=== PATIENT | female | born 1960 | race Caucasian/White ===

== ENCOUNTER 2016-11-06 14:57 | Observation (INO) | payer SELFPAY ==
[~2016-11-06] VITALS: Ht 175.3 cm; Wt 102.1 kg
[~2016-11-06 14:57] MED LIST: ACHD5005 PO; AMOX500C2 PO; ASP325T PO; ATEN25TA PO; BENZ-13 PO; CITA20TA12 PO; CLOP75TA PO; CTLP20T PO; HCTZ12.5T PO; HYDR-757 PO; LISI-596 PO; LISI20TA PO; LORA0.5T PO; NITR-65 PO; PHEN200T27 PO; [UNRECOGNIZED DRUG - REMARK]; blood pressure
[2016-11-06 15:21] VITALS: BP 163/102
--- NOTE | 2016-11-06 15:33 | Diagnostic Imaging Report ---
EXAM: CT HEAD WO-R/O STROKE INDICATION: Right-sided numbness. COMPARISON: CT head without contrast 09/20/2011. FINDINGS: Moderate generalized cerebral and cerebellar parenchymal volume loss. Advanced low attenuation changes in the deep white matter, including probable chronic infarcts, similar to the prior exam. No CT evidence of a large territorial infarct. No intracranial hemorrhage, mass effect, hydrocephalus or extra-axial fluid collections. Intracranial vascular calcifications. No acute osseous findings. The visualized paranasal sinuses and mastoids are clear. Osseous structures are intact. IMPRESSION: 1. No acute intracranial CT findings. 2. Low-attenuation changes in the deep white matter of both cerebral hemispheres, including several chronic-appearing infarcts, are greater than expected for age. Findings discussed with Dr. Pratik Montalvo at 3:30 PM on 11/06/[address] Ace. Dictated by: Dictated on workstation # [id number]
[2016-11-06 15:58] LABS: BASOPHILS # (AUTO) 0.1 10^3/uL (0.0-0.1); BASOPHILS % (AUTO) 1 % (0-10); EOSINOPHILS # (AUTO) 0.1 10^3/uL (0.0-0.3); EOSINOPHILS % (AUTO) 1 % (0-10); LYMPHOCYTES # (AUTO) 2.2 X 10^3 (1.0-4.0); LYMPHOCYTES % (AUTO) 25 % (12-44); MEAN CORPUSCULAR HEMOGLOBIN 29 PG (25-34); MEAN CORPUSCULAR HGB CONC 33 G/DL (32-36); MEAN CORPUSCULAR VOLUME 88 FL (80-99); MEAN PLATELET VOLUME 10.8 FL (7.4-10.4); MONOCYTES # (AUTO) 0.5 X 10^3 (0.0-1.0); MONOCYTES % (AUTO) 6 % (0-12); NEUTROPHILS % (AUTO) 67 % (42-75); PLATELET COUNT 299 10^3/uL (130-400); RED BLOOD COUNT 5.34 10^6/uL (4.35-5.85); RED CELL DISTRIBUTION WIDTH 13.9 % (10.0-14.5); WHITE BLOOD COUNT 8.9 10^3/uL (4.3-11.0)
[2016-11-06 16:05] LABS: PROTHROMBIN TIME PATIENT 13.1 SEC (12.2-14.7)
--- NOTE | 2016-11-06 16:06 | Diagnostic Imaging Report ---
INDICATION: Stroke protocol. EXAMINATION: Portable erect AP chest at 3:21 p.m. FINDINGS: The heart size is within normal limits and stable when compared to 11/07/15. The chronic pulmonary changes seen on the prior study are again visualized and no different. There is no sign of failure, pneumonia or a pleural effusion to suggest an acute abnormality. The mediastinum is not widened. The osseous structures are intact. IMPRESSION: There is no evidence for an acute cardiopulmonary abnormality. Dictated by: Dictated on workstation # [id number]
[2016-11-06 16:12] LABS: ALANINE AMINOTRANSFERASE 11 U/L (0-55); ALBUMIN 4.2 G/DL (3.2-4.5); ANION GAP 10 MMOL/L (5-14); ASPARTATE AMINO TRANSFERASE 14 U/L (5-34); BILIRUBIN,TOTAL 0.5 MG/DL (0.1-1.0); BLOOD UREA NITROGEN 6 MG/DL (7-18); BUN/CREATININE RATIO 7; CALCIUM 9.9 MG/DL (8.5-10.1); CARBON DIOXIDE 25 MMOL/L (21-32); CHLORIDE 108 MMOL/L (98-107); CREATININE SERUM 0.92 MG/DL (0.60-1.30); GFR ESTIMATED > 60; GLUCOSE 102 MG/DL (70-105); POTASSIUM 3.9 MMOL/L (3.6-5.0); SODIUM 143 MMOL/L (135-145); TOTAL PROTEIN 7.8 G/DL (6.4-8.2)
--- NOTE | 2016-11-06 16:15 | ED Neurological Problem ---
General Chief Complaint: Neuro-Stroke Like Symptoms Stated Complaint: R SIDE NUMBNESS Nursing Triage Note: Pt. advises she began experiencing right sided upper and lower extremity weakness at approximately 1000 this morning. Pt. states symptoms have not improved since. Nursing Sepsis Screen: No Definite Risk Source: patient, family Exam Limitations: no limitations History of Present Illness Time seen by provider: 15:42 Initial Comments The patient is a 56-year-old white female who was brought to the emergency room with complaints of weakness on her right side. She suffered a stroke in 2011 and did a fair period of time on the rehabilitation unit. She has been living with her sister since that time. She reports that beginning at about 10 o' clock this morning she felt weak in both legs and was unable to stand. Apparently this is now more focused on the right side. With her previous stroke and again today there has been no apparent inability to speak. She has been hypertensive for years and today as before she states she has not been taking her antihypertensives. Timing/Duration: 4-6 hours Associated Symptoms: trouble walking Allergies and Home Medications Allergies Coded Allergies: No Known Drug Allergies (Unverified , 06/21/14) Home Medications Benzonatate 100 Mg Capsule, 100 MG PO BID, #20 Prescribed by: LY DUBOIS on 11/07/15 1542 Citalopram Hydrobromide 20 Mg Tablet, 20 MG PO DAILY, (Reported) [blood pressure] , (Reported) [insomnia] , (Reported) Constitutional: see HPI, weakness Eyes: No Symptoms Reported Ears, Nose, Mouth, Throat: no symptoms reported Respiratory: no symptoms reported Cardiovascular: no symptoms reported Gastrointestinal: no symptoms reported Genitourinary: no symptoms reported Musculoskeletal: muscle weakness Skin: no symptoms reported Psychiatric/Neurological: Depressed Endocrine: No Symptoms Reported Hematologic/Lymphatic: No Symptoms Reported Past Ouarvdh-Pemrke-Lceuwh Hx Patient Social History Alcohol Use: Denies Use Recreational Drug Use: No Smoking Status: Former Smoker Type Used: Cigarettes 2nd Hand Smoke Exposure: No Recent Foreign Travel: No Contact w/Someone Who Travel: No Recent Infectious Disease Expo: No Recent Hopitalizations: No Immunizations Up To Date Tetanus Booster (TDap): Less than 5yrs Date of Influenza Vaccine: Mar 11, 2014 Seasonal Allergies Seasonal Allergies: Yes Surgeries HX Surgeries: Yes Surgeries: Orthopedic Respiratory Hx Respiratory Disorders: No Cardiovascular Hx Cardiac Disorders: No Cardiac Disorders: Hypertension Neurological Hx Neurological Disorders: Yes Neurological Disorders: Stroke Reproductive System : No Hx Reproductive Disorders: No NOTE SPECIALIST History: Hysterectomy Genitourinary Hx Genitourinary Disorders: No (occasional incontinence) Gastrointestinal Hx Gastrointestinal Disorders: No (occasional incontinence) Musculoskeletal Hx Musculoskeletal Disorders: Yes (CVA, occasional leg cramps) Endocrine Hx Endocrine Disorders: No HEENT HX ENT Disorders: No Cancer Hx Cancer: No Psychosocial Hx Psychiatric Problems: Yes Behavioral Health Disorders: Depression Integumentary HX Skin/Integumentary Disorder: No Blood Transfusions Hx Blood Disorders: No Physical Exam Vital Signs Vital Sign - Last 12Hours 11/06/16 15:21 Temp 98.4 Pulse 85 Resp 14 B/P (MAP) 163/102 Pulse Ox 98 O2 Delivery Room Air Capillary Refill : Less Than 3 Seconds General Appearance: mild distress HEENT: PERRL/EOMI, normal ENT inspection Neck: full range of motion Respiratory: chest non-tender, lungs clear, normal breath sounds, no respiratory distress, no accessory muscle use, respiratory distress Cardiovascular: normal peripheral pulses, regular rate, rhythm, no edema, no gallop, no JVD, no murmur Gastrointestinal: normal bowel sounds, non tender, soft, no organomegaly, no pulsatile mass Back: normal inspection, no CVA tenderness, no vertebral tenderness Extremities: normal range of motion, non-tender, normal inspection, no pedal edema, no calf tenderness, normal capillary refill, pelvis stable Neurologic/Psychiatric: 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 Alternating finger to thumb movements are minimally exhibited on the right. Straight leg lift appears equal bilaterally Stroke NIH Stroke Scale Assessment Level of Consciousness: 0=Alert Level of Consciousness-Questio: 0=Answers both month/age LOC Commands: 1=Performs one task Gaze: 0=Normal Visual Sampson: 0=No visual loss Facial Movement (Facial Paresi: 0=Normal symmetrical mnt Motor Function-Arms Right: 0=No drift Motor Function-Arms Left: 0=No drift Motor Function-Legs Right: 1=Drift Motor Function-Legs Left: 0=No drift Limb Ataxia: 1=Present in one limb Sensory: 0=Normal:no loss Best Language: 0=No aphasia Dysarthria: 1=Mild to moderate loss Extinction & Inattention: 0=No abnormality Progress/Results/Core Measures Results/Orders Lab Results Laboratory Tests Test 11/06/16 15:05 Range/Units White Blood Count 8.9 4.3-11.0 10^3/uL Red Blood Count 5.34 4.35-5.85 10^6/uL Hemoglobin 15.4 11.5-16.0 G/DL Hematocrit 47 35-52 % Mean Corpuscular Volume 88 80-99 FL Mean Corpuscular Hemoglobin 29 25-34 PG Mean Corpuscular Hemoglobin Concent 33 32-36 G/DL Red Cell Distribution Width 13.9 10.0-14.5 % Platelet Count 299 130-400 10^3/uL Mean Platelet Volume 10.8 H 7.4-10.4 FL Neutrophils (%) (Auto) 67 42-75 % Lymphocytes (%) (Auto) 25 12-44 % Monocytes (%) (Auto) 6 0-12 % Eosinophils (%) (Auto) 1 0-10 % Basophils (%) (Auto) 1 0-10 % Neutrophils # (Auto) 6.0 1.8-7.8 X 10^3 Lymphocytes # (Auto) 2.2 1.0-4.0 X 10^3 Monocytes # (Auto) 0.5 0.0-1.0 X 10^3 Eosinophils # (Auto) 0.1 0.0-0.3 10^3/uL Basophils # (Auto) 0.1 0.0-0.1 10^3/uL My Orders Orders - LY DUBOIS MD Ct Head Wo-R/O Stroke (11/06/16 15:07) Chest 1 View, Ap/Pa Only (11/06/16 15:48) Cbc With Automated Diff (11/06/16 15:50) Comprehensive Metabolic Panel (11/06/16 15:50) Protime With Inr (11/06/16 15:50) Partial Thromboplastin Time (11/06/16 15:50) Ua Culture If Indicated (11/06/16 15:50) Vital Signs/I&O Vital Sign - Last 12Hours 11/06/16 11/06/16 15:21 15:21 Temp 98.4 Pulse 85 86 Resp 14 14 B/P (MAP) 163/102 163/102 Pulse Ox 98 98 O2 Delivery Room Air Blood Pressure Mean: 122 Departure Communication Progress Notes Phoned report on CT scan shows rather remarkable old abnormalities in the nonmotor areas. No acute changes were noted. [address] Claros who is on-call for Dr. Krishnamurthy the patient will be admitted for observation. Impression Impression: Primary Impression: CVA Additional Impression: hypertension Disposition: ADMITTED INPATIENT Condition: Stable/Unchanged Decision to Admit Reason: Admit from ER (General) Decision to Admit/Date: Nov 06, 2016 Time/Decision to Admit Time: 16:18 Departure-Patient Inst. Referrals: MOSHE KRISHNAMURTHY DO (PCP) Primary Care Physician [facility] (Family) Primary Care Physician LY DUBOIS MD Nov 06, 2016 16:15
[2016-11-06 16:17] LABS: BILIRUBIN,URINE NEGATIVE (NEGATIVE); KETONES,URINE NEGATIVE (NEGATIVE); LEUKOCYTE ESTERASE ,URINE 3+ (NEGATIVE); NITRITE,URINE NEGATIVE (NEGATIVE); PH,URINE 5 (5-9); PROTEIN,URINE 1+ (NEGATIVE); UROBILINOGEN,URINE NORMAL (NORMAL)
[2016-11-06 20:00] VITALS: BP 138/82
[2016-11-06] MEDS: CLOPIDOGREL 75 MG (PLAVIX) TABLET PO SCH (21:40)
[2016-11-06] MEDS: ASPIRIN 81 MG CHEW (CHILDREN'S ASA) PO SCH (21:40)
[2016-11-06] MEDS: NS IV 1000 ML 1,000 ML IV SCH (21:40)
[2016-11-07] VITALS: BP 148/82
[2016-11-07 04:00] VITALS: BP 146/85
[2016-11-07 05:14] LABS: ALANINE AMINOTRANSFERASE 9 U/L (0-55); ALBUMIN 3.5 G/DL (3.2-4.5); ANION GAP 8 MMOL/L (5-14); ASPARTATE AMINO TRANSFERASE 14 U/L (5-34); BILIRUBIN,TOTAL 0.6 MG/DL (0.1-1.0); BLOOD UREA NITROGEN 11 MG/DL (7-18); BUN/CREATININE RATIO 13; CALCIUM 9.4 MG/DL (8.5-10.1); CARBON DIOXIDE 27 MMOL/L (21-32); CHLORIDE 107 MMOL/L (98-107); CHOLESTEROL 161 MG/DL (< 200); CREATININE SERUM 0.84 MG/DL (0.60-1.30); DIRECT LDL 92 MG/DL (1-129); GFR ESTIMATED > 60; GLUCOSE 98 MG/DL (70-105); POTASSIUM 3.9 MMOL/L (3.6-5.0); SODIUM 142 MMOL/L (135-145); TOTAL PROTEIN 6.6 G/DL (6.4-8.2); TRIGLYCERIDES 130 MG/DL (<150); VLDL CHOLESTEROL 26 MG/DL (5-40)
[2016-11-07 08:00] VITALS: BP 124/79
[2016-11-07] MEDS: CLOPIDOGREL 75 MG (PLAVIX) TABLET PO SCH (08:10)
[2016-11-07] MEDS: ASPIRIN 81 MG CHEW (CHILDREN'S ASA) PO SCH (08:10)
--- NOTE | 2016-11-07 10:40 | History & Physicial ---
History of Present Illness History of Present Illness Reason for visit/HPI PT IS A 56 Y/O FEMALE WHO IS A CLINIC PATIENT OF DR. KRISHNAMURTHY FOR WHOM I AM [employer]LLY P[employer]ER. SHE REPORTEDLY HAS NOT BEEN TAKING HER ANTIHYPERTENSIVES FOR A FEW MONTHS. SHE STATES THAT SHE WAS UNABLE TO AFFORD THE MEDICATION AND JUST STOPPED TAKING THE MEDICATION. SHE STATES THAT SHE STARTED TO HAVE WORSENING WEAKNESS IN HER UPPER ARMS BILATERALLY. SHE PRESENTED TO THE EMERGENCY DEPARTMENT WITH THE WORSENING WEAKNESS A FEW DAYS AFTER THE WEAKNESS BEGAN. BY THE TIME SHE WAS IN THE EMERGENCY DEPARTMENT AND AFTER IV ANTIHYPERTENSIVE TREATMENT HER UPPER EXTREMITY WEAKNESS RESOLVED ON THE LEFT AND IMPROVED ON THE RIGHT. THIS MORNING, THE PATIENT COMPLAINS OF WEAKNESS OF THE RIGHT UPPER EXTREMITY. NURSING STAFF REPORTS THAT THE PATIENT WAS QUITE GROSSLY UNKEMPT, BUGS IN HER CLOTHES. Date of Admission Nov 06, 2016 at 16:26 I consulted on this patient on 11/07/16 08:30 Attending Physician Ismael Krishnamurthy DO Admitting Physician Ismael Krishnamurthy DO Consult Allergies and Home Medications Allergies Coded Allergies: No Known Drug Allergies (Unverified , 06/21/14) Home Medications Benzonatate 100 Mg Capsule, 100 MG PO BID, #20 Prescribed by: LY DUBOIS on 11/07/15 1542 Citalopram Hydrobromide 20 Mg Tablet, 20 MG PO DAILY, (Reported) [blood pressure] , (Reported) [insomnia] , (Reported) Past Sxcsbwx-Mfpzur-Owxdbr Hx Patient Social History Living Status: LIVES IN HER OWN HOME Alcohol Use: Denies Use Recreational Drug Use: No Smoking Status: Former Smoker Type Used: Cigarettes 2nd Hand Smoke Exposure: No Physical Abuse Screen: No Sexual Abuse: No Recent Foreign Travel: No Contact w/other who traveled: No Recent Hopitalizations: No Recent Infectious Disease Expo: No Immunizations Up To Date Tetanus Booster (TDap): Less than 5yrs Date of Pneumonia Vaccine: Nov 18, 2015 Date of Influenza Vaccine: Mar 11, 2014 Seasonal Allergies Seasonal Allergies: Yes Surgeries HX Surgeries: Yes Surgeries: Orthopedic Respiratory Hx Respiratory Disorders: No Cardiovascular Hx Cardiovascular Disorders: Yes Cardiac Disorders: Hypertension Neurological Hx Neurological Disorders: Yes Neurological Disorders: Stroke Reproductive System : No Hx Reproductive Disorders: No Sexually Transmitted Disease: No HIV/AIDS: No Female Reproductive Disorders: Denies Genitourinary Hx Genitourinary Disorders: No (occasional incontinence) Gastrointestinal Hx Gastrointestinal Disorders: No (occasional incontinence) Musculoskeletal Hx Musculoskeletal Disorders: Yes (CVA, occasional leg cramps) Endocrine Hx Endocrine Disorders: No HEENT HX ENT Disorders: No Cancer Hx Cancer: No Psychosocial Hx Psychiatric Problems: Yes Behavioral Health Disorders: Depression Integumentary HX Skin/Integumentary Disorder: No Blood Transfusions Hx Blood Disorders: No Adverse Reaction to a Blood Tr: No Reviewed Nursing Assessment Reviewed/Agree w Nursing PMH: Yes Family Medical History Significant Family History: Heart Disease, Hypertension Constitutional: No chills, No dizziness, No fever, No malaise EENTM: No hearing loss, No vision loss Respiratory: No cough, No dyspnea on exertion, No short of breath Cardiovascular: No chest pain, No palpitations Gastrointestinal: No abdominal pain, No constipation Genitourinary: no symptoms reported Musculoskeletal: muscle weakness (RIGHT UPPER EXTREMITY) Skin: no symptoms reported Psychiatric/Neurological: Anxiety, Depressed All Other Systems Reviewed Negative Unless Noted: Yes Physical Exam Vital Signs Vital Sign - Last 12Hours 11/06/16 15:21 Temp 98.4 Pulse 85 Resp 14 B/P (MAP) 163/102 Pulse Ox 98 O2 Delivery Room Air Capillary Refill : Less Than 3 Seconds General Appearance: No Apparent Distress, WD/WN Eyes: Bilateral Eye EOMI, Bilateral Eye Normal Inspection, Bilateral Eye PERRL HEENT: PERRL/EOMI, Pharynx Normal Neck: Full Range of Motion, Supple Respiratory: Chest Non Tender, Lungs Clear Cardiovascular: Regular Rate, Rhythm Gastrointestinal: Normal Bowel Sounds, No Organomegaly, Soft Rectal: Deferred Extremity: No Pedal Edema Neurologic/Psychiatric: Alert, Oriented x3, Normal Mood/Affect, Motor Weakness (RIGHT UPPER EXTREMITY FLACID) Reflexes: 1+ Bicep (R), 3+ Bicep (L) Skin: Warm/Dry Lymphatic: No Adenopathy Assessment/Plan Assessment and Plan HYPERTENSIVE ENCEPHALOPATHY HX OF CVA WITH RIGHT UPPER EXTREMITY PARALYSIS DEPRESSION MEDICATION NONCOMPLIANCE URINARY TRACT INFECTION HYPERTENSIVE ENCEPHALOPATHY - PT HAS BEEN NONCOMPLIANT WITH HER MEDICATION - I RESTARTED THE MEDICATION - I STARTED HER ON METOPROLOL, LIPITOR, CAROTID ULTRASOUND WAS ORDERED, MRI WAS ORDERED, MONITOR BLOOD PRESSURE CLOSELY. I HAVE RECOMMENDED PATIENT TO HAVE A PHYSICAL THERAPY EVALUATION AND TREATMENT AND WILL ALSO PLACE AN IRF EVAL. HX OF CVA WITH RIGHT UPPER EXTREMITY PARALYSIS - - START ON PLAVIX, ASPIRIN, LIPITOR. DEPRESSION - START ON CELEXA. URINARY TRACT INFECTION - STARTED ON ROCEPHIN. Problems: Admission Diagnosis HYPERTENSIVE ENCEPHALOPATHY HX OF CVA WITH RIGHT UPPER EXTREMITY PARALYSIS DEPRESSION MEDICATION NONCOMPLIANCE URINARY TRACT INFECTION Clinical Quality Measures DVT/VTE Risk/Contraindication: Risk Factor Score Per Nursin RFS Level Per Nursing on Admit: 4+=Very High Stroke: Date of last known well: Nov 06, 2016 PHILIP SALINAS MD Nov 07, 2016 10:40
[2016-11-07] MEDS: ENOXAPARIN 40 MG/0.4 ML (LOVENOX) SYR SC SCH (11:09)
[2016-11-07] MEDS: cefTRIAXone INJECTION 1,000 MG in NS (IVPB) 50 ML IV SCH (11:09)
[2016-11-07 12:00] VITALS: BP 149/96
[2016-11-07 15:57] VITALS: BP 136/86
[2016-11-07] MEDS: NS IV 1000 ML 1,000 ML IV SCH ×2 (17:38→18:04)
[2016-11-07 19:52] VITALS: BP 166/80
[2016-11-07] MEDS: ATORVASTATIN 20 MG (LIPITOR) TABLET PO SCH (21:29)
[2016-11-08] VITALS: BP_SYST 122; BP_SYST 146; BP_DIAS 85
--- NOTE | 2016-11-08 07:42 | Progress Note (SOAP) ---
Subjective Date Seen by Provider: Nov 08, 2016 Time Seen by Provider: 07:30 Subjective/Events-last exam CVA on right. Expressive aphasia. Hypertension. noncompliance with medication. Patient speaking better according . Patient unable to move the right arm. Patient unable to stand and right leg. To get social service agency director involved. To get rehabilitation involved. Have an MRI and carotid duplex scan today Objective Exam Vital Signs Date Time Temp Pulse Resp B/P (MAP) Pulse Ox O2 Delivery O2 Flow Rate FiO2 11/08/16 00:00 97.5 76 20 146/85 96 11/08/16 00:00 97.5 112 18 122/85 94 11/07/16 19:52 97.8 70 18 166/80 95 11/07/16 15:57 98.6 77 18 136/86 94 11/07/16 12:00 98.7 68 20 149/96 96 11/07/16 08:00 94 11/07/16 08:00 98.9 75 16 124/79 94 I & O 11/08/16 07:00 Intake Total 2770 ml Output Total 3800 ml Balance -1030 ml Capillary Refill : Less Than 3 Seconds General Appearance: No Apparent Distress HEENT: Normal ENT Inspection Neck: Full Range of Motion, Normal Inspection Respiratory: Chest Non Tender, Lungs Clear, Normal Breath Sounds, No Accessory Muscle Use, No Respiratory Distress Cardiovascular: Regular Rate, Rhythm, No Murmur Gastrointestinal: non tender, soft Results Lab Microbiology 11/06/16 Urine Culture - Preliminary, Resulted Assessment/Plan Assessment/Plan Assess & Plan/Chief Complaint CVA in right. Expressive aphasia. Hypertension. Noncompliance with medication Clinical Quality Measures DVT/VTE Risk/Contraindication: Risk Factor Score Per Nursin RFS Level Per Nursing on Admit: 4+=Very High Stroke: Date of last known well: Nov 06, 2016 MOSHE KRISHNAMURTHY DO Nov 08, 2016 07:42
[2016-11-08 08:00] VITALS: BP 154/89
[2016-11-08] MEDS ORDERED: GADOBUTROL 10 MMOL/10 ML (GADAVIST) VIAL IV ONE (08:15)
--- NOTE | 2016-11-08 09:47 | Physical Therapy Evaluation ---
PT Evaluation-General Medical Diagnosis Admission Date Nov 06, 2016 at 16:26 Medical Diagnosis: UTI/CVA/hypertensive encephalopathy Onset Date: Nov 06, 2016 Therapy Diagnosis Therapy Diagnosis: generalized weakness/debility Height/Weight Height (Feet): 5 Height (Inches): 9.00 Weight (Pounds): 225 Weight (Ounces): 0.0 Precautions Precautions/Isolations: Fall Prevention, Standard Precautions Referral Physician: Hyacinth Reason for Referral: Evaluation/Treatment Medical History Pertinent Medical History: CVA (2011), HTN Additional Medical History stopped taking antihypertensive drugs for several months Current History ED with right sided weakness/numbness Reviewed History: Yes Social History Home: Single Level Current Living Status: Alone Prior/Core FIM Prior Level of Function Functional [place] Measure 0=Not Assessed/NA 4=Minimal Assistance 1=Total Assistance 5=Supervision or Setup 2=Maximal Assistance 6=Modified [place] 3=Moderate Assistance 7=Complete [place] Bed Mobility: 7 Transfers (B,C,W/C) (FIM): 7 Gait: 7 PT Evaluation-Current Subjective Patient is very agreeable to participate with PT. Pain Numeric Pain Scale: 0-No Pain Location: No Pain Reported Pt/Family Goals improve current LOF Objective Patient Orientation: Normal For Age Problem Solving: Fair ROM/Strength ROM Lower Extremities bilateral LE WFL Strenght Lower Extremities right knee flexion 2-/5/extension 3-/5; hip flexion 2-/5; ankle dorsi/ plantarflexion 3-/5 left knee flexion/extension 4/5; hip flexion 4/5; ankle dorsi/plantarflexion 4/5 Integumentary/Posture Integumentary refer to nursing notes Bowel Incontinence: No Bladder Incontinence: No Posture WNL Neuromuscular (Tone, Coordination, Reflexes) flaccid right UE; decreased coordination right LE Sensory Vision: Wears Glasses Hearing: Functional Sensation Right Lower Extremit: Impaired Sensation Left Lower Extremity: Intact Transfers Functional [place] Measure 0=Not Assessed/NA 4=Minimal Assistance 1=Total Assistance 5=Supervision or Setup 2=Maximal Assistance 6=Modified [place] 3=Moderate Assistance 7=Complete [place] Transfers (B, C, W/C) (FIM): 4 Scootin Rollin Supine to/from Sit: 4 Sit to/from Stand: 4 bed t/f WC(FIM only if WC use): 4 noted right LE lag with mobility due to weakness Gait Mode of Locomotion: Walk Anticipated Mode of Locomotion: Walk Gait (FIM): 1 Distance (FIM): 1=up to 49 ft Distance: 45' x 2 Gait Level of Assist: 3 Gait Persons Needed: 1 Gait Assistive Device: Walker Je Comments/Gait Description step to gait sequence with right LE lag; skilled verbal instruction to advance right LE safely Balance Sitting Static: Normal Sitting Dynamic: Fair Standing Static: Fair Standing Dynamic: Poor Assessment/Needs 56 y.o. female, will benefit from skilled PT to address functional strength and mobility to improve current LOF and to safely return to maximum LOF. Patient is limited with right sided weakness and is unsafe to return to home at this time. From a PT standpoint, patient would benefit from ARU to ensure safe return to maximum LOF and to home. Rehab Potential: Fair Post Rehab Potential-Barriers: medication compliance PT Mcfp Goals Pmo Analyst Goals PT Mcfp Goals Time Frame: Nov 22, 2016 Transfers (B,C,W/C) (FIM): 6 Gait (FIM): 6 Gait distance (FIM): 3=150 ft Gait Level of Assist: 6 Gait Assistive Device: Walker Je Stairs (FIM): 5 # of Steps: 12 Stairs Level Of Assist: 5 PT Plan Problem List Problem List: Activity Tolerance, Functional Strength, Safety, Transfer Treatment/Plan Treatment Plan: Continue Plan of Care Treatment Plan: Bed Mobility, Education, Functional Activity Nash, Functional Strength, Gait, Safety, Therapeutic Exercise, Transfers Treatment Duration: Nov 22, 2016 # of days/week 6 Visits Per Week: 11 Pt/Family Agrees w/Plan: Yes Safety Risks/Education Patient Education: Gait Training, Transfer Techniques Teaching Recipient: Patient Teaching Methods: Demonstration, Discussion Response to Teaching: Verbalize Understanding, Return Demonstration Discharge Recommendations Therapy D/C Recommendations: Acute Rehab Time/GCodes Time In: 900 Time Out: 922 Total Billed Treatment Time: 22 [facility] Nov 08, 2016 09:47
--- NOTE | 2016-11-08 10:15 | Diagnostic Imaging Report ---
EXAMINATION: Multiplanar and multisequence MRI of the brain and IAC performed with and without intravenous contrast. INDICATION: Right-sided numbness 10 mL of Gadavist was administered intravenously. FINDINGS: There is diffusion restriction suggestive of an acute infarct in the left periventricular white matter in the left parietal region. The area involved is about 1.6 x 1.2 cm in size. This is superimposed on extensive background chronic microvascular ischemic changes with background extensive T2 signal abnormality. The chronic versus acute components are inseparable on the T2-weighted images and on FLAIR. The diffusion signal however confirms that this is an acute infarct. There is no abnormal enhancement to suggest a mass. No enhancing lesion in the brain is seen. There is no hydrocephalus. No extra-axial fluid collections seen. Thin sections through the internal auditory canal is performed. This however suffers from significant motion artifact. There is symmetric appearance of the internal auditory canals and inner ear structures and cerebellopontine angle region with no definite abnormality. The central vascular flow-voids appear symmetric. There are multiple skin and subcutaneous based lesions with no postcontrast enhancement seen and circumscribed margins noted in the scalp more prominent posteriorly. The lesions measure up to 1.6 CM. They are confined to the subcutaneous tissues with no aggressive appearance of invasion into the skull. These are present on the skin-based abnormalities such as sebaceous cysts. The paranasal sinuses demonstrate mild thickening in the maxillary sinuses and ethmoidal air cells. There is also prominent thickening of the mucosa along the inferior turbinates on the left side. Impression: 1. Focal acute infarct in the left the periventricular white matter in the left parietal region involving an area measuring 1.6 cm. 2. Background extensive chronic microvascular ischemic changes. Dr. Iraheta was called to discuss findings at time of dictation. Dictated by: Dictated on workstation # [id number]
[2016-11-08] MEDS: ENOXAPARIN 40 MG/0.4 ML (LOVENOX) SYR SC SCH (10:19)
[2016-11-08] MEDS: CLOPIDOGREL 75 MG (PLAVIX) TABLET PO SCH (10:20)
[2016-11-08] MEDS: ASPIRIN 81 MG CHEW (CHILDREN'S ASA) PO SCH (10:20)
[2016-11-08] MEDS: cefTRIAXone INJECTION 1,000 MG in NS (IVPB) 50 ML IV SCH (10:20)
[2016-11-08] MEDS ORDERED: AMLO5TAB2 PO (12:30)
[2016-11-08] MEDS ORDERED: CITA40TA11 PO (12:30)
[2016-11-08] MEDS ORDERED: LISI10TA2 PO (12:30)
[2016-11-08] MEDS ORDERED: METO-272 PO (12:30)
--- NOTE | 2016-11-08 13:34 | Diagnostic Imaging Report ---
INDICATION: Stroke with right upper extremity weakness. TECHNIQUE: The carotid Doppler study was performed in the routine fashion with color flow Doppler and waveform analysis. FINDINGS: There is no significant stenosis visualized on either side. There is minor plaquing in the carotid bifurcation on both sides. The ICA/CCA systolic velocity ratio is 0.94 on the right side and 0.86 on the left side. Both vertebrals show antegrade flow. IMPRESSION: Minimal plaquing in the carotid bifurcations with no significant stenosis hemodynamically. Dictated by: Dictated on workstation # [id number]
--- NOTE | 2016-11-08 13:36 | Physical Therapy Daily Note ---
PT Daily Note-Current Subjective Patient is supine in bed eating breadsticks. Pain Numeric Pain Scale: 0-No Pain Location: No Pain Reported Mental Status Patient Orientation: Normal For Age Attachments: IV Transfers Functional [place] Measure 0=Not Assessed/NA 4=Minimal Assistance 1=Total Assistance 5=Supervision or Setup 2=Maximal Assistance 6=Modified [place] 3=Moderate Assistance 7=Complete IndependenceIRFPAI Quality Coding Scale 6 Independent with activity with or without an assistive device 5 Patient requires set up or clean up by helper. Patient completes activity by themselves 4 Supervision or touching assist (CGA). [place] provide cues , steadying assist 3 The helper provides less than half the effort to complete the activity 2 The helper provides more than half the effort to complete the activity 1 Dependent. The helper does all the effort to complete an activity 7 Patient refused to complete or attempt activity 9 The patient did not perform the activity before the current illness or injury 88 Not attempted due to Medical conditions or safety concerns Transfers (B, C, W/C) (FIM): 4 Scootin Rollin Supine to/from Sit: 5 Sit to/from Stand: 4 Bed to/from Chair: 4 Exercises Supine Ex: Ankle pumps, Quad Set, Heel Slides Supine Reps: 10 Seated Therapy Exercises: Ankle pumps, Long arc quads Seated Reps: 10 Assessment Patient is up in recliner with needs met. Patient is impulsive and requires redirection to remain on task and for safety awareness. PT Products Mechanical Design Engineer Goals Products Mechanical Design Engineer Goals PT Half-Way Goals Time Frame: Nov 22, 2016 Transfers (B,C,W/C) (FIM): 6 Gait (FIM): 6 Gait distance (FIM): 3=150 ft Gait Level of Assist: 6 Gait Assistive Device: Walker Je Stairs (FIM): 5 # of Steps: 12 Stairs Level Of Assist: 5 PT Plan Treatment/Plan Treatment Plan: Continue Plan of Care Treatment Plan: Bed Mobility, Education, Functional Activity Nash, Functional Strength, Gait, Safety, Therapeutic Exercise, Transfers Treatment Duration: Nov 22, 2016 Visits Per Week: 11 Time/GCodes Time In: 1316 Time Out: 1331 Total Billed Treatment Time: 15 Total Billed Treatment 1 visit FA 15 min CL CANALES PT Nov 08, 2016 13:36
--- NOTE | 2016-11-08 14:25 | Occupational Therapy Eval ---
OT Evaluation-General/PLF Medical Diagnosis Admission Date Nov 06, 2016 at 16:26 Medical Diagnosis: UTI/CVA/hypertensive encephalopathy Onset Date: Nov 06, 2016 Therapy Diagnosis Therapy Diagnosis: Decreased ADL skills Height/Weight Height (Feet): 5 Height (Inches): 9.00 Weight (Pounds): 225 Weight (Ounces): 0.0 Precautions Precautions/Isolations: Fall Prevention, Standard Precautions Safety Interventions: None Referral Physician: Hyacinth Referral Reason: Activity Tolerance, Self Care, Evaluation/Treatment, Strengthening/ROM Medical History Pertinent Medical History: CVA, HTN Additional Medical History medication- noncompliance, depression Current History Pt. is living with her sister in [place]. Sister helps her with cooking, cleaning , and bathing and dressing when she needs it. Pt. is unable to elaborate on this, and is somewhat of a poor historian. Reviewed History: Yes Social History Home: Single Level Current Living Status: Other Family ADL-Prior Level of Function ADL PLOF Comments Please see above DME/Equipment: Tub/Shower DME/Equipment Comments Pt. states that she does not use or have any equipment at home. Drive Self: No OT Current Status Subjective Pt. does not report pain, but does report depression. Does cry throughout session at times. Appearance Pt. is up in chair. Agrees to work with OT. Mental Status/Objective Patient Orientation: Person, Place Current Glasses/Contacts: Yes Hand Dominance: Right Upper Extremity ROM Right UE- flaccid Left UE- WFL Upper Extremity Coordination Right- impaired Upper Extremity Strength Right- 0/5 Left- 3/5 throughout ADL-Treatment Functional [place] Measure 0=Not Assessed/NA 4=Minimal Assistance 1=Total Assistance 5=Supervision or Setup 2=Maximal Assistance 6=Modified [place] 3=Moderate Assistance 7=Complete IndependenceIRFPAI Quality Coding Scale 6 Independent with activity with or without an assistive device 5 Patient requires set up or clean up by helper. Patient completes activity by themselves 4 Supervision or touching assist (CGA). [place] provide cues , steadying assist 3 The helper provides less than half the effort to complete the activity 2 The helper provides more than half the effort to complete the activity 1 Dependent. The helper does all the effort to complete an activity 7 Patient refused to complete or attempt activity 9 The patient did not perform the activity before the current illness or injury 88 Not attempted due to Medical conditions or safety concerns Eating (FIM): 4 (Pt. has difficulty keeping items on fork and scooping food. Is upset about this.) Grooming (FIM): 3 (Pt. is able to brush left side of head, but is unaware of right side of head. OT finishes brushing hair for her.) Bathing (FIM): 4 (CGA in stance to wash all areas.) Lower Body Dressing (FIM): 3 (Pt. is able to doff socks, but is unable to put them on. No street clothing available.) Transfers (B, C, W/C) (FIM): 4 (Min assist with gurvinder cane.) Shower Transfer (FIM): 4 Other Treatments Note that pt. is somewhat unkempt in appearance. Will need toenails and fingernails trimmed at later date. Pt. declines oral care. Education OT Patient Education: Correct positioning, Modified ADL techniques, Progress toward Goal/Update tx plan, Purpose of tx/functional activities, Reviewed precautions, Rehab process, Transfer techniques Teaching Recipient: Patient Teaching Methods: Demonstration, Discussion Response to Teaching: Verbalize Understanding, Return Demonstration OT Short Term Goals Short Term Goals Time Frame: Nov 15, 2016 Eating(FIM): 5 Grooming(FIM): 5 Bathing(FIM): 5 Upper Body Dressing(FIM): 5 Lower Body Dressing(FIM): 4 Toileting(FIM): 4 Transfers (B,C,W/C) (FIM): 5 Toilet/Commode Transfer(FIM): 5 Shower Transfer(FIM): 5 Additional Short Term Goals: 1-Demonstrate ADL Tasks, 2-Verbalize Understanding , 3-ImproveStrength/Nash 1=Demonstrate adherence to instructed precautions during ADL tasks. 2=Patient will verbalize/demonstrate understanding of assistive devices/ modifications for ADL. 3=Patient will improve strength/tolerance for activity to enable patient to perform ADL's. OT Bronze Chaser Goals [facility] Goals Time Frame: Nov 29, 2016 Eating (FIM): 6 Grooming(FIM): 6 Bathing(FIM): 5 Upper Body Dressing(FIM): 6 Lower Body Dressing(FIM): 6 Toileting(FIM): 6 Transfers (B,C,W/C) (FIM): 6 Toilet/Commode Transfer(FIM): 6 Shower Transfer(FIM): 5 Additional Goals: 1-Demonstrate ADL Tasks, 2-Verbalize Understanding, 3- ImproveStrength/Nash 1=Demonstrate adherence to instructed precautions during ADL tasks. 2=Patient will verbalize/demonstrate understanding of assistive devices/ modifications for ADL. 3=Patient will improve strength/tolerance for activity to enable patient to perform ADL's. OT Education/Plan Problem List/Assessment Assessment: Decreased Activ Tolerance, Decreased Safety Aware, Decreased UE Strength, Dependent Transfers, Impaired Bed Mobility, Impaired Cognition, Impaired Coordination, Impaired Funct Balance, Impaired I ADL's, Impaired Self- Care Skills, Restricted Funct UE ROM, Visual-Perceptual Deficit Pt. seems to demonstrate right sided neglect. Discharge Recommendations Plan/Recommendations: Continue POC Therapy D/C Recommendations: Acute Rehab Equpiment Recommendations-D/C: Extended Bath Bench, Hip Kit Comment Pt. will need gurvinder cane and maybe a wheelchair. Target Placement Pt. would benefit from acute rehab setting. Treatment Plan/Plan of Care Treatment,Training & Education: Yes Patient would benefit from OT for education, treatment and training to promote independence in ADL's, mobility, safety and/or upper extremity function for ADL' s. Plan of Care: ADL Retraining, Cognitive Retraining, Functional Mobility, UE Funct Exercise/Act Treatment Duration: Nov 29, 2016 Visits Per Week: 5-6 Agreement: Yes Rehab Potential: Fair Time/GCodes Start Time: 09:20 Stop Time: 09:50 Total Time Billed (hr/min): 30 Billed Treatment Time 1, EVM x 15minutes, ADL x 15minutes selfcur-CL selfgoal-CI JOEL MCDOWELL OT Nov 08, 2016 14:25
--- NOTE | 2016-11-08 14:38 | Occupational Ther Daily Note ---
OT Current Status-Daily Note Subjective Nursing calls to rehab and states that pt. has been crying because of difficulty feeding self. Appearance Pt. up in chair. Eating her meal on her tray with little difficulty. Nursing states that pt. had increased difficulty earlier with her ice cream. Mental Status/Objective Functional [place] Measure 0=Not Assessed/NA 4=Minimal Assistance 1=Total Assistance 5=Supervision or Setup 2=Maximal Assistance 6=Modified [place] 3=Moderate Assistance 7=Complete [place] Other Treatment Pt. is issued dycem mat and plate guard to assist with feeding, and increase overall independence. OT places guard on plate to assist with scooping, and dycem under plate to keep plate in place. Pt. is educated on this, as well as nurse and nurse tech. All verbalize understanding. Pt. demonstrates ability to feed self with plate guard, using only left hand. Education Teaching Recipient: Patient Teaching Methods: Demonstration, Discussion Response to Teaching: Verbalize Understanding, Return Demonstration OT Short Term Goals Short Term Goals Time Frame: Nov 15, 2016 Eating(FIM): 5 Grooming(FIM): 5 Bathing(FIM): 5 Upper Body Dressing(FIM): 5 Lower Body Dressing(FIM): 4 Toileting(FIM): 4 Transfers (B,C,W/C) (FIM): 5 Toilet/Commode Transfer(FIM): 5 Shower Transfer(FIM): 5 Additional Short Term Goals: 1-Demonstrate ADL Tasks, 2-Verbalize Understanding , 3-ImproveStrength/Nash 1=Demonstrate adherence to instructed precautions during ADL tasks. 2=Patient will verbalize/demonstrate understanding of assistive devices/ modifications for ADL. 3=Patient will improve strength/tolerance for activity to enable patient to perform ADL's. OT Dielectric Tester Goals [facility] Goals Time Frame: Nov 29, 2016 Eating (FIM): 6 Grooming(FIM): 6 Bathing(FIM): 5 Upper Body Dressing(FIM): 6 Lower Body Dressing(FIM): 6 Toileting(FIM): 6 Transfers (B,C,W/C) (FIM): 6 Toilet/Commode Transfer(FIM): 6 Shower Transfer(FIM): 5 Additional Goals: 1-Demonstrate ADL Tasks, 2-Verbalize Understanding, 3- ImproveStrength/Nash 1=Demonstrate adherence to instructed precautions during ADL tasks. 2=Patient will verbalize/demonstrate understanding of assistive devices/ modifications for ADL. 3=Patient will improve strength/tolerance for activity to enable patient to perform ADL's. OT Education/Plan Problem List/Assessment Assessment: Decreased Activ Tolerance, Decreased UE Strength, Impaired Cognition, Restricted Funct UE ROM, Visual-Perceptual Deficit Pt. seems to demonstrate right sided neglect. Discharge Recommendations Plan/Recommendations: Continue POC Therapy D/C Recommendations: Acute Rehab Treatment Plan/Plan of Care Treatment,Training & Education: Yes Patient would benefit from OT for education, treatment and training to promote independence in ADL's, mobility, safety and/or upper extremity function for ADL' s. Plan of Care: ADL Retraining, Cognitive Retraining, Functional Mobility, UE Funct Exercise/Act Treatment Duration: Nov 29, 2016 Visits Per Week: 5-6 Agreement: Yes Rehab Potential: Fair Time/GCodes Start Time: 13:25 Stop Time: 13:35 Total Time Billed (hr/min): 10 Billed Treatment Time 1, ADL x 1 JOEL MCDOWELL OT Nov 08, 2016 14:38
[2016-11-08 15:25] VITALS: BP 153/89
[2016-11-08] MEDS ORDERED: morphine INJ 4 MG/ML 1 ML (VIAL/SYRINGE) IVP ONE (19:30)
[2016-11-08] MEDS: ATORVASTATIN 20 MG (LIPITOR) TABLET PO SCH (21:05)
[2016-11-09 00:15] VITALS: BP 138/84
[2016-11-09 05:12] LABS: MEAN PLATELET VOLUME 10.9 FL (7.4-10.4); RED BLOOD COUNT 5.19 10^6/uL (4.35-5.85)
[2016-11-09 05:40] LABS: ANION GAP 9 MMOL/L (5-14); BLOOD UREA NITROGEN 17 MG/DL (7-18); BUN/CREATININE RATIO 20; CALCIUM 9.5 MG/DL (8.5-10.1); CARBON DIOXIDE 28 MMOL/L (21-32); CHLORIDE 105 MMOL/L (98-107); CREATININE SERUM 0.87 MG/DL (0.60-1.30); GFR ESTIMATED > 60; GLUCOSE 102 MG/DL (70-105); POTASSIUM 3.9 MMOL/L (3.6-5.0); SODIUM 142 MMOL/L (135-145)
[2016-11-09] MEDS: ASPIRIN 81 MG CHEW (CHILDREN'S ASA) PO SCH (07:32)
[2016-11-09] MEDS: CLOPIDOGREL 75 MG (PLAVIX) TABLET PO SCH (07:32)
[2016-11-09] MEDS: cefTRIAXone INJECTION 1,000 MG in NS (IVPB) 50 ML IV SCH (07:33)
[2016-11-09 08:00] VITALS: BP 136/85
--- NOTE | 2016-11-09 08:07 | Progress Note (SOAP) ---
Subjective Date Seen by Provider: Nov 09, 2016 Time Seen by Provider: 08:00 Subjective/Events-last exam CVA on right. Hypertension. Noncompliance with medication. Patient be transferred to go acute rehabilitation today. Patient unable to move her right arm. Patient has weakness of right leg. Patient talking better Objective Exam Vital Signs Date Time Temp Pulse Resp B/P (MAP) Pulse Ox O2 Delivery O2 Flow Rate FiO2 11/09/16 00:15 98.3 60 16 138/84 95 11/08/16 15:25 99.2 67 18 153/89 94 I & O 11/09/16 07:00 Intake Total 2540 ml Output Total 1800 ml Balance 740 ml Capillary Refill : Less Than 3 Seconds General Appearance: No Apparent Distress, WD/WN HEENT: Normal ENT Inspection Neck: Full Range of Motion Respiratory: Chest Non Tender, Lungs Clear, Normal Breath Sounds, No Accessory Muscle Use, No Respiratory Distress Cardiovascular: Regular Rate, Rhythm, No Murmur Gastrointestinal: non tender, soft Results Lab Laboratory Tests 11/09/16 04:45: White Blood Count 7.0, Red Blood Count 5.19, Hemoglobin 15.1, Hematocrit 46, Mean Corpuscular Volume 89, Mean Corpuscular Hemoglobin 29, Mean Corpuscular Hemoglobin Concent 33, Red Cell Distribution Width 14.0, Platelet Count 261, Mean Platelet Volume 10.9H, Sodium Level 142, Potassium Level 3.9, Chloride Level 105, Carbon Dioxide Level 28, Anion Gap 9, Blood Urea Nitrogen 17, Creatinine 0.87, Estimat Glomerular Filtration Rate > 60, BUN/Creatinine Ratio 20, Glucose Level 102, Calcium Level 9.5 Microbiology 11/06/16 Urine Culture - Preliminary, Resulted Assessment/Plan Assessment/Plan Assess & Plan/Chief Complaint CVA in right. Expressive aphasia. Hypertension. Noncompliance with medication Clinical Quality Measures DVT/VTE Risk/Contraindication: Risk Factor Score Per Nursin RFS Level Per Nursing on Admit: 4+=Very High Stroke: Date of last known well: Nov 06, 2016 MOSHE KRISHNAMURTHY DO Nov 09, 2016 08:07
[2016-11-09] MEDS ORDERED: CLOP75TA28 PO (08:29)
[2016-11-09] MEDS ORDERED: ATOR20TA66 PO (08:29)
[2016-11-09] MEDS: ENOXAPARIN 40 MG/0.4 ML (LOVENOX) SYR SC SCH (09:13)
[2016-11-09] MEDS ORDERED: CATHETER FLUSH 10 ML SYR IV SCH (14:00)
[2016-11-09] MEDS ORDERED: CEFDINIR 300 MG (OMNICEF) CAP PO SCH (21:00)
--- NOTE | 2016-11-10 07:12 | Discharge Summary ---
Diagnosis/Chief Complaint Date of Admission Nov 06, 2016 at 17:00 Date of Discharge Nov 09, 2016 at 08:39 Discharge Date: Nov 09, 2016 Admission Diagnosis Admission Diagnosis HYPERTENSIVE ENCEPHALOPATHY HX OF CVA WITH RIGHT UPPER EXTREMITY PARALYSIS DEPRESSION MEDICATION NONCOMPLIANCE URINARY TRACT INFECTION Discharge Diagnosis cerebrovascular accident. Hypertension. Noncompliance. Depression. UTI Discharge Summary Consultations rehabilitation Discharge Physical Examination Allergies: Coded Allergies: No Known Drug Allergies (Unverified , 11/09/16) Vitals & I&Os Vital Signs Date Time Temp Pulse Resp B/P (MAP) Pulse Ox O2 Delivery O2 Flow Rate FiO2 11/09/16 08:00 98.3 66 20 136/85 96 11/06/16 15:21 Room Air Hospital Course Labs (last 24 hrs) Laboratory Tests 11/06/16 15:05: White Blood Count 8.9, Red Blood Count 5.34, Hemoglobin 15.4, Hematocrit 47, Mean Corpuscular Volume 88, Mean Corpuscular Hemoglobin 29, Mean Corpuscular Hemoglobin Concent 33, Red Cell Distribution Width 13.9, Platelet Count 299, Mean Platelet Volume 10.8H, Neutrophils (%) (Auto) 67, Lymphocytes (%) (Auto) 25 , Monocytes (%) (Auto) 6, Eosinophils (%) (Auto) 1, Basophils (%) (Auto) 1, Neutrophils # (Auto) 6.0, Lymphocytes # (Auto) 2.2, Monocytes # (Auto) 0.5, Eosinophils # (Auto) 0.1, Basophils # (Auto) 0.1, Prothrombin Time 13.1, INR Comment 1.0, Activated Partial Thromboplast Time 26, Sodium Level 143, Potassium Level 3.9, Chloride Level 108H, Carbon Dioxide Level 25, Anion Gap 10 , Blood Urea Nitrogen 6L, Creatinine 0.92, Estimat Glomerular Filtration Rate > 60, BUN/Creatinine Ratio 7, Glucose Level 102, Calcium Level 9.9, Total Bilirubin 0.5, Aspartate Amino Transf (AST/SGOT) 14, Alanine Aminotransferase ( ALT/SGPT) 11, Alkaline Phosphatase 100, Total Protein 7.8, Albumin 4.2 11/06/16 16:08: Urine Color YELLOW, Urine Clarity SLIGHTLY CLOUDY, Urine pH 5, Urine Specific [place] 1.025H, Urine Protein 1+H, Urine Glucose (UA) NEGATIVE, Urine Ketones NEGATIVE, Urine Nitrite NEGATIVE, Urine Bilirubin NEGATIVE, Urine Urobilinogen NORMAL, Urine Leukocyte Esterase 3+H, Urine RBC (Auto) NEGATIVE, Urine RBC NONE , Urine WBC 2-5, Urine Squamous Epithelial Cells 2-5, Urine Crystals NONE, Urine Bacteria FEWH, Urine Casts NONE, Urine Mucus SMALLH, Urine Culture Indicated YES 11/07/16 04:08: Sodium Level 142, Potassium Level 3.9, Chloride Level 107, Carbon Dioxide Level 27, Anion Gap 8, Blood Urea Nitrogen 11, Creatinine 0.84, Estimat Glomerular Filtration Rate > 60, BUN/Creatinine Ratio 13, Glucose Level 98, Calcium Level 9.4, Total Bilirubin 0.6, Aspartate Amino Transf (AST/SGOT) 14, Alanine Aminotransferase (ALT/SGPT) 9, Alkaline Phosphatase 86, Total Protein 6.6, Albumin 3.5, Triglycerides Level 130, Cholesterol Level 161, LDL Cholesterol Direct 92, VLDL Cholesterol 26, HDL Cholesterol 43 11/09/16 04:45: White Blood Count 7.0, Red Blood Count 5.19, Hemoglobin 15.1, Hematocrit 46, Mean Corpuscular Volume 89, Mean Corpuscular Hemoglobin 29, Mean Corpuscular Hemoglobin Concent 33, Red Cell Distribution Width 14.0, Platelet Count 261, Mean Platelet Volume 10.9H, Sodium Level 142, Potassium Level 3.9, Chloride Level 105, Carbon Dioxide Level 28, Anion Gap 9, Blood Urea Nitrogen 17, Creatinine 0.87, Estimat Glomerular Filtration Rate > 60, BUN/Creatinine Ratio 20, Glucose Level 102, Calcium Level 9.5 Microbiology 11/06/16 Urine Culture - Preliminary, Resulted Gram Negative Luis See Comments Corynebacterium Species Laboratory Tests 11/06/16 15:05 11/07/16 04:08 11/09/16 04:45 Pending Labs Microbiology Date/Time Source Procedure Growth Status 11/06/16 16:08 Urine Clean Catch Urine Culture - Preliminary Gram Negative Luis See Comments Corynebacterium Species Resulted Laboratory Tests 11/06/16 15:05: White Blood Count 8.9, Red Blood Count 5.34, Hemoglobin 15.4, Hematocrit 47, Mean Corpuscular Volume 88, Mean Corpuscular Hemoglobin 29, Mean Corpuscular Hemoglobin Concent 33, Red Cell Distribution Width 13.9, Platelet Count 299, Mean Platelet Volume 10.8, Neutrophils (%) (Auto) 67, Lymphocytes (%) (Auto) 25 , Monocytes (%) (Auto) 6, Eosinophils (%) (Auto) 1, Basophils (%) (Auto) 1, Neutrophils # (Auto) 6.0, Lymphocytes # (Auto) 2.2, Monocytes # (Auto) 0.5, Eosinophils # (Auto) 0.1, Basophils # (Auto) 0.1, Prothrombin Time 13.1, INR Comment 1.0, Activated Partial Thromboplast Time 26, Sodium Level 143, Potassium Level 3.9, Chloride Level 108, Carbon Dioxide Level 25, Anion Gap 10, Blood Urea Nitrogen 6, Creatinine 0.92, Estimat Glomerular Filtration Rate > 60 , BUN/Creatinine Ratio 7, Glucose Level 102, Calcium Level 9.9, Total Bilirubin 0.5, Aspartate Amino Transf (AST/SGOT) 14, Alanine Aminotransferase (ALT/SGPT) 11, Alkaline Phosphatase 100, Total Protein 7.8, Albumin 4.2 11/06/16 16:08: Urine Color YELLOW, Urine Clarity SLIGHTLY CLOUDY, Urine pH 5, Urine Specific [place] 1.025, Urine Protein 1+, Urine Glucose (UA) NEGATIVE, Urine Ketones NEGATIVE, Urine Nitrite NEGATIVE, Urine Bilirubin NEGATIVE, Urine Urobilinogen NORMAL, Urine Leukocyte Esterase 3+, Urine RBC (Auto) NEGATIVE, Urine RBC NONE, Urine WBC 2-5, Urine Squamous Epithelial Cells 2-5, Urine Crystals NONE, Urine Bacteria FEW, Urine Casts NONE, Urine Mucus SMALL, Urine Culture Indicated YES 11/07/16 04:08: Sodium Level 142, Potassium Level 3.9, Chloride Level 107, Carbon Dioxide Level 27, Anion Gap 8, Blood Urea Nitrogen 11, Creatinine 0.84, Estimat Glomerular Filtration Rate > 60, BUN/Creatinine Ratio 13, Glucose Level 98, Calcium Level 9.4, Total Bilirubin 0.6, Aspartate Amino Transf (AST/SGOT) 14, Alanine Aminotransferase (ALT/SGPT) 9, Alkaline Phosphatase 86, Total Protein 6.6, Albumin 3.5, Triglycerides Level 130, Cholesterol Level 161, LDL Cholesterol Direct 92, VLDL Cholesterol 26, HDL Cholesterol 43 11/09/16 04:45: White Blood Count 7.0, Red Blood Count 5.19, Hemoglobin 15.1, Hematocrit 46, Mean Corpuscular Volume 89, Mean Corpuscular Hemoglobin 29, Mean Corpuscular Hemoglobin Concent 33, Red Cell Distribution Width 14.0, Platelet Count 261, Mean Platelet Volume 10.9, Sodium Level 142, Potassium Level 3.9, Chloride Level 105, Carbon Dioxide Level 28, Anion Gap 9, Blood Urea Nitrogen 17, Creatinine 0.87, Estimat Glomerular Filtration Rate > 60, BUN/Creatinine Ratio 20, Glucose Level 102, Calcium Level 9.[address] no acute process. Chest x-ray negative. Carotid minimal plaque. Brain MRI acute infarct left periventricular white matter Discussion & Recommendations patient transferred to rehabilitation due to stroke and inability to right arm and difficulty with right leg Discharge Home Medications: Active Scripts Active Atorvastatin Calcium 20 Mg Tablet 20 Mg PO HS 30 Days Clopidogrel (Clopidogrel Bisulfate) 75 Mg Tablet 75 Mg PO DAILY 30 Days Reported Citalopram HBr (Citalopram Hydrobromide) 40 Mg Tablet 40 Mg PO DAILY LAST FILLED #30 09-21-16 Amlodipine Besylate 5 Mg Tablet 5 Mg PO DAILY LAST FILLED #30 09-21-16 Metoprolol Succinate 50 Mg Tab.er.24h 50 Mg PO HS LAST FILLED #30 09-21-16 Lisinopril 10 Mg Tablet 10 Mg PO DAILY LAST FILLED #30 09-21-16 Instructions to patient/family Please see electonic discharge instructions given to patient. Clinical Quality Measures DVT/VTE Risk/Contraindication: Risk Factor Score Per Nursin RFS Level Per Nursing on Admit: 4+=Very High Stroke: Date of last known well: Nov 06, 2016 MOSHE KRISHNAMURTHY DO Nov 10, 2016 07:12
--- NOTE | 2016-11-10 22:17 | ECHOCARDIOGRAPHY REPORT ---
DATE OF SERVICE: 11/08/2016 TWO-DIMENSIONAL ECHOCARDIOGRAPHY ORDERING PHYSICIAN: Dr. Claros PRIMARY CARE PHYSICIAN: Dr. Iraheta CLINICAL DIAGNOSIS: Cerebrovascular accident. MEASUREMENTS: Aortic root 2.9. LV diameter diastolic 4.7. IVS thickness diastolic 1.3. LVPW thickness diastolic 1.3. Left atrium 3.5. DESCRIPTION OF PROCEDURE: Two dimensional echocardiography shows well-preserved global left ventricular systolic function with ejection fraction approximately 50%. Aortic, mitral, and tricuspid valve leaflets show good leaflet excursion. There appears to mild aortic valve sclerosis. Aortic valve leaflet structure is not very well visualized. Doppler imaging did not indicate any significant valvular stenosis. There appears to be mild tricuspid regurgitation. Mitral inflow is consistent with grade I diastolic dysfunction of the left ventricle. There is no evidence of significant intracardiac shunt on this transthoracic echocardiographic study, although the subcostal views are quite limited. Inferior vena cava does not appear to be dilated. CONCLUSIONS: 1. Mild concentric left ventricular hypertrophy. 2. Well-preserved global left ventricular systolic function with ejection fraction approximately 50%. 3. Mild diastolic dysfunction of left ventricle. 4. Mild aortic valve sclerosis without significant valvular stenosis. 5. Mild tricuspid regurgitation. 6. No evidence of significant valvular stenosis. 7. Pulmonary artery systolic pressure could not be reliably estimated on this study. Job ID: [id number] DocumentID: [id number] Dictated Date: 11/10/2016 13:58:46 Jazz Musician Date: 11/10/2016 16:49:24 Dictated By: JUHI GAMEZ MD, MA, FACP, FACC,
== END 2016-11-09 08:39 ==
LOC: EDUNIT# 14:57 → ER 15:00 → 4TH 16:26 → UNDOADMOB 16:26 → 4TH 17:00 → UNDODISOB 11-09 09:00
PROVIDERS: ADMIT Family Medicine; ATTEND Family Medicine
DX: I63.9 Cerebral infarction, unspecified (principal); G81.91 Hemiplegia, unspecified affecting right dominant side; R47.01 Aphasia; I67.4 Hypertensive encephalopathy; I69.331 Monoplegia of upper limb following cerebral infarction affecting right dominant side; F32.9 Major depressive disorder, single episode, unspecified; N39.0 Urinary tract infection, site not specified; Z91.14 Patient's other noncompliance with medication regimen
CPT/HCPCS: 36415; 70450; 70553; 71010; 80048; 80053; 80061; 81000; 85025; 85027; 85610; 85730; 87088; 93306; 93880; 99285; G0378

== ENCOUNTER 2016-11-09 08:35 | Inpatient (IN) | payer SELFPAY ==
[~2016-11-09] VITALS: Ht 175.3 cm; Wt 90.9 kg
[~2016-11-09 08:35] MED LIST changes: +AMLO5TAB2 PO; +ATOR20TA66 PO; +CITA40TA11 PO; +CLOP75TA28 PO; +LISI10TA2 PO; +METO-272 PO
--- NOTE | 2016-11-09 09:40 | Physical Therapy Evaluation ---
PT Evaluation-General Medical Diagnosis Admission Date Nov 09, 2016 at 09:27 Medical Diagnosis: CVA Onset Date: Nov 06, 2016 Therapy Diagnosis Therapy Diagnosis: impaired mobility, endurance, right hemiparesis Height/Weight Height (Feet): 5 Height (Inches): 9.00 Weight (Pounds): 225 Weight (Ounces): 0.0 Referral Physician: Cas Reason for Referral: Evaluation/Treatment Medical History Pertinent Medical History: CVA, HTN Additional Medical History stopped taking antihypertensive drugs for several months Current History ED with right sided weakness/numbness Reviewed History: Yes Social History Home: Single Level Entry Into Home: Stairs Without Railing PT Steps Into Home: 1 Patient states she lives with a couple of other family members but they will either be asleep or gone to work during the day. Prior/Core FIM Prior Level of Function Functional [place] Measure 0=Not Assessed/NA 4=Minimal Assistance 1=Total Assistance 5=Supervision or Setup 2=Maximal Assistance 6=Modified [place] 3=Moderate Assistance 7=Complete [place] Bed Mobility: 6 Transfers (B,C,W/C) (FIM): 6 Gait: 6 Patient states she used a rolling walker before the stroke. PT Evaluation-Current Subjective Patient in recliner pre tx, agrees to PT, no complaints of pain. Pt/Family Goals to get better and walk again Objective Patient Orientation: Person, Place, Situation ROM/Strength ROM Lower Extremities WNL Strenght Lower Extremities right lower extremity hip flexion 0/5, knee flexion 0/5, knee extension 1/5, dorsiflexion 0/5, plantarflexion 0/5 Neuromuscular (Tone, Coordination, Reflexes) decreased tone and coordination on right side, patient appears to have intact peripheral vision bilaterally but has difficulty with tracking to either side Sensory Vision: Wears Glasses Hearing: Functional Sensation Right Lower Extremit: Impaired Sensation Left Lower Extremity: Intact Sensation Lower Extremities Patient has decreased light touch sensation in right leg, worse in foot Transfers Functional [place] Measure 0=Not Assessed/NA 4=Minimal Assistance 1=Total Assistance 5=Supervision or Setup 2=Maximal Assistance 6=Modified [place] 3=Moderate Assistance 7=Complete IndependenceIRFPAI Quality Coding Scale 6 Independent with activity with or without an assistive device 5 Patient requires set up or clean up by helper. Patient completes activity by themselves 4 Supervision or touching assist (CGA). [place] provide cues , steadying assist 3 The helper provides less than half the effort to complete the activity 2 The helper provides more than half the effort to complete the activity 1 Dependent. The helper does all the effort to complete an activity 7 Patient refused to complete or attempt activity 9 The patient did not perform the activity before the current illness or injury 88 Not attempted due to Medical conditions or safety concerns Transfers (B, C, W/C) (FIM): 4 Scootin Rollin Roll Left to Right (QC): 3 Supine to/from Sit: 4 Sit to/from Stand: 4 bed t/f WC(FIM only if WC use): 3 Sit to Lying (QC): 3 Lying to Sitting/Side of Bed(Q: 3 Sit to Stand (QC): 3 Chair/Spy-oc-Vndzh Xfer(QC): 3 Car Transfer (QC): 88 Patient performs bed mobility with min assist, sit to stand with min assist and stand pivot transfer with min assist, cues for safety and hand placement, will often pull up from therapist to stand Gait Does the Patient Walk?: Yes Mode of Locomotion: Walk Anticipated Mode of Locomotion: Walk Gait (FIM): 1 Walk 10 feet (QC): 3 Walk 50 ft with 2 Turns(QC): 88 Walk 150 ft (QC): 88 Walking 10ft/uneven surface-QC: 88 Distance: 40' Gait Level of Assist: 4 Gait Persons Needed: 1 Gait Assistive Device: Walker Je Comments/Gait Description Patient can ambulate 40' with a je walker with min assist for balance, she has foot drop on the right and no heel strike, her right foot never clears the floor, right knee hyperextension Wheelchair Training Does the Pt Use a Wheelchair?: Yes Wheelchair (FIM): 2 Distance: 50' Wheelchair Level of Assist: 5 Wheel 50 ft with 2 turns (QC): 4 Wheel 150 ft (QC): 88 Type of Wheelchair: Manual Patient can propel a manual wheelchair 50' with SBA, cues for obstacles and turning Stairs Stairs (FIM): 1 #of Steps: 1 Level of Assist: 4 1 Step (curb) (QC): 3 4 Steps (QC): 88 12 Steps (QC): 88 Patient can go up and down 1 step using a je walker with min assist, cues for safety and foot placement. Balance Sitting Static: Fair Sitting Dynamic: Fair Standing Static: Poor Standing Dynamic: Poor Picking up an Object (QC): 88 Treatment Nustep level 3 for 15 min Assessment/Needs Patient has right hemiparesis, weakness, impaired mobility and balance post CVA. She is a little impulsive. Rehab Potential: Fair PT Short Term Goals Short Term Goals Time Frame: Nov 16, 2016 Transfers (B,C,W/C) (FIM): 4 Gait (FIM): 4 Gait Distance Comment: 150' Gait Level of Assist: 4 Gait Assistive Device: Cane Large Base Quad PT Activities Therapist Goals Activities Therapist Goals PT Detention Goals Time Frame: Nov 30, 2016 Transfers (B,C,W/C) (FIM): 5 Sit to Lying (QC): 4 Lying-Sitting on Side/Bed(QC): 4 Sit to Stand (QC): 4 Rollin Roll Left to Right (QC): 4 Chair/Upg-nx-Yrnwm Xfer(QC): 4 Car Transfer (QC): 4 Gait (FIM): 5 Distance: 200' Walk 10 feet (QC): 4 Walk 10ft-Uneven Surface(QC): 4 Walk 50ft with 2 Turns (QC): 4 Walk 150 ft (QC): 4 Gait Level of Assist: 5 Gait Assistive Device: Cane Large Base Quad Stairs (FIM): 4 # of Steps: 12 1 Step (curb) (QC): 4 4 Steps (QC): 4 12 Steps (QC): 4 Stairs Level Of Assist: 4 Picking up an Object (QC): 88 PT Plan Problem List Problem List: Activity Tolerance, Functional Strength, Safety, Balance, Gait, Transfer, Bed Mobility Treatment/Plan Treatment Plan: Continue Plan of Care Treatment Plan: Bed Mobility, Education, Functional Activity Nash, Functional Strength, Group Therapy, Gait, Safety, Therapeutic Exercise, Transfers Treatment Duration: Nov 30, 2016 # of days/week 5-6 Visits Per Week: 10-11 Minutes/Day (M-F): 60-90 Minutes/Day (Sat/[place]ake): 15-30 Pt/Family Agrees w/Plan: Yes Safety Risks/Education Patient Education: Gait Training, Transfer Techniques, Steps, Correct Positioning, W/C Management, Safety Issues Teaching Recipient: Patient Teaching Methods: Demonstration, Discussion Response to Teaching: Reinforcement Needed Discharge Recommendations Plan Patient will perform bed mobility and transfer training, balance and endurance training, functional strengthening, stair training, gait training, and education to improve functional mobility and independence at home. Therapy D/C Recommendations: Home w/ Family Support, Mcfp (TCU/NH) Time/GCodes Time In: 900 Time Out: 1000 Total Billed Treatment Time: 60 Total Billed Treatment 1 visit EVL 15' FA 15' GT 15' EX 15' ELLEN GARZA PT Nov 09, 2016 09:40
[2016-11-09 10:24] VITALS: BP 132/85
--- NOTE | 2016-11-09 10:28 | ST Cognitive Linguistic Eval ---
Speech Evaluation-General Medical Diagnosis CVA Onset Date: Nov 06, 2016 Therapy Diagnosis Therapy Diagnosis: Mild Cognitive Impairment Referral Referring Physician: Dr. Timi Cardozo Reason for Referral: Evaluation/Treatment Cognitive Evaluation Medical History Pertinent Medical History: CVA, HTN Reviewed History: Yes Social History Home: Single Level Current Living Status: Other Family (Sister, Carolynn.) Speech PLF-Current Status Prior Level of Function Per patient, she currently receives disability from a prior stroke ("several years ago"). The patient stated she does not cook or prepare her own meals, pay her own bills (write checks), or keeps track of her own appointments. The patient stated she is able to communicate her wants and needs fluently with family and friends. Subjective The patient was recently admitted to [facility] following a CVA. The patient greeted the clinician appropriately and was agreeable to participation in the cognitive assessment. Per patient, following her stroke she has, "been forgetting some stuff." The patient denied additional changes with speech, language, or cognition. Language Eval: Auditory Comprehends Simple Yes/No Ques: Mild Indent/Objects Multiple Sampson: Functional Ident/Pics in Multiple Sampson: Functional Follows 1-Step Commands: Functional Follows Complex Directions: Mild Follows General Conversations: Mild Language Eval: Verbal Language Completes Spontaneous Greeting: Functional Produces Auto, Serial Info: Functional Imitates Simple Words/Phrases: Functional Word Finding: Moderate Requests Basic Needs: Functional States Basic Personal Info: Functional Expresses Complex Ideas: Mild Language Evaluation: Reading Comprehends Single Nouns: Functional Follows Simple Written Direct: Functional Comprehends Multiple Sentences: Functional Language Evaluation: Writing Copies/Traces: Severe (The patient is right handed and the right hand was negatively impacted by the recent CVA. Per patient, she is able to minimally grasp a pencil at this time, however, unable to write.) Cognitive Patient Orientation The patient was oriented to month, year, day of week, and location. Objective Cognitive Domain Attention: WNL Memory: Mild Problem Solving: Mild Executive Functions: Mild Objective Oral Motor/Speech Production Overt left sided weakness was not noted at rest, however, imprecise articulation was observed. The patient denied the new onset of "slurred" speech , stating her speech was at baseline. Impression The patient demonstrated mild cognitive and language deficits in the areas of functional problem solving, memory, word-finding, and following directions. Communication/Social Cognition Comprehension: 3 Expression: 4 Social Interaction: 4 Problem Solvin Memory: 3 Speech Patient Assess Expression of Ideas/Wants: Exhibits (3) Understanding Vebal Content: Usually Understands (3) Brief Interview-Mental Status: Yes Repetition of Three Words: Three (3) Temporal Orientation: Year: Correct (3) Temporal Orientation: Month: Accurate within 5 days(2) Recall : Wear to say "Sock": Yes,after cueing (1) Recall : Color: Yes, no cue required (2) Recall : Bed: Yes, no cue required (2) Speech Short Term Goals Short Term Goals Short Term Goals 1. The patient will recall and demonstrate two functional memory strategies for use at home. 2. The patient will demonstrated 80% accuracy with structured word-finding task to improve expressive communication. 3. The patient will follow multi-step instructions with 80% accuracy and mild clinician verbal prompting. 4. The patient will display 90% accuracy with functional safety problem solving , independently. Time Frame-STG: Two Weeks Speech Halfway Goals Process Coach Goals 1. The patient will demonstrate improved cognitive linguistic skills for increased function and safety with ADL's in the least restrictive setting. Time Frame: Three Weeks Comprehension: 4 Expression: 4 Social Interaction: 5 Problem Solvin Memory: 4 Speech-Plan Treatment Plan Speech Therapy Treatment Plan: Continue Plan of Care Continue skilled speech pathology to target functional memory and problem solving skills. Treatment Duration: Nov 30, 2016 # of days/week Four to five. Visits Per Week: Four to five. Minutes/Day (M-F): 30 Rehab Potential: Guarded Safety Risks/Education Teaching Recipient: Patient Teaching Methods: Discussion Response to Teaching: Verbalize Understanding Education Topics Provided: Results, Recommendations, Plan of Care Time Speech Therapy Time In: 10:00 Speech Therapy Time Out: 10:20 Total Billed Time: 20 Billed Treatment Time Osei ANSLEY MAYISAAC ST Nov 09, 2016 10:28
--- NOTE | 2016-11-09 12:44 | Occupational Therapy Eval ---
OT Evaluation-General/PLF Medical Diagnosis Admission Date Nov 09, 2016 at 09:27 Medical Diagnosis: CVA Onset Date: Nov 06, 2016 Therapy Diagnosis Therapy Diagnosis: Decreased ADL skills Height/Weight Height (Feet): 5 Height (Inches): 9.00 Weight (Pounds): 225 Weight (Ounces): 0.0 Precautions Precautions/Isolations: Fall Prevention, Standard Precautions Weight Bear Status Weight Bearing Restriction: Weight Bearing/Tolerated Referral Physician: Cas Referral Reason: Activity Tolerance, Self Care, Evaluation/Treatment, Strengthening/ROM Medical History Pertinent Medical History: CVA, HTN Additional Medical History Encephalopathy, depression, non compliance with medication. Current History Pt. lives with sister. Pt. is vague with answers in regards to what her sister helps her with. Reviewed History: Yes Social History Home: Single Level Current Living Status: Other Family (Sister, Carolynn.) Entry Into Home: Stairs Without Railing Steps Into Home: 1 ADL-Prior Level of Function ADL PLOF Comments Pt. states that her sister helped her at home with cooking and bathing/ dressing. Pt. states that she, "helps me with my socks." Pt. does not state how much she needs assist with. DME/Equipment: Tub/Shower DME/Equipment Comments Pt. has a walker that she uses at home, but states, "it doesn't work." Drive Self: No OT Current Status Subjective No pain reported. Pt. just states, "this is frustrating." Appearance Pt. is up in chair. Agrees to work with OT. Note that pt. is somewhat unkempt in appearance. Mental Status/Objective Patient Orientation: Person Pt. demonstrates flat affect. Current Glasses/Contacts: Yes Hand Dominance: Right Upper Extremity ROM Right- flaccid left- WFL Upper Extremity Coordination right-impaired. Upper Extremity Strength Right- flaccid left- 3/5 ADL-Treatment Functional [place] Measure 0=Not Assessed/NA 4=Minimal Assistance 1=Total Assistance 5=Supervision or Setup 2=Maximal Assistance 6=Modified [place] 3=Moderate Assistance 7=Complete IndependenceIRFPAI Quality Coding Scale 6 Independent with activity with or without an assistive device 5 Patient requires set up or clean up by helper. Patient completes activity by themselves 4 Supervision or touching assist (CGA). [place] provide cues , steadying assist 3 The helper provides less than half the effort to complete the activity 2 The helper provides more than half the effort to complete the activity 1 Dependent. The helper does all the effort to complete an activity 7 Patient refused to complete or attempt activity 9 The patient did not perform the activity before the current illness or injury 88 Not attempted due to Medical conditions or safety concerns Eating (FIM): 5 (Pt. was feeding self today after set up with no difficulty. Was not using the adaptive equipment that was given to her yesterday.) Eating (QC): 5 Grooming (FIM): 4 (Pt. required min assist to brush hair. Required cues to reach to right side, as pt. continually would only brush left side of head. Brushed teeth with SBA in shower.) Oral Hygiene (QC): 4 Bathing (FIM): 4 (CGA in shower to wash during standing. Able to reach all parts with cues to attend to right side.) Shower/Bathe Self (QC): 4 Upper Body Dressing (FIM): 2 (Max assist to don shirt and thread right UE.) Upper Body Dressing (QC): 2 Lower Body Dressing (FIM): 2 (Max assist for socks, and max assist to don pants over feet. Mod assist needed to rod puller hips in standing.) Lower Body Dressing (QC): 2 On/Off Footwear (QC): 2 Transfers (B, C, W/C) (FIM): 4 (Pt. requires min assist with gurvinder cane. However, note impulsive behavior at times with sitting in which pt. begins to sit before chair is under her.) Shower Transfer (FIM): 4 Other Treatments Pt. practiced self propelling wheelchair using left arm and leg. Required cues to attend to right side and be aware of right side. Upon testing, pt. seems to not have visual field loss on right side, just right sided neglect. Completed gentle PROM to right UE in all planes. No tone noted. No subluxation in gleno- humeral space, and no pain with movement noted. Pt. educated and encouraged to be fully aware of right side at all times. Education OT Patient Education: Correct positioning, Exercise program, Modified ADL techniques, Progress toward Goal/Update tx plan, Purpose of tx/functional activities, Reviewed precautions, Rehab process, Safety issues, Transfer techniques Teaching Recipient: Patient Teaching Methods: Demonstration, Discussion Response to Teaching: Verbalize Understanding, Return Demonstration OT Short Term Goals Short Term Goals Time Frame: Nov 16, 2016 Eating(FIM): 6 Grooming(FIM): 5 Bathing(FIM): 5 Upper Body Dressing(FIM): 4 Lower Body Dressing(FIM): 4 Toileting(FIM): 4 Transfers (B,C,W/C) (FIM): 45 Toilet/Commode Transfer(FIM): 5 Shower Transfer(FIM): 5 Additional Short Term Goals: 1-Demonstrate ADL Tasks, 2-Verbalize Understanding , 3-ImproveStrength/Nash 1=Demonstrate adherence to instructed precautions during ADL tasks. 2=Patient will verbalize/demonstrate understanding of assistive devices/ modifications for ADL. 3=Patient will improve strength/tolerance for activity to enable patient to perform ADL's. OT Lamp Developer Goals Lamp Developer Goals Time Frame: Nov 30, 2016 Eating (FIM): 6 Eating (QC): 6 Groomin Oral Hygiene (QC): 6 Bathing(FIM): 5 Shower/Bathe Self (QC): 5 Upper Body Dressing(FIM): 6 Upper Body Dressing (QC): 6 Lower Body Dressing(FIM): 6 Lower Body Dressing (QC): 6 On/Off Footwear (QC): 6 Toileting(FIM): 6 Toileting Hygiene (QC): 6 Transfers (B,C,W/C) (FIM): 6 Toilet/Commode Transfer(FIM): 6 Toilet/Commode Transfer (QC): 6 Shower Transfer(FIM): 5 Comprehension(FIM): 4 Expression (FIM): 4 Social Interaction(FIM): 5 Problem Solving(FIM): 4 Memory(FIM): 4 Additional Goals: 1-Demonstrate ADL Tasks, 2-Verbalize Understanding, 3- ImproveStrength/Nash 1=Demonstrate adherence to instructed precautions during ADL tasks. 2=Patient will verbalize/demonstrate understanding of assistive devices/ modifications for ADL. 3=Patient will improve strength/tolerance for activity to enable patient to perform ADL's. OT Education/Plan Problem List/Assessment Assessment: Decreased Activ Tolerance, Decreased UE Strength, Dependent Transfers, Impaired Bed Mobility, Impaired Cognition, Impaired Coordination, Impaired Funct Balance, Impaired I ADL's, Impaired Self-Care Skills, Restricted Funct UE ROM Discharge Recommendations Plan/Recommendations: Continue POC Therapy D/C Recommendations: Home w/ Family Support, Occupational Therapy Home Care Equpiment Recommendations-D/C: Extended Bath Bench, Hip Kit Comment Pt. will need a walker. Target Placement Home with sister or assisted living. Treatment Plan/Plan of Care Treatment,Training & Education: Yes Patient would benefit from OT for education, treatment and training to promote independence in ADL's, mobility, safety and/or upper extremity function for ADL' s. Plan of Care: ADL Retraining, Caregiver Training, Cognitive Retraining, Functional Mobility, Group Exercise/Act as Ind, UE Funct Exercise/Act, UE Neuromus Re-Ed/Coord Treatment Duration: Nov 30, 2016 Visits Per Week: 5-6 Rehab Potential: Fair Time/GCodes Start Time: 11:30 Stop Time: 12:50 Total Time Billed (hr/min): 80 Billed Treatment Time 1, EVM x 20minutes, ADL x 60minutes JOEL MCDOWELL OT Nov 09, 2016 12:44
--- NOTE | 2016-11-09 14:12 | Physical Therapy Daily Note ---
PT Daily Note-Current Subjective Pt getting off toilet with Aide's assistance upon arrival. Pt agrees to Seated Ex in [facility] for PT. Mental Status Patient Orientation: Person, Place, Situation Transfers Functional [place] Measure 0=Not Assessed/NA 4=Minimal Assistance 1=Total Assistance 5=Supervision or Setup 2=Maximal Assistance 6=Modified [place] 3=Moderate Assistance 7=Complete IndependenceIRFPAI Quality Coding Scale 6 Independent with activity with or without an assistive device 5 Patient requires set up or clean up by helper. Patient completes activity by themselves 4 Supervision or touching assist (CGA). [place] provide cues , steadying assist 3 The helper provides less than half the effort to complete the activity 2 The helper provides more than half the effort to complete the activity 1 Dependent. The helper does all the effort to complete an activity 7 Patient refused to complete or attempt activity 9 The patient did not perform the activity before the current illness or injury 88 Not attempted due to Medical conditions or safety concerns Scootin Sit to/from Stand: 4 Sit to Stand (QC): 4 Weight Bearing Weight Bearing Restriction: Full Weight Bearing Location Restriction: LE Bilateral Gait Training Does the Patient Walk?: Yes Distance (FIM): 1=up to 49 ft Distance: 5' Gait Level of Assist: 4 Gait Persons Needed: 1 Gait Assistive Device: Walker Je Pt walks with slow danny/step sequence. Pt is weak on R side due to CVA. Exercises Seated Therapy Exercises: Ankle pumps, Long arc quads, Hip flexion, Kicking activity, Hip abd/add Seated Reps: 15 Treatments Pt is transferring back to [facility] from toilet with Aide's assistance. Pt completes Seated Ex in [facility]. Pt transfers from [facility] to recliner at Min A-CGA. Pt rests in recliner with all needs met at end of tx. Assessment Current Status: Fair Progress Pt gets teary about having CVA and condition she is in, PT gives reassurance. Pt has UE & LE weakness on R side and needs rest breaks. PT Short Term Goals Short Term Goals Time Frame: Nov 16, 2016 Transfers (B,C,W/C) (FIM): 45 Gait (FIM): 4 Gait Distance Comment: 150' Gait Level of Assist: 4 Gait Assistive Device: Cane Large Base Quad Wheelchair Distance: 50' PT Customer Contact Representative Goals Customer Contact Representative Goals PT Customer Contact Representative Goals Time Frame: Nov 30, 2016 Transfers (B,C,W/C) (FIM): 5 Sit to Lying (QC): 4 Lying-Sitting on Side/Bed(QC): 4 Sit to Stand (QC): 4 Rollin Roll Left to Right (QC): 4 Chair/[id number]-Czxok Xfer(QC): 4 Car Transfer (QC): 4 Gait (FIM): 5 Distance: 200' Walk 10 feet (QC): 4 Walk 10ft-Uneven Surface(QC): 4 Walk 50ft with 2 Turns (QC): 4 Walk 150 ft (QC): 4 Gait Level of Assist: 5 Gait Assistive Device: Cane Large Base Quad Stairs (FIM): 4 # of Steps: 12 1 Step (curb) (QC): 4 4 Steps (QC): 4 12 Steps (QC): 4 Stairs Level Of Assist: 4 Picking up an Object (QC): 88 PT Plan Problem List Problem List: Activity Tolerance, Functional Strength, Safety, Balance, Gait, Transfer, Bed Mobility Treatment/Plan Treatment Plan: Continue Plan of Care Treatment Plan: Bed Mobility, Education, Functional Activity Nash, Functional Strength, Group Therapy, Gait, Safety, Therapeutic Exercise, Transfers Treatment Duration: Nov 30, 2016 Visits Per Week: 10-11 Minutes/Day (M-F): 60-90 Minutes/Day (Sat/Lake): 15-30 Safety Risks/Education Patient Education: Transfer Techniques, Correct Positioning, Safety Issues Teaching Recipient: Patient Teaching Methods: Discussion Response to Teaching: Verbalize Understanding Time/GCodes Time In: 1300 Time Out: 1320 Total Billed Treatment Time: 20 Total Billed Treatment visit, FA (20m) RUDI TILLMAN PTA Nov 09, 2016 14:12
--- NOTE | 2016-11-09 17:01 | HISTORY AND PHYSICAL ---
DATE OF SERVICE: 11/09/2016 CHIEF COMPLAINT: Difficulty with walking. HISTORY OF PRESENT ILLNESS: The patient is a 56-year-old female who presented to ED at [facility] on 11/06 with reports of right sided weakness and numbness. The patient had a history of hypertension and prior stroke in 2011. The patient was admitted to the service of Dr. Iraheta, her PCP, and MRI of the brain on 11/08 showed focal acute infarct in the left periventricular white matter in the left parietal region involving an area measuring 1.6 cm as well as background extensive chronic microvascular ischemic changes. Therapies were begun. The patient was found to be appropriate for inpatient rehabilitation unit. The patient had been independent prior to this, although disabled. Currently without medical insurance but apparently she states that [place] Medicaid will begin in 12/2016. PAST MEDICAL HISTORY: Stroke in 2011, nonhemorrhagic infarct in the right parietal lobe just superior to the level of the lateral ventricles, intermittent leg cramps, depression, hypertension, tobaccoism. PAST SURGICAL HISTORY: Abdominal hysterectomy, right ankle surgery. ALLERGIES: No known medication allergies. FAMILY HISTORY: Noncontributory. SOCIAL HISTORY: She is , lives alone in her own house in [place], [place]. She has supportive family nearby. PCP: Dr. Iraheta. REVIEW OF SYSTEMS: A 10-point review of systems consistent for right sided weakness, occasional leg cramps, depression. MEDICATIONS: Plavix 75 mg p.o. daily, amlodipine 5 mg p.o. daily, Celexa 40 mg p.o. daily, Lisinopril 10 mg p.o. daily, Toprol 50 mg p.o. daily, aspirin 81 mg p.o. daily, Lovenox 40 mg subcutaneous daily, Lipitor 20 mg p.o. each day at bedtime, Omnicef 300 mg p.o. b.i.d. The patient was started on IV antibiotics for UTI and now switched to p.o. Omnicef. Urine culture showed greater than 100,000 Corynebacterium species. PRIOR LEVEL OF FUNCTION: She does report that she used a rolling walker before this most recent stroke. Had been modified independent. Apparently she is mod assist for transfers and mod assist for ambulation with a hemiwalker short distances, mod assist for bed mobility. She is reported to be continent of bowel and bladder. Speech therapy notes she demonstrates mild cognitive and language deficits in areas of functional problem solving, memory, word finding and following directions. She is right hand dominant. She is set up for eating, min assist for grooming, max assist for dressing, min assist for shower transfers. PHYSICAL EXAMINATION: GENERAL: A pleasant female appearing her stated age, alert and oriented, lying in bed, in no acute distress. VITAL SIGNS: Temperature is 99.5, pulse is 66, respirations 18, blood pressure 132/85, O2 sat 95% on room air. HEENT: She has a mild dysarthria; speech otherwise intact. Hearing, vision grossly intact. No oral lesion is noted. NECK: Supple without mass. HEART: Regular rhythm. LUNGS: Clear. ABDOMEN: Soft, nontender, bowel sounds present. EXTREMITIES: No lower leg edema, no calf tenderness. MUSCULOSKELETAL: The patient has functional passive range of motion of all 4 extremities. NEUROLOGIC: Some mild cognitive deficits, as mentioned above. Her right upper limb is flaccid. Left sided strength: 3+ to 4-/5. Strength lower extremities: Right lower extremity hip flexion is 0/5, knee flexion 0/5, knee extension 1/5, dorsiflexion 0/5, plantar flexion 0/5. The patient has decreased tone and coordination on the right side. The patient has decreased light touch sensation in the right leg worse than foot. She wears glasses. IMPRESSION: 1. Ambulatory dysfunction secondary to left parietal middle cerebral artery distribution stroke, acute, with resulting right hemiplegia and a decline in functional independence. 2. Prior history of right sided stroke with good recovery. 3. Depression, on medication. 4. Tobaccoism, currently abstaining. 5. Hypertension, controlled with medication. PLAN: The patient will have a comprehensive program of inpatient rehabilitation with goal of maximizing level of functional independence prior to discharge home with family and home health care. The patient indicates that she will be obtaining [place] Medicaid in December. Will follow up with the social media analyst regarding this and discharge plan and community reentry. The patient will have PT and OT 90 minutes a day each discipline 5 days a week for gait, strengthening and conditioning, balance, neuromuscular reeducation. The patient will have family caregiver training as necessary, adaptive equipment training as necessary. Speech therapy to do ongoing cognitive and language therapy treated 5 times a week 30 to 45 minutes per day 5 days a week for 2 to 3 weeks along with PT and OT with a goal of maximizing level of functional independence prior to discharge home. Rehabilitation nursing to assist with bowel, bladder, skin care, medication administration, pain management. She will follow with Dr. Iraheta, her PCP, as per his schedule. Therapy with cardiac and fall precautions. ESTIMATED LENGTH OF STAY: Three weeks. PROGNOSIS: Rehab prognosis appears fair for goal of enhancing level of functional independence with hopefully good neurologic return prior to discharge home with home health care and family. DIET: Heart healthy. CODE STATUS: Full code. STDs for DVT prophylaxis. Job ID: [id number] DocumentID: [id number] Dictated Date: 11/09/2016 15:39:16 Post Tensioning Ironworker Helper Date: 11/09/2016 17:01:33 Dictated By: TEJAS SHAW MD MTDD
[2016-11-09 17:59] VITALS: BP 137/86
--- NOTE | 2016-11-09 20:09 | PM&R Post Admission Assessment ---
Post Admission Physician Asses The preadmission screen agrees with the post admission assessment that the patient is a good candidate for inpatient rehabilitation. The patient will have a comprehensive program of inpatient rehabilitation with a goal of maximizing level of functional independence prior to discharge home with family and HHC. The patient will have PT/OT ninety minutes per day, each discipline, five days a week for gait,strengthening, conditioning, balance, ADLs , any patient/family/caregiver training necessary. Speech therapy to do cognitive assessment and treat as indicated. Rehabilitation nursing to assist with bowel, bladder, skin, medication administration, pain management. Pearl Restorer to assist with discharge planning, community reentry. SCD's for DVT prophylaxis. She appears to be well motivated to participate in three hours of therapy a day. She should be able to tolerate three hours of therapy a day from a medical standpoint. She should benefit from the three hours of therapy a day. She has a reasonable discharge plan, reasonable discharge rehabilitation goals and a supportive family. She has various comorbidities that need to be closely monitored with medications and treatments adjusted on a daily basis as needed. These include: HTN depression tobaccoism/smoking cessation Barriers to discharge for this patient who had been independent prior to this are for her to be modified independent to supervision for ADLs and mobility skills prior to discharge home with [family], so as to lessen the burden of the caregivers. Risks for this patient include: 1. Fall 2. Fracture 3. DVT 4. Pulmonary embolism 5. Poorly controlled HTN 6. Skin breakdown 7. Contractures 8. Poorly controlled pain 9. Urinary retention 10. UTI 11. Respiratory infection 12. Aspiration 13. Recurrent stroke Estimated Length of Stay: 21 days Prognosis: Rehab prognosis appears good for goal of discharge home with Family and HHC modified independent to supervision for ADLs and mobility skills. TEJAS SHAW MD Nov 09, 2016 20:09
[2016-11-09] MEDS: ATORVASTATIN 20 MG (LIPITOR) TABLET PO SCH (20:36)
[2016-11-09] MEDS: CEFDINIR 300 MG (OMNICEF) CAP PO SCH (20:36)
[2016-11-10 05:05] VITALS: BP 158/84
[2016-11-10 06:57] LABS: MEAN PLATELET VOLUME 10.7 FL (7.4-10.4); RED BLOOD COUNT 5.22 10^6/uL (4.35-5.85); RED CELL DISTRIBUTION WIDTH 13.9 % (10.0-14.5); WHITE BLOOD COUNT 6.4 10^3/uL (4.3-11.0)
[2016-11-10 07:19] LABS: ANION GAP 10 MMOL/L (5-14); BLOOD UREA NITROGEN 18 MG/DL (7-18); BUN/CREATININE RATIO 23; CARBON DIOXIDE 25 MMOL/L (21-32); CHLORIDE 107 MMOL/L (98-107); CREATININE SERUM 0.77 MG/DL (0.60-1.30); POTASSIUM 3.9 MMOL/L (3.6-5.0); SODIUM 142 MMOL/L (135-145)
[2016-11-10 07:20] LABS: CALCIUM 9.7 MG/DL (8.5-10.1); GFR ESTIMATED > 60; GLUCOSE 103 MG/DL (70-105)
[2016-11-10] MEDS: CEFDINIR 300 MG (OMNICEF) CAP PO SCH ×2 (08:19→20:22)
[2016-11-10] MEDS: meTOproloL SUCCINATE 50 MG (TOPROL XL) TAB PO SCH (08:19)
[2016-11-10] MEDS: amLODIPine 5 MG (NORVASC) TAB PO SCH (08:19)
[2016-11-10] MEDS: lisINopril 10 MG (PRINIVIL) TAB PO SCH (08:19)
[2016-11-10] MEDS: CLOPIDOGREL 75 MG (PLAVIX) TABLET PO SCH (08:19)
[2016-11-10] MEDS: ASPIRIN 81 MG CHEW (CHILDREN'S ASA) PO SCH (08:19)
[2016-11-10] MEDS: ENOXAPARIN 40 MG/0.4 ML (LOVENOX) SYR SC SCH (08:20)
--- NOTE | 2016-11-10 08:23 | Consultation ---
History of Present Illness History of Present Illness Patient Consulted On(riki/time) 11/10/16 08:19 Date of Admission History of Present Illness patient had a CVA on the right side. Patient unable to move her right upper extremity. Patient having trouble moving the right leg. Patient noncompliant with medicine. Patient stopped taking hypertensive medicine Allergies and Home Medications Allergies Coded Allergies: No Known Drug Allergies (Unverified , 11/09/16) Home Medications Amlodipine Besylate 5 Mg Tablet, 5 MG PO DAILY, (Reported) LAST FILLED #30 09-21-16 Atorvastatin Calcium 20 Mg Tablet, 20 MG PO HS for 30 Days Prescribed by: MOSHE KRISHNAMURTHY on 11/09/16 0829 Citalopram Hydrobromide 40 Mg Tablet, 40 MG PO DAILY, (Reported) LAST FILLED #30 09-21-16 Clopidogrel Bisulfate 75 Mg Tablet, 75 MG PO DAILY for 30 Days Prescribed by: MOSHE KRISHNAMURTHY on 11/09/16 0829 Lisinopril 10 Mg Tablet, 10 MG PO DAILY, (Reported) LAST FILLED #30 09-21-16 Metoprolol Succinate 50 Mg Tab.er.24h, 50 MG PO HS, (Reported) LAST FILLED #30 09-21-16 Past [id number]-[id number]-Wqceww Hx Patient Social History Alcohol Use: Denies Use Recreational Drug Use: No Smoking Status: Former Smoker Type Used: Cigarettes 2nd Hand Smoke Exposure: No Recent Foreign Travel: No Contact w/Someone Who Travel: No Recent Infectious Disease Expo: No Recent Hopitalizations: No Physical Abuse Screen: No Sexual Abuse: No Immunizations Up To Date Tetanus Booster (TDap): Less than 5yrs Date of Pneumonia Vaccine: Nov 18, 2015 Date of Influenza Vaccine: Mar 11, 2014 Seasonal Allergies Seasonal Allergies: Yes Surgeries HX Surgeries: Yes Surgeries: Orthopedic Respiratory Hx Respiratory Disorders: No Cardiovascular Hx Cardiac Disorders: Yes Cardiac Disorders: Hypertension Neurological Hx Neurological Disorders: Yes Neurological Disorders: Stroke Reproductive System Hx Reproductive Disorders: No Sexually Transmitted Disease: No HIV/AIDS: No Female Reproductive Disorders: Denies 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 Genitourinary Hx Genitourinary Disorders: No (occasional incontinence) Gastrointestinal Hx Gastrointestinal Disorders: No (occasional incontinence) Musculoskeletal Hx Musculoskeletal Disorders: Yes (CVA, occasional leg cramps) Endocrine Hx Endocrine Disorders: No HEENT HX ENT Disorders: No Cancer Hx Cancer: No Psychosocial Hx Psychiatric Problems: Yes Behavioral Health Disorders: Depression Integumentary HX Skin/Integumentary Disorder: No Blood Transfusions Hx Blood Disorders: No Adverse Reaction to a Blood Tr: No Family Medical History Significant Family History: Heart Disease, Hypertension Review of Systems-General Time Seen by Provider: 08:18 Constitutional: weakness EENTM: no symptoms reported Respiratory: no symptoms reported Cardiovascular: no symptoms reported Gastrointestinal: no symptoms reported Genitourinary: no symptoms reported Physical Exam-General Problems Physical Exam Vital Signs Vital Sign - Last 12Hours 11/09/16 10:24 Temp 99.5 Pulse 66 Resp 18 B/P (MAP) 132/85 Pulse Ox 95 Capillary Refill : General Appearance: WD/WN, no apparent distress Eyes: Bilateral Eye Normal Inspection HEENT: normal ENT inspection Neck: non-tender, full range of motion Respiratory: chest non-tender, lungs clear, normal breath sounds, no respiratory distress Cardiovascular: regular rate, rhythm, no murmur Gastrointestinal: non tender, soft Assessment/Plan Assessment/Plan Admission Diagnosis/Plan cerebrovascular accident. Noncompliance with medicine. Hypertension Clinical Quality Measures DVT/VTE Risk/Contraindication: Risk Factor Score Per Nursin RFS Level Per Nursing on Admit: 4+=Very High MOSHE KRISHNAMURTHY DO Nov 10, 2016 08:22
--- NOTE | 2016-11-10 10:16 | Physical Therapy Daily Note ---
PT Daily Note-Current Subjective Pt. agrees to Rx. States she has stroked previously and is discouraged. Initially states many times that she "cant" but after encouragement and explanation pt. was more open to trying harder Pain Numeric Pain Scale: 0-No Pain Mental Status Patient Orientation: Normal For Age Transfers Functional [place] Measure 0=Not Assessed/NA 4=Minimal Assistance 1=Total Assistance 5=Supervision or Setup 2=Maximal Assistance 6=Modified [place] 3=Moderate Assistance 7=Complete IndependenceIRFPAI Quality Coding Scale 6 Independent with activity with or without an assistive device 5 Patient requires set up or clean up by helper. Patient completes activity by themselves 4 Supervision or touching assist (CGA). [place] provide cues , steadying assist 3 The helper provides less than half the effort to complete the activity 2 The helper provides more than half the effort to complete the activity 1 Dependent. The helper does all the effort to complete an activity 7 Patient refused to complete or attempt activity 9 The patient did not perform the activity before the current illness or injury 88 Not attempted due to Medical conditions or safety concerns Transfers (B, C, W/C) (FIM): 4 Scootin Rollin Supine to/from Sit: 5 (from firm surface on Rx table) Sit to/from Stand: 5 Bed to/from Chair: 4 Gait Training Does the Patient Walk?: Yes Gait (FIM): 2 Distance (FIM): 4=421-47 ft (75x4) Gait Level of Assist: 4 Gait Persons Needed: 1 Gait Assistive Device: Walker Je Pt. needs cues for DF many times and clearing foot out for walking Exercises Supine Ex: Bridging, Ankle pumps, Quad Set, Rolling, Glut sets, Heel Slides, Short Arc Quads, Scooting, Straight leg raise, Hip abd/add Supine Reps: 15 NuStep Minutes: 10 NuStep Workload: 2 (did not use RUE on nustep) Treatments toileted with min assist for sit to sand, cleaned self SBA after standing. BSC was put over toilet for height to make sit to stand easier Assessment Current Status: Good Progress gives full effort PT Short Term Goals Short Term Goals Time Frame: Nov 16, 2016 Transfers (B,C,W/C) (FIM): 45 Gait (FIM): 4 Gait Distance Comment: 150' Gait Level of Assist: 4 Gait Assistive Device: Cane Large Base Quad Wheelchair Distance: 50' PT Lawn Care Worker Goals [facility] Goals PT Lawn Care Worker Goals Time Frame: Nov 30, 2016 Transfers (B,C,W/C) (FIM): 5 Sit to Lying (QC): 4 Lying-Sitting on Side/Bed(QC): 4 Sit to Stand (QC): 4 Rollin Roll Left to Right (QC): 4 Chair/Swf-nc-Truiz Xfer(QC): 4 Car Transfer (QC): 4 Gait (FIM): 5 Distance: 200' Walk 10 feet (QC): 4 Walk 10ft-Uneven Surface(QC): 4 Walk 50ft with 2 Turns (QC): 4 Walk 150 ft (QC): 4 Gait Level of Assist: 5 Gait Assistive Device: Cane Large Base Quad Stairs (FIM): 4 # of Steps: 12 1 Step (curb) (QC): 4 4 Steps (QC): 4 12 Steps (QC): 4 Stairs Level Of Assist: 4 Picking up an Object (QC): 88 PT Plan Treatment/Plan Treatment Plan: Continue Plan of Care Treatment Plan: Bed Mobility, Education, Functional Activity Nash, Functional Strength, Group Therapy, Gait, Safety, Therapeutic Exercise, Transfers Treatment Duration: Nov 30, 2016 Visits Per Week: 10-11 Minutes/Day (M-F): 60-90 Minutes/Day (Sat/[place]ake): 15-30 Safety Risks/Education Patient Education: Gait Training, Transfer Techniques, Correct Positioning, Safety Issues Teaching Recipient: Patient Teaching Methods: Demonstration, Discussion Response to Teaching: Verbalize Understanding, Return Demonstration, Reinforcement Needed Time/GCodes Time In: 900 Time Out: 1005 Total Billed Treatment Time: 65 Total Billed Treatment 1,GT35m,EX30m G Codes Necessary: MELLY Lee AIR ANALYST Nov 10, 2016 10:16
--- NOTE | 2016-11-10 11:15 | Occupational Ther Daily Note ---
OT Current Status-Daily Note Subjective Pt. does not report pain but does report that she is "too hot" in shower. Dry heaves during task. States that she feels better after this. Appearance Pt. is coming out of bathroom with aide when OT comes in room. Pt. states that she would like to shower. Mental Status/Objective Patient Orientation: Person Functional [place] Measure 0=Not Assessed/NA 4=Minimal Assistance 1=Total Assistance 5=Supervision or Setup 2=Maximal Assistance 6=Modified [place] 3=Moderate Assistance 7=Complete [place] ADL-Treatment Functional [place] Measure 0=Not Assessed/NA 4=Minimal Assistance 1=Total Assistance 5=Supervision or Setup 2=Maximal Assistance 6=Modified [place] 3=Moderate Assistance 7=Complete IndependenceIRFPAI Quality Coding Scale 6 Independent with activity with or without an assistive device 5 Patient requires set up or clean up by helper. Patient completes activity by themselves 4 Supervision or touching assist (CGA). [place] provide cues , steadying assist 3 The helper provides less than half the effort to complete the activity 2 The helper provides more than half the effort to complete the activity 1 Dependent. The helper does all the effort to complete an activity 7 Patient refused to complete or attempt activity 9 The patient did not perform the activity before the current illness or injury 88 Not attempted due to Medical conditions or safety concerns Grooming (FIM): 4 (CGA in stance at sink to brush teeth. Pt. shown one handed technique to put toothpaste into mouth.) Oral Hygiene (QC): 4 Bathing (FIM): 4 (CGA in stance to bathe all parts.) Shower/Bathe Self (QC): 4 Upper Body (FIM): 3 (Pt. demonstrates difficulty threading right UE with left UE. Required mod assist for this.) Upper Body Dressing (QC): 3 Lower Body Dressing (FIM): 3 (Mod assist to thread feet into pants, and then min assist to don over hips. Able to doff/don socks with one handed technique with increased time in chair with rails.) Lower Body Dressing (QC): 3 On/Off Footwear (QC): 5 Transfers (B, C, W/C) (FIM): 4 (Min assist to ambulate using gurvinder cane.) Shower Transfer(FIM): 4 Other Treatment Pt. issued arm sling to position right UE when ambulating. Pt. and family educated to only wear sling when ambulating or transferring, and not when resting in bed or chair. OT put sign in room as well. Pt. verbalizes understanding. Education OT Patient Education: Correct positioning, Modified ADL techniques, Progress toward Goal/Update tx plan, Purpose of tx/functional activities, Reviewed precautions, Rehab process, Transfer techniques Teaching Recipient: Patient, Family Teaching Methods: Demonstration, Discussion Response to Teaching: Verbalize Understanding, Return Demonstration OT Short Term Goals Short Term Goals Time Frame: Nov 16, 2016 Eating(FIM): 6 Grooming(FIM): 5 Bathing(FIM): 5 Upper Body Dressing(FIM): 4 Lower Body Dressing(FIM): 4 Toileting(FIM): 4 Transfers (B,C,W/C) (FIM): 45 Toilet/Commode Transfer(FIM): 5 Shower Transfer(FIM): 5 Additional Short Term Goals: 1-Demonstrate ADL Tasks, 2-Verbalize Understanding , 3-ImproveStrength/Nash 1=Demonstrate adherence to instructed precautions during ADL tasks. 2=Patient will verbalize/demonstrate understanding of assistive devices/ modifications for ADL. 3=Patient will improve strength/tolerance for activity to enable patient to perform ADL's. OT Snf Goals Snf Goals Time Frame: Nov 30, 2016 Eating (FIM): 6 Eating (QC): 6 Groomin Oral Hygiene (QC): 6 Bathing(FIM): 5 Shower/Bathe Self (QC): 5 Upper Body Dressing(FIM): 6 Upper Body Dressing (QC): 6 Lower Body Dressing(FIM): 6 Lower Body Dressing (QC): 6 On/Off Footwear (QC): 6 Toileting(FIM): 6 Toileting Hygiene (QC): 6 Transfers (B,C,W/C) (FIM): 6 Toilet/Commode Transfer(FIM): 6 Toilet/Commode Transfer (QC): 6 Shower Transfer(FIM): 5 Comprehension(FIM): 4 Expression (FIM): 4 Social Interaction(FIM): 5 Problem Solving(FIM): 4 Memory(FIM): 4 Additional Goals: 1-Demonstrate ADL Tasks, 2-Verbalize Understanding, 3- ImproveStrength/[place] 1=Demonstrate adherence to instructed precautions during ADL tasks. 2=Patient will verbalize/demonstrate understanding of assistive devices/ modifications for ADL. 3=Patient will improve strength/tolerance for activity to enable patient to perform ADL's. OT Education/Plan Problem List/Assessment Assessment: Decreased Activ Tolerance, Decreased UE Strength, Dependent Transfers, Impaired Cognition, Impaired Coordination, Impaired Funct Balance, Impaired I ADL's, Impaired Self-Care Skills, Restricted Funct UE ROM Discharge Recommendations Plan/Recommendations: Continue POC Therapy D/C Recommendations: Assisted Living, Occupational Therapy Home Care Treatment Plan/Plan of Care Treatment,Training & Education: Yes Patient would benefit from OT for education, treatment and training to promote independence in ADL's, mobility, safety and/or upper extremity function for ADL' s. Plan of Care: ADL Retraining, Caregiver Training, Cognitive Retraining, Functional Mobility, Group Exercise/Act as Ind, UE Funct Exercise/Act, UE Neuromus Re-Ed/Coord Treatment Duration: Nov 30, 2016 Visits Per Week: 5-6 Rehab Potential: Fair Time/GCodes Start Time: 10:15 Stop Time: 11:15 Total Time Billed (hr/min): 60 Billed Treatment Time 1, ADL x 45minutes, FA x 15minutes JOEL MCDOWELL OT Nov 10, 2016 11:15
--- NOTE | 2016-11-10 11:41 | Speech Therapy Daily Note ---
Speech Daily Progress Note Subjective Date Seen by Provider: Nov 10, 2016 Time Seen by Provider: 08:15 The patient was seated upright in recliner upon entrance. The patient greeted the clinician appropriately and was agreeable to participation in the cognitive treatment session. Objective Continued assessment occurred of the patient's cognitive ability on this date. The patient was provided the [place] Cognitive Assessment with the following results: - Orientation: The patient was oriented to date, month, year, day, place, and city (independently). - Memory: The patient was able to recall five of five single words immediately and four of five single words following a five minute delay. - Reasoning: The patient was unable to state a similarity between two single words. - Language: The patient demonstrated moderately reduced word-finding skills, however, was able to repeat short phrases appropriately. - Attention: The patient was unable to recall three digits in reverse order or complete serial seven subtraction ("I can't"). - Naming: The patient was able to name three of three black and white photographs accurately. The patient demonstrated a result of +18/25 demonstrating a mild to moderate cognitive impairment. Assessment Assessment Current Status: Fair Progress Treatment Plan Continue Plan of Care Communication Comprehension: 3 Expression: 4 Social Cognition Social Interaction: 4 Problem Solvin Memory: 3 Speech Short Term Goals Short Term Goals Short Term Goals 1. The patient will recall and demonstrate two functional memory strategies for use at home. 2. The patient will demonstrated 80% accuracy with structured word-finding task to improve expressive communication. 3. The patient will follow multi-step instructions with 80% accuracy and mild clinician verbal prompting. 4. The patient will display 90% accuracy with functional safety problem solving , independently. Time Frame-STG: Two Weeks Speech Prison Goals Research Coordinator Goals 1. The patient will demonstrate improved cognitive linguistic skills for increased function and safety with ADL's in the least restrictive setting. Time Frame: Three Weeks Comprehension: 4 Expression: 4 Social Interaction: 5 Problem Solvin Memory: 4 Speech-Plan Treatment Plan Speech Therapy Treatment Plan: Continue Plan of Care Continue skilled speech pathology to target functional problem solving and memory. Treatment Duration: Nov 30, 2016 # of days/week Four to five. Visits Per Week: Four to five. Minutes/Day (M-F): 30 Rehab Potential: Fair Safety Risks/Education Teaching Recipient: Patient Teaching Methods: Discussion Response to Teaching: Verbalize Understanding Education Topics Provided: Results, Recommendations Time Speech Therapy Time In: 08:15 Speech Therapy Time Out: 08:45 Total Billed Time: 30 Billed Treatment Time 1, ISAAC MOURA Nov 10, 2016 11:41
--- NOTE | 2016-11-10 15:07 | Therapy Group Daily Note ---
Therapy Daily Group Note Patient Education Topic Other List Below (Education on exercises to complete in room.) Exercises LE Seated Exercise, UE Exercise Other/Notes Pt transported to OT/PT group via w/c. Group consisted of introductions (name, place living, favorite summer activity), ARU description/expectations, UE/LE seat exercises, inspirational words/word of encouragement and education on bed exercises to complete between therapy sessions. Pt contributed to group discussions appropriately. Verbalized understanding of ARU. Completed UE/LE seated exercises without difficulty. Pt ambulated with FWW back to room. After therapy, pt lying in bed with call light/phone in reach. All needs met in room. Start Time: 13:00 Stop Time: 14:10 Total Billed Treatment Time: 70 Total Billed Treatment 1-GRP RITIKA RENDON Nov 10, 2016 15:06
[2016-11-10 18:01] VITALS: BP 135/80
[2016-11-10] MEDS: ATORVASTATIN 20 MG (LIPITOR) TABLET PO SCH (20:22)
--- NOTE | 2016-11-10 20:35 | PM & R (SOAP) Progress Note ---
Subjective Time Seen by Provider: 08:10 Subjective/Events-last exam Patient was seen in her room this AM Patient min assist for transfers Objective Exam Last Set of Vital Signs Vital Signs Date Time Temp Pulse Resp B/P (MAP) Pulse Ox O2 Delivery O2 Flow Rate FiO2 11/10/16 18:01 98.7 67 18 135/80 94 Capillary Refill : I&O Bad tableGeneral: Alert, Oriented X3, Cooperative, No Acute Distress HEENT: Atraumatic, PERRLA, EOMI, Mucous Memb Moist/[place] Neck: Supple, No JVD Lungs: Clear to Auscultation Heart: Regular Rate Abdomen: Normal Bowel Sounds, Soft, No Tenderness Extremities: No Edema Neuro: Other (rt HP) Results Lab Laboratory Tests 11/10/16 06:19: White Blood Count 6.4, Red Blood Count 5.22, Hemoglobin 15.0, Hematocrit 46, Mean Corpuscular Volume 88, Mean Corpuscular Hemoglobin 29, Mean Corpuscular Hemoglobin Concent 33, Red Cell Distribution Width 13.9, Platelet Count 262, Mean Platelet Volume 10.7H, Sodium Level 142, Potassium Level 3.9, Chloride Level 107, Carbon Dioxide Level 25, Anion Gap 10, Blood Urea Nitrogen 18, Creatinine 0.77, Estimat Glomerular Filtration Rate > 60, BUN/Creatinine Ratio 23, Glucose Level 103, Calcium Level 9.7 Assessment/Plan Assessment 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
[2016-11-11 05:15] VITALS: BP 127/83
--- NOTE | 2016-11-11 08:07 | Progress Note (SOAP) ---
Subjective Time Seen by Provider: 08:05 Subjective/Events-last exam CVA on right. Hypertension. Noncompliance of medicine. Patient feeling better. Patient states she's working hard Objective Exam Vital Signs Date Time Temp Pulse Resp B/P (MAP) Pulse Ox O2 Delivery O2 Flow Rate FiO2 11/11/16 05:15 98.3 64 20 127/83 95 11/10/16 18:01 98.7 67 18 135/80 94 I & O 11/11/16 07:00 Intake Total 950 ml Balance 950 ml Capillary Refill : General Appearance: No Apparent Distress, WD/WN HEENT: Normal ENT Inspection Neck: Normal Inspection Respiratory: No Accessory Muscle Use, No Respiratory Distress Assessment/Plan Assessment/Plan Assess & Plan/Chief Complaint cerebrovascular accident. Noncompliance with medicine. Hypertension. . 11/11/16. CVA. Noncompliance with medicine.. Hypertension. Patient able to move the right foot Patient unable to move the right Hand Clinical Quality Measures DVT/VTE Risk/Contraindication: Risk Factor Score Per Nursin RFS Level Per Nursing on Admit: 4+=Very High MOSHE KRISHNAMURTHY DO Nov 11, 2016 08:07
[2016-11-11] MEDS: CLOPIDOGREL 75 MG (PLAVIX) TABLET PO SCH (08:22)
[2016-11-11] MEDS: ASPIRIN 81 MG CHEW (CHILDREN'S ASA) PO SCH (08:22)
[2016-11-11] MEDS: meTOproloL SUCCINATE 50 MG (TOPROL XL) TAB PO SCH (08:22)
[2016-11-11] MEDS: lisINopril 10 MG (PRINIVIL) TAB PO SCH (08:22)
[2016-11-11] MEDS: ENOXAPARIN 40 MG/0.4 ML (LOVENOX) SYR SC SCH (08:22)
[2016-11-11] MEDS: CEFDINIR 300 MG (OMNICEF) CAP PO SCH ×2 (08:22→20:23)
[2016-11-11] MEDS: amLODIPine 5 MG (NORVASC) TAB PO SCH (08:22)
--- NOTE | 2016-11-11 09:46 | Physical Therapy Daily Note ---
PT Daily Note-Current Subjective Patient in recliner pre tx, agrees to PT, no complaints of pain. Patient needs dressed upper and lower body, min-mod assist. Appearance Patient in recliner post tx with nurse call, phone, tray, all needs met. OT has patient right after PT. Mental Status Patient Orientation: Person, Place, Situation Transfers Functional Daniels Measure 0=Not Assessed/NA 4=Minimal Assistance 1=Total Assistance 5=Supervision or Setup 2=Maximal Assistance 6=Modified Daniels 3=Moderate Assistance 7=Complete IndependenceIRFPAI Quality Coding Scale 6 Independent with activity with or without an assistive device 5 Patient requires set up or clean up by helper. Patient completes activity by themselves 4 Supervision or touching assist (CGA). [place] provide cues , steadying assist 3 The helper provides less than half the effort to complete the activity 2 The helper provides more than half the effort to complete the activity 1 Dependent. The helper does all the effort to complete an activity 7 Patient refused to complete or attempt activity 9 The patient did not perform the activity before the current illness or injury 88 Not attempted due to Medical conditions or safety concerns Transfers (B, C, W/C) (FIM): 4 Sit to/from Stand: 4 Bed to/from Chair: 4 Patient is CGA for transfers unless she is turning to the right and then she is min assist. Cues for hand placement and safety, will sit down forcefully often. Gait Training Gait (FIM): 2 Distance: 75'x4 Gait Level of Assist: 4 Gait Persons Needed: 1 Gait Assistive Device: Cane Large Base Quad Min assist for balance, cues for advancement of right leg and positioning. Right knee hyperextension. Exercises NuStep Minutes: 15 NuStep Workload: 5 Treatments dressing, ambulation, functional strengthening Assessment Current Status: Fair Progress improving endurance PT Short Term Goals Short Term Goals Time Frame: Nov 16, 2016 Transfers (B,C,W/C) (FIM): 45 Gait (FIM): 4 Gait Distance Comment: 150' Gait Level of Assist: 4 Gait Assistive Device: Cane Large Base Quad Wheelchair Distance: 50' PT Rn Pediatric Goals Rn Pediatric Goals PT Nursing Home Goals Time Frame: Nov 30, 2016 Transfers (B,C,W/C) (FIM): 5 Sit to Lying (QC): 4 Lying-Sitting on Side/Bed(QC): 4 Sit to Stand (QC): 4 Rollin Roll Left to Right (QC): 4 Chair/[id number] Xfer(QC): 4 Car Transfer (QC): 4 Gait (FIM): 5 Distance: 200' Walk 10 feet (QC): 4 Walk 10ft-Uneven Surface(QC): 4 Walk 50ft with 2 Turns (QC): 4 Walk 150 ft (QC): 4 Gait Level of Assist: 5 Gait Assistive Device: Cane Large Base Quad Stairs (FIM): 4 # of Steps: 12 1 Step (curb) (QC): 4 4 Steps (QC): 4 12 Steps (QC): 4 Stairs Level Of Assist: 4 Picking up an Object (QC): 88 PT Plan Problem List Problem List: Activity Tolerance, Functional Strength, Safety, Balance, Gait, Transfer, Bed Mobility, ROM Treatment/Plan Treatment Plan: Continue Plan of Care Treatment Plan: Bed Mobility, Education, Functional Activity Nash, Functional Strength, Group Therapy, Gait, Safety, Therapeutic Exercise, Transfers Treatment Duration: Nov 30, 2016 Visits Per Week: 10-11 Minutes/Day (M-F): 60-90 Minutes/Day (Sat/Lake): 15-30 Safety Risks/Education Patient Education: Gait Training, Transfer Techniques, Correct Positioning, Safety Issues Teaching Recipient: Patient Teaching Methods: Demonstration, Discussion Response to Teaching: Reinforcement Needed Time/GCodes Time In: 900 Time Out: 945 Total Billed Treatment Time: 45 Total Billed Treatment 1 visit GT 30' EX 15' ELLEN GARZA PT Nov 11, 2016 09:46
--- NOTE | 2016-11-11 10:24 | Speech Therapy Daily Note ---
Speech Daily Progress Note Subjective Date Seen by Provider: Nov 11, 2016 Time Seen by Provider: 08:30 The patient was seated upright in recliner upon entrance. The patient greeted the clinician appropriately and was agreeable to cognitive therapy on this date. Objective Assessment of Language Related Functional Activities (JULISSA) was initiated on this date with the following results: - Telling Time: The patient demonstrated 70% accuracy with reporting the time on an analog clock. Minimal to mild clinician verbal prompting was provided. - Counting Money: The patient demonstrated great difficult with counting coins and bills. The patient displayed 10% accuracy with moderate clinician verbal prompting and direct modeling. Orientation: The patient was oriented to month, day of week, date, and year ( independently). Assessment Assessment Current Status: Fair Progress Treatment Plan Continue Plan of Care Communication Comprehension: 3 Expression: 4 Social Cognition Social Interaction: 4 Problem Solvin Memory: 3 Speech Short Term Goals Short Term Goals Short Term Goals 1. The patient will recall and demonstrate two functional memory strategies for use at home. 2. The patient will demonstrated 80% accuracy with structured word-finding task to improve expressive communication. 3. The patient will follow multi-step instructions with 80% accuracy and mild clinician verbal prompting. 4. The patient will display 90% accuracy with functional safety problem solving , independently. Time Frame-STG: Two Weeks Speech Machine Set Up Technician Goals Machine Set Up Technician Goals 1. The patient will demonstrate improved cognitive linguistic skills for increased function and safety with ADL's in the least restrictive setting. Time Frame: Three Weeks Comprehension: 4 Expression: 4 Social Interaction: 5 Problem Solvin Memory: 4 Speech-Plan Treatment Plan Speech Therapy Treatment Plan: Continue Plan of Care Continue skilled speech pathology to target functional problem solving and memory strategies. Treatment Duration: Nov 30, 2016 # of days/week Four to five. Visits Per Week: Four to five. Minutes/Day (M-F): 30 Rehab Potential: Fair Safety Risks/Education Teaching Recipient: Patient Teaching Methods: Discussion Response to Teaching: Verbalize Understanding Education Topics Provided: Telling Time Time Speech Therapy Time In: 08:30 Speech Therapy Time Out: 09:00 Total Billed Time: 30 Billed Treatment Time ASHLEY Franz ELIZABEJOSSELINE LOCKE Nov 11, 2016 10:24
--- NOTE | 2016-11-11 14:18 | Occupational Ther Daily Note ---
OT Current Status-Daily Note Subjective No pain reported. Appearance Pt. is up in chair. Agrees to shower. Mental Status/Objective Patient Orientation: Person Functional [place] Measure 0=Not Assessed/NA 4=Minimal Assistance 1=Total Assistance 5=Supervision or Setup 2=Maximal Assistance 6=Modified [place] 3=Moderate Assistance 7=Complete [place] ADL-Treatment Functional [place] Measure 0=Not Assessed/NA 4=Minimal Assistance 1=Total Assistance 5=Supervision or Setup 2=Maximal Assistance 6=Modified [place] 3=Moderate Assistance 7=Complete IndependenceIRFPAI Quality Coding Scale 6 Independent with activity with or without an assistive device 5 Patient requires set up or clean up by helper. Patient completes activity by themselves 4 Supervision or touching assist (CGA). [place] provide cues , steadying assist 3 The helper provides less than half the effort to complete the activity 2 The helper provides more than half the effort to complete the activity 1 Dependent. The helper does all the effort to complete an activity 7 Patient refused to complete or attempt activity 9 The patient did not perform the activity before the current illness or injury 88 Not attempted due to Medical conditions or safety concerns Grooming (FIM): 5 (Pt. is able to brush teeth and hair at sink with SBA. This is from wheelchair level.) Oral Hygiene (QC): 5 Bathing (FIM): 5 (Pt. does require supervision as she is somewhat impulsive, and requires cues to go back and thoroughly was body.) Shower/Bathe Self (QC): 5 Upper Body (FIM): 3 (Pt. is shown one handed technique to don shirt. Becomes frustrated and upset.) Upper Body Dressing (QC): 3 Lower Body Dressing (FIM): 4 (Pt. requires assistance to thread right foot into pants. Pt. is able to stock puller hips though today.) Lower Body Dressing (QC): 4 On/Off Footwear (QC): 5 Toileting (FIM): 5 (SBA to urinate on toilet.) Toileting Hygiene (QC): 5 Transfers (B, C, W/C) (FIM): 4 (Pt. is fatigued after PT treatment and requires increased assistance this date. Requires cues to clear right foot during ambulation.) Toilet/Commode Transfer (FIM): 4 Toilet Transfer (QC): 5 Shower Transfer(FIM): 4 Other Treatment Pt. is able to self propel wheelchair to therapy gym after ADL treatment. OT facilitates pt. using left UE to hold right UE, and move back and forth. Pt. has no active movement noted, even at shoulder level. No subluxation noted and no pain in shoulder region. Completed gentle PROM to right UE in all planes. Pt. tolerated treatment well. Went back to room. All needs met. Education OT Patient Education: Correct positioning, Exercise program, Modified ADL techniques, Progress toward Goal/Update tx plan, Purpose of tx/functional activities, Reviewed precautions, Rehab process, Transfer techniques Teaching Recipient: Patient Teaching Methods: Demonstration, Discussion Response to Teaching: Verbalize Understanding, Return Demonstration OT Short Term Goals Short Term Goals Time Frame: Nov 16, 2016 Eating(FIM): 6 Grooming(FIM): 5 Bathing(FIM): 5 Upper Body Dressing(FIM): 4 Lower Body Dressing(FIM): 4 Toileting(FIM): 4 Transfers (B,C,W/C) (FIM): 45 Toilet/Commode Transfer(FIM): 5 Shower Transfer(FIM): 5 Additional Short Term Goals: 1-Demonstrate ADL Tasks, 2-Verbalize Understanding , 3-ImproveStrength/Nash 1=Demonstrate adherence to instructed precautions during ADL tasks. 2=Patient will verbalize/demonstrate understanding of assistive devices/ modifications for ADL. 3=Patient will improve strength/tolerance for activity to enable patient to perform ADL's. OT Care Home Goals Care Home Goals Time Frame: Nov 30, 2016 Eating (FIM): 6 Eating (QC): 6 Groomin Oral Hygiene (QC): 6 Bathing(FIM): 5 Shower/Bathe Self (QC): 5 Upper Body Dressing(FIM): 6 Upper Body Dressing (QC): 6 Lower Body Dressing(FIM): 6 Lower Body Dressing (QC): 6 On/Off Footwear (QC): 6 Toileting(FIM): 6 Toileting Hygiene (QC): 6 Transfers (B,C,W/C) (FIM): 6 Toilet/Commode Transfer(FIM): 6 Toilet/Commode Transfer (QC): 6 Shower Transfer(FIM): 5 Comprehension(FIM): 4 Expression (FIM): 4 Social Interaction(FIM): 5 Problem Solving(FIM): 4 Memory(FIM): 4 Additional Goals: 1-Demonstrate ADL Tasks, 2-Verbalize Understanding, 3- ImproveStrength/Nash 1=Demonstrate adherence to instructed precautions during ADL tasks. 2=Patient will verbalize/demonstrate understanding of assistive devices/ modifications for ADL. 3=Patient will improve strength/tolerance for activity to enable patient to perform ADL's. OT Education/Plan Problem List/Assessment Assessment: Decreased Activ Tolerance, Decreased UE Strength, Dependent Transfers, Impaired Bed Mobility, Impaired Funct Balance, Impaired I ADL's, Impaired Self-Care Skills, Restricted Funct UE ROM, Visual-Perceptual Deficit Discharge Recommendations Plan/Recommendations: Continue POC Therapy D/C Recommendations: Assisted Living Treatment Plan/Plan of Care Treatment,Training & Education: Yes Patient would benefit from OT for education, treatment and training to promote independence in ADL's, mobility, safety and/or upper extremity function for ADL' s. Plan of Care: ADL Retraining, Caregiver Training, Cognitive Retraining, Functional Mobility, Group Exercise/Act as Ind, UE Funct Exercise/Act, UE Neuromus Re-Ed/Coord Treatment Duration: Nov 30, 2016 Visits Per Week: 5-6 Rehab Potential: Fair Time/GCodes Start Time: 09:45 Stop Time: 10:30 Total Time Billed (hr/min): 45 Billed Treatment Time 1, ADL x 30minutes, Ex x 15minutes JOEL MCDOWELL OT Nov 11, 2016 14:18
--- NOTE | 2016-11-11 16:12 | Therapy Group Daily Note ---
Therapy Daily Group Note Exercises UE Exercise Other/Notes Pt ambulated to PT/OT Group in Therapy Commons using [facility] at [facility]. Group consisted of Introductions (Name, Where you are from and Childhood Memory), Socialization, Activities focused on Problem Solving, Memory, Sequencing, UE reaching and grasping, Core Strengthening while sitting and Fine Motor. Pt actively participated in Group by participating in activity by Exercising as needed for task and Socializing with other patients during task. Pt needed occasional redirection for sequencing during activity. Pt returned to room to rest in bed with all needs met at end of tx. Start Time: 13:00 Stop Time: 14:10 Total Billed Treatment Time: 70 Total Billed Treatment 1,GRP RUDI TILLMAN LOOM MECHANIC Nov 11, 2016 16:12
[2016-11-11 18:56] VITALS: BP 123/81
[2016-11-11] MEDS: ATORVASTATIN 20 MG (LIPITOR) TABLET PO SCH (20:23)
[2016-11-12 05:05] VITALS: BP 125/73
[2016-11-12] MEDS: ENOXAPARIN 40 MG/0.4 ML (LOVENOX) SYR SC SCH (07:55)
[2016-11-12] MEDS: CLOPIDOGREL 75 MG (PLAVIX) TABLET PO SCH (07:56)
[2016-11-12] MEDS: ASPIRIN 81 MG CHEW (CHILDREN'S ASA) PO SCH (07:58)
[2016-11-12] MEDS: lisINopril 10 MG (PRINIVIL) TAB PO SCH (07:59)
[2016-11-12] MEDS: meTOproloL SUCCINATE 50 MG (TOPROL XL) TAB PO SCH (07:59)
[2016-11-12] MEDS: CEFDINIR 300 MG (OMNICEF) CAP PO SCH (07:59)
[2016-11-12] MEDS: amLODIPine 5 MG (NORVASC) TAB PO SCH (08:00)
--- NOTE | 2016-11-12 08:33 | Progress Note (SOAP) ---
Subjective Time Seen by Provider: 08:15 Subjective/Events-last exam CVA. Hypertension. Patient feeling better.. Patient moving right leg better. Patient using a quad cane.. Patient states right hand bed Objective Exam Vital Signs Date Time Temp Pulse Resp B/P (MAP) Pulse Ox O2 Delivery O2 Flow Rate FiO2 11/12/16 05:05 98.9 63 18 125/73 97 11/11/16 18:56 98.0 63 14 123/81 96 I & O 11/12/16 07:00 Intake Total 1150 ml Balance 1150 ml Capillary Refill : General Appearance: No Apparent Distress, WD/WN HEENT: Normal ENT Inspection Neck: Full Range of Motion, Normal Inspection Respiratory: Chest Non Tender, Lungs Clear, Normal Breath Sounds, No Accessory Muscle Use, No Respiratory Distress Cardiovascular: Regular Rate, Rhythm, No Murmur Assessment/Plan Assessment/Plan Assess & Plan/Chief Complaint cerebrovascular accident. Noncompliance with medicine. Hypertension. . 11/11/16. CVA. Noncompliance with medicine.. Hypertension. Patient able to move the right foot Patient unable to move the right Hand. . 11/12/16. CVA. Noncompliance with medicine. Hypertension. Patient moving right leg better. Patient states right arm is Clinical Quality Measures DVT/VTE Risk/Contraindication: Risk Factor Score Per Nursin RFS Level Per Nursing on Admit: 4+=Very High MOSHE KRISHNAMURTHY DO Nov 12, 2016 08:32
--- NOTE | 2016-11-12 10:00 | Individualized Plan of Care ---
Individualized Plan of Care Rehab Nursing IPOC Order Admission Date Nov 09, 2016 at 09:27 Current Orders Orders Patient Visit (11/11/16 ) Treat. Speech/Lang/Voice (11/11/16 ) Patient Visit (11/11/16 ) Gait Training, Ea 15 Min (11/11/16 ) Exercise Therap, Ea 15 Min (11/11/16 ) Patient Visit (11/11/16 ) Therapeutic, Group (11/11/16 ) Rehab Nursing Orders: Diseage Management, Edu in Press Rel Techn, Hydration Management, Nutrition Management Toilet every (bladder): (hrs): 2 hours while awake prn PT IPOC Problem List: Activity Tolerance, Functional Strength, Safety, Balance, Gait, Transfer, Bed Mobility, ROM Treatment Plan: Continue Plan of Care Bed Mobility, Education, Functional Activity Nash, Functional Strength, Group Therapy, Gait, Safety, Therapeutic Exercise, Transfers Treatment Duration: Nov 30, 2016 Visits Per Week: 10-11 Minutes/Day (M-F): 60-90 Minutes/Day (Sat/Lake): 15-30 OT IPOC Problems: Decreased Activ Tolerance, Decreased UE Strength, Dependent Transfers , Impaired Bed Mobility, Impaired Funct Balance, Impaired I ADL's, Impaired Self -Care Skills, Restricted Funct UE ROM, Visual-Perceptual Deficit Plan of Care: ADL Retraining, Caregiver Training, Cognitive Retraining, Functional Mobility, Group Exercise/Act as Ind, UE Funct Exercise/Act, UE Neuromus Re-Ed/Coord Treatment Duration: Nov 30, 2016 Visits Per Week: 5-6 Minutes/Day (M-F): 60-90 Minutes/Day (Sat/Lake): 15-30 ST IPOC Speech Therapy Treatment Plan: Continue Plan of Care Treatment Duration: Nov 30, 2016 Visits Per Week: Four to five. Minutes/Day (M-F): 30 Physician IPOC Medical Issues being managed closely and that require the 24 hour availability of a physician:UTI HTN Medical Issues: Bowel/Bladder Function, DVT Prophylaxis, Falls Precautions, Fluid/Electrolyte/Nutrition Balance, Infection Protection, Pain Management, Other (List) (as per above) Brief Synthesis of Preadmission Screen, Post-Admission Evaluation, and Therapy Evaluations: 56 yo female who had been Independent who sustained a left MCA distribution cva with rt HP with resulting decline in functional [place] Was also found to have a UTI and is completing a course of antibiotic for that today Dr Iraheta PCP referred patient to IRU for satroke rehab Medical Prognosis: good Anticipated Length of Stay: 11-30-16 Rehab Goals Modified Independent to supervision for adl and mobilty skills Anticipated discharge destinat: Home with TEJAS ELLIOTT MD Nov 12, 2016 10:00
--- NOTE | 2016-11-12 10:47 | Occupational Ther Daily Note ---
OT Current Status-Daily Note Subjective No pain reported. Appearance Pt. up in chair. Declines showering, but agrees to get dressed. Mental Status/Objective Patient Orientation: Person Functional [place] Measure 0=Not Assessed/NA 4=Minimal Assistance 1=Total Assistance 5=Supervision or Setup 2=Maximal Assistance 6=Modified [place] 3=Moderate Assistance 7=Complete [place] ADL-Treatment Functional [place] Measure 0=Not Assessed/NA 4=Minimal Assistance 1=Total Assistance 5=Supervision or Setup 2=Maximal Assistance 6=Modified [place] 3=Moderate Assistance 7=Complete IndependenceIRFPAI Quality Coding Scale 6 Independent with activity with or without an assistive device 5 Patient requires set up or clean up by helper. Patient completes activity by themselves 4 Supervision or touching assist (CGA). [place] provide cues , steadying assist 3 The helper provides less than half the effort to complete the activity 2 The helper provides more than half the effort to complete the activity 1 Dependent. The helper does all the effort to complete an activity 7 Patient refused to complete or attempt activity 9 The patient did not perform the activity before the current illness or injury 88 Not attempted due to Medical conditions or safety concerns Grooming (FIM): 5 (set up to brush hair.) Upper Body (FIM): 5 (Pt. demonstrated ability to don shirt, and to don right UE sling. Pt. donned/doffed sling several times, and practiced donning with strap already fastened, and without it fastened. Tolerated well and able to do this for increased independence at home.) Upper Body Dressing (QC): 5 Lower Body Dressing (FIM): 3 (Pt. able to don socks, and able to don pants over feet. Able to pull up to thighs, but unable to pull up over hips.) Lower Body Dressing (QC): 3 On/Off Footwear (QC): 5 Transfers (B, C, W/C) (FIM): 4 (Pt. requires CGA to ambulate to therapy gym. Pt. fatigues easily, and requires several rest breaks.) Other Treatment Pt. donned 1 lb. wrist weight on left UE. Able to complete arm arc multiple times, back and forth. However, fatigues easily. Education OT Patient Education: Correct positioning, Exercise program, Modified ADL techniques, Progress toward Goal/Update tx plan, Purpose of tx/functional activities, Reviewed precautions, Rehab process, Transfer techniques Teaching Recipient: Patient Teaching Methods: Demonstration, Discussion Response to Teaching: Verbalize Understanding, Return Demonstration OT Short Term Goals Short Term Goals Time Frame: Nov 16, 2016 Eating(FIM): 6 Grooming(FIM): 5 Bathing(FIM): 5 Upper Body Dressing(FIM): 4 Lower Body Dressing(FIM): 4 Toileting(FIM): 4 Transfers (B,C,W/C) (FIM): 45 Toilet/Commode Transfer(FIM): 5 Shower Transfer(FIM): 5 Additional Short Term Goals: 1-Demonstrate ADL Tasks, 2-Verbalize Understanding , 3-ImproveStrength/Nash 1=Demonstrate adherence to instructed precautions during ADL tasks. 2=Patient will verbalize/demonstrate understanding of assistive devices/ modifications for ADL. 3=Patient will improve strength/tolerance for activity to enable patient to perform ADL's. OT Senior Living Goals Senior Living Goals Time Frame: Nov 30, 2016 Eating (FIM): 6 Eating (QC): 6 Groomin Oral Hygiene (QC): 6 Bathing(FIM): 5 Shower/Bathe Self (QC): 5 Upper Body Dressing(FIM): 6 Upper Body Dressing (QC): 6 Lower Body Dressing(FIM): 6 Lower Body Dressing (QC): 6 On/Off Footwear (QC): 6 Toileting(FIM): 6 Toileting Hygiene (QC): 6 Transfers (B,C,W/C) (FIM): 6 Toilet/Commode Transfer(FIM): 6 Toilet/Commode Transfer (QC): 6 Shower Transfer(FIM): 5 Comprehension(FIM): 4 Expression (FIM): 4 Social Interaction(FIM): 5 Problem Solving(FIM): 4 Memory(FIM): 4 Additional Goals: 1-Demonstrate ADL Tasks, 2-Verbalize Understanding, 3- ImproveStrength/Nash 1=Demonstrate adherence to instructed precautions during ADL tasks. 2=Patient will verbalize/demonstrate understanding of assistive devices/ modifications for ADL. 3=Patient will improve strength/tolerance for activity to enable patient to perform ADL's. OT Education/Plan Problem List/Assessment Assessment: Decreased Activ Tolerance, Decreased UE Strength, Dependent Transfers, Impaired Cognition, Impaired Coordination, Impaired Funct Balance, Impaired I ADL's, Impaired Self-Care Skills, Restricted Funct UE ROM, Visual- Perceptual Deficit Discharge Recommendations Plan/Recommendations: Continue POC Therapy D/C Recommendations: Home w/ Family Support Treatment Plan/Plan of Care Treatment,Training & Education: Yes Patient would benefit from OT for education, treatment and training to promote independence in ADL's, mobility, safety and/or upper extremity function for ADL' s. Plan of Care: ADL Retraining, Caregiver Training, Cognitive Retraining, Functional Mobility, Group Exercise/Act as Ind, UE Funct Exercise/Act, UE Neuromus Re-Ed/Coord Treatment Duration: Nov 30, 2016 Visits Per Week: 5-6 Minutes/Day (M-F): 60-90 Minutes/Day (Sat/Lake): 15-30 Rehab Potential: Fair Time/GCodes Start Time: 09:50 Stop Time: 10:35 Total Time Billed (hr/min): 45 Billed Treatment Time 1, ADL x 30minutes, EX x 15minutes JOEL MCDOWELL OT Nov 12, 2016 10:47
--- NOTE | 2016-11-12 11:08 | Speech Therapy Daily Note ---
Speech Daily Progress Note Subjective Date Seen by Provider: Nov 12, 2016 Time Seen by Provider: 08:30 The patient was seated upright in recliner upon entrance. The patient greeted the clinician appropriately and was agreeable to participation in the cognitive treatment session. Objective Functional tasks were continued through the JULISSA: - Solving Daily Math Problems: The patient demonstrated 20% accuracy with simple math problems (recipe calculations, coin additions, bill payments). - Understanding Medicine Labels: The patient demonstrated 60% accuracy with understanding, reading, and following medication labels and instructions. - Using a Calendar: The patient demonstrated 70% accuracy with simple calendar tasks. - Reading Instructions: The patient demonstrated 60% accuracy with reading simple instructions (recipes, safety instructions). Orientation: The patient remains oriented to month, day of week, date, and year (independently). Assessment Assessment Current Status: Fair Progress Treatment Plan Continue Plan of Care Communication Comprehension: 3 Expression: 4 Social Cognition Social Interaction: 4 Problem Solvin Memory: 3 Speech Short Term Goals Short Term Goals Short Term Goals 1. The patient will recall and demonstrate two functional memory strategies for use at home. 2. The patient will demonstrated 80% accuracy with structured word-finding task to improve expressive communication. 3. The patient will follow multi-step instructions with 80% accuracy and mild clinician verbal prompting. 4. The patient will display 90% accuracy with functional safety problem solving , independently. Time Frame-STG: Two Weeks Speech Custodial Goals Asbestos Shingle Inspector Goals 1. The patient will demonstrate improved cognitive linguistic skills for increased function and safety with ADL's in the least restrictive setting. Time Frame: Three Weeks Comprehension: 4 Expression: 4 Social Interaction: 5 Problem Solvin Memory: 4 Speech-Plan Treatment Plan Speech Therapy Treatment Plan: Continue Plan of Care Continue skilled speech pathology to target functional problem solving and memory. Treatment Duration: Nov 30, 2016 # of days/week Four to five. Visits Per Week: Four to five. Minutes/Day (M-F): 30 Rehab Potential: Fair Safety Risks/Education Teaching Recipient: Patient Teaching Methods: Discussion Response to Teaching: Verbalize Understanding Education Topics Provided: Progress, Results Time Speech Therapy Time In: 08:30 Speech Therapy Time Out: 09:00 Total Billed Time: 30 Billed Treatment Time ASHLEY Franz ELIZABEJOSSELINE LOCKE Nov 12, 2016 11:08
--- NOTE | 2016-11-12 11:33 | Physical Therapy Daily Note ---
PT Daily Note-Current Subjective Patient in recliner pre tx, agrees to PT, no complaints of pain. Patient will be trying a [place] knee cage on her right knee for hyperextension and an AFO for ambulation today. Appearance Patient in recliner post tx with nurse call, phone, tray, all needs met. Mental Status Patient Orientation: Person, Place, Situation Transfers Functional [place] Measure 0=Not Assessed/NA 4=Minimal Assistance 1=Total Assistance 5=Supervision or Setup 2=Maximal Assistance 6=Modified [place] 3=Moderate Assistance 7=Complete IndependenceIRFPAI Quality Coding Scale 6 Independent with activity with or without an assistive device 5 Patient requires set up or clean up by helper. Patient completes activity by themselves 4 Supervision or touching assist (CGA). [place] provide cues , steadying assist 3 The helper provides less than half the effort to complete the activity 2 The helper provides more than half the effort to complete the activity 1 Dependent. The helper does all the effort to complete an activity 7 Patient refused to complete or attempt activity 9 The patient did not perform the activity before the current illness or injury 88 Not attempted due to Medical conditions or safety concerns Transfers (B, C, W/C) (FIM): 4 Sit to/from Stand: 4 CGA, cues for safety and hand placement Gait Training Gait (FIM): 2 Distance: 75'x4 Gait Level of Assist: 4 Gait Persons Needed: 1 Gait Assistive Device: Cane Large Base Quad Right side [place] knee cage and AFO. Min assist for balance, cues for safety and to take bigger steps with her right leg. Very slow ambulation, fatigues quickly. Exercises Standing: Hip Abduction, Mini squats Standing Reps: 15 toe touches on step x 15 each side, LAQ each side for 2 min Treatments transfers, ambulation, functional strengthening Assessment Current Status: Fair Progress Patient fatigues quickly and needs frequent rest breaks. [place] knee cage was effective at limiting her right knee hyperextension. PT Short Term Goals Short Term Goals Time Frame: Nov 16, 2016 Transfers (B,C,W/C) (FIM): 45 Gait (FIM): 4 Gait Distance Comment: 150' Gait Level of Assist: 4 Gait Assistive Device: Cane Large Base Quad Wheelchair Distance: 50' PT Scoop Operator Goals Nursing Home Goals PT Scoop Operator Goals Time Frame: Nov 30, 2016 Transfers (B,C,W/C) (FIM): 5 Sit to Lying (QC): 4 Lying-Sitting on Side/Bed(QC): 4 Sit to Stand (QC): 4 Rollin Roll Left to Right (QC): 4 Chair/Iyp-lt-Kgewc Xfer(QC): 4 Car Transfer (QC): 4 Gait (FIM): 5 Distance: 200' Walk 10 feet (QC): 4 Walk 10ft-Uneven Surface(QC): 4 Walk 50ft with 2 Turns (QC): 4 Walk 150 ft (QC): 4 Gait Level of Assist: 5 Gait Assistive Device: Cane Large Base Quad Stairs (FIM): 4 # of Steps: 12 1 Step (curb) (QC): 4 4 Steps (QC): 4 12 Steps (QC): 4 Stairs Level Of Assist: 4 Picking up an Object (QC): 88 PT Plan Problem List Problem List: Activity Tolerance, Functional Strength, Safety, Balance, Gait, Transfer, Bed Mobility, ROM Treatment/Plan Treatment Plan: Continue Plan of Care Treatment Plan: Bed Mobility, Education, Functional Activity Nash, Functional Strength, Group Therapy, Gait, Safety, Therapeutic Exercise, Transfers Treatment Duration: Nov 30, 2016 Visits Per Week: 10-11 Minutes/Day (M-F): 60-90 Minutes/Day (Sat/Lake): 15-30 Safety Risks/Education Patient Education: Gait Training, Transfer Techniques, Correct Positioning, Safety Issues Teaching Recipient: Patient Teaching Methods: Demonstration, Discussion Response to Teaching: Reinforcement Needed Time/GCodes Time In: 1045 Time Out: 1130 Total Billed Treatment Time: 45 Total Billed Treatment 1 visit GT 30' EX 15' ELLEN GARZA PT Nov 12, 2016 11:33
--- NOTE | 2016-11-12 13:36 | Therapy Group Daily Note ---
Therapy Daily Group Note Patient Education Topic Home Safety, Energy Cons, ADL Other/Notes The patient ambulated to ST/OT Group in Therapy Commons Area with clinician. The group consisted of repeat introductions (as all members were present at previous group), socialization, and home safety problem solving and energy conversation methods while in the kitchen/cooking (stove safety, expiration date safety). The patient provided verbal input during group, sharing stove safety precautions, as well as, appropriate temperature of cooked chicken. At the close of group, she is accompanied back to room by staff. Start Time: 11:50 Stop Time: 13:00 Total Billed Treatment Time: 70 Total Billed Treatment 1, GRP ISAAC MAY Nov 12, 2016 13:36
[2016-11-12 17:16] VITALS: BP 124/72
[2016-11-12] MEDS: ATORVASTATIN 20 MG (LIPITOR) TABLET PO SCH (20:11)
[2016-11-13 05:13] VITALS: BP 129/63
[2016-11-13] MEDS: ENOXAPARIN 40 MG/0.4 ML (LOVENOX) SYR SC SCH (09:00)
[2016-11-13] MEDS: CLOPIDOGREL 75 MG (PLAVIX) TABLET PO SCH (09:00)
[2016-11-13] MEDS: meTOproloL SUCCINATE 50 MG (TOPROL XL) TAB PO SCH (09:01)
[2016-11-13] MEDS: amLODIPine 5 MG (NORVASC) TAB PO SCH (09:01)
[2016-11-13] MEDS: lisINopril 10 MG (PRINIVIL) TAB PO SCH (09:01)
[2016-11-13] MEDS: ASPIRIN 81 MG CHEW (CHILDREN'S ASA) PO SCH (09:01)
--- NOTE | 2016-11-13 12:30 | Physical Therapy Daily Note ---
PT Daily Note-Current Subjective No issues voiced before or during therapy. Mental Status Patient Orientation: Person Transfers Functional [place] Measure 0=Not Assessed/NA 4=Minimal Assistance 1=Total Assistance 5=Supervision or Setup 2=Maximal Assistance 6=Modified [place] 3=Moderate Assistance 7=Complete IndependenceIRFPAI Quality Coding Scale 6 Independent with activity with or without an assistive device 5 Patient requires set up or clean up by helper. Patient completes activity by themselves 4 Supervision or touching assist (CGA). [place] provide cues , steadying assist 3 The helper provides less than half the effort to complete the activity 2 The helper provides more than half the effort to complete the activity 1 Dependent. The helper does all the effort to complete an activity 7 Patient refused to complete or attempt activity 9 The patient did not perform the activity before the current illness or injury 88 Not attempted due to Medical conditions or safety concerns Sit to/from Stand: 6 Sit to Lying (QC): 4 Sit to Stand (QC): 6 Bed to/from Chair: 4 Gait Training Does the Patient Walk?: Yes Distance (FIM): 3=150 ft Distance: 100ft x2 Gait Level of Assist: 4 Gait Persons Needed: 1 Gait Assistive Device: FWW Pt requires constant contact due to lack of sensation in (R) LE. Exercises Supine Ex: LE Protocol Supine Reps: 15 NuStep Minutes: 10 NuStep Workload: 5 Assessment Pt wearing the (R) knee brace, but (R) knee buckled in flexion 2x during ambulation. Pt able to self correct with support on cane. PT Short Term Goals Short Term Goals Time Frame: Nov 16, 2016 Transfers (B,C,W/C) (FIM): 45 Gait (FIM): 4 Gait Distance Comment: 150' Gait Level of Assist: 4 Gait Assistive Device: Cane Large Base Quad Wheelchair Distance: 50' PT [facility] [employer] Goals Residential Goals PT [facility] [employer] Goals Time Frame: Nov 30, 2016 Transfers (B,C,W/C) (FIM): 5 Sit to Lying (QC): 4 Lying-Sitting on Side/Bed(QC): 4 Sit to Stand (QC): 4 Rollin Roll Left to Right (QC): 4 Chair/Yax-rl-Oblfi Xfer(QC): 4 Car Transfer (QC): 4 Gait (FIM): 5 Distance: 200' Walk 10 feet (QC): 4 Walk 10ft-Uneven Surface(QC): 4 Walk 50ft with 2 Turns (QC): 4 Walk 150 ft (QC): 4 Gait Level of Assist: 5 Gait Assistive Device: Cane Large Base Quad Stairs (FIM): 4 # of Steps: 12 1 Step (curb) (QC): 4 4 Steps (QC): 4 12 Steps (QC): 4 Stairs Level Of Assist: 4 Picking up an Object (QC): 88 PT Plan Treatment/Plan Treatment Plan: Continue Plan of Care Treatment Plan: Bed Mobility, Education, Functional Activity Nash, Functional Strength, Group Therapy, Gait, Safety, Therapeutic Exercise, Transfers Treatment Duration: Nov 30, 2016 Visits Per Week: 10-11 Minutes/Day (M-F): 60-90 Minutes/Day (Sat/Lake): 15-30 Time/GCodes Time In: 1130 Time Out: 1200 Total Billed Treatment Time: 30 Total Billed Treatment 1, gt 10', ex 20' G Codes Necessary: No TATYANA ESPINOSA PT Nov 13, 2016 12:29
[2016-11-13 18:31] VITALS: BP 122/87
[2016-11-13] MEDS: ATORVASTATIN 20 MG (LIPITOR) TABLET PO SCH (20:10)
[2016-11-14 05:46] VITALS: BP 125/81
[2016-11-14 08:14] VITALS: BP 120/75
[2016-11-14] MEDS: meTOproloL SUCCINATE 50 MG (TOPROL XL) TAB PO SCH (08:14)
[2016-11-14] MEDS: amLODIPine 5 MG (NORVASC) TAB PO SCH (08:15)
[2016-11-14] MEDS: ASPIRIN 81 MG CHEW (CHILDREN'S ASA) PO SCH (08:15)
[2016-11-14] MEDS: lisINopril 10 MG (PRINIVIL) TAB PO SCH (08:15)
[2016-11-14] MEDS: CLOPIDOGREL 75 MG (PLAVIX) TABLET PO SCH (08:15)
[2016-11-14] MEDS: ENOXAPARIN 40 MG/0.4 ML (LOVENOX) SYR SC SCH (08:15)
[2016-11-14 17:35] VITALS: BP 118/76
[2016-11-14] MEDS: ATORVASTATIN 20 MG (LIPITOR) TABLET PO SCH (20:08)
[2016-11-15 05:14] VITALS: BP 123/72
[2016-11-15] MEDS: CLOPIDOGREL 75 MG (PLAVIX) TABLET PO SCH (07:56)
[2016-11-15] MEDS: amLODIPine 5 MG (NORVASC) TAB PO SCH (07:56)
[2016-11-15] MEDS: lisINopril 10 MG (PRINIVIL) TAB PO SCH (07:56)
[2016-11-15] MEDS: meTOproloL SUCCINATE 50 MG (TOPROL XL) TAB PO SCH (07:56)
[2016-11-15] MEDS: ENOXAPARIN 40 MG/0.4 ML (LOVENOX) SYR SC SCH (07:57)
[2016-11-15] MEDS: ASPIRIN 81 MG CHEW (CHILDREN'S ASA) PO SCH (07:57)
--- NOTE | 2016-11-15 09:00 | Speech Therapy Daily Note ---
Speech Daily Progress Note Subjective Date Seen by Provider: Nov 15, 2016 Time Seen by Provider: 08:30 The patient was seated upright in recliner upon entrance. The patient greeted the clinician appropriately and was agreeable to participation in the cognitive treatment session on this date. Objective Orientation: The patient was oriented to month, date, year, day of week and location. At the beginning of the session, the patient utilized the in-room white board, however, at the close of the session the patient did not use any aid for identification of orientation information. Safety Problem Solving: The patient was provided pictures depicting safety issues in their environment. The patient was asked to identify the safety issue and provide an appropriate solution. The patient demonstrated high accuracy with this task, displaying 100% accuracy with minimal clinician verbal cueing. Assessment Assessment Current Status: Good Progress Treatment Plan Continue Plan of Care Communication Comprehension: 4 Expression: 4 Social Cognition Social Interaction: 4 Problem Solvin Memory: 3 Speech Short Term Goals Short Term Goals Short Term Goals 1. The patient will recall and demonstrate two functional memory strategies for use at home. 2. The patient will demonstrated 80% accuracy with structured word-finding task to improve expressive communication. 3. The patient will follow multi-step instructions with 80% accuracy and mild clinician verbal prompting. 4. The patient will display 90% accuracy with functional safety problem solving , independently. Time Frame-STG: Two Weeks Speech Pole Incisor Operator Goals Pole Incisor Operator Goals 1. The patient will demonstrate improved cognitive linguistic skills for increased function and safety with ADL's in the least restrictive setting. Time Frame: Three Weeks Comprehension: 4 Expression: 4 Social Interaction: 5 Problem Solvin Memory: 4 Speech-Plan Treatment Plan Speech Therapy Treatment Plan: Continue Plan of Care Continue skilled speech pathology to target functional problem solving and memory. Treatment Duration: Nov 30, 2016 # of days/week Four to five. Visits Per Week: Four to five. Minutes/Day (M-F): 30 Rehab Potential: Fair Safety Risks/Education Teaching Recipient: Patient Teaching Methods: Discussion Response to Teaching: Verbalize Understanding, Return Demonstration Education Topics Provided: Safety Problem Solving Time Speech Therapy Time In: 08:30 Speech Therapy Time Out: 09:00 Total Billed Time: 30 Billed Treatment Time ASHLEY Franz ELIZABETH ST Nov 15, 2016 09:00
--- NOTE | 2016-11-15 09:01 | Progress Note (SOAP) ---
Subjective Time Seen by Provider: 08:55 Subjective/Events-last exam CVA. Noncompliance Objective Exam Vital Signs Date Time Temp Pulse Resp B/P (MAP) Pulse Ox O2 Delivery O2 Flow Rate FiO2 11/15/16 05:14 98.4 60 18 123/72 97 Room Air 11/14/16 20:31 Room Air 11/14/16 17:35 99.1 55 16 118/76 98 Room Air 11/14/16 09:18 Room Air I & O 11/15/16 07:00 Intake Total 1452 ml Balance 1452 ml Capillary Refill : General Appearance: No Apparent Distress, WD/WN Assessment/Plan Assessment/Plan Assess & Plan/Chief Complaint cerebrovascular accident. Noncompliance with medicine. Hypertension. . 11/11/16. CVA. Noncompliance with medicine.. Hypertension. Patient able to move the right foot Patient unable to move the right Hand. . 11/12/16. CVA. Noncompliance with medicine. Hypertension. Patient moving right leg better. Patient states right arm is . . 11/15/16. CVA. Noncompliance with medicine. Hypertension. Right leg doing better. Problems with right hand Clinical Quality Measures DVT/VTE Risk/Contraindication: Risk Factor Score Per Nursin RFS Level Per Nursing on Admit: 4+=Very High MOSHE KRISHNAMURTHY DO Nov 15, 2016 09:01
--- NOTE | 2016-11-15 11:07 | Physical Therapy Daily Note ---
PT Daily Note-Current Subjective Pt. mostly quiet but states she is having some right side neck pain today. Agrees to Rx Pain Numeric Pain Scale: 4 Location: Right Location Body Site: Neck Pain Description: Ache Mental Status Patient Orientation: Normal For Age Attachments: Other-See Comments (righr AFO and cook islander knee cage) Transfers Functional [place] Measure 0=Not Assessed/NA 4=Minimal Assistance 1=Total Assistance 5=Supervision or Setup 2=Maximal Assistance 6=Modified [place] 3=Moderate Assistance 7=Complete IndependenceIRFPAI Quality Coding Scale 6 Independent with activity with or without an assistive device 5 Patient requires set up or clean up by helper. Patient completes activity by themselves 4 Supervision or touching assist (CGA). [place] provide cues , steadying assist 3 The helper provides less than half the effort to complete the activity 2 The helper provides more than half the effort to complete the activity 1 Dependent. The helper does all the effort to complete an activity 7 Patient refused to complete or attempt activity 9 The patient did not perform the activity before the current illness or injury 88 Not attempted due to Medical conditions or safety concerns Transfers (B, C, W/C) (FIM): 4 Scootin Rollin Supine to/from Sit: 5 (with much struggle supine to right side) Sit to/from Stand: 4 Bed to/from Chair: 4 emphasis on sit to stand with cues for "nose over toes" and using eccentric control to lower vs plopping Gait Training Gait (FIM): 2 Distance (FIM): 3=150 ft (100,75x3) Gait Level of Assist: 4 Gait Persons Needed: 1 Gait Assistive Device: Cane Large Base Quad pt. requires min assist this date and cues to clear right foot as well as assist to wt shift toward left to allow this Exercises Supine Ex: Bridging, Rolling, Glut sets, Heel Slides, Short Arc Quads, Scooting , Straight leg raise, Hip abd/add Supine Reps: 15 Seated Therapy Exercises: Ankle pumps, Sit to stand, Long arc quads, Hip flexion Seated Reps: 12 Assessment Current Status: Good Progress fatigued and got sloppy with gait , needed rest breaks PT Short Term Goals Short Term Goals Time Frame: Nov 16, 2016 Transfers (B,C,W/C) (FIM): 45 Gait (FIM): 4 Gait Distance Comment: 150' Gait Level of Assist: 4 Gait Assistive Device: Cane Large Base Quad Wheelchair Distance: 50' PT [facility] Goals [employer]ian [employer] Officer Goals PT [facility] Goals Time Frame: Nov 30, 2016 Transfers (B,C,W/C) (FIM): 5 Sit to Lying (QC): 4 Lying-Sitting on Side/Bed(QC): 4 Sit to Stand (QC): 4 Rollin Roll Left to Right (QC): 4 Chair/Gic-wb-Kofyl Xfer(QC): 4 Car Transfer (QC): 4 Gait (FIM): 5 Distance: 200' Walk 10 feet (QC): 4 Walk 10ft-Uneven Surface(QC): 4 Walk 50ft with 2 Turns (QC): 4 Walk 150 ft (QC): 4 Gait Level of Assist: 5 Gait Assistive Device: Cane Large Base Quad Stairs (FIM): 4 # of Steps: 12 1 Step (curb) (QC): 4 4 Steps (QC): 4 12 Steps (QC): 4 Stairs Level Of Assist: 4 Picking up an Object (QC): 88 PT Plan Treatment/Plan Treatment Plan: Continue Plan of Care Treatment Plan: Bed Mobility, Education, Functional Activity Nash, Functional Strength, Group Therapy, Gait, Safety, Therapeutic Exercise, Transfers Treatment Duration: Nov 30, 2016 Visits Per Week: 10-11 Minutes/Day (M-F): 60-90 Minutes/Day (Sat/Lake): 15-30 Safety Risks/Education Patient Education: Gait Training, Transfer Techniques Teaching Recipient: Patient Teaching Methods: Demonstration, Discussion Response to Teaching: Verbalize Understanding, Return Demonstration, Reinforcement Needed Time/GCodes Time In: 1000 Time Out: 1100 Total Billed Treatment Time: 60 Total Billed Treatment 1,GT30m,EX30m G Codes Necessary: MELLY Lee RELATIONS DIRECTOR Nov 15, 2016 11:07
--- NOTE | 2016-11-15 14:20 | Physical Therapy Daily Note ---
PT Daily Note-Current Subjective Patient agrees to PT. Pain Numeric Pain Scale: 0-No Pain Location: No Pain Reported Mental Status Patient Orientation: Person, Time, Situation Transfers Functional [place] Measure 0=Not Assessed/NA 4=Minimal Assistance 1=Total Assistance 5=Supervision or Setup 2=Maximal Assistance 6=Modified [place] 3=Moderate Assistance 7=Complete IndependenceIRFPAI Quality Coding Scale 6 Independent with activity with or without an assistive device 5 Patient requires set up or clean up by helper. Patient completes activity by themselves 4 Supervision or touching assist (CGA). [place] provide cues , steadying assist 3 The helper provides less than half the effort to complete the activity 2 The helper provides more than half the effort to complete the activity 1 Dependent. The helper does all the effort to complete an activity 7 Patient refused to complete or attempt activity 9 The patient did not perform the activity before the current illness or injury 88 Not attempted due to Medical conditions or safety concerns Transfers (B, C, W/C) (FIM): 4 Scootin Rollin Roll Left to Right (QC): 5 Supine to/from Sit: 5 Sit to/from Stand: 4 Sit to Lying (QC): 5 Sit to Stand (QC): 5 Chair/Xnv-gb-Ugsnn Xfer(QC): 5 CGA for safety Gait Training Does the Patient Walk?: Yes Gait (FIM): 4 Distance (FIM): 3=150 ft Distance: 150' x 2 Walk 10 feet (QC): 4 Walk 50 ft with 2 Turns(QC): 4 Walk 150 ft (QC): 4 Gait Level of Assist: 4 Gait Persons Needed: 1 Gait Assistive Device: Cane Small Base Quad step to gait sequence Assessment Gait training without AFO to address foot clearance to advance right LE. Patient is displaying slight dorsiflexion and is able to advance right LE with skilled verbal instruction to "march". Patient returned to bed with needs met and bed alarm activated. PT Short Term Goals Short Term Goals Time Frame: Nov 16, 2016 Transfers (B,C,W/C) (FIM): 45 Gait (FIM): 4 Gait Distance Comment: 150' Gait Level of Assist: 4 Gait Assistive Device: Cane Large Base Quad Wheelchair Distance: 50' PT Usp Goals Echocardiographer Goals PT Echocardiographer Goals Time Frame: Nov 30, 2016 Transfers (B,C,W/C) (FIM): 5 Sit to Lying (QC): 4 Lying-Sitting on Side/Bed(QC): 4 Sit to Stand (QC): 4 Rollin Roll Left to Right (QC): 4 Chair/Jsv-kk-Avstj Xfer(QC): 4 Car Transfer (QC): 4 Gait (FIM): 5 Distance: 200' Walk 10 feet (QC): 4 Walk 10ft-Uneven Surface(QC): 4 Walk 50ft with 2 Turns (QC): 4 Walk 150 ft (QC): 4 Gait Level of Assist: 5 Gait Assistive Device: Cane Large Base Quad Stairs (FIM): 4 # of Steps: 12 1 Step (curb) (QC): 4 4 Steps (QC): 4 12 Steps (QC): 4 Stairs Level Of Assist: 4 Picking up an Object (QC): 88 PT Plan Treatment/Plan Treatment Plan: Continue Plan of Care Treatment Plan: Bed Mobility, Education, Functional Activity Nash, Functional Strength, Group Therapy, Gait, Safety, Therapeutic Exercise, Transfers Treatment Duration: Nov 30, 2016 Visits Per Week: 10-11 Minutes/Day (M-F): 60-90 Minutes/Day (Sat/Lake): 15-30 Time/GCodes Time In: 1400 Time Out: 1415 Total Billed Treatment Time: 15 Total Billed Treatment 1 visit GT 15 min CL CANALES PT Nov 15, 2016 14:20
--- NOTE | 2016-11-15 15:51 | Occupational Ther Daily Note ---
OT Current Status-Daily Note Subjective No pain reported. Appearance Pt. is up in chair. Agrees to shower. Mental Status/Objective Patient Orientation: Person Functional [place] Measure 0=Not Assessed/NA 4=Minimal Assistance 1=Total Assistance 5=Supervision or Setup 2=Maximal Assistance 6=Modified [place] 3=Moderate Assistance 7=Complete [place] ADL-Treatment Functional [place] Measure 0=Not Assessed/NA 4=Minimal Assistance 1=Total Assistance 5=Supervision or Setup 2=Maximal Assistance 6=Modified [place] 3=Moderate Assistance 7=Complete IndependenceIRFPAI Quality Coding Scale 6 Independent with activity with or without an assistive device 5 Patient requires set up or clean up by helper. Patient completes activity by themselves 4 Supervision or touching assist (CGA). [place] provide cues , steadying assist 3 The helper provides less than half the effort to complete the activity 2 The helper provides more than half the effort to complete the activity 1 Dependent. The helper does all the effort to complete an activity 7 Patient refused to complete or attempt activity 9 The patient did not perform the activity before the current illness or injury 88 Not attempted due to Medical conditions or safety concerns Grooming (FIM): 5 (Pt. requires set up for brushing hair and teeth.) Oral Hygiene (QC): 5 Bathing (FIM): 4 (CGA at times for safety. Constant cues to complete tasks. Pt. washes quickly. Requires cues to wash thoroughly.) Shower/Bathe Self (QC): 4 Upper Body (FIM): 4 (Min assist to pull down shirt. ) Upper Body Dressing (QC): 4 Lower Body Dressing (FIM): 3 (Min assist to don pants. SBA to doff/don socks. Max assist to don knee brace.) Lower Body Dressing (QC): 3 On/Off Footwear (QC): 5 Toileting (FIM): 5 Toileting Hygiene (QC): 5 Transfers (B, C, W/C) (FIM): 4 Toilet/Commode Transfer (FIM): 5 Toilet Transfer (QC): 5 Shower Transfer(FIM): 4 Other Treatment Pt. demonstrates flat affect at times. Requires cues to sequence steps and initiate tasks. Education OT Patient Education: Correct positioning, Modified ADL techniques, Progress toward Goal/Update tx plan, Purpose of tx/functional activities, Reviewed precautions, Rehab process, Transfer techniques Teaching Recipient: Patient Teaching Methods: Demonstration, Discussion Response to Teaching: Verbalize Understanding, Return Demonstration OT Short Term Goals Short Term Goals Time Frame: Nov 16, 2016 Eating(FIM): 6 Grooming(FIM): 5 Bathing(FIM): 5 Upper Body Dressing(FIM): 4 Lower Body Dressing(FIM): 4 Toileting(FIM): 4 Transfers (B,C,W/C) (FIM): 45 Toilet/Commode Transfer(FIM): 5 Shower Transfer(FIM): 5 Additional Short Term Goals: 1-Demonstrate ADL Tasks, 2-Verbalize Understanding , 3-ImproveStrength/Nash 1=Demonstrate adherence to instructed precautions during ADL tasks. 2=Patient will verbalize/demonstrate understanding of assistive devices/ modifications for ADL. 3=Patient will improve strength/tolerance for activity to enable patient to perform ADL's. OT [facility] Goals [place] Machine Operator Goals Time Frame: Nov 30, 2016 Eating (FIM): 6 Eating (QC): 6 Groomin Oral Hygiene (QC): 6 Bathing(FIM): 5 Shower/Bathe Self (QC): 5 Upper Body Dressing(FIM): 6 Upper Body Dressing (QC): 6 Lower Body Dressing(FIM): 6 Lower Body Dressing (QC): 6 On/Off Footwear (QC): 6 Toileting(FIM): 6 Toileting Hygiene (QC): 6 Transfers (B,C,W/C) (FIM): 6 Toilet/Commode Transfer(FIM): 6 Toilet/Commode Transfer (QC): 6 Shower Transfer(FIM): 5 Comprehension(FIM): 4 Expression (FIM): 4 Social Interaction(FIM): 5 Problem Solving(FIM): 4 Memory(FIM): 4 Additional Goals: 1-Demonstrate ADL Tasks, 2-Verbalize Understanding, 3- ImproveStrength/Nash 1=Demonstrate adherence to instructed precautions during ADL tasks. 2=Patient will verbalize/demonstrate understanding of assistive devices/ modifications for ADL. 3=Patient will improve strength/tolerance for activity to enable patient to perform ADL's. OT Education/Plan Problem List/Assessment Assessment: Decreased Activ Tolerance, Decreased UE Strength, Dependent Transfers, Impaired Bed Mobility, Impaired Cognition, Impaired Coordination, Impaired Funct Balance, Impaired I ADL's, Impaired Self-Care Skills Discharge Recommendations Plan/Recommendations: Continue POC Therapy D/C Recommendations: Home w/ Family Support, Occupational Therapy Home Care Treatment Plan/Plan of Care Treatment,Training & Education: Yes Patient would benefit from OT for education, treatment and training to promote independence in ADL's, mobility, safety and/or upper extremity function for ADL' s. Plan of Care: ADL Retraining, Caregiver Training, Cognitive Retraining, Functional Mobility, Group Exercise/Act as Ind, UE Funct Exercise/Act, UE Neuromus Re-Ed/Coord Treatment Duration: Nov 30, 2016 Visits Per Week: 5-6 Minutes/Day (M-F): 60-90 Minutes/Day (Sat/Lake): 15-30 Rehab Potential: Fair Time/GCodes Start Time: 11:10 Stop Time: 11:55 Total Time Billed (hr/min): 45 Billed Treatment Time 1, ADL x 3 JOEL MCDOWELL OT Nov 15, 2016 15:51
--- NOTE | 2016-11-15 15:57 | Occupational Ther Daily Note ---
OT Current Status-Daily Note Subjective No pain reported. Appearance Pt. up in chair. Agrees to treatment. Mental Status/Objective Patient Orientation: Person Functional [place] Measure 0=Not Assessed/NA 4=Minimal Assistance 1=Total Assistance 5=Supervision or Setup 2=Maximal Assistance 6=Modified [place] 3=Moderate Assistance 7=Complete [place] ADL-Treatment Functional [place] Measure 0=Not Assessed/NA 4=Minimal Assistance 1=Total Assistance 5=Supervision or Setup 2=Maximal Assistance 6=Modified [place] 3=Moderate Assistance 7=Complete IndependenceIRFPAI Quality Coding Scale 6 Independent with activity with or without an assistive device 5 Patient requires set up or clean up by helper. Patient completes activity by themselves 4 Supervision or touching assist (CGA). [place] provide cues , steadying assist 3 The helper provides less than half the effort to complete the activity 2 The helper provides more than half the effort to complete the activity 1 Dependent. The helper does all the effort to complete an activity 7 Patient refused to complete or attempt activity 9 The patient did not perform the activity before the current illness or injury 88 Not attempted due to Medical conditions or safety concerns Other Treatment No active movement noted in right UE. Pt. did participate in arm arc activity using left UE for continued strengthening for daily tasks. Pt. then participated in visual perceptual task. Pt. completed scanning activity, and copying activity using left UE. Pt. did relatively well and was able to find all areas. Able to fully scan picture without cues to find specific areas. Pt. then participated in cognitive task with abstract thought. Pt. was asked to state what common sentences meant. Able to do this well with little difficulty. All needs met in room. Education OT Patient Education: Correct positioning, Modified ADL techniques, Progress toward Goal/Update tx plan, Purpose of tx/functional activities, Reviewed precautions, Rehab process, Transfer techniques Teaching Recipient: Patient Teaching Methods: Demonstration, Discussion Response to Teaching: Verbalize Understanding, Return Demonstration OT Short Term Goals Short Term Goals Time Frame: Nov 16, 2016 Eating(FIM): 6 Grooming(FIM): 5 Bathing(FIM): 5 Upper Body Dressing(FIM): 4 Lower Body Dressing(FIM): 4 Toileting(FIM): 4 Transfers (B,C,W/C) (FIM): 45 Toilet/Commode Transfer(FIM): 5 Shower Transfer(FIM): 5 Additional Short Term Goals: 1-Demonstrate ADL Tasks, 2-Verbalize Understanding , 3-ImproveStrength/Nash 1=Demonstrate adherence to instructed precautions during ADL tasks. 2=Patient will verbalize/demonstrate understanding of assistive devices/ modifications for ADL. 3=Patient will improve strength/tolerance for activity to enable patient to perform ADL's. OT Zinc Miner Goals Retirement Goals Time Frame: Nov 30, 2016 Eating (FIM): 6 Eating (QC): 6 Groomin Oral Hygiene (QC): 6 Bathing(FIM): 5 Shower/Bathe Self (QC): 5 Upper Body Dressing(FIM): 6 Upper Body Dressing (QC): 6 Lower Body Dressing(FIM): 6 Lower Body Dressing (QC): 6 On/Off Footwear (QC): 6 Toileting(FIM): 6 Toileting Hygiene (QC): 6 Transfers (B,C,W/C) (FIM): 6 Toilet/Commode Transfer(FIM): 6 Toilet/Commode Transfer (QC): 6 Shower Transfer(FIM): 5 Comprehension(FIM): 4 Expression (FIM): 4 Social Interaction(FIM): 5 Problem Solving(FIM): 4 Memory(FIM): 4 Additional Goals: 1-Demonstrate ADL Tasks, 2-Verbalize Understanding, 3- ImproveStrength/Nash 1=Demonstrate adherence to instructed precautions during ADL tasks. 2=Patient will verbalize/demonstrate understanding of assistive devices/ modifications for ADL. 3=Patient will improve strength/tolerance for activity to enable patient to perform ADL's. OT Education/Plan Problem List/Assessment Assessment: Decreased Activ Tolerance, Dependent Transfers, Impaired Funct Balance, Impaired I ADL's, Impaired Self-Care Skills, Restricted Funct UE ROM Discharge Recommendations Plan/Recommendations: Continue POC Therapy D/C Recommendations: Home w/ Family Support, Occupational Therapy Home Care Treatment Plan/Plan of Care Treatment,Training & Education: Yes Patient would benefit from OT for education, treatment and training to promote independence in ADL's, mobility, safety and/or upper extremity function for ADL' s. Plan of Care: ADL Retraining, Caregiver Training, Cognitive Retraining, Functional Mobility, Group Exercise/Act as Ind, UE Funct Exercise/Act, UE Neuromus Re-Ed/Coord Treatment Duration: Nov 30, 2016 Visits Per Week: 5-6 Minutes/Day (M-F): 60-90 Minutes/Day (Sat/Lake): 15-30 Rehab Potential: Fair Time/GCodes Start Time: 13:30 Stop Time: 14:00 Total Time Billed (hr/min): 30 Billed Treatment Time 1, EX x 15minutes, FA x 15minutes JOEL MCDOWELL OT Nov 15, 2016 15:57
[2016-11-15 17:57] VITALS: BP 108/61
[2016-11-15] MEDS: ATORVASTATIN 20 MG (LIPITOR) TABLET PO SCH (21:10)
[2016-11-16 05:46] VITALS: BP 130/70
--- NOTE | 2016-11-16 08:11 | Progress Note (SOAP) ---
Subjective Time Seen by Provider: 08:00 Subjective/Events-last exam CVA. Hypertension. Noncompliance of medicine Objective Exam Vital Signs Date Time Temp Pulse Resp B/P (MAP) Pulse Ox O2 Delivery O2 Flow Rate FiO2 11/16/16 05:46 98.4 62 18 130/70 97 Room Air 11/15/16 20:10 Room Air 11/15/16 17:57 97.8 60 18 108/61 94 Room Air 11/15/16 09:22 Room Air I & O 11/16/16 07:00 Intake Total 1440 ml Balance 1440 ml Capillary Refill : General Appearance: No Apparent Distress, WD/WN HEENT: Normal ENT Inspection Neck: Full Range of Motion, Normal Inspection Respiratory: Chest Non Tender, Lungs Clear, Normal Breath Sounds, No Accessory Muscle Use, No Respiratory Distress Cardiovascular: Regular Rate, Rhythm, No Murmur Gastrointestinal: non tender, soft Assessment/Plan Assessment/Plan Assess & Plan/Chief Complaint cerebrovascular accident. Noncompliance with medicine. Hypertension. . 11/11/16. CVA. Noncompliance with medicine.. Hypertension. Patient able to move the right foot Patient unable to move the right Hand. . 11/12/16. CVA. Noncompliance with medicine. Hypertension. Patient moving right leg better. Patient states right arm is . . 11/15/16. CVA. Noncompliance with medicine. Hypertension. Right leg doing better. Problems with right hand Final Diagnosis CVA. Right sided weakness. Noncompliance of medicine. Hypertension Clinical Quality Measures DVT/VTE Risk/Contraindication: Risk Factor Score Per Nursin RFS Level Per Nursing on Admit: 4+=Very High MOSHE KRISHNAMURTHY DO Nov 16, 2016 08:11
[2016-11-16] MEDS: ASPIRIN 81 MG CHEW (CHILDREN'S ASA) PO SCH (08:25)
[2016-11-16] MEDS: lisINopril 10 MG (PRINIVIL) TAB PO SCH (08:25)
[2016-11-16] MEDS: ENOXAPARIN 40 MG/0.4 ML (LOVENOX) SYR SC SCH (08:25)
[2016-11-16] MEDS: meTOproloL SUCCINATE 50 MG (TOPROL XL) TAB PO SCH (08:25)
[2016-11-16] MEDS: CLOPIDOGREL 75 MG (PLAVIX) TABLET PO SCH (08:25)
[2016-11-16] MEDS: amLODIPine 5 MG (NORVASC) TAB PO SCH (08:25)
--- NOTE | 2016-11-16 09:42 | Physical Therapy Daily Note ---
PT Daily Note-Current Subjective Patient in recliner pre tx, agrees to PT, no complaints of pain, patient will been dressed. Appearance Patient in recliner post tx with nurse call, phone, tray, all needs met. Mental Status Patient Orientation: Person, Place, Situation Transfers Functional [place] Measure 0=Not Assessed/NA 4=Minimal Assistance 1=Total Assistance 5=Supervision or Setup 2=Maximal Assistance 6=Modified [place] 3=Moderate Assistance 7=Complete IndependenceIRFPAI Quality Coding Scale 6 Independent with activity with or without an assistive device 5 Patient requires set up or clean up by helper. Patient completes activity by themselves 4 Supervision or touching assist (CGA). [place] provide cues , steadying assist 3 The helper provides less than half the effort to complete the activity 2 The helper provides more than half the effort to complete the activity 1 Dependent. The helper does all the effort to complete an activity 7 Patient refused to complete or attempt activity 9 The patient did not perform the activity before the current illness or injury 88 Not attempted due to Medical conditions or safety concerns Transfers (B, C, W/C) (FIM): 4 Sit to/from Stand: 4 min assist for balance for sit to stand, cues for safety and hand placement Gait Training Gait (FIM): 4 Distance: 150'x2 Gait Level of Assist: 4 Gait Persons Needed: 1 Gait Assistive Device: Cane Large Base Quad Min assist for balance, poor foot clearance on the right although she does have some dorsiflexion, uses faroese knee cage on the right knee for hyperextension Stair Training Stair Training: Handrails/: 1 handrail Stairs (FIM): 2 #of Steps: 4 1 Step (curb) (QC): 3 4 Steps (QC): 3 Stairs: Pattern: Step to Level of Assist: 4 min assist for balance, cues for step placement and safety Exercises LAQ for 5 min right side, APx20 right side, sit to stand 3 sets of 5 at progressively lower height - exercises performed for strengthening in RLE and to improve functional mobility and balance Treatments transfers, ambulation, stair training, functional strengthening, dressing, patient was also toileted once Assessment Current Status: Fair Progress slowly improving balance and endurance PT Short Term Goals Short Term Goals Time Frame: Nov 16, 2016 Transfers (B,C,W/C) (FIM): 45 Gait (FIM): 4 Gait Distance Comment: 150' Gait Level of Assist: 4 Gait Assistive Device: Cane Large Base Quad Wheelchair Distance: 50' PT Process Automation Engineer Goals [place] Goals PT Process Automation Engineer Goals Time Frame: Nov 30, 2016 Transfers (B,C,W/C) (FIM): 5 Sit to Lying (QC): 4 Lying-Sitting on Side/Bed(QC): 4 Sit to Stand (QC): 4 Rollin Roll Left to Right (QC): 4 Chair/Qpk-kx-Rcztm Xfer(QC): 4 Car Transfer (QC): 4 Gait (FIM): 5 Distance: 200' Walk 10 feet (QC): 4 Walk 10ft-Uneven Surface(QC): 4 Walk 50ft with 2 Turns (QC): 4 Walk 150 ft (QC): 4 Gait Level of Assist: 5 Gait Assistive Device: Cane Large Base Quad Stairs (FIM): 4 # of Steps: 12 1 Step (curb) (QC): 4 4 Steps (QC): 4 12 Steps (QC): 4 Stairs Level Of Assist: 4 Picking up an Object (QC): 88 PT Plan Problem List Problem List: Activity Tolerance, Functional Strength, Safety, Balance, Gait, Transfer, Bed Mobility Treatment/Plan Treatment Plan: Continue Plan of Care Treatment Plan: Bed Mobility, Education, Functional Activity Nash, Functional Strength, Group Therapy, Gait, Safety, Therapeutic Exercise, Transfers Treatment Duration: Nov 30, 2016 Visits Per Week: 10-11 Minutes/Day (M-F): 60-90 Minutes/Day (Sat/Lake): 15-30 Safety Risks/Education Patient Education: Gait Training, Transfer Techniques, Steps, Correct Positioning, Safety Issues Teaching Recipient: Patient Teaching Methods: Demonstration, Discussion Response to Teaching: Reinforcement Needed Time/GCodes Time In: 900 Time Out: 945 Total Billed Treatment Time: 45 Total Billed Treatment 1 visit EX 25' GT 20' ELLEN GARZA PT Nov 16, 2016 09:42
--- NOTE | 2016-11-16 10:59 | Speech Therapy Daily Note ---
Speech Daily Progress Note Subjective Date Seen by Provider: Nov 16, 2016 Time Seen by Provider: 08:30 The patient was seated upright in chair upon entrance. The patient greeted the clinician appropriately and was agreeable to participation in the cognitive treatment session. To note, the patient was tearful upon entrance. The patient denied pain and did not report a cause for the emotional state. The patient did not provide additional information to the clinician and denied needing anything prior to the session. Objective Orientation: The patient was oriented to month, day of week, date, and year with the use of the in-room white board. Functional Memory Strategies: External and internal memory strategies were discussed, reviewed, and demonstrated on this date. The patient stated she currently uses a calendar (which is placed on her desk- where she passes frequently) and appointment cards to recall important dates and information. Additionally, the patient sets timers and alarms while cooking and to remind her when she needs to leave for specific places. Per patient, she keeps a pill box which she refills on a weekly basis. The patient was able to independently recall memory strategies at the close of the session. Assessment Assessment Current Status: Good Progress Treatment Plan Continue Plan of Care Communication Comprehension: 4 Expression: 4 Social Cognition Social Interaction: 4 Problem Solvin Memory: 3 Speech Short Term Goals Short Term Goals Short Term Goals 1. The patient will recall and demonstrate two functional memory strategies for use at home. MET 2. The patient will demonstrated 80% accuracy with structured word-finding task to improve expressive communication. 3. The patient will follow multi-step instructions with 80% accuracy and mild clinician verbal prompting. 4. The patient will display 90% accuracy with functional safety problem solving , independently. MET Time Frame-STG: Two Weeks Speech Snf Goals Snf Goals 1. The patient will demonstrate improved cognitive linguistic skills for increased function and safety with ADL's in the least restrictive setting. Time Frame: Three Weeks Comprehension: 4 Expression: 4 Social Interaction: 5 Problem Solvin Memory: 4 Speech-Plan Treatment Plan Speech Therapy Treatment Plan: Continue Plan of Care Continue skilled speech pathology to target functional problem solving and memory. Treatment Duration: Nov 30, 2016 # of days/week Four to five. Visits Per Week: Four to five. Minutes/Day (M-F): 30 Rehab Potential: Fair Safety Risks/Education Teaching Recipient: Patient Teaching Methods: Demonstration, Handout, Discussion Response to Teaching: Verbalize Understanding, Reinforcement Needed Education Topics Provided: External and Internal Memory Strategies Time Speech Therapy Time In: 08:30 Speech Therapy Time Out: 09:00 Total Billed Time: 30 Billed Treatment Time 1, ISAAC MOURA Nov 16, 2016 10:59
--- NOTE | 2016-11-16 13:30 | Physical Therapy Daily Note ---
PT Daily Note-Current Subjective Patient in recliner pre tx, agrees to PT, no complaints of pain. Appearance Patient in chair post tx with an OT participating in an activity. Mental Status Patient Orientation: Person, Place, Situation Transfers Functional [place] Measure 0=Not Assessed/NA 4=Minimal Assistance 1=Total Assistance 5=Supervision or Setup 2=Maximal Assistance 6=Modified [place] 3=Moderate Assistance 7=Complete IndependenceIRFPAI Quality Coding Scale 6 Independent with activity with or without an assistive device 5 Patient requires set up or clean up by helper. Patient completes activity by themselves 4 Supervision or touching assist (CGA). [place] provide cues , steadying assist 3 The helper provides less than half the effort to complete the activity 2 The helper provides more than half the effort to complete the activity 1 Dependent. The helper does all the effort to complete an activity 7 Patient refused to complete or attempt activity 9 The patient did not perform the activity before the current illness or injury 88 Not attempted due to Medical conditions or safety concerns Transfers (B, C, W/C) (FIM): 4 Sit to/from Stand: 4 min assist for balance, especially when turning to the right Gait Training Gait (FIM): 4 Distance: 150'x2 Gait Level of Assist: 4 Gait Persons Needed: 1 Gait Assistive Device: Cane Large Base Quad min assist for balance, poor foot clearance, wore just an AFO on the right side , had some knee hyperextension but very minimal Exercises Standing: Step-ups Standing Reps: 10 sideways walking in parallel bars 8"x4 Treatments transfers, ambulation, functional strengthening Assessment Current Status: Fair Progress improving endurance and ambulation PT Short Term Goals Short Term Goals Time Frame: Nov 16, 2016 Transfers (B,C,W/C) (FIM): 45 Gait (FIM): 4 Gait Distance Comment: 150' Gait Level of Assist: 4 Gait Assistive Device: Cane Large Base Quad Wheelchair Distance: 50' PT Senior Care Goals Senior Care Goals PT Senior Care Goals Time Frame: Nov 30, 2016 Transfers (B,C,W/C) (FIM): 5 Sit to Lying (QC): 4 Lying-Sitting on Side/Bed(QC): 4 Sit to Stand (QC): 4 Rollin Roll Left to Right (QC): 4 Chair/Bqj-nf-Tptuc Xfer(QC): 4 Car Transfer (QC): 4 Gait (FIM): 5 Distance: 200' Walk 10 feet (QC): 4 Walk 10ft-Uneven Surface(QC): 4 Walk 50ft with 2 Turns (QC): 4 Walk 150 ft (QC): 4 Gait Level of Assist: 5 Gait Assistive Device: Cane Large Base Quad Stairs (FIM): 4 # of Steps: 12 1 Step (curb) (QC): 4 4 Steps (QC): 4 12 Steps (QC): 4 Stairs Level Of Assist: 4 Picking up an Object (QC): 88 PT Plan Problem List Problem List: Activity Tolerance, Functional Strength, Safety, Balance, Gait, Transfer, Bed Mobility Treatment/Plan Treatment Plan: Continue Plan of Care Treatment Plan: Bed Mobility, Education, Functional Activity Nash, Functional Strength, Group Therapy, Gait, Safety, Therapeutic Exercise, Transfers Treatment Duration: Nov 30, 2016 Visits Per Week: 10-11 Minutes/Day (M-F): 60-90 Minutes/Day (Sat/Lake): 15-30 Safety Risks/Education Patient Education: Gait Training, Transfer Techniques, Correct Positioning, Safety Issues Teaching Recipient: Patient Teaching Methods: Demonstration, Discussion Response to Teaching: Reinforcement Needed Time/GCodes Time In: 1300 Time Out: 1330 Total Billed Treatment Time: 30 Total Billed Treatment 1 visit GT 20' EX 10' ELLEN GARZA PT Nov 16, 2016 13:30
--- NOTE | 2016-11-16 15:55 | Occupational Ther Daily Note ---
OT Current Status-Daily Note Subjective Pt. does not report any pain. Appearance Pt. is up in chair and dressed. Has already had PT, and is dressed. Declines showering, but agrees to work with OT. Mental Status/Objective Patient Orientation: Person Functional [place] Measure 0=Not Assessed/NA 4=Minimal Assistance 1=Total Assistance 5=Supervision or Setup 2=Maximal Assistance 6=Modified [place] 3=Moderate Assistance 7=Complete [place] ADL-Treatment Functional [place] Measure 0=Not Assessed/NA 4=Minimal Assistance 1=Total Assistance 5=Supervision or Setup 2=Maximal Assistance 6=Modified [place] 3=Moderate Assistance 7=Complete IndependenceIRFPAI Quality Coding Scale 6 Independent with activity with or without an assistive device 5 Patient requires set up or clean up by helper. Patient completes activity by themselves 4 Supervision or touching assist (CGA). [place] provide cues , steadying assist 3 The helper provides less than half the effort to complete the activity 2 The helper provides more than half the effort to complete the activity 1 Dependent. The helper does all the effort to complete an activity 7 Patient refused to complete or attempt activity 9 The patient did not perform the activity before the current illness or injury 88 Not attempted due to Medical conditions or safety concerns Lower Body Dressing (FIM): 3 (Pt. requires mod assistance to don shoes and AFO. Pt. is able to doff/don socks.) Lower Body Dressing (QC): 3 On/Off Footwear (QC): 5 Transfers (B, C, W/C) (FIM): 4 (Min assist to ambulate with cane and AFO to therapy gym.) Other Treatment Pt. ambulated to therapy gym. Practiced doffing/donning shoes and AFO with adaptive equipment. OT put elastic laces into shoes so that pt. will not have to tie/untie shoes. Pt. unable to get her foot into left shoe. Pt. is encouraged to use dycem to put on leg, to hold her right leg up to assist with this. Does not initiate strategies on her own. Pt. demonstrates flat affect. When asked about what her plan for home is, she becomes very tearful. States that her sister will not help her with anything. However, upon prompting, states that her sister cooks, cleans, and does her finances. Pt. has difficulty articulating information. Pt. will state that she can bathe and dress and get into bathtub, but is unable to cook or use her right hand at home from the previous stroke. When medical records are reviewed, it shows that pt' s weakness was in her left hand. Spoke with social work who plans to speak with sister to determine needs for home. Pt. continues to be tearful, and states, "just put me in a alf." Pt. is encouraged that therapy has to ask these tough questions to determine safest and best outcome for her. Ambulated back to room with min assist. Education OT Patient Education: Correct positioning, Exercise program, Instructions don/ doff splint/brace, Modified ADL techniques, Progress toward Goal/Update tx plan , Purpose of tx/functional activities, Reviewed precautions, Rehab process, Transfer techniques Teaching Recipient: Patient Teaching Methods: Demonstration, Discussion Response to Teaching: Verbalize Understanding, Return Demonstration OT Short Term Goals Short Term Goals Time Frame: Nov 16, 2016 Eating(FIM): 6 Grooming(FIM): 5 Bathing(FIM): 5 Upper Body Dressing(FIM): 4 Lower Body Dressing(FIM): 4 Toileting(FIM): 4 Transfers (B,C,W/C) (FIM): 45 Toilet/Commode Transfer(FIM): 5 Shower Transfer(FIM): 5 Additional Short Term Goals: 1-Demonstrate ADL Tasks, 2-Verbalize Understanding , 3-ImproveStrength/Nash 1=Demonstrate adherence to instructed precautions during ADL tasks. 2=Patient will verbalize/demonstrate understanding of assistive devices/ modifications for ADL. 3=Patient will improve strength/tolerance for activity to enable patient to perform ADL's. OT Installation Specialist Goals Installation Specialist Goals Time Frame: Nov 30, 2016 Eating (FIM): 6 Eating (QC): 6 Groomin Oral Hygiene (QC): 6 Bathing(FIM): 5 Shower/Bathe Self (QC): 5 Upper Body Dressing(FIM): 6 Upper Body Dressing (QC): 6 Lower Body Dressing(FIM): 6 Lower Body Dressing (QC): 6 On/Off Footwear (QC): 6 Toileting(FIM): 6 Toileting Hygiene (QC): 6 Transfers (B,C,W/C) (FIM): 6 Toilet/Commode Transfer(FIM): 6 Toilet/Commode Transfer (QC): 6 Shower Transfer(FIM): 5 Comprehension(FIM): 4 Expression (FIM): 4 Social Interaction(FIM): 5 Problem Solving(FIM): 4 Memory(FIM): 4 Additional Goals: 1-Demonstrate ADL Tasks, 2-Verbalize Understanding, 3- ImproveStrength/Nash 1=Demonstrate adherence to instructed precautions during ADL tasks. 2=Patient will verbalize/demonstrate understanding of assistive devices/ modifications for ADL. 3=Patient will improve strength/tolerance for activity to enable patient to perform ADL's. OT Education/Plan Problem List/Assessment Assessment: Decreased Activ Tolerance, Decreased Safety Aware, Decreased UE Strength, Dependent Transfers, Impaired Bed Mobility, Impaired Cognition, Impaired Coordination, Impaired Funct Balance, Impaired I ADL's, Impaired Self- Care Skills, Restricted Funct UE ROM, Visual-Perceptual Deficit Discharge Recommendations Plan/Recommendations: Continue POC Therapy D/C Recommendations: Home w/ Family Support, Occupational Therapy Home Care Treatment Plan/Plan of Care Treatment,Training & Education: Yes Patient would benefit from OT for education, treatment and training to promote independence in ADL's, mobility, safety and/or upper extremity function for ADL' s. Plan of Care: ADL Retraining, Caregiver Training, Cognitive Retraining, Functional Mobility, Group Exercise/Act as Ind, UE Funct Exercise/Act, UE Neuromus Re-Ed/Coord Treatment Duration: Nov 30, 2016 Visits Per Week: 5-6 Minutes/Day (M-F): 60-90 Minutes/Day (Sat/Lake): 15-30 Agreement: Yes Rehab Potential: Fair Time/GCodes Start Time: 10:45 Stop Time: 12:00 Total Time Billed (hr/min): 75 Billed Treatment Time 1, ADL x 45minutes, FA x 30minutes JOEL MCDOWELL OT Nov 16, 2016 15:55
[2016-11-16 18:04] VITALS: BP 106/66
--- NOTE | 2016-11-16 20:00 | PM & R (SOAP) Progress Note ---
Subjective Time Seen by Provider: 13:00 Subjective/Events-last exam Patient was seen in Apartment on unit with other staff Also seen in common area ambulating with [facility] with min assistance Continues to make progress Review of Systems Neurological: Weakness Objective Exam Last Set of Vital Signs Vital Signs Date Time Temp Pulse Resp B/P (MAP) Pulse Ox O2 Delivery O2 Flow Rate FiO2 11/16/16 18:04 98.4 50 16 106/66 96 Room Air Capillary Refill : I&O Intake and Output 11/16/16 00:00 Intake Total 1340 ml Balance 1340 ml Intake Oral 1340 ml # Voids 6 # Bowel Movements 1 General: Alert, Oriented X3, Cooperative, No Acute Distress HEENT: Atraumatic, PERRLA, EOMI, Mucous Memb Moist/[place] Neck: Supple, No JVD Lungs: Clear to Auscultation Heart: Regular Rate Abdomen: Normal Bowel Sounds, Soft, No Tenderness Extremities: No Edema Neuro: Other (rt HP) Assessment/Plan Assessment 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 TEJAS SHAW MD Nov 16, 2016 20:00
[2016-11-16] MEDS: ATORVASTATIN 20 MG (LIPITOR) TABLET PO SCH (21:30)
[2016-11-17 05:23] VITALS: BP 113/70
[2016-11-17] MEDS: CLOPIDOGREL 75 MG (PLAVIX) TABLET PO SCH (08:28)
[2016-11-17] MEDS: ASPIRIN 81 MG CHEW (CHILDREN'S ASA) PO SCH (08:28)
[2016-11-17] MEDS: amLODIPine 5 MG (NORVASC) TAB PO SCH (08:28)
[2016-11-17] MEDS: lisINopril 10 MG (PRINIVIL) TAB PO SCH (08:28)
[2016-11-17] MEDS: meTOproloL SUCCINATE 50 MG (TOPROL XL) TAB PO SCH (08:28)
[2016-11-17] MEDS: ENOXAPARIN 40 MG/0.4 ML (LOVENOX) SYR SC SCH (08:29)
--- NOTE | 2016-11-17 08:30 | Progress Note (SOAP) ---
Subjective Time Seen by Provider: 08:25 Subjective/Events-last exam CVA. Hypertension. Noncompliance with medicine. Patient moving right leg better. Patient not moving right upper extremity Objective Exam Vital Signs Date Time Temp Pulse Resp B/P (MAP) Pulse Ox O2 Delivery O2 Flow Rate FiO2 11/17/16 05:23 98.7 61 18 113/70 92 Room Air 11/16/16 20:10 Room Air 11/16/16 18:04 98.4 50 16 106/66 96 Room Air I & O 11/17/16 07:00 Intake Total 880 ml Balance 880 ml Capillary Refill : General Appearance: No Apparent Distress, WD/WN HEENT: Normal ENT Inspection Neck: Full Range of Motion, Normal Inspection Respiratory: Chest Non Tender, Lungs Clear, Normal Breath Sounds, No Accessory Muscle Use, No Respiratory Distress Cardiovascular: Regular Rate, Rhythm, No Murmur Assessment/Plan Assessment/Plan Assess & Plan/Chief Complaint cerebrovascular accident. Noncompliance with medicine. Hypertension. . 11/11/16. CVA. Noncompliance with medicine.. Hypertension. Patient able to move the right foot Patient unable to move the right Hand. . 11/12/16. CVA. Noncompliance with medicine. Hypertension. Patient moving right leg better. Patient states right arm is . . 11/15/16. CVA. Noncompliance with medicine. Hypertension. Right leg doing better. Problems with right hand. . . CVA. Hypertension. Noncompliance. Patient was seen yesterday. Patient voices no complaints. Patient not moving right hand and arm Clinical Quality Measures DVT/VTE Risk/Contraindication: Risk Factor Score Per Nursin RFS Level Per Nursing on Admit: 4+=Very High MOSHE KRISHNAMURTHY DO Nov 17, 2016 08:30
--- NOTE | 2016-11-17 09:50 | Physical Therapy Daily Note ---
PT Daily Note-Current Subjective Patient in recliner pre tx, agrees to PT, no complaints of pain, needs to get dressed before treatment. Appearance Patient in recliner post tx with nurse call, phone, tray, all needs met. Mental Status Patient Orientation: Person, Place, Situation Transfers Functional [place] Measure 0=Not Assessed/NA 4=Minimal Assistance 1=Total Assistance 5=Supervision or Setup 2=Maximal Assistance 6=Modified [place] 3=Moderate Assistance 7=Complete IndependenceIRFPAI Quality Coding Scale 6 Independent with activity with or without an assistive device 5 Patient requires set up or clean up by helper. Patient completes activity by themselves 4 Supervision or touching assist (CGA). [place] provide cues , steadying assist 3 The helper provides less than half the effort to complete the activity 2 The helper provides more than half the effort to complete the activity 1 Dependent. The helper does all the effort to complete an activity 7 Patient refused to complete or attempt activity 9 The patient did not perform the activity before the current illness or injury 88 Not attempted due to Medical conditions or safety concerns Transfers (B, C, W/C) (FIM): 4 Supine to/from Sit: 4 min assist for occasional balance correction, cues for safety and hand placement Gait Training Gait (FIM): 4 Distance: 150'x2 Gait Level of Assist: 4 Gait Persons Needed: 1 Gait Assistive Device: Cane Large Base Quad Min assist for occasional balance correction, right side AFO, patient is pretty fatigued after going 150', poor foot clearance on the right side Stair Training Stair Training: Handrails/: 1 handrail Stairs (FIM): 2 #of Steps: 4 Stairs: Pattern: Step to Level of Assist: 4 min assist for balance and cues for foot placement and safety Exercises LAQ right side for 5 min, sit to stand 3 sets of 5 with progressively lower height, exercises performed to work on balance and functional strengthening Treatments transfers, ambulation, functional strengthening, stair training Assessment Current Status: Fair Progress slowly improving balance, endurance PT Short Term Goals Short Term Goals Time Frame: Nov 16, 2016 Transfers (B,C,W/C) (FIM): 45 Gait (FIM): 4 Gait Distance Comment: 150' Gait Level of Assist: 4 Gait Assistive Device: Cane Large Base Quad Wheelchair Distance: 50' PT Benefits Administrator Goals Benefits Administrator Goals PT Fdc Goals Time Frame: Nov 30, 2016 Transfers (B,C,W/C) (FIM): 5 Sit to Lying (QC): 4 Lying-Sitting on Side/Bed(QC): 4 Sit to Stand (QC): 4 Rollin Roll Left to Right (QC): 4 Chair/Moq-xm-Ugnnf Xfer(QC): 4 Car Transfer (QC): 4 Gait (FIM): 5 Distance: 200' Walk 10 feet (QC): 4 Walk 10ft-Uneven Surface(QC): 4 Walk 50ft with 2 Turns (QC): 4 Walk 150 ft (QC): 4 Gait Level of Assist: 5 Gait Assistive Device: Cane Large Base Quad Stairs (FIM): 4 # of Steps: 12 1 Step (curb) (QC): 4 4 Steps (QC): 4 12 Steps (QC): 4 Stairs Level Of Assist: 4 Picking up an Object (QC): 88 PT Plan Problem List Problem List: Activity Tolerance, Functional Strength, Safety, Balance, Gait, Transfer, Bed Mobility Treatment/Plan Treatment Plan: Continue Plan of Care Treatment Plan: Bed Mobility, Education, Functional Activity Nash, Functional Strength, Group Therapy, Gait, Safety, Therapeutic Exercise, Transfers Treatment Duration: Nov 30, 2016 Visits Per Week: 10-11 Minutes/Day (M-F): 60-90 Minutes/Day (Sat/Lake): 15-30 Safety Risks/Education Patient Education: Gait Training, Transfer Techniques, Steps, Correct Positioning, Safety Issues Teaching Recipient: Patient Teaching Methods: Demonstration, Discussion Response to Teaching: Reinforcement Needed Time/GCodes Time In: 900 Time Out: 945 Total Billed Treatment Time: 45 Total Billed Treatment 1 visit EX 15' FA 15' GT 15' ELLEN GARZA PT Nov 17, 2016 09:50
--- NOTE | 2016-11-17 10:33 | Speech Therapy Daily Note ---
Speech Daily Progress Note Subjective Date Seen by Provider: Nov 17, 2016 Time Seen by Provider: 08:30 The patient was seated upright in recliner upon entrance. The patient greeted the clinician appropriately and was agreeable to participation in the cognitive treatment session. Objective Functional Memory Tasks: The patient was read short paragraphs (approximately three to four sentences in length), two times orally by clinician. Immediately following the reading, the patient was asked specific questions regarding the information from the paragraphs. The patient demonstrated 68% accuracy with functional recall (+15/23) with mild clinician verbal prompting. Orientation: The patient remains 100% oriented with the use of the in-room white board (month, day of week, date, year, and city). Assessment Assessment Current Status: Good Progress Treatment Plan Continue Plan of Care Communication Comprehension: 4 Expression: 4 Social Cognition Social Interaction: 4 Problem Solvin Memory: 3 Speech Short Term Goals Short Term Goals Short Term Goals 1. The patient will recall and demonstrate two functional memory strategies for use at home. MET 2. The patient will demonstrated 80% accuracy with structured word-finding task to improve expressive communication. 3. The patient will follow multi-step instructions with 80% accuracy and mild clinician verbal prompting. 4. The patient will display 90% accuracy with functional safety problem solving , independently. MET Time Frame-STG: Two Weeks Speech Chief Of Pediatric Urology Goals Halfway Goals 1. The patient will demonstrate improved cognitive linguistic skills for increased function and safety with ADL's in the least restrictive setting. Time Frame: Three Weeks Comprehension: 4 Expression: 4 Social Interaction: 5 Problem Solvin Memory: 4 Speech-Plan Treatment Plan Speech Therapy Treatment Plan: Continue Plan of Care Continue skilled speech pathology to target functional memory strategies and safety problem solving. Treatment Duration: Nov 30, 2016 # of days/week Four to five. Visits Per Week: Four to five. Minutes/Day (M-F): 30 Rehab Potential: Fair Safety Risks/Education Teaching Recipient: Patient Teaching Methods: Discussion Response to Teaching: Return Demonstration Education Topics Provided: Recall Strategies, Orientation Time Speech Therapy Time In: 08:30 Speech Therapy Time Out: 09:00 Total Billed Time: 30 Billed Treatment Time ASHLEY Franz [facility] ST Nov 17, 2016 10:33
--- NOTE | 2016-11-17 15:13 | Occupational Ther Daily Note ---
OT Current Status-Daily Note Subjective Pt. does not report pain. Appearance Pt. up in chair and dressed. Agrees to shower. Mental Status/Objective Patient Orientation: Person Functional [place] Measure 0=Not Assessed/NA 4=Minimal Assistance 1=Total Assistance 5=Supervision or Setup 2=Maximal Assistance 6=Modified [place] 3=Moderate Assistance 7=Complete [place] ADL-Treatment Functional [place] Measure 0=Not Assessed/NA 4=Minimal Assistance 1=Total Assistance 5=Supervision or Setup 2=Maximal Assistance 6=Modified [place] 3=Moderate Assistance 7=Complete IndependenceIRFPAI Quality Coding Scale 6 Independent with activity with or without an assistive device 5 Patient requires set up or clean up by helper. Patient completes activity by themselves 4 Supervision or touching assist (CGA). [place] provide cues , steadying assist 3 The helper provides less than half the effort to complete the activity 2 The helper provides more than half the effort to complete the activity 1 Dependent. The helper does all the effort to complete an activity 7 Patient refused to complete or attempt activity 9 The patient did not perform the activity before the current illness or injury 88 Not attempted due to Medical conditions or safety concerns Grooming (FIM): 5 (SBA to brush hair.) Bathing (FIM): 5 (Constant cues to sequence tasks. Pt. often sprays off and states, "okay, I'm done." Requires cues to bathe thoroughly.) Shower/Bathe Self (QC): 4 Upper Body (FIM): 3 (Pt. is able to don shirt with SBA, but required mod assist with sling.) Upper Body Dressing (QC): 3 Lower Body Dressing (FIM): 3 (Pt. is able to don pants and socks with SBA and cues, but requires mod assist to don AFO and shoes.) Lower Body Dressing (QC): 3 On/Off Footwear (QC): 3 Transfers (B, C, W/C) (FIM): 4 (CGA to ambulate. Pt. very fatigued today.) Other Treatment Pt. went to therapy gym via wheelchair. Pt. requires cues to take off brakes, and to use her left hand to self propel. Completed armbike with left UE x 15 minutes with multiple rest breaks. Pt. fatigues easily. Worked on left UE strength for ADL tasks such as pulling pants over hips. Went back to room. All needs met. Education OT Patient Education: Correct positioning, Exercise program, Modified ADL techniques, Progress toward Goal/Update tx plan, Purpose of tx/functional activities, Reviewed precautions, Rehab process, Transfer techniques, W/C management Teaching Recipient: Patient Teaching Methods: Demonstration, Discussion Response to Teaching: Verbalize Understanding, Return Demonstration OT Short Term Goals Short Term Goals Time Frame: Nov 16, 2016 Eating(FIM): 6 Grooming(FIM): 5 Bathing(FIM): 5 Upper Body Dressing(FIM): 4 Lower Body Dressing(FIM): 4 Toileting(FIM): 4 Transfers (B,C,W/C) (FIM): 45 Toilet/Commode Transfer(FIM): 5 Shower Transfer(FIM): 5 Additional Short Term Goals: 1-Demonstrate ADL Tasks, 2-Verbalize Understanding , 3-ImproveStrength/Nash 1=Demonstrate adherence to instructed precautions during ADL tasks. 2=Patient will verbalize/demonstrate understanding of assistive devices/ modifications for ADL. 3=Patient will improve strength/tolerance for activity to enable patient to perform ADL's. OT Retirement Goals Diesel Tractor Operator Goals Time Frame: Nov 30, 2016 Eating (FIM): 6 Eating (QC): 6 Groomin Oral Hygiene (QC): 6 Bathing(FIM): 5 Shower/Bathe Self (QC): 5 Upper Body Dressing(FIM): 6 Upper Body Dressing (QC): 6 Lower Body Dressing(FIM): 6 Lower Body Dressing (QC): 6 On/Off Footwear (QC): 6 Toileting(FIM): 6 Toileting Hygiene (QC): 6 Transfers (B,C,W/C) (FIM): 6 Toilet/Commode Transfer(FIM): 6 Toilet/Commode Transfer (QC): 6 Shower Transfer(FIM): 5 Comprehension(FIM): 4 Expression (FIM): 4 Social Interaction(FIM): 5 Problem Solving(FIM): 4 Memory(FIM): 4 Additional Goals: 1-Demonstrate ADL Tasks, 2-Verbalize Understanding, 3- ImproveStrength/Nash 1=Demonstrate adherence to instructed precautions during ADL tasks. 2=Patient will verbalize/demonstrate understanding of assistive devices/ modifications for ADL. 3=Patient will improve strength/tolerance for activity to enable patient to perform ADL's. OT Education/Plan Problem List/Assessment Assessment: Decreased Activ Tolerance, Decreased Safety Aware, Decreased UE Strength, Dependent Transfers, Impaired Bed Mobility, Impaired Cognition, Impaired Coordination, Impaired Funct Balance, Impaired I ADL's, Impaired Self- Care Skills, Restricted Funct UE ROM, Visual-Perceptual Deficit Discharge Recommendations Plan/Recommendations: Continue POC Therapy D/C Recommendations: 24 hr Supervision Treatment Plan/Plan of Care Treatment,Training & Education: Yes Patient would benefit from OT for education, treatment and training to promote independence in ADL's, mobility, safety and/or upper extremity function for ADL' s. Plan of Care: ADL Retraining, Caregiver Training, Cognitive Retraining, Functional Mobility, Group Exercise/Act as Ind, UE Funct Exercise/Act, UE Neuromus Re-Ed/Coord Treatment Duration: Nov 30, 2016 Visits Per Week: 5-6 Minutes/Day (M-F): 60-90 Minutes/Day (Sat/Lake): 15-30 Agreement: Yes Rehab Potential: Fair Time/GCodes Start Time: 11:00 Stop Time: 12:15 Total Time Billed (hr/min): 75 Billed Treatment Time 1, ADL x 45minutes, EX x 30minutes JOEL MCDOWELL OT Nov 17, 2016 15:13
--- NOTE | 2016-11-17 16:06 | Physical Therapy Daily Note ---
PT Daily Note-Current Subjective Patient in bed pre tx, agrees to PT, no complaints of pain. Appearance Patient BTB post tx with nurse call, phone, tray, all needs met. Mental Status Patient Orientation: Person, Place, Situation Transfers Functional [place] Measure 0=Not Assessed/NA 4=Minimal Assistance 1=Total Assistance 5=Supervision or Setup 2=Maximal Assistance 6=Modified [place] 3=Moderate Assistance 7=Complete IndependenceIRFPAI Quality Coding Scale 6 Independent with activity with or without an assistive device 5 Patient requires set up or clean up by helper. Patient completes activity by themselves 4 Supervision or touching assist (CGA). [place] provide cues , steadying assist 3 The helper provides less than half the effort to complete the activity 2 The helper provides more than half the effort to complete the activity 1 Dependent. The helper does all the effort to complete an activity 7 Patient refused to complete or attempt activity 9 The patient did not perform the activity before the current illness or injury 88 Not attempted due to Medical conditions or safety concerns Transfers (B, C, W/C) (FIM): 4 Scootin Rollin Supine to/from Sit: 5 Sit to/from Stand: 4 CGA for sit to stand, cues for hand placement Gait Training Gait (FIM): 4 Distance: 150'x2 Gait Level of Assist: 4 Gait Persons Needed: 1 Gait Assistive Device: Cane Large Base Quad min assist for balance, poor right side foot clearance Exercises NuStep Minutes: 15 (strengthening right LE to improve functional mobility) NuStep Workload: 5 Treatments bed mobility and transfers, ambulation, functional strengthening Assessment Current Status: Fair Progress improving endurance and balance PT Short Term Goals Short Term Goals Time Frame: Nov 16, 2016 Transfers (B,C,W/C) (FIM): 45 Gait (FIM): 4 Gait Distance Comment: 150' Gait Level of Assist: 4 Gait Assistive Device: Cane Large Base Quad Wheelchair Distance: 50' PT [facility] Goals Sound Effects Person Goals PT Sound Effects Person Goals Time Frame: Nov 30, 2016 Transfers (B,C,W/C) (FIM): 5 Sit to Lying (QC): 4 Lying-Sitting on Side/Bed(QC): 4 Sit to Stand (QC): 4 Rollin Roll Left to Right (QC): 4 Chair/Lyq-tv-Ywlji Xfer(QC): 4 Car Transfer (QC): 4 Gait (FIM): 5 Distance: 200' Walk 10 feet (QC): 4 Walk 10ft-Uneven Surface(QC): 4 Walk 50ft with 2 Turns (QC): 4 Walk 150 ft (QC): 4 Gait Level of Assist: 5 Gait Assistive Device: Cane Large Base Quad Stairs (FIM): 4 # of Steps: 12 1 Step (curb) (QC): 4 4 Steps (QC): 4 12 Steps (QC): 4 Stairs Level Of Assist: 4 Picking up an Object (QC): 88 PT Plan Problem List Problem List: Activity Tolerance, Functional Strength, Safety, Balance, Gait, Transfer, Bed Mobility Treatment/Plan Treatment Plan: Continue Plan of Care Treatment Plan: Bed Mobility, Education, Functional Activity Nash, Functional Strength, Group Therapy, Gait, Safety, Therapeutic Exercise, Transfers Treatment Duration: Nov 30, 2016 Visits Per Week: 10-11 Minutes/Day (M-F): 60-90 Minutes/Day (Sat/Lake): 15-30 Safety Risks/Education Patient Education: Gait Training, Transfer Techniques, Correct Positioning, Safety Issues Teaching Recipient: Patient Teaching Methods: Demonstration, Discussion Response to Teaching: Reinforcement Needed Time/GCodes Time In: 1530 Time Out: 1600 Total Billed Treatment Time: 30 Total Billed Treatment 1 visit EX 15' GT 15' ELLEN GARZA PT Nov 17, 2016 16:06
[2016-11-17 17:57] VITALS: BP 119/82
--- NOTE | 2016-11-17 18:46 | PM & R (SOAP) Progress Note ---
Subjective Time Seen by Provider: 07:15 Subjective/Events-last exam Patient was seen in her room earlier today Progressing well with therapies Patient Min assist for transfers and gait with [facility] Review of Systems Neurological: Weakness Objective Exam Last Set of Vital Signs Vital Signs Date Time Temp Pulse Resp B/P (MAP) Pulse Ox O2 Delivery O2 Flow Rate FiO2 11/17/16 17:57 99.0 63 18 119/82 97 Room Air Capillary Refill : I&O Intake and Output 11/17/16 00:00 Intake Total 1180 ml Balance 1180 ml Intake Oral 1180 ml # Voids 3 General: Alert, Oriented X3, Cooperative, No Acute Distress HEENT: Atraumatic, PERRLA, EOMI, Mucous Memb Moist/[place] Neck: Supple, No JVD Lungs: Clear to Auscultation Heart: Regular Rate Abdomen: Normal Bowel Sounds, Soft, No Tenderness Extremities: No Edema Neuro: Other (rt HP) Assessment/Plan Assessment 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 TEJAS SHAW MD Nov 17, 2016 18:46
[2016-11-17] MEDS: ATORVASTATIN 20 MG (LIPITOR) TABLET PO SCH (21:04)
[2016-11-18 05:11] VITALS: BP 100/67
[2016-11-18] MEDS: ASPIRIN 81 MG CHEW (CHILDREN'S ASA) PO SCH (08:04)
[2016-11-18] MEDS: ENOXAPARIN 40 MG/0.4 ML (LOVENOX) SYR SC SCH (08:04)
[2016-11-18] MEDS: CLOPIDOGREL 75 MG (PLAVIX) TABLET PO SCH (08:04)
[2016-11-18] MEDS: meTOproloL SUCCINATE 50 MG (TOPROL XL) TAB PO SCH (08:05)
[2016-11-18] MEDS: lisINopril 10 MG (PRINIVIL) TAB PO SCH (08:05)
[2016-11-18] MEDS: amLODIPine 5 MG (NORVASC) TAB PO SCH (08:05)
--- NOTE | 2016-11-18 08:20 | Progress Note (SOAP) ---
Subjective Time Seen by Provider: 08:15 Subjective/Events-last exam CVA. Hypertension. Noncompliance with medicine. Patient doing better. Patient unable to move right upper. extremity Patient moving right leg better Objective Exam Vital Signs Date Time Temp Pulse Resp B/P (MAP) Pulse Ox O2 Delivery O2 Flow Rate FiO2 11/18/16 05:11 98.5 61 18 100/67 94 Room Air 11/17/16 20:10 Room Air 11/17/16 17:57 99.0 63 18 119/82 97 Room Air 11/17/16 08:58 Room Air I & O 11/18/16 07:00 Intake Total 1440 ml Balance 1440 ml Capillary Refill : General Appearance: No Apparent Distress, WD/WN HEENT: Normal ENT Inspection Neck: Full Range of Motion, Normal Inspection Respiratory: Chest Non Tender, Lungs Clear, Normal Breath Sounds, No Accessory Muscle Use, No Respiratory Distress Cardiovascular: Regular Rate, Rhythm, No Murmur Assessment/Plan Assessment/Plan Assess & Plan/Chief Complaint cerebrovascular accident. Noncompliance with medicine. Hypertension. . 11/11/16. CVA. Noncompliance with medicine.. Hypertension. Patient able to move the right foot Patient unable to move the right Hand. . 11/12/16. CVA. Noncompliance with medicine. Hypertension. Patient moving right leg better. Patient states right arm is . . 11/15/16. CVA. Noncompliance with medicine. Hypertension. Right leg doing better. Problems with right hand. . . CVA. Hypertension. Noncompliance. Patient was seen yesterday. Patient voices no complaints. Patient not moving right hand and arm. . 11/18/16. CVA. Noncompliance history. Hypertension. Patient feel she is improving. Patient needs work with the right upper extremity. Right leg doing better Clinical Quality Measures DVT/VTE Risk/Contraindication: Risk Factor Score Per Nursin RFS Level Per Nursing on Admit: 4+=Very High MOSHE KRISHNAMURTHY DO Nov 18, 2016 08:20
--- NOTE | 2016-11-18 11:08 | Speech Therapy Daily Note ---
Speech Daily Progress Note Subjective Date Seen by Provider: Nov 18, 2016 Time Seen by Provider: 08:30 The patient was seated upright in recliner upon entrance. The patient greeted the clinician appropriately and was agreeable to participation in the cognitive treatment session. Objective Orientation: The patient remains 100% oriented to self, location, month, date, and year with the use of the in-room white board. Functional Sequencing: The patient was asked to sequence functional tasks and ADL's (wheelchair use, cane use, showering, assembling a sandwich/breakfast). The patient demonstrated fair accuracy with this task, however, required frequent prompts for completion. While the patient is able to verbalize safety and wheelchair sequence, she continuously fails to demonstrate the activity in a functional setting (per OT). Problem Solving: The patient was asked to identify missing items or "what was wrong" with specific items in photographs. The patient demonstrated 70% accuracy with this task with mild clinician cueing. Assessment Assessment Current Status: Fair Progress Treatment Plan Continue Plan of Care Communication Comprehension: 4 Expression: 4 Social Cognition Social Interaction: 4 Problem Solvin Memory: 3 Speech Short Term Goals Short Term Goals Short Term Goals 1. The patient will recall and demonstrate two functional memory strategies for use at home. MET 2. The patient will demonstrated 80% accuracy with structured word-finding task to improve expressive communication. 3. The patient will follow multi-step instructions with 80% accuracy and mild clinician verbal prompting. 4. The patient will display 90% accuracy with functional safety problem solving , independently. MET Time Frame-STG: Two Weeks Speech Linux Support Engineer Goals Penitentiary Goals 1. The patient will demonstrate improved cognitive linguistic skills for increased function and safety with ADL's in the least restrictive setting. Time Frame: Three Weeks Comprehension: 4 Expression: 4 Social Interaction: 5 Problem Solvin Memory: 4 Speech-Plan Treatment Plan Speech Therapy Treatment Plan: Continue Plan of Care Continue skilled speech pathology to target functional problem solving and memory. Treatment Duration: Nov 30, 2016 # of days/week Four to five. Visits Per Week: Four to five. Minutes/Day (M-F): 30 Rehab Potential: Fair Safety Risks/Education Teaching Recipient: Patient Teaching Methods: Demonstration, Discussion Response to Teaching: Return Demonstration, Reinforcement Needed Education Topics Provided: Sequencing Tasks Time Speech Therapy Time In: 08:30 Speech Therapy Time Out: 09:00 Total Billed Time: 30 Billed Treatment Time 1, SLTS LALO,ISAAC ST Nov 18, 2016 11:08
--- NOTE | 2016-11-18 11:49 | Physical Therapy Daily Note ---
PT Daily Note-Current Subjective Patient in recliner pre tx, agrees to PT, no complaints of pain. Appearance Patient in recliner post tx with nurse call, phone, tray, all needs met. Mental Status Patient Orientation: Person, Place, Situation Transfers Functional [place] Measure 0=Not Assessed/NA 4=Minimal Assistance 1=Total Assistance 5=Supervision or Setup 2=Maximal Assistance 6=Modified [place] 3=Moderate Assistance 7=Complete IndependenceIRFPAI Quality Coding Scale 6 Independent with activity with or without an assistive device 5 Patient requires set up or clean up by helper. Patient completes activity by themselves 4 Supervision or touching assist (CGA). [place] provide cues , steadying assist 3 The helper provides less than half the effort to complete the activity 2 The helper provides more than half the effort to complete the activity 1 Dependent. The helper does all the effort to complete an activity 7 Patient refused to complete or attempt activity 9 The patient did not perform the activity before the current illness or injury 88 Not attempted due to Medical conditions or safety concerns Transfers (B, C, W/C) (FIM): 4 Sit to/from Stand: 4 occasional assist when standing for balance or help from a low surface Gait Training Gait (FIM): 4 Distance: 150'x2 Gait Level of Assist: 4 Gait Persons Needed: 1 Gait Assistive Device: Cane Large Base Quad Min assist for occasional loss of balance, but she only needs just a tiny amount of assistance. Wears a right side AFO. Patient also ambulated 100'x2 with a 3# ankle weight on the right side to increase difficulty of ambulation. Exercises NuStep Minutes: 15 NuStep Workload: 5 Treatments transfers, ambulation, functional strengthening Assessment Current Status: Fair Progress improving balance during ambulation PT Short Term Goals Short Term Goals Time Frame: Nov 16, 2016 Transfers (B,C,W/C) (FIM): 45 Gait (FIM): 4 Gait Distance Comment: 150' Gait Level of Assist: 4 Gait Assistive Device: Cane Large Base Quad Wheelchair Distance: 50' PT Pulmonary Specialist Goals Pulmonary Specialist Goals PT [facility] Goals Time Frame: Nov 30, 2016 Transfers (B,C,W/C) (FIM): 5 Sit to Lying (QC): 4 Lying-Sitting on Side/Bed(QC): 4 Sit to Stand (QC): 4 Rollin Roll Left to Right (QC): 4 Chair/Hyz-yi-Hjpah Xfer(QC): 4 Car Transfer (QC): 4 Gait (FIM): 5 Distance: 200' Walk 10 feet (QC): 4 Walk 10ft-Uneven Surface(QC): 4 Walk 50ft with 2 Turns (QC): 4 Walk 150 ft (QC): 4 Gait Level of Assist: 5 Gait Assistive Device: Cane Large Base Quad Stairs (FIM): 4 # of Steps: 12 1 Step (curb) (QC): 4 4 Steps (QC): 4 12 Steps (QC): 4 Stairs Level Of Assist: 4 Picking up an Object (QC): 88 PT Plan Problem List Problem List: Activity Tolerance, Functional Strength, Safety, Balance, Gait, Transfer Treatment/Plan Treatment Plan: Continue Plan of Care Treatment Plan: Bed Mobility, Education, Functional Activity Nash, Functional Strength, Group Therapy, Gait, Safety, Therapeutic Exercise, Transfers Treatment Duration: Nov 30, 2016 Visits Per Week: 10-11 Minutes/Day (M-F): 60-90 Minutes/Day (Sat/Lake): 15-30 Safety Risks/Education Patient Education: Gait Training, Transfer Techniques, Safety Issues Teaching Recipient: Patient Teaching Methods: Demonstration, Discussion Response to Teaching: Reinforcement Needed Time/GCodes Time In: 1105 Time Out: 1150 Total Billed Treatment Time: 45 Total Billed Treatment 1 visit EX 15' GT 30' ELLEN GARZA PT Nov 18, 2016 11:49
--- NOTE | 2016-11-18 13:43 | Occupational Ther Daily Note ---
OT Current Status-Daily Note Subjective No pain reported. Appearance Pt. is up in chair. Declines showering. Agrees to get dressed. Mental Status/Objective Patient Orientation: Person Functional [place] Measure 0=Not Assessed/NA 4=Minimal Assistance 1=Total Assistance 5=Supervision or Setup 2=Maximal Assistance 6=Modified [place] 3=Moderate Assistance 7=Complete [place] ADL-Treatment Grooming (FIM): 5 (Set up to brush teeth and hair. Pt. did remember strategy of getting toothpaste into mouth using one hand.) Upper Body (FIM): 5 (Pt. was able to don shirt and sling with SBA this date with set up/SBA.) Lower Body Dressing (FIM): 3 (Pt. able to put pants on with CGA in stance to pull up. Unable to fully pulley maintainer hips on right, and needed assist with this. Able to don AFO, but unable to don right shoe.) Transfers (B, C, W/C) (FIM): 4 (Min assist to ambulate with cane. Pt. does need cues for safety and assist at times, as she will often catch her right toe. ) Other Treatment Pt. ambulated to laundry room with dirty laundry. Required cues and mod assist overall to put clothing in washer, and to open laundry soap and put in. Required assistance to set washing machine to setting and turn on. Pt. then went to therapy gym. Tolerated 8 rosa m amps to right UE wrist extensors approximately 10 minutes on e-stim. Able to elicit index finger extension and slight 3rd, 4th, 5th finger extension. After e-stim, pt. able to slightly flex/ extend right elbow, and able to slightly adduct right thumb. This is the first sign of active muscle movement shown. Ambulated back to room. All needs met. Education OT Patient Education: Correct positioning, Exercise program, Instructions don/ doff splint/brace, Modified ADL techniques, Progress toward Goal/Update tx plan , Purpose of tx/functional activities, Reviewed precautions, Rehab process, Transfer techniques Teaching Recipient: Patient Teaching Methods: Demonstration, Discussion Response to Teaching: Verbalize Understanding, Return Demonstration OT Short Term Goals Short Term Goals Time Frame: Nov 16, 2016 Eating(FIM): 6 Grooming(FIM): 5 Bathing(FIM): 5 Upper Body Dressing(FIM): 4 Lower Body Dressing(FIM): 4 Toileting(FIM): 4 Transfers (B,C,W/C) (FIM): 45 Toilet/Commode Transfer(FIM): 5 Shower Transfer(FIM): 5 Additional Short Term Goals: 1-Demonstrate ADL Tasks, 2-Verbalize Understanding , 3-ImproveStrength/Nash 1=Demonstrate adherence to instructed precautions during ADL tasks. 2=Patient will verbalize/demonstrate understanding of assistive devices/ modifications for ADL. 3=Patient will improve strength/tolerance for activity to enable patient to perform ADL's. OT Bell Valet Goals Bell Valet Goals Time Frame: Nov 30, 2016 Eating (FIM): 6 Grooming(FIM): 6 Bathing(FIM): 5 Upper Body Dressing(FIM): 6 Lower Body Dressing(FIM): 6 Toileting(FIM): 6 Transfers (B,C,W/C) (FIM): 6 Toilet/Commode Transfer(FIM): 6 Shower Transfer(FIM): 5 Comprehension(FIM): 4 Expression (FIM): 4 Social Interaction(FIM): 5 Problem Solving(FIM): 4 Memory(FIM): 4 Additional Goals: 1-Demonstrate ADL Tasks, 2-Verbalize Understanding, 3- ImproveStrength/Nash 1=Demonstrate adherence to instructed precautions during ADL tasks. 2=Patient will verbalize/demonstrate understanding of assistive devices/ modifications for ADL. 3=Patient will improve strength/tolerance for activity to enable patient to perform ADL's. OT Education/Plan Problem List/Assessment Assessment: Decreased Activ Tolerance, Decreased UE Strength, Dependent Transfers, Impaired Bed Mobility, Impaired Cognition, Impaired Coordination, Impaired Funct Balance, Impaired I ADL's, Impaired Self-Care Skills, Restricted Funct UE ROM, Visual-Perceptual Deficit Discharge Recommendations Plan/Recommendations: Continue POC Therapy D/C Recommendations: 24 hr Supervision, Home w/ Family Support, Occupational Therapy Home Care Treatment Plan/Plan of Care Treatment,Training & Education: Yes Patient would benefit from OT for education, treatment and training to promote independence in ADL's, mobility, safety and/or upper extremity function for ADL' s. Plan of Care: ADL Retraining, Caregiver Training, Cognitive Retraining, Functional Mobility, Group Exercise/Act as Ind, UE Funct Exercise/Act, UE Neuromus Re-Ed/Coord Treatment Duration: Nov 30, 2016 Visits Per Week: 5-6 Minutes/Day (M-F): 60-90 Minutes/Day (Sat/Lake): 15-30 Agreement: Yes Rehab Potential: Fair Time/GCodes Start Time: 09:30 Stop Time: 10:45 Total Time Billed (hr/min): 75 Billed Treatment Time 1, ADL x 45minutes, NM x 15minutes, FA x 15minutes JOEL MCDOWELL OT Nov 18, 2016 13:43
--- NOTE | 2016-11-18 13:43 | Physical Therapy Daily Note ---
PT Daily Note-Current Subjective Agreeable to PT. No complaints. Pain Numeric Pain Scale: 0-No Pain Location: No Pain Reported Mental Status Patient Orientation: Person, Place, Time, Situation Transfers Functional [place] Measure 0=Not Assessed/NA 4=Minimal Assistance 1=Total Assistance 5=Supervision or Setup 2=Maximal Assistance 6=Modified [place] 3=Moderate Assistance 7=Complete IndependenceIRFPAI Quality Coding Scale 6 Independent with activity with or without an assistive device 5 Patient requires set up or clean up by helper. Patient completes activity by themselves 4 Supervision or touching assist (CGA). [place] provide cues , steadying assist 3 The helper provides less than half the effort to complete the activity 2 The helper provides more than half the effort to complete the activity 1 Dependent. The helper does all the effort to complete an activity 7 Patient refused to complete or attempt activity 9 The patient did not perform the activity before the current illness or injury 88 Not attempted due to Medical conditions or safety concerns Treatments Gait training with QC 150 ft x 2 with close CGA; AFO right and sling right. Pt ambulates with decreased step length and step through on the right. Worked on sit to from stand transfer with focus on hand placement, leaning forward and controlled descent x 10 reps. LAQ, hip flex and hip abd/add x 15 reps to promote LE strength to improve gait and transfers. Pt in bed post treatment with needs met. Assessment Current Status: Good Progress Progressing with functional mobility; continue to have some safety deficits. PT Short Term Goals Short Term Goals Time Frame: Nov 16, 2016 Transfers (B,C,W/C) (FIM): 45 Gait (FIM): 4 Gait Distance Comment: 150' Gait Level of Assist: 4 Gait Assistive Device: Cane Large Base Quad Wheelchair Distance: 50' PT Supervisor Sample Goals Retirement Goals PT Supervisor Sample Goals Time Frame: Nov 30, 2016 Transfers (B,C,W/C) (FIM): 5 Sit to Lying (QC): 4 Lying-Sitting on Side/Bed(QC): 4 Sit to Stand (QC): 4 Rollin Roll Left to Right (QC): 4 Chair/Rwn-kg-Dsamv Xfer(QC): 4 Car Transfer (QC): 4 Gait (FIM): 5 Distance: 200' Walk 10 feet (QC): 4 Walk 10ft-Uneven Surface(QC): 4 Walk 50ft with 2 Turns (QC): 4 Walk 150 ft (QC): 4 Gait Level of Assist: 5 Gait Assistive Device: Cane Large Base Quad Stairs (FIM): 4 # of Steps: 12 1 Step (curb) (QC): 4 4 Steps (QC): 4 12 Steps (QC): 4 Stairs Level Of Assist: 4 Picking up an Object (QC): 88 PT Plan Problem List Problem List: Activity Tolerance, Functional Strength Treatment/Plan Treatment Plan: Continue Plan of Care Treatment Plan: Bed Mobility, Education, Functional Activity Nash, Functional Strength, Group Therapy, Gait, Safety, Therapeutic Exercise, Transfers Treatment Duration: Nov 30, 2016 Visits Per Week: 10-11 Minutes/Day (M-F): 60-90 Minutes/Day (Sat/Lake): 15-30 Safety Risks/Education Patient Education: Transfer Techniques, Safety Issues Teaching Recipient: Patient Teaching Methods: Demonstration, Discussion, Audiovisual Time/GCodes Time In: 1300 Time Out: 1330 Total Billed Treatment Time: 30 Total Billed Treatment visit GT 15 EX 15 RITIKA BENITES PT Nov 18, 2016 13:42
[2016-11-18 18:34] VITALS: BP 121/67
[2016-11-18] MEDS: ATORVASTATIN 20 MG (LIPITOR) TABLET PO SCH (20:43)
[2016-11-19 05:52] VITALS: BP 134/78
--- NOTE | 2016-11-19 07:31 | Progress Note (SOAP) ---
Subjective Time Seen by Provider: 07:20 Subjective/Events-last exam patient positive. Patient working progress. Right arm flaccid. Moving the right leg good. Hypertension. CVA. Noncompliance with medicine Objective Exam Vital Signs Date Time Temp Pulse Resp B/P (MAP) Pulse Ox O2 Delivery O2 Flow Rate FiO2 11/19/16 05:52 97.8 58 20 134/78 98 Room Air 11/18/16 20:20 Room Air 11/18/16 18:34 98.0 60 20 121/67 94 Room Air 11/18/16 09:00 Room Air I & O 11/19/16 07:00 Intake Total 1120 ml Balance 1120 ml Capillary Refill : General Appearance: No Apparent Distress, WD/WN HEENT: Normal ENT Inspection Neck: Full Range of Motion, Normal Inspection Respiratory: Chest Non Tender, Lungs Clear, Normal Breath Sounds, No Accessory Muscle Use, No Respiratory Distress Cardiovascular: Regular Rate, Rhythm, No Murmur Assessment/Plan Assessment/Plan Assess & Plan/Chief Complaint cerebrovascular accident. Noncompliance with medicine. Hypertension. . 11/11/16. CVA. Noncompliance with medicine.. Hypertension. Patient able to move the right foot Patient unable to move the right Hand. . 11/12/16. CVA. Noncompliance with medicine. Hypertension. Patient moving right leg better. Patient states right arm is . . 11/15/16. CVA. Noncompliance with medicine. Hypertension. Right leg doing better. Problems with right hand. . . CVA. Hypertension. Noncompliance. Patient was seen yesterday. Patient voices no complaints. Patient not moving right hand and arm. . 11/18/16. CVA. Noncompliance history. Hypertension. Patient feel she is improving. Patient needs work with the right upper extremity. Right leg doing better. . 11/19/16. CVA. Noncompliance with Medicine.. Hypertension Right arm flaccid. Right leg doing much better Clinical Quality Measures DVT/VTE Risk/Contraindication: Risk Factor Score Per Nursin RFS Level Per Nursing on Admit: 4+=Very High MOSHE KRISHNAMURTHY DO Nov 19, 2016 07:31
[2016-11-19] MEDS: CLOPIDOGREL 75 MG (PLAVIX) TABLET PO SCH (07:44)
[2016-11-19] MEDS: ASPIRIN 81 MG CHEW (CHILDREN'S ASA) PO SCH (07:44)
[2016-11-19] MEDS: lisINopril 10 MG (PRINIVIL) TAB PO SCH (07:44)
[2016-11-19] MEDS: amLODIPine 5 MG (NORVASC) TAB PO SCH (07:44)
[2016-11-19] MEDS: meTOproloL SUCCINATE 50 MG (TOPROL XL) TAB PO SCH (07:45)
[2016-11-19] MEDS: ENOXAPARIN 40 MG/0.4 ML (LOVENOX) SYR SC SCH (07:45)
[2016-11-19 07:50] VITALS: BP 114/68
--- NOTE | 2016-11-19 11:29 | Physical Therapy Daily Note ---
PT Daily Note-Current Subjective Patient in chair in therapy gym pre tx, agrees to PT, no complaints of pain. Appearance Patient in recliner post tx with nurse call, phone, tray, all needs met. Mental Status Patient Orientation: Person, Place, Situation Transfers Functional [place] Measure 0=Not Assessed/NA 4=Minimal Assistance 1=Total Assistance 5=Supervision or Setup 2=Maximal Assistance 6=Modified [place] 3=Moderate Assistance 7=Complete IndependenceIRFPAI Quality Coding Scale 6 Independent with activity with or without an assistive device 5 Patient requires set up or clean up by helper. Patient completes activity by themselves 4 Supervision or touching assist (CGA). [place] provide cues , steadying assist 3 The helper provides less than half the effort to complete the activity 2 The helper provides more than half the effort to complete the activity 1 Dependent. The helper does all the effort to complete an activity 7 Patient refused to complete or attempt activity 9 The patient did not perform the activity before the current illness or injury 88 Not attempted due to Medical conditions or safety concerns Transfers (B, C, W/C) (FIM): 4 Scootin Rollin Supine to/from Sit: 4 (min assist if she does not have a rail ) Sit to/from Stand: 4 cues for safety and hand placement Gait Training Gait (FIM): 4 Distance: 200', 150'x2 Gait Level of Assist: 4 Gait Persons Needed: 1 Gait Assistive Device: Cane Large Base Quad Patient min assist for occasional balance assist but CGA most of the time. Slow ambulation, poor foot clearance on the right, uses right AFO. Exercises Supine Ex: Bridging, Straight leg raise, Hip abd/add Supine Reps: 20 LAQ right side for 5 min NuStep Minutes: 15 NuStep Workload: 5 Treatments bed mobility and transfers, functional strengthening, ambulation Assessment Current Status: Fair Progress improving endurance and gait PT Short Term Goals Short Term Goals Time Frame: Nov 16, 2016 Transfers (B,C,W/C) (FIM): 45 Gait (FIM): 4 Gait Distance Comment: 150' Gait Level of Assist: 4 Gait Assistive Device: Cane Large Base Quad Wheelchair Distance: 50' PT Retirement Goals Retirement Goals PT Pulverizer Goals Time Frame: Nov 30, 2016 Transfers (B,C,W/C) (FIM): 5 Sit to Lying (QC): 4 Lying-Sitting on Side/Bed(QC): 4 Sit to Stand (QC): 4 Rollin Roll Left to Right (QC): 4 Chair/Vog-qc-Kvyxt Xfer(QC): 4 Car Transfer (QC): 4 Gait (FIM): 5 Distance: 200' Walk 10 feet (QC): 4 Walk 10ft-Uneven Surface(QC): 4 Walk 50ft with 2 Turns (QC): 4 Walk 150 ft (QC): 4 Gait Level of Assist: 5 Gait Assistive Device: Cane Large Base Quad Stairs (FIM): 4 # of Steps: 12 1 Step (curb) (QC): 4 4 Steps (QC): 4 12 Steps (QC): 4 Stairs Level Of Assist: 4 Picking up an Object (QC): 88 PT Plan Problem List Problem List: Activity Tolerance, Functional Strength, Safety, Balance, Gait, Transfer, Bed Mobility Treatment/Plan Treatment Plan: Continue Plan of Care Treatment Plan: Bed Mobility, Education, Functional Activity Nash, Functional Strength, Group Therapy, Gait, Safety, Therapeutic Exercise, Transfers Treatment Duration: Nov 30, 2016 Visits Per Week: 10-11 Minutes/Day (M-F): 60-90 Minutes/Day (Sat/Lake): 15-30 Safety Risks/Education Patient Education: Gait Training, Transfer Techniques, Correct Positioning, Safety Issues Teaching Recipient: Patient Teaching Methods: Demonstration, Discussion Response to Teaching: Reinforcement Needed Time/GCodes Time In: 1030 Time Out: 1130 Total Billed Treatment Time: 60 Total Billed Treatment 1 visit EX 30' GT 30' ELLEN GARZA PT Nov 19, 2016 11:29
--- NOTE | 2016-11-19 11:37 | Speech Therapy Daily Note ---
Speech Daily Progress Note Subjective Date Seen by Provider: Nov 19, 2016 Time Seen by Provider: 08:30 The patient was seated upright in recliner upon entrance. The patient greeted the clinician appropriately and was agreeable to participation in the cognitive treatment program. Objective Functional Sequencing: The patient was provided a series of photographs which displayed a function sequence (mailing a letter, making a sandwich, etc.). The patient was asked to place the cards in the appropriate sequence to complete the task. The patient demonstrated increased difficulty with this task, displaying 60% accuracy with moderate clinician verbal cueing. The patient was able to recall important safety sequences with her wheelchair ("lock the wheels ") and can ("it should always be right here."). Orientation: The patient remains 100% oriented with the use of the in-room white board. Assessment Assessment Current Status: Fair Progress Treatment Plan Continue Plan of Care Communication Comprehension: 4 Expression: 4 Social Cognition Social Interaction: 4 Problem Solvin Memory: 3 Speech Short Term Goals Short Term Goals Short Term Goals 1. The patient will recall and demonstrate two functional memory strategies for use at home. MET 2. The patient will demonstrated 80% accuracy with structured word-finding task to improve expressive communication. 3. The patient will follow multi-step instructions with 80% accuracy and mild clinician verbal prompting. 4. The patient will display 90% accuracy with functional safety problem solving , independently. MET Time Frame-STG: Two Weeks Speech Mcfp Goals Hydraulic Barker Operator Goals 1. The patient will demonstrate improved cognitive linguistic skills for increased function and safety with ADL's in the least restrictive setting. Time Frame: Three Weeks Comprehension: 4 Expression: 4 Social Interaction: 5 Problem Solvin Memory: 4 Speech-Plan Treatment Plan Speech Therapy Treatment Plan: Continue Plan of Care Continue skilled speech pathology to target functional problem solving and memory. Treatment Duration: Nov 30, 2016 # of days/week Four to five. Visits Per Week: Four to five. Minutes/Day (M-F): 30 Rehab Potential: Fair Safety Risks/Education Teaching Recipient: Patient Teaching Methods: Discussion Response to Teaching: Return Demonstration, Reinforcement Needed Education Topics Provided: Safety Sequencing Time Speech Therapy Time In: 08:30 Speech Therapy Time Out: 09:00 Total Billed Time: 30 Billed Treatment Time Osei WAYNEELMIRA JOEYBAYLEEISAAC ST Nov 19, 2016 11:37
--- NOTE | 2016-11-19 12:01 | Occupational Ther Daily Note ---
OT Current Status-Daily Note Subjective Pt seen in room, agreeable to OT. No pain mentioned Appearance Alert, cooperative Mental Status/Objective Functional [place] Measure 0=Not Assessed/NA 4=Minimal Assistance 1=Total Assistance 5=Supervision or Setup 2=Maximal Assistance 6=Modified [place] 3=Moderate Assistance 7=Complete [place] ADL-Treatment All ADLs took longer than usual, for safety and with modified techniques. Pt declined shower today but agreed to wash under arms and ainsley areas with bath pack. She washed these areas with setup and with SBA when standing to wash ainsley area. Functional [place] Measure 0=Not Assessed/NA 4=Minimal Assistance 1=Total Assistance 5=Supervision or Setup 2=Maximal Assistance 6=Modified [place] 3=Moderate Assistance 7=Complete IndependenceIRFPAI Quality Coding Scale 6 Independent with activity with or without an assistive device 5 Patient requires set up or clean up by helper. Patient completes activity by themselves 4 Supervision or touching assist (CGA). [place] provide cues , steadying assist 3 The helper provides less than half the effort to complete the activity 2 The helper provides more than half the effort to complete the activity 1 Dependent. The helper does all the effort to complete an activity 7 Patient refused to complete or attempt activity 9 The patient did not perform the activity before the current illness or injury 88 Not attempted due to Medical conditions or safety concerns Grooming (FIM): 5 (SBA standing at sink to brush teeth. pt was able to open cap and put toothpaste on toothbrush. R hand placed on countertop for weightbearing during activity, with skilled facilitation) Upper Body (FIM): 5 (Pt was able to doff gown and put t-shirt on with setup. Skilled cues for mod tchnique) Lower Body Dressing (FIM): 4 (Pt donned underwear and slacks with setup, SBA when standing to pull them up and a little help to get pants up over hips in back. She doffed and donned socks and donned shoe on L foot, with elastic shoe laces. Pt was able to get brace and shoe on R with mod assist. ) Toileting (FIM): 5 (Pt able to manage hygiene but did not have clothing on to manage. Tall toilet, grab bar, quad cane) Toilet/Commode Transfer (FIM): 5 (SBA, tall toilet, grab bar) Other Treatment Pt walked with CGA, quad cane to gym. Skilled cues throughout tx for hand placement with sit to stand and stand to sit. In gym pt reached back for arm rest before sitting. Pt worked on bilat shoulder movements, with R side lagging behind L. Pt demonstrated R active shoulder flex, internal and external rotation , not through full range against gravity. Elbow flex and ext in mid range, with gravity decreased. Initiation supination but difficulty initiating pronation. Poor Finger flex and ext. All movements with skilled facilitation, if needed. Pt worked on grasp and release with stacking 12 cones (assist to place cone, then she was able to lift it and stack it). Skilled cues to avoid overflow movements. Pt also worked on grasp/release with beanbags. Care transferred to PT. Education OT Patient Education: Progress toward Goal/Update tx plan, Purpose of tx/ functional activities Teaching Recipient: Patient Teaching Methods: Demonstration, Discussion Response to Teaching: Verbalize Understanding OT Short Term Goals Short Term Goals Time Frame: Nov 16, 2016 Eating(FIM): 6 Grooming(FIM): 5 Bathing(FIM): 5 Upper Body Dressing(FIM): 4 Lower Body Dressing(FIM): 4 Toileting(FIM): 4 Transfers (B,C,W/C) (FIM): 45 Toilet/Commode Transfer(FIM): 5 Shower Transfer(FIM): 5 Additional Short Term Goals: 1-Demonstrate ADL Tasks, 2-Verbalize Understanding , 3-ImproveStrength/Nash 1=Demonstrate adherence to instructed precautions during ADL tasks. 2=Patient will verbalize/demonstrate understanding of assistive devices/ modifications for ADL. 3=Patient will improve strength/tolerance for activity to enable patient to perform ADL's. OT Snf Goals Flavoring Maker Goals Time Frame: Nov 30, 2016 Eating (FIM): 6 Eating (QC): 6 Groomin Oral Hygiene (QC): 6 Bathing(FIM): 5 Shower/Bathe Self (QC): 5 Upper Body Dressing(FIM): 6 Upper Body Dressing (QC): 6 Lower Body Dressing(FIM): 6 Lower Body Dressing (QC): 6 On/Off Footwear (QC): 6 Toileting(FIM): 6 Toileting Hygiene (QC): 6 Transfers (B,C,W/C) (FIM): 6 Toilet/Commode Transfer(FIM): 6 Toilet/Commode Transfer (QC): 6 Shower Transfer(FIM): 5 Comprehension(FIM): 4 Expression (FIM): 4 Social Interaction(FIM): 5 Problem Solving(FIM): 4 Memory(FIM): 4 Additional Goals: 1-Demonstrate ADL Tasks, 2-Verbalize Understanding, 3- ImproveStrength/Nash 1=Demonstrate adherence to instructed precautions during ADL tasks. 2=Patient will verbalize/demonstrate understanding of assistive devices/ modifications for ADL. 3=Patient will improve strength/tolerance for activity to enable patient to perform ADL's. OT Education/Plan Discharge Recommendations Plan/Recommendations: Continue POC Treatment Plan/Plan of Care Patient would benefit from OT for education, treatment and training to promote independence in ADL's, mobility, safety and/or upper extremity function for ADL' s. Plan of Care: ADL Retraining, Caregiver Training, Cognitive Retraining, Functional Mobility, Group Exercise/Act as Ind, UE Funct Exercise/Act, UE Neuromus Re-Ed/Coord Treatment Duration: Nov 30, 2016 Visits Per Week: 5-6 Minutes/Day (M-F): 60-90 Minutes/Day (Sat/Lake): 15-30 Agreement: Yes Rehab Potential: Fair Time/GCodes Start Time: 09:30 Stop Time: 10:30 Total Time Billed (hr/min): 60 Billed Treatment Time visit, 30 min ADL, 30 min neuromotor FELIPE TA OT Nov 19, 2016 12:01
--- NOTE | 2016-11-19 15:13 | Therapy Group Daily Note ---
Therapy Daily Group Note Patient Education Topic Other List Below (memory) Exercises LE Seated Exercise Other/Notes Pt ambulated with min A using cane. OT/PT group consisted of introductions ( name, place living, childhood memory), education on importance of memory, strategies for memory, memory task (matching pictures) and LE seated exercises. Pt was able to contribute to group appropriately. Pt was able to discuss strategies and issues for memory. Pt was able to complete memory task well. Pt ambulated back to room with min A using cane. After therapy, pt lying in bed with call light/phone in reach. All needs met in room. Start Time: 13:00 Stop Time: 14:10 Total Billed Treatment Time: 70 Total Billed Treatment 1-GRP RITIKA RENDON Nov 19, 2016 15:13
[2016-11-19 16:00] VITALS: BP 132/72
[2016-11-19 17:23] VITALS: BP 120/75
[2016-11-19] MEDS: ATORVASTATIN 20 MG (LIPITOR) TABLET PO SCH (20:06)
[2016-11-20 06:05] VITALS: BP 121/72
[2016-11-20] MEDS: lisINopril 10 MG (PRINIVIL) TAB PO SCH (08:05)
[2016-11-20] MEDS: ENOXAPARIN 40 MG/0.4 ML (LOVENOX) SYR SC SCH (08:06)
[2016-11-20] MEDS: meTOproloL SUCCINATE 50 MG (TOPROL XL) TAB PO SCH (08:06)
[2016-11-20] MEDS: amLODIPine 5 MG (NORVASC) TAB PO SCH (08:06)
[2016-11-20] MEDS: CLOPIDOGREL 75 MG (PLAVIX) TABLET PO SCH (08:06)
[2016-11-20] MEDS: ASPIRIN 81 MG CHEW (CHILDREN'S ASA) PO SCH (08:06)
[2016-11-20 08:09] VITALS: BP 120/71
--- NOTE | 2016-11-20 12:24 | Physical Therapy Daily Note ---
PT Daily Note-Current Subjective Pt. agrees to Rx. Pain Numeric Pain Scale: 0-No Pain Mental Status Patient Orientation: Normal For Age Transfers Functional [place] Measure 0=Not Assessed/NA 4=Minimal Assistance 1=Total Assistance 5=Supervision or Setup 2=Maximal Assistance 6=Modified [place] 3=Moderate Assistance 7=Complete IndependenceIRFPAI Quality Coding Scale 6 Independent with activity with or without an assistive device 5 Patient requires set up or clean up by helper. Patient completes activity by themselves 4 Supervision or touching assist (CGA). [place] provide cues , steadying assist 3 The helper provides less than half the effort to complete the activity 2 The helper provides more than half the effort to complete the activity 1 Dependent. The helper does all the effort to complete an activity 7 Patient refused to complete or attempt activity 9 The patient did not perform the activity before the current illness or injury 88 Not attempted due to Medical conditions or safety concerns Transfers (B, C, W/C) (FIM): 5 Scootin Rollin Supine to/from Sit: 6 Sit to/from Stand: 5 Bed to/from Chair: 5 Gait Training Does the Patient Walk?: Yes Gait (FIM): 5 Distance (FIM): 3=150 ft (x2) Gait Level of Assist: 5 Gait Persons Needed: 1 Gait Assistive Device: Cane Large Base Quad Exercises Seated Therapy Exercises: Ankle pumps, Sit to stand, Long arc quads, Hip flexion Seated Reps: 15 Assessment Current Status: Good Progress PT Short Term Goals Short Term Goals Time Frame: Nov 16, 2016 Transfers (B,C,W/C) (FIM): 45 Gait (FIM): 4 Gait Distance Comment: 150' Gait Level of Assist: 4 Gait Assistive Device: Cane Large Base Quad Wheelchair Distance: 50' PT Personal Injury Specialist Goals Halfway Goals PT Halfway Goals Time Frame: Nov 30, 2016 Transfers (B,C,W/C) (FIM): 5 Sit to Lying (QC): 4 Lying-Sitting on Side/Bed(QC): 4 Sit to Stand (QC): 4 Rollin Roll Left to Right (QC): 4 Chair/Cvz-ub-Frqap Xfer(QC): 4 Car Transfer (QC): 4 Gait (FIM): 5 Distance: 200' Walk 10 feet (QC): 4 Walk 10ft-Uneven Surface(QC): 4 Walk 50ft with 2 Turns (QC): 4 Walk 150 ft (QC): 4 Gait Level of Assist: 5 Gait Assistive Device: Cane Large Base Quad Stairs (FIM): 4 # of Steps: 12 1 Step (curb) (QC): 4 4 Steps (QC): 4 12 Steps (QC): 4 Stairs Level Of Assist: 4 Picking up an Object (QC): 88 PT Plan Treatment/Plan Treatment Plan: Continue Plan of Care Treatment Plan: Bed Mobility, Education, Functional Activity Nash, Functional Strength, Group Therapy, Gait, Safety, Therapeutic Exercise, Transfers Treatment Duration: Nov 30, 2016 Visits Per Week: 10-11 Minutes/Day (M-F): 60-90 Minutes/Day (Sat/Lake): 15-30 Safety Risks/Education Patient Education: Gait Training, Transfer Techniques Teaching Recipient: Patient Teaching Methods: Demonstration, Discussion Response to Teaching: Verbalize Understanding, Return Demonstration Time/GCodes Time In: 1000 Time Out: 1025 Total Billed Treatment Time: 25 Total Billed Treatment 1,GT25m G Codes Necessary: MELLY Lee CAR SUPPLIER Nov 20, 2016 12:24
[2016-11-20 17:27] VITALS: BP 104/63
[2016-11-20] MEDS: ATORVASTATIN 20 MG (LIPITOR) TABLET PO SCH (20:13)
[2016-11-21 05:18] VITALS: BP 121/75
[2016-11-21 08:42] VITALS: BP 117/71
[2016-11-21] MEDS: ENOXAPARIN 40 MG/0.4 ML (LOVENOX) SYR SC SCH (08:43)
[2016-11-21] MEDS: lisINopril 10 MG (PRINIVIL) TAB PO SCH (08:43)
[2016-11-21] MEDS: CLOPIDOGREL 75 MG (PLAVIX) TABLET PO SCH (08:43)
[2016-11-21] MEDS: amLODIPine 5 MG (NORVASC) TAB PO SCH (08:43)
[2016-11-21] MEDS: meTOproloL SUCCINATE 50 MG (TOPROL XL) TAB PO SCH (08:43)
[2016-11-21] MEDS: ASPIRIN 81 MG CHEW (CHILDREN'S ASA) PO SCH (08:43)
[2016-11-21 17:39] VITALS: BP 124/73
[2016-11-21] MEDS: ATORVASTATIN 20 MG (LIPITOR) TABLET PO SCH (20:21)
--- OUTSIDE RECORDS SUMMARY | 2016-11-22 05:44 | XMS REPORT | Continuity of Care Document ---
Author Author [facility] Organization [facility] Address Unknown Phone Unavailable Allergies Active Description Code Type Severity Reaction Onset Reported/Identified Relationship to Patient Clinical Status Yes NO NAME AVAILABLE 24713 DRUG N/A N/A Yes oxycodone [id number] Drug Allergy Unknown LOCK JAW 06/11/2014 Yes OXYCODONE 11079 DRUG INGREDI N/A Other 07/27/2016 07/27/2016 Yes No Known Drug Allergies [id number] Drug Allergy Unknown N/ A 11/09/2016 Medications Medication Packaging Start Date Stop Date Route Dosage Sig ALUM T MAG HYDROXIDE-SIMETH 200-200-20 MG/5ML PO SUSP 07/27/2016 Oral 30 4 TIMES DAILY PRN TRAZODONE HCL 100 MG PO TABS 07/27/2016 Oral 100 BEDTIME PRN OLANZAPINE 10 MG PO TBDP 07/27/2016 Oral 10 2 TIMES DAILY PRN IBUPROFEN 600 MG PO TABS 07/27/2016 Oral 600 EVERY 6 HOURS PRN MAGNESIUM HYDROXIDE 400 MG/5ML PO SUSP 07/27/2016 Oral 30 DAILY PRN QUETIAPINE FUMARATE 25 MG PO TABS 07/27/2016 Oral 25 4 TIMES DAILY PRN CLOPIDOGREL BISULFATE 75 MG PO TABS 07/27/2016 Oral 75 DAILY ASPIRIN 81 MG PO TBEC 07/27/2016 Oral 81 DAILY CLONIDINE HCL 0.1 MG PO TABS 07/27/2016 Oral 0.1 DAILY SERTRALINE HCL 50 MG PO TABS 07/28/2016 Oral 50 BEDTIME RISPERIDONE 0.5 MG PO TABS 07/28/2016 Oral 0.5 BEDTIME SERTRALINE HCL 100 MG PO TABS 07/29/2016 Oral 100 DAILY RISPERIDONE 1 MG PO TABS 07/29/2016 Oral 1 2 TIMES DAILY RISPERIDONE 0.5 MG PO TABS 07/29/2016 Oral 0.5 2 TIMES DAILY MELATONIN 3 MG PO TABS 07/31/2016 Oral 3 BEDTIME RISPERIDONE 1 MG PO TABS 08/01/2016 Oral 1 DAILY SERTRALINE HCL 50 MG PO TABS 08/01/2016 Oral 50 DAILY SERTRALINE HCL 50 MG PO TABS 08/02/2016 Oral 50 DAILY SERTRALINE HCL 50 MG PO TABS 08/02/2016 Oral 50 ONCE RISPERIDONE 1 MG PO TABS 08/02/2016 Oral 1 2 TIMES DAILY SERTRALINE HCL 100 MG PO TABS 08/03/2016 Oral 200 DAILY Problems Date Dx Coded Attending Type Code Diagnosis Diagnosed By 07/16/2010 Ot 599.0 URIN TRACT INFECTION NOS 07/16/2010 Ot 788.1 DYSURIA 09/23/2011 Ot 401.9 HYPERTENSION NOS 09/23/2011 Ot 433.30 MULT BILTRAL ARTERY OCCLUSION WO CEREBRA 09/23/2011 Ot 434.91 CEREBRAL ART OCCLUSION NOS W CEREBRAL IN 09/23/2011 Ot 781.2 ABNORMALITY OF GAIT 10/03/2011 Ot 272.4 HYPERLIPIDEMIA NEC/NOS 10/03/2011 Ot 311 DEPRESSIVE DISORDER NEC 10/03/2011 Ot 401.9 HYPERTENSION NOS 10/03/2011 Ot 433.10 CAROTID ARTERY OCCLUSION W O CEREBRAL IN 10/03/2011 Ot 433.30 MULT BILTRAL ARTERY OCCLUSION WO CEREBRA 10/03/2011 Ot 438.20 LATE EFF-CEREBR DIS,HEMIPLEGIA AFFECTING 10/03/2011 Ot 781.2 ABNORMALITY OF GAIT 10/03/2011 Ot V57.1 PHYSICAL THERAPY NEC 10/03/2011 Ot V57.21 ENCOUNTER FOR OCCUPATIONAL THERAPY 10/03/2011 Ot V57.3 CARE INVOLVING SPEECH-LANGUAGE THERAPY 11/23/2011 Ot 438.20 LATE EFF-CEREBR DIS,HEMIPLEGIA AFFECTING 11/23/2011 Ot 781.2 ABNORMALITY OF GAIT 11/23/2011 Ot V57.1 PHYSICAL THERAPY NEC 05/08/2012 Ot 521.00 UNSPEC DENTAL CARIES 05/08/2012 Ot 525.9 DENTAL DISORDER NOS 11/14/2013 CLAIRE NICHOLAS APRN Ot 922.2 CONTUSION ABDOMINAL WALL 11/14/2013 CLAIRE NICHOLAS APRN Ot E849.0 ACCIDENT IN HOME 11/14/2013 CLAIRE NICHOLAS APRN Ot E880.9 FALL ON STAIR/STEP NEC 06/11/2014 HAYDEN ROSEN, JORDYN Hazel Ot 401.9 HYPERTENSION NOS 06/11/2014 HAYDEN ROSEN, JORDYN Hazel Ot 786.05 SHORTNESS OF BREATH 06/11/2014 HAYDEN ROSEN, JORDYN Hazel Ot 786.09 RESPIRATORY ABNORM NEC 06/21/2014 CLAIRE NICHOLAS TRAFFIC EXPERT Ot 784.0 HEADACHE 11/07/2015 LY DUBOIS MD Ot F17.210 NICOTINE DEPENDENCE, CIGARETTES, UNCOMPL 11/07/2015 LY DUBOIS MD Ot J06.9 ACUTE UPPER RESPIRATORY INFECTION, UNSPE 11/07/2015 LY DUBOIS MD Ot R05 COUGH 11/10/2015 LY DUBOIS MD Ot F17.210 NICOTINE DEPENDENCE, CIGARETTES, UNCOMPL 11/10/2015 LY DUBOIS MD Ot J06.9 ACUTE UPPER RESPIRATORY INFECTION, UNSPE 11/10/2015 LY DUBOIS MD Ot R05 COUGH 11/09/2016 MOSHE KRISHNAMURTHY DO Ot F32.9 MAJOR DEPRESSIVE DISORDER, SINGLE EPISOD 11/09/2016 MOSHE KRISHNAMURTHY DO Ot G81.91 HEMIPLEGIA, UNSPECIFIED AFFECTING RIGHT 11/09/2016 MOSHE KRISHNAMURTHY DO Ot I63.9 CEREBRAL INFARCTION, UNSPECIFIED 11/09/2016 MOSHE KRISHNAMURTHY DO Ot I67.4 HYPERTENSIVE ENCEPHALOPATHY 11/09/2016 GELLENDER DOMOSHE Ot 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 11/09/2016 MOSHE KRISHNAMURTHY DO Ot N39.0 URINARY TRACT INFECTION, SITE NOT SPECIF 11/09/2016 MOSHE KRISHNAMURTHY DO Ot R47.01 APHASIA 11/09/2016 MOSHE KRISHNAMURTHY DO Ot Z91.14 PATIENT'S OTHER NONCOMPLIANCE WITH MEDIC 11/16/2016 TEJAS SHAW MD Ot F17.210 NICOTINE DEPENDENCE, CIGARETTES, UNCOMPL 11/16/2016 TEJAS SHAW MD Ot F32.9 MAJOR DEPRESSIVE DISORDER, SINGLE EPISOD 11/16/2016 TEJAS SHAW MD Ot I10 ESSENTIAL (PRIMARY) HYPERTENSION 11/16/2016 TEJAS SHAW MD Ot I69.322 DYSARTHRIA FOLLOWING CEREBRAL INFARCTION 11/16/2016 TEJAS SHAW MD Ot I69.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 11/16/2016 TEJAS SHAW MD Ot N39.0 URINARY TRACT INFECTION, SITE NOT SPECIF 11/16/2016 TEJAS SHAW MD Ot Z91.14 PATIENT'S OTHER NONCOMPLIANCE WITH MEDIC 11/18/2016 TEJAS SHAW MD Ot F17.210 NICOTINE DEPENDENCE, CIGARETTES, UNCOMPL 11/18/2016 TEJAS SHAW MD Ot F32.9 MAJOR DEPRESSIVE DISORDER, SINGLE EPISOD 11/18/2016 TEJAS SHAW MD Ot I10 ESSENTIAL (PRIMARY) HYPERTENSION 11/18/2016 TEJAS SHAW MD Ot I69.322 DYSARTHRIA FOLLOWING CEREBRAL INFARCTION 11/18/2016 TEJAS SHAW MD Ot I69.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 11/18/2016 TEJAS SHAW MD Ot N39.0 URINARY TRACT INFECTION, SITE NOT SPECIF 11/18/2016 TEJAS SHAW MD Ot Z91.14 PATIENT'S OTHER NONCOMPLIANCE WITH MEDIC Procedures Results Test Result Range TSH (REFLEX FREE T4 IF ABNORMAL) - 07/28/16 06:35 TSH 1.194 uIU/mL 0.400-4.000 Complete blood count (CBC) with automated white blood cell (WBC) differential - 11/06/16 15:05 Blood leukocytes automated count (number/volume) 8.9 10*3/ uL 4.3-11.0 Blood erythrocytes automated count (number/volume) 5.34 10*6 /uL 4.35-5.85 Venous blood hemoglobin measurement (mass/volume) 15.4 g/dL 11.5-16.0 Blood hematocrit (volume fraction) 47 % 35-52 Automated erythrocyte mean corpuscular volume 88 [foz_us] 80-99 Automated erythrocyte mean corpuscular hemoglobin (mass per erythrocyte) 29 pg 25-34 Automated erythrocyte mean corpuscular hemoglobin concentration measurement ( mass/volume) 33 g/dL 32-36 Automated erythrocyte distribution width ratio 13.9 % 10.0-14.5 Automated blood platelet count (count/volume) 299 10*3/uL 130-400 Automated blood platelet mean volume measurement 10.8 [foz_ us] 7.4-10.4 Automated blood neutrophils/100 leukocytes 67 % 42-75 Automated blood lymphocytes/100 leukocytes 25 % 12-44 Blood monocytes/100 leukocytes 6 % 0-12 Automated blood eosinophils/100 leukocytes 1 % 0-10 Automated blood basophils/100 leukocytes 1 % 0-10 Blood neutrophils automated count (number/volume) 6.0 10*3 1.8-7.8 Blood lymphocytes automated count (number/volume) 2.2 10*3 1.0-4.0 Blood monocytes automated count (number/volume) 0.5 10*3 0.0-1.0 Automated eosinophil count 0.1 10*3/uL 0.0-0.3 Automated blood basophil count (count/volume) 0.1 10*3/uL 0.0-0.1 PT panel in platelet poor plasma by coagulation assay - 11/06/16 15:05 Prothrombin time (PT) in platelet poor plasma by coagulation assay 13.1 s 12.2-14.7 INR in platelet poor plasma or blood by coagulation assay 1.0 0.8-1.4 Activated partial thromboplastin time (aPTT) in platelet poor plasma bycoagulation assay - 11/06/16 15:05 Activated partial thromboplastin time (aPTT) in platelet poor plasma bycoagulation assay 26 s 24-35 Comprehensive metabolic panel - 11/06/16 15:05 Serum or plasma sodium measurement (moles/volume) 143 mmol/ L 135-145 Serum or plasma potassium measurement (moles/volume) 3.9 mmol/L 3.6-5.0 Serum or plasma chloride measurement (moles/volume) 108 mmol /L 98-107 Carbon dioxide 25 mmol/L 21-32 Serum or plasma anion gap determination (moles/volume) 10 mmol/L 5-14 Serum or plasma urea nitrogen measurement (mass/volume) 6 mg /dL 7-18 Serum or plasma creatinine measurement (mass/volume) 0.92 mg /dL 0.60-1.30 Serum or plasma urea nitrogen/creatinine mass ratio 7 NRG Serum or plasma creatinine measurement with calculation of estimated glomerular filtration rate > NRG Serum or plasma glucose measurement (mass/volume) 102 mg/dL 70-105 Serum or plasma calcium measurement (mass/volume) 9.9 mg/dL 8.5-10.1 Serum or plasma total bilirubin measurement (mass/volume) 0.5 mg/dL 0.1-1.0 Serum or plasma alkaline phosphatase measurement (enzymatic activity/volume) 100 U/L 40-136 Serum or plasma aspartate aminotransferase measurement (enzymatic activity/ volume) 14 U/L 5-34 Serum or plasma alanine aminotransferase measurement (enzymatic activity/volume ) 11 U/L 0-55 Serum or plasma protein measurement (mass/volume) 7.8 g/dL 6.4-8.2 Serum or plasma albumin measurement (mass/volume) 4.2 g/dL 3.2-4.5 Complete urinalysis with reflex to culture - 11/06/16 16:08 Urine color determination YELLOW NRG Urine clarity determination SLIGHTLY CLOUDY NRG Urine pH measurement by test strip 5 5- 9 Specific gravity of urine by test strip 1.025 1.016-1.022 Urine protein assay by test strip, semi-quantitative 1+ NEGATIVE Urine glucose detection by automated test strip NEGATIVE NEGATIVE Erythrocytes detection in urine sediment by light microscopy NEGATIVE NEGATIVE Urine ketones detection by automated test strip NEGATIVE NEGATIVE Urine nitrite detection by test strip NEGATIVE NEGATIVE Urine total bilirubin detection by test strip NEGATIVE NEGATIVE Urine urobilinogen measurement by automated test strip (mass/volume) NORMAL NORMAL Urine leukocyte esterase detection by dipstick 3+ NEGATIVE Automated urine sediment erythrocyte count by microscopy (number/high power field) NONE NRG Automated urine sediment leukocyte count by microscopy (number/high power field ) [HPF] NRG Bacteria detection in urine sediment by light microscopy FEW NRG Squamous epithelial cells detection in urine sediment by light microscopy 2-5 NRG Crystals detection in urine sediment by light microscopy NONE NRG Casts detection in urine sediment by light microscopy NONE NRG Mucus detection in urine sediment by light microscopy SMALL NRG Complete urinalysis with reflex to culture YES NRG Bacterial urine culture - 11/06/16 16:08 Bacterial urine culture [id number] NRG COLONY COUNT 10,000/ML - 100,000/ML NRG FREE TEXT ENTRY 3 MIXED GRAM POSITIVE ABBI NRG Comprehensive metabolic panel - 11/07/16 04:08 Serum or plasma sodium measurement (moles/volume) 142 mmol/ L 135-145 Serum or plasma potassium measurement (moles/volume) 3.9 mmol/L 3.6-5.0 Serum or plasma chloride measurement (moles/volume) 107 mmol /L 98-107 Carbon dioxide 27 mmol/L 21-32 Serum or plasma anion gap determination (moles/volume) 8 mmol/L 5-14 Serum or plasma urea nitrogen measurement (mass/volume) 11 mg/dL 7-18 Serum or plasma creatinine measurement (mass/volume) 0.84 mg /dL 0.60-1.30 Serum or plasma urea nitrogen/creatinine mass ratio 13 NRG Serum or plasma creatinine measurement with calculation of estimated glomerular filtration rate > NRG Serum or plasma glucose measurement (mass/volume) 98 mg/dL 70-105 Serum or plasma calcium measurement (mass/volume) 9.4 mg/dL 8.5-10.1 Serum or plasma total bilirubin measurement (mass/volume) 0.6 mg/dL 0.1-1.0 Serum or plasma alkaline phosphatase measurement (enzymatic activity/volume) 86 U/L 40-136 Serum or plasma aspartate aminotransferase measurement (enzymatic activity/ volume) 14 U/L 5-34 Serum or plasma alanine aminotransferase measurement (enzymatic activity/volume ) 9 U/L 0-55 Serum or plasma protein measurement (mass/volume) 6.6 g/dL 6.4-8.2 Serum or plasma albumin measurement (mass/volume) 3.5 g/dL 3.2-4.5 Lipid 1996 panel - 11/07/16 04:08 Serum or plasma triglyceride measurement (mass/volume) 130 mg/dL <150 Serum or plasma cholesterol measurement (mass/volume) 161 mg /dL < 200 Serum or plasma cholesterol in HDL measurement (mass/volume) 43 mg/dL 40-60 Cholesterol in LDL [mass/volume] in serum or plasma by direct assay 92 mg/dL 1-129 Serum or plasma cholesterol in VLDL measurement (mass/volume) 26 mg/dL 5-40 Automated blood complete blood count (hemogram) panel - 11/09/16 04:45 Blood leukocytes automated count (number/volume) 7.0 10*3/ uL 4.3-11.0 Blood erythrocytes automated count (number/volume) 5.19 10*6 /uL 4.35-5.85 Venous blood hemoglobin measurement (mass/volume) 15.1 g/dL 11.5-16.0 Blood hematocrit (volume fraction) 46 % 35-52 Automated erythrocyte mean corpuscular volume 89 [foz_us] 80-99 Automated erythrocyte mean corpuscular hemoglobin (mass per erythrocyte) 29 pg 25-34 Automated erythrocyte mean corpuscular hemoglobin concentration measurement ( mass/volume) 33 g/dL 32-36 Automated erythrocyte distribution width ratio 14.0 % 10.0-14.5 Automated blood platelet count (count/volume) 261 10*3/uL 130-400 Automated blood platelet mean volume measurement 10.9 [foz_ us] 7.4-10.4 Whole blood basic metabolic panel - 11/09/16 04:45 Serum or plasma sodium measurement (moles/volume) 142 mmol/ L 135-145 Serum or plasma potassium measurement (moles/volume) 3.9 mmol/L 3.6-5.0 Serum or plasma chloride measurement (moles/volume) 105 mmol /L 98-107 Carbon dioxide 28 mmol/L 21-32 Serum or plasma anion gap determination (moles/volume) 9 mmol/L 5-14 Serum or plasma urea nitrogen measurement (mass/volume) 17 mg/dL 7-18 Serum or plasma creatinine measurement (mass/volume) 0.87 mg /dL 0.60-1.30 Serum or plasma urea nitrogen/creatinine mass ratio 20 NRG Serum or plasma creatinine measurement with calculation of estimated glomerular filtration rate > NRG Serum or plasma glucose measurement (mass/volume) 102 mg/dL 70-105 Serum or plasma calcium measurement (mass/volume) 9.5 mg/dL 8.5-10.1 Automated blood complete blood count (hemogram) panel - 11/10/16 06:19 Blood leukocytes automated count (number/volume) 6.4 10*3/ uL 4.3-11.0 Blood erythrocytes automated count (number/volume) 5.22 10*6 /uL 4.35-5.85 Venous blood hemoglobin measurement (mass/volume) 15.0 g/dL 11.5-16.0 Blood hematocrit (volume fraction) 46 % 35-52 Automated erythrocyte mean corpuscular volume 88 [foz_us] 80-99 Automated erythrocyte mean corpuscular hemoglobin (mass per erythrocyte) 29 pg 25-34 Automated erythrocyte mean corpuscular hemoglobin concentration measurement ( mass/volume) 33 g/dL 32-36 Automated erythrocyte distribution width ratio 13.9 % 10.0-14.5 Automated blood platelet count (count/volume) 262 10*3/uL 130-400 Automated blood platelet mean volume measurement 10.7 [foz_ us] 7.4-10.4 Whole blood basic metabolic panel - 11/10/16 06:19 Serum or plasma sodium measurement (moles/volume) 142 mmol/ L 135-145 Serum or plasma potassium measurement (moles/volume) 3.9 mmol/L 3.6-5.0 Serum or plasma chloride measurement (moles/volume) 107 mmol /L 98-107 Carbon dioxide 25 mmol/L 21-32 Serum or plasma anion gap determination (moles/volume) 10 mmol/L 5-14 Serum or plasma urea nitrogen measurement (mass/volume) 18 mg/dL 7-18 Serum or plasma creatinine measurement (mass/volume) 0.77 mg /dL 0.60-1.30 Serum or plasma urea nitrogen/creatinine mass ratio 23 NRG Serum or plasma creatinine measurement with calculation of estimated glomerular filtration rate > NRG Serum or plasma glucose measurement (mass/volume) 103 mg/dL 70-105 Serum or plasma calcium measurement (mass/volume) 9.7 mg/dL 8.5-10.1 Encounters ACCT No. Visit Date/Time Discharge Status Pt. Type Provider Facility Loc./Unit Complaint [id number] 11/06/2016 16:26:00 2016 09:00:00 DIS Inpatient TRELLMOSHE BRAN DO [facility] 4TH ELEVATED CVA SX IN DISTRIBUTION 2011 CVA [id number] 11/07/2015 11:27:00 2015 16:21:00 DIS Emergency SHERLY ROSEN, LY Howard [facility] ER COUGH,CONGESTION SOA [id number] 06/21/2014 12:57:00 2014 14:38:00 DIS Emergency CLAIRE NICHOLAS TRAFFIC EXPERT [facility] ER HEADACHE [id number] 06/11/2014 14:33:00 2014 16:49:00 DIS Emergency HAYDEN ROSEN, JORDYN Hazel [facility] ER SOA [id number] 11/14/2013 21:06:00 2013 23:49:00 DIS Emergency CLAIRE NICHOLAS TRAFFIC EXPERT [facility] ER R RIB PAIN/INJ [id number] 11/09/2016 09:27:00 ACT Inpatient VALERIA ROSEN, TEJAS Hernandes [facility] IRF CVA [id number] 05/08/2012 11:13:00 Document Registration [id number] 10/28/2011 13:48:00 Document Registration [id number] 09/23/2011 14:10:00 Document Registration [id number] 09/20/2011 10:10:00 Document Registration [id number] 07/16/2010 16:38:00 Document Registration
[2016-11-22 05:51] VITALS: BP 107/71
--- NOTE | 2016-11-22 08:03 | Progress Note (SOAP) ---
Subjective Time Seen by Provider: 07:59 Subjective/Events-last exam CVA. Hypertension. Noncompliance. Patient doing better. Patient moving her right arm today.. Patient continued to improve with right leg and foot Objective Exam Vital Signs Date Time Temp Pulse Resp B/P (MAP) Pulse Ox O2 Delivery O2 Flow Rate FiO2 11/22/16 05:51 97.8 57 18 107/71 96 Room Air 11/21/16 20:30 Room Air 11/21/16 17:39 97.8 61 18 124/73 94 Room Air 11/21/16 09:00 Room Air 11/21/16 08:42 65 117/71 I & O 11/22/16 07:00 Intake Total 2000 ml Balance 2000 ml Capillary Refill : General Appearance: No Apparent Distress, WD/WN HEENT: Normal ENT Inspection Neck: Normal Inspection Respiratory: Lungs Clear, No Accessory Muscle Use, No Respiratory Distress Assessment/Plan Assessment/Plan Assess & Plan/Chief Complaint cerebrovascular accident. Noncompliance with medicine. Hypertension. . 11/11/16. CVA. Noncompliance with medicine.. Hypertension. Patient able to move the right foot Patient unable to move the right Hand. . 11/12/16. CVA. Noncompliance with medicine. Hypertension. Patient moving right leg better. Patient states right arm is . . 11/15/16. CVA. Noncompliance with medicine. Hypertension. Right leg doing better. Problems with right hand. . . CVA. Hypertension. Noncompliance. Patient was seen yesterday. Patient voices no complaints. Patient not moving right hand and arm. . 11/18/16. CVA. Noncompliance history. Hypertension. Patient feel she is improving. Patient needs work with the right upper extremity. Right leg doing better. . 11/19/16. CVA. Noncompliance with Medicine.. Hypertension Right arm flaccid. Right leg doing much better. . 11/22/16. CVA. Hypertension. Noncompliance with medicine. . Right arm did move today Clinical Quality Measures DVT/VTE Risk/Contraindication: Risk Factor Score Per Nursin RFS Level Per Nursing on Admit: 4+=Very High MOSHE KRISHNAMURTHY DO Nov 22, 2016 08:03
[2016-11-22] MEDS: ENOXAPARIN 40 MG/0.4 ML (LOVENOX) SYR SC SCH (08:04)
[2016-11-22] MEDS: CLOPIDOGREL 75 MG (PLAVIX) TABLET PO SCH (08:06)
[2016-11-22] MEDS: ASPIRIN 81 MG CHEW (CHILDREN'S ASA) PO SCH (08:06)
[2016-11-22] MEDS: lisINopril 10 MG (PRINIVIL) TAB PO SCH (08:06)
[2016-11-22] MEDS: amLODIPine 5 MG (NORVASC) TAB PO SCH (08:07)
[2016-11-22] MEDS: meTOproloL SUCCINATE 50 MG (TOPROL XL) TAB PO SCH (08:08)
--- NOTE | 2016-11-22 11:19 | Physical Therapy Daily Note ---
PT Daily Note-Current Subjective Patient in wheelchair pre tx, agrees to PT, no complaints of pain. Appearance Patient in recliner post tx with nurse call, phone, tray, all needs met. Mental Status Patient Orientation: Person, Place, Situation Transfers Functional [place] Measure 0=Not Assessed/NA 4=Minimal Assistance 1=Total Assistance 5=Supervision or Setup 2=Maximal Assistance 6=Modified [place] 3=Moderate Assistance 7=Complete IndependenceIRFPAI Quality Coding Scale 6 Independent with activity with or without an assistive device 5 Patient requires set up or clean up by helper. Patient completes activity by themselves 4 Supervision or touching assist (CGA). [place] provide cues , steadying assist 3 The helper provides less than half the effort to complete the activity 2 The helper provides more than half the effort to complete the activity 1 Dependent. The helper does all the effort to complete an activity 7 Patient refused to complete or attempt activity 9 The patient did not perform the activity before the current illness or injury 88 Not attempted due to Medical conditions or safety concerns Transfers (B, C, W/C) (FIM): 4 Sit to/from Stand: 4 CGA, cues for safety and hand placement, will still try to stand using only the quad cane on occasion Gait Training Gait (FIM): 4 Distance: 150'x2 Gait Level of Assist: 4 Gait Persons Needed: 1 Gait Assistive Device: Cane Large Base Quad Patient is almost CGA but still still min A due to needing occasional assist with balance, uses right AFO Stair Training Stair Training: Handrails/: 1 handrail Stairs (FIM): 4 #of Steps: 12 Stairs: Pattern: Step to Level of Assist: 4 min assist, cues for foot placement Exercises NuStep Minutes: 15 (to improve strength in right leg and promote better functional mobility) NuStep Workload: 5 Treatments transfers, ambulation, stairs, functional strengthening Assessment Current Status: Fair Progress slow but steady improvement in balance and ambulation, verbal communication also seems to be improving PT Short Term Goals Short Term Goals Time Frame: Nov 16, 2016 Transfers (B,C,W/C) (FIM): 45 Gait (FIM): 4 Gait Distance Comment: 150' Gait Level of Assist: 4 Gait Assistive Device: Cane Large Base Quad Wheelchair Distance: 50' PT Component Inspector Goals Correction Goals PT Correction Goals Time Frame: Nov 30, 2016 Transfers (B,C,W/C) (FIM): 5 Sit to Lying (QC): 4 Lying-Sitting on Side/Bed(QC): 4 Sit to Stand (QC): 4 Rollin Roll Left to Right (QC): 4 Chair/Dib-ia-Buicb Xfer(QC): 4 Car Transfer (QC): 4 Gait (FIM): 5 Distance: 200' Walk 10 feet (QC): 4 Walk 10ft-Uneven Surface(QC): 4 Walk 50ft with 2 Turns (QC): 4 Walk 150 ft (QC): 4 Gait Level of Assist: 5 Gait Assistive Device: Cane Large Base Quad Stairs (FIM): 4 # of Steps: 12 1 Step (curb) (QC): 4 4 Steps (QC): 4 12 Steps (QC): 4 Stairs Level Of Assist: 4 Picking up an Object (QC): 88 PT Plan Problem List Problem List: Activity Tolerance, Functional Strength, Safety, Balance, Gait, Transfer, Bed Mobility Treatment/Plan Treatment Plan: Continue Plan of Care Treatment Plan: Bed Mobility, Education, Functional Activity [place], Functional Strength, Group Therapy, Gait, Safety, Therapeutic Exercise, Transfers Treatment Duration: Nov 30, 2016 Visits Per Week: 10-11 Minutes/Day (M-F): 60-90 Minutes/Day (Sat/Lake): 15-30 Safety Risks/Education Patient Education: Gait Training, Transfer Techniques, Steps, Correct Positioning, Safety Issues Teaching Recipient: Patient Teaching Methods: Demonstration, Discussion Response to Teaching: Reinforcement Needed Time/GCodes Time In: 1030 Time Out: 1115 Total Billed Treatment Time: 45 Total Billed Treatment 1 visit EX 15' GT 30' ELLEN GARZA PT Nov 22, 2016 11:19
--- NOTE | 2016-11-22 11:24 | Occupational Ther Daily Note ---
OT Current Status-Daily Note Subjective No pain reported. Appearance Pt. up in the chair. Agrees to treatment. Mental Status/Objective Patient Orientation: Person Functional [place] Measure 0=Not Assessed/NA 4=Minimal Assistance 1=Total Assistance 5=Supervision or Setup 2=Maximal Assistance 6=Modified [place] 3=Moderate Assistance 7=Complete [place] ADL-Treatment Functional [place] Measure 0=Not Assessed/NA 4=Minimal Assistance 1=Total Assistance 5=Supervision or Setup 2=Maximal Assistance 6=Modified [place] 3=Moderate Assistance 7=Complete IndependenceIRFPAI Quality Coding Scale 6 Independent with activity with or without an assistive device 5 Patient requires set up or clean up by helper. Patient completes activity by themselves 4 Supervision or touching assist (CGA). [place] provide cues , steadying assist 3 The helper provides less than half the effort to complete the activity 2 The helper provides more than half the effort to complete the activity 1 Dependent. The helper does all the effort to complete an activity 7 Patient refused to complete or attempt activity 9 The patient did not perform the activity before the current illness or injury 88 Not attempted due to Medical conditions or safety concerns Grooming (FIM): 5 (Pt. able to brush teeth and hair at sink from wheelchair level with set up.) Oral Hygiene (QC): 5 Bathing (FIM): 4 (CGA in stance. Pt. requires cues to wash self thoroughly.) Shower/Bathe Self (QC): 4 Upper Body (FIM): 4 (Pt. is able to don shirt with increased time. Noted that it was backward. Able to doff and re-don with CGA in stance to pull it down.) Upper Body Dressing (QC): 4 Lower Body Dressing (FIM): 4 (Min assist to pull pants over hips and straighten them. Pt. was able to don AFO and shoes with increased time needed.) Lower Body Dressing (QC): 4 On/Off Footwear (QC): 5 Transfers (B, C, W/C) (FIM): 4 (CGA with cane.) Shower Transfer(FIM): 4 Other Treatment After ADLs, pt. able to self propel wheelchair to therapy gym. Tolerated e- stim approximately 10 minutes x 8 rosa m-amps to right wrist extensors. Tolerated this well and noted movement in finger extension. After E-stim, pt is able to demonstrate slight active bicep flexion/extension, shoulder shrugs, finger flexion/extension. This is new, and pt. states that this started happening over the weekend. Pt. also participated in left UE ROM/strengthening task with arm arc. Tolerated well. Pt. able to self propel wheelchair back to room. Note that pt. does not automatically initiate tasks. Requires cues to do this and increased time needed. Education OT Patient Education: Correct positioning, Exercise program, Instructions don/ doff splint/brace, Modified ADL techniques, Progress toward Goal/Update tx plan , Purpose of tx/functional activities, Reviewed precautions, Rehab process, Transfer techniques, W/C management Teaching Recipient: Patient Teaching Methods: Demonstration, Discussion Response to Teaching: Verbalize Understanding, Return Demonstration OT Short Term Goals Short Term Goals Time Frame: Nov 16, 2016 Eating(FIM): 6 Grooming(FIM): 5 Bathing(FIM): 5 Upper Body Dressing(FIM): 4 Lower Body Dressing(FIM): 4 Toileting(FIM): 4 Transfers (B,C,W/C) (FIM): 45 Toilet/Commode Transfer(FIM): 5 Shower Transfer(FIM): 5 Additional Short Term Goals: 1-Demonstrate ADL Tasks, 2-Verbalize Understanding , 3-ImproveStrength/Nash 1=Demonstrate adherence to instructed precautions during ADL tasks. 2=Patient will verbalize/demonstrate understanding of assistive devices/ modifications for ADL. 3=Patient will improve strength/tolerance for activity to enable patient to perform ADL's. OT Manager Marketing Sales Goals Manager Marketing Sales Goals Time Frame: Nov 30, 2016 Eating (FIM): 6 Eating (QC): 6 Groomin Oral Hygiene (QC): 6 Bathing(FIM): 5 Shower/Bathe Self (QC): 5 Upper Body Dressing(FIM): 6 Upper Body Dressing (QC): 6 Lower Body Dressing(FIM): 6 Lower Body Dressing (QC): 6 On/Off Footwear (QC): 6 Toileting(FIM): 6 Toileting Hygiene (QC): 6 Transfers (B,C,W/C) (FIM): 6 Toilet/Commode Transfer(FIM): 6 Toilet/Commode Transfer (QC): 6 Shower Transfer(FIM): 5 Comprehension(FIM): 4 Expression (FIM): 4 Social Interaction(FIM): 5 Problem Solving(FIM): 4 Memory(FIM): 4 Additional Goals: 1-Demonstrate ADL Tasks, 2-Verbalize Understanding, 3- ImproveStrength/Nash 1=Demonstrate adherence to instructed precautions during ADL tasks. 2=Patient will verbalize/demonstrate understanding of assistive devices/ modifications for ADL. 3=Patient will improve strength/tolerance for activity to enable patient to perform ADL's. OT Education/Plan Problem List/Assessment Assessment: Decreased Activ Tolerance, Decreased Safety Aware, Decreased UE Strength, Dependent Transfers, Impaired Cognition, Impaired Coordination, Impaired Funct Balance, Impaired I ADL's, Impaired Self-Care Skills, Restricted Funct UE ROM, Visual-Perceptual Deficit Discharge Recommendations Plan/Recommendations: Continue POC Therapy D/C Recommendations: Home w/ Family Support, Occupational Therapy Home Care Treatment Plan/Plan of Care Treatment,Training & Education: Yes Patient would benefit from OT for education, treatment and training to promote independence in ADL's, mobility, safety and/or upper extremity function for ADL' s. Plan of Care: ADL Retraining, Caregiver Training, Cognitive Retraining, Functional Mobility, Group Exercise/Act as Ind, UE Funct Exercise/Act, UE Neuromus Re-Ed/Coord Treatment Duration: Nov 30, 2016 Visits Per Week: 5-6 Minutes/Day (M-F): 60-90 Minutes/Day (Sat/Lake): 15-30 Agreement: Yes Rehab Potential: Fair Time/GCodes Start Time: 09:15 Stop Time: 10:30 Total Time Billed (hr/min): 75 Billed Treatment Time 1, ADL x 45minutes, FA x 15minutes, NM x 15minutes JOEL MCDOWELL OT Nov 22, 2016 11:24
--- NOTE | 2016-11-22 13:30 | Physical Therapy Daily Note ---
PT Daily Note-Current Subjective Patient agrees to PT. No c/o at this time. Pain Numeric Pain Scale: 0-No Pain Location: No Pain Reported Mental Status Patient Orientation: Normal For Age Transfers Functional [place] Measure 0=Not Assessed/NA 4=Minimal Assistance 1=Total Assistance 5=Supervision or Setup 2=Maximal Assistance 6=Modified [place] 3=Moderate Assistance 7=Complete IndependenceIRFPAI Quality Coding Scale 6 Independent with activity with or without an assistive device 5 Patient requires set up or clean up by helper. Patient completes activity by themselves 4 Supervision or touching assist (CGA). [place] provide cues , steadying assist 3 The helper provides less than half the effort to complete the activity 2 The helper provides more than half the effort to complete the activity 1 Dependent. The helper does all the effort to complete an activity 7 Patient refused to complete or attempt activity 9 The patient did not perform the activity before the current illness or injury 88 Not attempted due to Medical conditions or safety concerns Transfers (B, C, W/C) (FIM): 5 Scootin Rollin Roll Left to Right (QC): 5 Supine to/from Sit: 5 Sit to/from Stand: 5 Sit to Lying (QC): 5 Sit to Stand (QC): 5 Chair/Abj-ne-Mjyfl Xfer(QC): 5 Bed to/from Chair: 5 Gait Training Does the Patient Walk?: Yes Gait (FIM): 5 Distance (FIM): 3=150 ft Distance: 150' x 2 Walk 10 feet (QC): 5 Walk 50 ft with 2 Turns(QC): 5 Walk 150 ft (QC): 5 Gait Level of Assist: 5 Gait Persons Needed: 1 Gait Assistive Device: Cane Small Base Quad step to gait sequence; close SBA with gait belt in place for safety; minimal cues for right foot clearance with AFO in place Exercises Supine Ex: Ankle pumps, Quad Set, Heel Slides, Straight leg raise, Hip abd/add Supine Reps: 15 (right LE 2# wt; left LE 3#) Seated Therapy Exercises: Ankle pumps, Long arc quads Assessment Weighted exercises to improve right foot clearance with AFO right foot in place. Gait has improved with demonstration of minimal cues for safety. Per patient report, she will dismiss to home with sister this week. PT Short Term Goals Short Term Goals Time Frame: Nov 16, 2016 Transfers (B,C,W/C) (FIM): 45 Gait (FIM): 4 Gait Distance Comment: 150' Gait Level of Assist: 4 Gait Assistive Device: Cane Large Base Quad Wheelchair Distance: 50' PT Assisted Goals Assisted Goals PT Vector Control Specialist Goals Time Frame: Nov 30, 2016 Transfers (B,C,W/C) (FIM): 5 Sit to Lying (QC): 4 Lying-Sitting on Side/Bed(QC): 4 Sit to Stand (QC): 4 Rollin Roll Left to Right (QC): 4 Chair/Zqi-zr-Gyyyr Xfer(QC): 4 Car Transfer (QC): 4 Gait (FIM): 5 Distance: 200' Walk 10 feet (QC): 4 Walk 10ft-Uneven Surface(QC): 4 Walk 50ft with 2 Turns (QC): 4 Walk 150 ft (QC): 4 Gait Level of Assist: 5 Gait Assistive Device: Cane Large Base Quad Stairs (FIM): 4 # of Steps: 12 1 Step (curb) (QC): 4 4 Steps (QC): 4 12 Steps (QC): 4 Stairs Level Of Assist: 4 Picking up an Object (QC): 88 PT Plan Treatment/Plan Treatment Plan: Continue Plan of Care Treatment Plan: Bed Mobility, Education, Functional Activity Nash, Functional Strength, Group Therapy, Gait, Safety, Therapeutic Exercise, Transfers Treatment Duration: Nov 30, 2016 Visits Per Week: 10-11 Minutes/Day (M-F): 60-90 Minutes/Day (Sat/Lake): 15-30 Time/GCodes Time In: 1250 Time Out: 1320 Total Billed Treatment Time: 30 Total Billed Treatment 1 visit GT 15 min EX 15 min CL CANALES PT Nov 22, 2016 13:30
--- NOTE | 2016-11-22 15:05 | Speech Therapy Daily Note ---
Speech Daily Progress Note Subjective Date Seen by Provider: Nov 22, 2016 Time Seen by Provider: 08:30 The patient was seated upright in recliner upon entrance. The patient greeted the clinician appropriately and was agreeable to participation in cognitive treatment on this date. Objective The patient was provided the Jim Cognitive Assessment (Version Two) to reassess possible progress throughout therapy. The patient demonstrated the following results" - Orientation: The patient was able to state the month, day, day of week, year, location, and city (independently). - Language: The patient was able to repeat short phrases with 100% accuracy. - Attention: The patient demonstrated reduced attention as she was not able to repeat five single digits or three digits in reverse and could not complete serial seven subtraction. - Abstract: The patient was able to state a similarity between two items. - Word-Finding: The patient was not able to name 11 /b/ words in a duration of one minute. The patient was able to provide four prior to demonstrating perseveration. - Memory: The patient was able to recall five of five single words immediately and three of five single words following a five minute delay. - The patient demonstrated a result of +20/30 which correlates to a mild to moderate cognitive impairment. The patient demonstrated slightly improved skills in comparison to admission. Assessment Assessment Current Status: Fair Progress Treatment Plan Continue Plan of Care Communication Comprehension: 3 Expression: 4 Social Cognition Social Interaction: 4 Problem Solvin Memory: 3 Speech Short Term Goals Short Term Goals Short Term Goals 1. The patient will recall and demonstrate two functional memory strategies for use at home. MET 2. The patient will demonstrated 80% accuracy with structured word-finding task to improve expressive communication. 3. The patient will follow multi-step instructions with 80% accuracy and mild clinician verbal prompting. 4. The patient will display 90% accuracy with functional safety problem solving , independently. MET Time Frame-STG: Two Weeks Speech Principal Statistical Programmer Goals Principal Statistical Programmer Goals 1. The patient will demonstrate improved cognitive linguistic skills for increased function and safety with ADL's in the least restrictive setting. Time Frame: Three Weeks Comprehension: 4 Expression: 4 Social Interaction: 5 Problem Solvin Memory: 4 Speech-Plan Treatment Plan Speech Therapy Treatment Plan: Continue Plan of Care Continue skilled speech pathology to target functional problem solving and memory. Treatment Duration: Nov 30, 2016 # of days/week Four to five. Visits Per Week: Four to five. Minutes/Day (M-F): 30 Rehab Potential: Fair Safety Risks/Education Teaching Recipient: Patient Teaching Methods: Demonstration, Discussion Response to Teaching: Verbalize Understanding, Reinforcement Needed Education Topics Provided: Internal Memory Strategies Time Speech Therapy Time In: 08:30 Speech Therapy Time Out: 09:00 Total Billed Time: 30 Billed Treatment Time OseiASHLEY ELIZABETH ST Nov 22, 2016 15:05
[2016-11-22 18:27] VITALS: BP 111/70
[2016-11-22] MEDS: ATORVASTATIN 20 MG (LIPITOR) TABLET PO SCH (20:42)
[2016-11-23 05:50] VITALS: BP 106/72
[2016-11-23] MEDS: amLODIPine 5 MG (NORVASC) TAB PO SCH (08:07)
[2016-11-23] MEDS: lisINopril 10 MG (PRINIVIL) TAB PO SCH (08:07)
[2016-11-23] MEDS: meTOproloL SUCCINATE 50 MG (TOPROL XL) TAB PO SCH (08:07)
[2016-11-23] MEDS: ENOXAPARIN 40 MG/0.4 ML (LOVENOX) SYR SC SCH (08:07)
[2016-11-23] MEDS: ASPIRIN 81 MG CHEW (CHILDREN'S ASA) PO SCH (08:07)
[2016-11-23] MEDS: CLOPIDOGREL 75 MG (PLAVIX) TABLET PO SCH (08:07)
--- NOTE | 2016-11-23 08:20 | PM & R (SOAP) Progress Note ---
Subjective Time Seen by Provider: 08:15 Subjective/Events-last exam Patient was seen on unit in common area with therapist Patient ambulating with SBA and SBQC and rt arm sling.Patient progressing well with therapies Sleeping well. Objective Exam Last Set of Vital Signs Vital Signs Date Time Temp Pulse Resp B/P (MAP) Pulse Ox O2 Delivery O2 Flow Rate FiO2 11/23/16 05:50 97.5 58 18 106/72 98 Room Air Capillary Refill : I&O Intake and Output 11/23/16 00:00 Intake Total 1150 ml Balance 1150 ml Intake Oral 1150 ml # Voids 5 # Bowel Movements 2 General: Alert, Oriented X3, Cooperative, No Acute Distress HEENT: Atraumatic, PERRLA, EOMI, Mucous Memb Moist/[place] Neck: Supple, No JVD Lungs: Clear to Auscultation Heart: Regular Rate Abdomen: Normal Bowel Sounds, Soft, No Tenderness Extremities: No Edema Neuro: Other (rt HP) Assessment/Plan Assessment 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 Next Team Conference tomorrow 11/24/16 TEJAS SHAW MD Nov 23, 2016 08:20
--- NOTE | 2016-11-23 08:31 | Progress Note (SOAP) ---
Subjective Time Seen by Provider: 08:30 Subjective/Events-last exam CVA on right. Noncompliance with medication. hypertension. Patient states she's going home tomorrow Objective Exam Vital Signs Date Time Temp Pulse Resp B/P (MAP) Pulse Ox O2 Delivery O2 Flow Rate FiO2 11/23/16 05:50 97.5 58 18 106/72 98 Room Air 11/22/16 20:20 Room Air 11/22/16 18:27 98.4 62 18 111/70 95 Room Air 11/22/16 09:00 Room Air I & O 11/23/16 07:00 Intake Total 950 ml Balance 950 ml Capillary Refill : General Appearance: No Apparent Distress, WD/WN HEENT: Normal ENT Inspection Neck: Full Range of Motion, Normal Inspection Respiratory: Chest Non Tender, Lungs Clear, Normal Breath Sounds, No Accessory Muscle Use, No Respiratory Distress Assessment/Plan Assessment/Plan Assess & Plan/Chief Complaint cerebrovascular accident. Noncompliance with medicine. Hypertension. . 11/11/16. CVA. Noncompliance with medicine.. Hypertension. Patient able to move the right foot Patient unable to move the right Hand. . 11/12/16. CVA. Noncompliance with medicine. Hypertension. Patient moving right leg better. Patient states right arm is . . 11/15/16. CVA. Noncompliance with medicine. Hypertension. Right leg doing better. Problems with right hand. . . CVA. Hypertension. Noncompliance. Patient was seen yesterday. Patient voices no complaints. Patient not moving right hand and arm. . 11/18/16. CVA. Noncompliance history. Hypertension. Patient feel she is improving. Patient needs work with the right upper extremity. Right leg doing better. . 11/19/16. CVA. Noncompliance with Medicine.. Hypertension Right arm flaccid. Right leg doing much better. . 11/22/16. CVA. Hypertension. Noncompliance with medicine. . Right arm did move today. . 11/23/16. CVA. Hypertension. Noncompliance with medicine. Patient to go home tomorrow Clinical Quality Measures DVT/VTE Risk/Contraindication: Risk Factor Score Per Nursin RFS Level Per Nursing on Admit: 4+=Very High MOSHE KRISHNAMURTHY DO Nov 23, 2016 08:31
--- NOTE | 2016-11-23 08:44 | Occupational Ther Daily Note ---
OT Current Status-Daily Note Subjective Pt alert, sitting in recliner. Pt agreed to therapy. No c/o pain at this time. Mental Status/Objective Patient Orientation: Person, Place, Time, Situation Functional [place] Measure 0=Not Assessed/NA 4=Minimal Assistance 1=Total Assistance 5=Supervision or Setup 2=Maximal Assistance 6=Modified [place] 3=Moderate Assistance 7=Complete [place] ADL-Treatment Pt declined shower at this time. Pt agreed to sponge bath sitting at sink. Pt transferred with CGA using cane to w/c. Pt sitting in front sink to complete sponge bath and grooming skills. Pt was able to complete upper body bathing by self after set up then CGA in standing while pt cleansed [place] area/buttocks ( required cue to thoroughly cleanse area). Pt was able to complete oral care by self then brushed hair though missed back right side of head, min A. Pt donned shirt by self then donned pants with CGA to hike over hips. Pt donned socks and shoes by self after set up. Pt took increased time to complete dressing though was able to sequence. Functional [place] Measure 0=Not Assessed/NA 4=Minimal Assistance 1=Total Assistance 5=Supervision or Setup 2=Maximal Assistance 6=Modified [place] 3=Moderate Assistance 7=Complete IndependenceIRFPAI Quality Coding Scale 6 Independent with activity with or without an assistive device 5 Patient requires set up or clean up by helper. Patient completes activity by themselves 4 Supervision or touching assist (CGA). [place] provide cues , steadying assist 3 The helper provides less than half the effort to complete the activity 2 The helper provides more than half the effort to complete the activity 1 Dependent. The helper does all the effort to complete an activity 7 Patient refused to complete or attempt activity 9 The patient did not perform the activity before the current illness or injury 88 Not attempted due to Medical conditions or safety concerns Grooming (FIM): 5 Oral Hygiene (QC): 5 Bathing (FIM): 4 Upper Body (FIM): 5 Lower Body Dressing (FIM): 4 Transfers (B, C, W/C) (FIM): 4 Other Treatment Pt ambulated with CGA using cane to therapy gym. Pt then transferred onto therapy mat and was able to lay down by self then min A to sit up on EOB. Pt was able to complete AROM with R UE shldr retraction/protraction, elbow flex/ext , sup/pronation, wrist flex/ext and finger flexion while in supine. Pt was able to complete 10 reps of each though movement decreased as muscles fatigued. Pt ambulated to room with CGA using cane, transferred to recliner. After therapy, pt sitting in recliner with call light/phone in reach. All needs met in room. OT Short Term Goals Short Term Goals Time Frame: Nov 16, 2016 Eating(FIM): 6 Grooming(FIM): 5 Bathing(FIM): 5 Upper Body Dressing(FIM): 4 Lower Body Dressing(FIM): 4 Toileting(FIM): 4 Transfers (B,C,W/C) (FIM): 45 Toilet/Commode Transfer(FIM): 5 Shower Transfer(FIM): 5 Additional Short Term Goals: 1-Demonstrate ADL Tasks, 2-Verbalize Understanding , 3-ImproveStrength/Nash 1=Demonstrate adherence to instructed precautions during ADL tasks. 2=Patient will verbalize/demonstrate understanding of assistive devices/ modifications for ADL. 3=Patient will improve strength/tolerance for activity to enable patient to perform ADL's. OT Kindergarten Prep Teacher Goals Kindergarten Prep Teacher Goals Time Frame: Nov 30, 2016 Eating (FIM): 6 Eating (QC): 6 Groomin Oral Hygiene (QC): 6 Bathing(FIM): 5 Shower/Bathe Self (QC): 5 Upper Body Dressing(FIM): 6 Upper Body Dressing (QC): 6 Lower Body Dressing(FIM): 6 Lower Body Dressing (QC): 6 On/Off Footwear (QC): 6 Toileting(FIM): 6 Toileting Hygiene (QC): 6 Transfers (B,C,W/C) (FIM): 6 Toilet/Commode Transfer(FIM): 6 Toilet/Commode Transfer (QC): 6 Shower Transfer(FIM): 5 Comprehension(FIM): 4 Expression (FIM): 4 Social Interaction(FIM): 5 Problem Solving(FIM): 4 Memory(FIM): 4 Additional Goals: 1-Demonstrate ADL Tasks, 2-Verbalize Understanding, 3- ImproveStrength/Nash 1=Demonstrate adherence to instructed precautions during ADL tasks. 2=Patient will verbalize/demonstrate understanding of assistive devices/ modifications for ADL. 3=Patient will improve strength/tolerance for activity to enable patient to perform ADL's. OT Education/Plan Discharge Recommendations Plan/Recommendations: Continue POC Treatment Plan/Plan of Care Patient would benefit from OT for education, treatment and training to promote independence in ADL's, mobility, safety and/or upper extremity function for ADL' s. Plan of Care: ADL Retraining, Caregiver Training, Cognitive Retraining, Functional Mobility, Group Exercise/Act as Ind, UE Funct Exercise/Act, UE Neuromus Re-Ed/Coord Treatment Duration: Nov 30, 2016 Visits Per Week: 5-6 Minutes/Day (M-F): 60-90 Minutes/Day (Sat/Lake): 15-30 Agreement: Yes Rehab Potential: Fair Time/GCodes Start Time: 07:30 Stop Time: 08:30 Total Time Billed (hr/min): 60 Billed Treatment Time 1 visit-ADL 2 (30 min) NM 2 (30 min) RITIKA RENDON Nov 23, 2016 08:44
--- NOTE | 2016-11-23 09:00 | Speech Therapy Daily Note ---
Speech Daily Progress Note Subjective Date Seen by Provider: Nov 23, 2016 Time Seen by Provider: 08:30 The patient was seated upright in recliner upon entrance. The patient greeted the clinician appropriately and was agreeable to participation in the cognitive treatment session on this date. Objective Word Finding: The patient was provided a specific category and letter. The patient was asked to provide an item which started with the letter provided and "fit into" the category. The patient demonstrated great difficulty with this task, requiring maximum clinician cueing for limited accuracy (less than 40%). Orientation: The patient continues to demonstrate excellent and consistent recall of simple orientation information, independently. Assessment Assessment Current Status: Fair Progress Treatment Plan Continue Plan of Care Communication Comprehension: 3 Expression: 4 Social Cognition Social Interaction: 4 Problem Solvin Memory: 3 Speech Short Term Goals Short Term Goals Short Term Goals 1. The patient will recall and demonstrate two functional memory strategies for use at home. MET 2. The patient will demonstrated 80% accuracy with structured word-finding task to improve expressive communication. 3. The patient will follow multi-step instructions with 80% accuracy and mild clinician verbal prompting. 4. The patient will display 90% accuracy with functional safety problem solving , independently. MET Time Frame-STG: Two Weeks Speech Jail Goals Assembly Detailer Goals 1. The patient will demonstrate improved cognitive linguistic skills for increased function and safety with ADL's in the least restrictive setting. Time Frame: Three Weeks Comprehension: 4 Expression: 4 Social Interaction: 5 Problem Solvin Memory: 4 Speech-Plan Treatment Plan Speech Therapy Treatment Plan: Continue Plan of Care Continue skilled speech pathology to target functional problem solving and memory strategies. Treatment Duration: Nov 30, 2016 # of days/week Four to five. Visits Per Week: Four to five. Minutes/Day (M-F): 30 Rehab Potential: Fair Safety Risks/Education Teaching Recipient: Patient Teaching Methods: Discussion Response to Teaching: Reinforcement Needed Education Topics Provided: Word-Finding Strategies Time Speech Therapy Time In: 08:30 Speech Therapy Time Out: 09:00 Total Billed Time: 30 Billed Treatment Time OseiASHLEY ELIZABETH ST Nov 23, 2016 09:00
--- NOTE | 2016-11-23 11:08 | Physical Therapy Daily Note ---
PT Daily Note-Current Subjective Patient in recliner pre tx, agrees to PT, no complaints of pain. Patient is discharging tomorrow so she needs [facility]ed. Appearance Patient in recliner post tx with nurse call, phone, tray, all needs met. Set up for lunch. Mental Status Patient Orientation: Person, Place, Situation Transfers Functional [place] Measure 0=Not Assessed/NA 4=Minimal Assistance 1=Total Assistance 5=Supervision or Setup 2=Maximal Assistance 6=Modified [place] 3=Moderate Assistance 7=Complete IndependenceIRFPAI Quality Coding Scale 6 Independent with activity with or without an assistive device 5 Patient requires set up or clean up by helper. Patient completes activity by themselves 4 Supervision or touching assist (CGA). [place] provide cues , steadying assist 3 The helper provides less than half the effort to complete the activity 2 The helper provides more than half the effort to complete the activity 1 Dependent. The helper does all the effort to complete an activity 7 Patient refused to complete or attempt activity 9 The patient did not perform the activity before the current illness or injury 88 Not attempted due to Medical conditions or safety concerns Transfers (B, C, W/C) (FIM): 4 Scootin Rollin Roll Left to Right (QC): 6 Supine to/from Sit: 6 Sit to/from Stand: 4 Sit to Lying (QC): 6 Sit to Stand (QC): 4 Patient performs bed mobility with some difficulty but can do it with mod I, sit to stand with CGA. Gait Training Does the Patient Walk?: Yes Gait (FIM): 4 Distance: 150'x2 Walk 10 feet (QC): 4 Walk 50 ft with 2 Turns(QC): 4 Walk 150 ft (QC): 4 Walking 10ft/uneven surface-QC: 4 Gait Level of Assist: 4 Gait Persons Needed: 1 Gait Assistive Device: Cane Large Base Quad Patient can ambulate 150' with a quad cane with CGA, including 50' with at least 2 turns of 90 degrees, and 10' over an uneven surface. She also uses a right side AFO. Wheelchair Training Does the Pt Use a Wheelchair?: No Stair Training Stair Training: Handrails/: 1 handrail Stairs (FIM): 4 #of Steps: 12 1 Step (curb) (QC): 4 4 Steps (QC): 4 12 Steps (QC): 4 Stairs: Pattern: Step to Level of Assist: 4 Patient can go up and down 12 steps using 1 handrail with CGA, cues for safety and foot placement. Balance Picking up an Object (QC): 88 Exercises LAQ right side for 5 min, sit to stand 3 sets of 5 from progressively lower surface Treatments bed mobility and transfers, ambulation, functional strengthening, stair training Assessment Current Status: Fair Progress Improve overall mobility but not quite SBA yet. PT Short Term Goals Short Term Goals Time Frame: Nov 16, 2016 Transfers (B,C,W/C) (FIM): 45 Gait (FIM): 4 Gait Distance Comment: 150' Gait Level of Assist: 4 Gait Assistive Device: Cane Large Base Quad Wheelchair Distance: 50' PT Mcc Goals Mcc Goals PT Steam Fitter Supervisor Goals Time Frame: Nov 30, 2016 Transfers (B,C,W/C) (FIM): 5 Sit to Lying (QC): 4 (met) Lying-Sitting on Side/Bed(QC): 4 (met) Sit to Stand (QC): 4 (met) Rollin (et) Roll Left to Right (QC): 4 (met) Chair/Icp-wt-Gtgav Xfer(QC): 4 Car Transfer (QC): 4 Gait (FIM): 5 Distance: 200' Walk 10 feet (QC): 4 Walk 10ft-Uneven Surface(QC): 4 Walk 50ft with 2 Turns (QC): 4 Walk 150 ft (QC): 4 Gait Level of Assist: 5 Gait Assistive Device: Cane Large Base Quad Stairs (FIM): 4 (met) # of Steps: 12 (met) 1 Step (curb) (QC): 4 (met) 4 Steps (QC): 4 (mt) 12 Steps (QC): 4 (met) Stairs Level Of Assist: 4 (met) Picking up an Object (QC): 88 PT Plan Problem List Problem List: Activity Tolerance, Functional Strength, Safety, Balance, Gait, Transfer, Bed Mobility Treatment/Plan Treatment Plan: Continue Plan of Care Treatment Plan: Bed Mobility, Education, Functional Activity Nash, Functional Strength, Group Therapy, Gait, Safety, Therapeutic Exercise, Transfers Treatment Duration: Nov 30, 2016 Visits Per Week: 10-11 Minutes/Day (M-F): 60-90 Minutes/Day (Sat/Lake): 15-30 Safety Risks/Education Patient Education: Gait Training, Transfer Techniques, Steps, Correct Positioning, Safety Issues Teaching Recipient: Patient Teaching Methods: Demonstration, Discussion Response to Teaching: Reinforcement Needed Time/GCodes Time In: 1015 Time Out: 1100 Total Billed Treatment Time: 45 Total Billed Treatment 1 visit EX 15' GT 30' ELLEN GARZA PT Nov 23, 2016 11:08
--- NOTE | 2016-11-23 13:34 | Physical Therapy Daily Note ---
PT Daily Note-Current Subjective Patient in recliner pre tx, agrees to PT, no complaints of pain. Appearance Patient in recliner post tx with nurse call, phone, tray, all needs met. Mental Status Patient Orientation: Person, Place, Situation Transfers Functional [place] Measure 0=Not Assessed/NA 4=Minimal Assistance 1=Total Assistance 5=Supervision or Setup 2=Maximal Assistance 6=Modified [place] 3=Moderate Assistance 7=Complete IndependenceIRFPAI Quality Coding Scale 6 Independent with activity with or without an assistive device 5 Patient requires set up or clean up by helper. Patient completes activity by themselves 4 Supervision or touching assist (CGA). [place] provide cues , steadying assist 3 The helper provides less than half the effort to complete the activity 2 The helper provides more than half the effort to complete the activity 1 Dependent. The helper does all the effort to complete an activity 7 Patient refused to complete or attempt activity 9 The patient did not perform the activity before the current illness or injury 88 Not attempted due to Medical conditions or safety concerns Transfers (B, C, W/C) (FIM): 4 Sit to/from Stand: 4 occasional cues for safety and hand placement Gait Training Gait (FIM): 4 Distance: 150' Gait Level of Assist: 4 Gait Persons Needed: 1 Gait Assistive Device: Cane Large Base Quad CGA, right side AFO Exercises NuStep Minutes: 15 (functional strengthening to improve mobility in right leg) NuStep Workload: 5 Treatments transfers, ambulation, functional strengthening Assessment Current Status: Fair Progress improving balance and ambulation PT Short Term Goals Short Term Goals Time Frame: Nov 16, 2016 Transfers (B,C,W/C) (FIM): 45 Gait (FIM): 4 Gait Distance Comment: 150' Gait Level of Assist: 4 Gait Assistive Device: Cane Large Base Quad Wheelchair Distance: 50' PT Retirement Goals Retirement Goals PT Retirement Goals Time Frame: Nov 30, 2016 Transfers (B,C,W/C) (FIM): 5 Sit to Lying (QC): 4 (met) Lying-Sitting on Side/Bed(QC): 4 (met) Sit to Stand (QC): 4 (met) Rollin (et) Roll Left to Right (QC): 4 (met) Chair/Abt-ng-Wrugs Xfer(QC): 4 Car Transfer (QC): 4 Gait (FIM): 5 Distance: 200' Walk 10 feet (QC): 4 Walk 10ft-Uneven Surface(QC): 4 Walk 50ft with 2 Turns (QC): 4 Walk 150 ft (QC): 4 Gait Level of Assist: 5 Gait Assistive Device: Cane Large Base Quad Stairs (FIM): 4 (met) # of Steps: 12 (met) 1 Step (curb) (QC): 4 (met) 4 Steps (QC): 4 (mt) 12 Steps (QC): 4 (met) Stairs Level Of Assist: 4 (met) Picking up an Object (QC): 88 PT Plan Problem List Problem List: Activity Tolerance, Functional Strength, Safety, Balance, Gait, Transfer, Bed Mobility Treatment/Plan Treatment Plan: Continue Plan of Care Treatment Plan: Bed Mobility, Education, Functional Activity Nash, Functional Strength, Group Therapy, Gait, Safety, Therapeutic Exercise, Transfers Treatment Duration: Nov 30, 2016 Visits Per Week: 10-11 Minutes/Day (M-F): 60-90 Minutes/Day (Sat/Lake): 15-30 Safety Risks/Education Patient Education: Gait Training, Transfer Techniques, Correct Positioning, Safety Issues Teaching Recipient: Patient Teaching Methods: Demonstration, Discussion Response to Teaching: Reinforcement Needed Time/GCodes Time In: 1300 Time Out: 1330 Total Billed Treatment Time: 30 Total Billed Treatment 1 visit GT 15' EX 15' ELLEN GARZA PT Nov 23, 2016 13:34
--- NOTE | 2016-11-23 13:44 | Occupational Ther Daily Note ---
OT Current Status-Daily Note Subjective Pt alert, sitting in recliner. Pt agreed to therapy. No c/o pain. Pt states that she is leaving tomorrow at noon. No documentation supports this claim. Mental Status/Objective Patient Orientation: Person, Place Functional [place] Measure 0=Not Assessed/NA 4=Minimal Assistance 1=Total Assistance 5=Supervision or Setup 2=Maximal Assistance 6=Modified [place] 3=Moderate Assistance 7=Complete [place] ADL-Treatment Functional [place] Measure 0=Not Assessed/NA 4=Minimal Assistance 1=Total Assistance 5=Supervision or Setup 2=Maximal Assistance 6=Modified [place] 3=Moderate Assistance 7=Complete IndependenceIRFPAI Quality Coding Scale 6 Independent with activity with or without an assistive device 5 Patient requires set up or clean up by helper. Patient completes activity by themselves 4 Supervision or touching assist (CGA). [place] provide cues , steadying assist 3 The helper provides less than half the effort to complete the activity 2 The helper provides more than half the effort to complete the activity 1 Dependent. The helper does all the effort to complete an activity 7 Patient refused to complete or attempt activity 9 The patient did not perform the activity before the current illness or injury 88 Not attempted due to Medical conditions or safety concerns Other Treatment Pt completed visual perceptual, sequencing, problem solving activity that incorporated L fine motor and L UE gross motor skills for daily functional tasks. Pt was able to match, grasp/hold and release small objects in designated areas. Pt tolerated well and was able to complete by self no cues needed. After therapy, pt sitting in recliner with call light/phone in reach. All needs met in room. OT Short Term Goals Short Term Goals Time Frame: Nov 16, 2016 Eating(FIM): 6 Grooming(FIM): 5 Bathing(FIM): 5 Upper Body Dressing(FIM): 4 Lower Body Dressing(FIM): 4 Toileting(FIM): 4 Transfers (B,C,W/C) (FIM): 45 Toilet/Commode Transfer(FIM): 5 Shower Transfer(FIM): 5 Additional Short Term Goals: 1-Demonstrate ADL Tasks, 2-Verbalize Understanding , 3-ImproveStrength/Nash 1=Demonstrate adherence to instructed precautions during ADL tasks. 2=Patient will verbalize/demonstrate understanding of assistive devices/ modifications for ADL. 3=Patient will improve strength/tolerance for activity to enable patient to perform ADL's. OT Retirement Goals Auto Detailer Goals Time Frame: Nov 30, 2016 Eating (FIM): 6 Eating (QC): 6 Groomin Oral Hygiene (QC): 6 Bathing(FIM): 5 Shower/Bathe Self (QC): 5 Upper Body Dressing(FIM): 6 Upper Body Dressing (QC): 6 Lower Body Dressing(FIM): 6 Lower Body Dressing (QC): 6 On/Off Footwear (QC): 6 Toileting(FIM): 6 Toileting Hygiene (QC): 6 Transfers (B,C,W/C) (FIM): 6 Toilet/Commode Transfer(FIM): 6 Toilet/Commode Transfer (QC): 6 Shower Transfer(FIM): 5 Comprehension(FIM): 4 Expression (FIM): 4 Social Interaction(FIM): 5 Problem Solving(FIM): 4 Memory(FIM): 4 Additional Goals: 1-Demonstrate ADL Tasks, 2-Verbalize Understanding, 3- ImproveStrength/Nash 1=Demonstrate adherence to instructed precautions during ADL tasks. 2=Patient will verbalize/demonstrate understanding of assistive devices/ modifications for ADL. 3=Patient will improve strength/tolerance for activity to enable patient to perform ADL's. OT Education/Plan Discharge Recommendations Plan/Recommendations: Continue POC Treatment Plan/Plan of Care Patient would benefit from OT for education, treatment and training to promote independence in ADL's, mobility, safety and/or upper extremity function for ADL' s. Plan of Care: ADL Retraining, Caregiver Training, Cognitive Retraining, Functional Mobility, Group Exercise/Act as Ind, UE Funct Exercise/Act, UE Neuromus Re-Ed/Coord Treatment Duration: Nov 30, 2016 Visits Per Week: 5-6 Minutes/Day (M-F): 60-90 Minutes/Day (Sat/Lake): 15-30 Agreement: Yes Rehab Potential: Fair Time/GCodes Start Time: 12:45 Stop Time: 13:00 Total Time Billed (hr/min): 15 Billed Treatment Time 1 visit-FA 1 (15 min) RITIKA RENDON Nov 23, 2016 13:44
[2016-11-23 18:00] VITALS: BP 120/76
[2016-11-23] MEDS: ATORVASTATIN 20 MG (LIPITOR) TABLET PO SCH (20:16)
[2016-11-24 05:35] VITALS: BP 110/63
--- NOTE | 2016-11-24 07:18 | PM & R (SOAP) Progress Note ---
Subjective Time Seen by Provider: 06:50 Subjective/Events-last exam Patient was seen in her room this AM Patient min assist for transfers Review of Systems Neurological: Weakness Objective Exam Last Set of Vital Signs Vital Signs Date Time Temp Pulse Resp B/P (MAP) Pulse Ox O2 Delivery O2 Flow Rate FiO2 11/24/16 05:35 98.5 56 18 110/63 97 Room Air Capillary Refill : I&O Intake and Output 11/24/16 00:00 Intake Total 1000 ml Balance 1000 ml Intake Oral 1000 ml # Voids 6 # Bowel Movements 1 General: Alert, Oriented X3, Cooperative, No Acute Distress HEENT: Atraumatic, PERRLA, EOMI, Mucous Memb Moist/[place]: Supple, No JVD Lungs: Clear to Auscultation Heart: Regular Rate Abdomen: Normal Bowel Sounds, Soft, No Tenderness Extremities: No Edema Neuro: Other (rt HP) Assessment/Plan Assessment 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 Next Team Conference later today 11/24/16 See report for full functional update and POC and ELOS Discussed case with Sw yesterday re Medical insurance activation Will follow-up with her later today TEJAS SHAW MD Nov 24, 2016 07:18
[2016-11-24] MEDS: lisINopril 10 MG (PRINIVIL) TAB PO SCH (08:05)
[2016-11-24] MEDS: amLODIPine 5 MG (NORVASC) TAB PO SCH (08:05)
[2016-11-24] MEDS: meTOproloL SUCCINATE 50 MG (TOPROL XL) TAB PO SCH (08:05)
[2016-11-24] MEDS: CLOPIDOGREL 75 MG (PLAVIX) TABLET PO SCH (08:05)
[2016-11-24] MEDS: ASPIRIN 81 MG CHEW (CHILDREN'S ASA) PO SCH (08:05)
[2016-11-24] MEDS: ENOXAPARIN 40 MG/0.4 ML (LOVENOX) SYR SC SCH (08:05)
--- NOTE | 2016-11-24 08:15 | Progress Note (SOAP) ---
Subjective Time Seen by Provider: 08:11 Subjective/Events-last exam CVA on right. Hypertension. Stop taking hypertension medicine noncompliance. Patient feeling better and smiling.. Patient is moving the right arm a little Objective Exam Vital Signs Date Time Temp Pulse Resp B/P (MAP) Pulse Ox O2 Delivery O2 Flow Rate FiO2 11/24/16 05:35 98.5 56 18 110/63 97 Room Air 11/23/16 20:05 Room Air 11/23/16 18:00 98.0 55 18 120/76 98 Room Air 11/23/16 09:00 Room Air I & O 11/24/16 07:00 Intake Total 1320 ml Balance 1320 ml Capillary Refill : General Appearance: No Apparent Distress, WD/WN HEENT: Normal ENT Inspection Neck: Full Range of Motion Respiratory: Chest Non Tender, Lungs Clear, Normal Breath Sounds, No Accessory Muscle Use, No Respiratory Distress Cardiovascular: Regular Rate, Rhythm, No Murmur Assessment/Plan Assessment/Plan Assess & Plan/Chief Complaint cerebrovascular accident. Noncompliance with medicine. Hypertension. . 11/11/16. CVA. Noncompliance with medicine.. Hypertension. Patient able to move the right foot Patient unable to move the right Hand. . 11/12/16. CVA. Noncompliance with medicine. Hypertension. Patient moving right leg better. Patient states right arm is . . 11/15/16. CVA. Noncompliance with medicine. Hypertension. Right leg doing better. Problems with right hand. . . CVA. Hypertension. Noncompliance. Patient was seen yesterday. Patient voices no complaints. Patient not moving right hand and arm. . 11/18/16. CVA. Noncompliance history. Hypertension. Patient feel she is improving. Patient needs work with the right upper extremity. Right leg doing better. . 11/19/16. CVA. Noncompliance with Medicine.. Hypertension Right arm flaccid. Right leg doing much better. . 11/22/16. CVA. Hypertension. Noncompliance with medicine. . Right arm did move today. . 11/23/16. CVA. Hypertension. Noncompliance with medicine. Patient to go home tomorrow . 11/24/16. CVA. Hypertension. Noncompliance with medicine. Patient able to move right arm today improving Clinical Quality Measures DVT/VTE Risk/Contraindication: Risk Factor Score Per Nursin RFS Level Per Nursing on Admit: 4+=Very High MOSHE KRISHNAMURTHY DO Nov 24, 2016 08:15
--- NOTE | 2016-11-24 11:02 | Speech Therapy Daily Note ---
Speech Daily Progress Note Subjective Date Seen by Provider: Nov 24, 2016 Time Seen by Provider: 08:45 The patient was seated upright in recliner upon entrance. The patient greeted the clinician appropriately and was agreeable to participation in the cognitive treatment session on this date. To note, the patient was tearful at the beginning of the session. Per patient, she expected to discharge on this date and was discouraged she was needing to stay additional time. Objective Word Finding: The patient was provided a specific category and letter. The patient was asked to provide an item which started with the letter provided and "fit into" the category. The patient demonstrated mildly reduced difficulty with this task in comparison to the prior session, requiring moderate clinician cueing for increased accuracy (l60%). Orientation: The patient continues to demonstrate excellent and consistent recall of simple orientation information, independently. Assessment Assessment Current Status: Fair Progress Treatment Plan Continue Plan of Care Communication Comprehension: 4 Expression: 4 Social Cognition Social Interaction: 4 Problem Solvin Memory: 3 Speech Short Term Goals Short Term Goals Short Term Goals 1. The patient will recall and demonstrate two functional memory strategies for use at home. MET 2. The patient will demonstrated 80% accuracy with structured word-finding task to improve expressive communication. 3. The patient will follow multi-step instructions with 80% accuracy and mild clinician verbal prompting. 4. The patient will display 90% accuracy with functional safety problem solving , independently. MET Time Frame-STG: Two Weeks Speech Halfway Goals Civil Engineer'S Aide Goals 1. The patient will demonstrate improved cognitive linguistic skills for increased function and safety with ADL's in the least restrictive setting. Time Frame: Three Weeks Comprehension: 4 Expression: 4 Social Interaction: 5 Problem Solvin Memory: 4 Speech-Plan Treatment Plan Speech Therapy Treatment Plan: Continue Plan of Care Continue skilled speech pathology to target functional communication and problem solving. Treatment Duration: Nov 30, 2016 # of days/week Four to five. Visits Per Week: Four to five. Minutes/Day (M-F): 30 Rehab Potential: Fair Safety Risks/Education Teaching Recipient: Patient Teaching Methods: Discussion Response to Teaching: Verbalize Understanding Education Topics Provided: Word-Finding Strategies Time Speech Therapy Time In: 08:45 Speech Therapy Time Out: 09:15 Total Billed Time: 30 Billed Treatment Time 1ASHLEY ELIZABETH ST Nov 24, 2016 11:02
--- NOTE | 2016-11-24 14:09 | Occupational Ther Daily Note ---
OT Current Status-Daily Note Subjective No pain reported. Appearance Pt. is up in chair. Agrees to shower. Pt. states that she is waiting on her sister, who is supposed to be here at 10:00 a.m. to take her home. Mental Status/Objective Patient Orientation: Person Functional [place] Measure 0=Not Assessed/NA 4=Minimal Assistance 1=Total Assistance 5=Supervision or Setup 2=Maximal Assistance 6=Modified [place] 3=Moderate Assistance 7=Complete [place] ADL-Treatment Functional [place] Measure 0=Not Assessed/NA 4=Minimal Assistance 1=Total Assistance 5=Supervision or Setup 2=Maximal Assistance 6=Modified [place] 3=Moderate Assistance 7=Complete IndependenceIRFPAI Quality Coding Scale 6 Independent with activity with or without an assistive device 5 Patient requires set up or clean up by helper. Patient completes activity by themselves 4 Supervision or touching assist (CGA). [place] provide cues , steadying assist 3 The helper provides less than half the effort to complete the activity 2 The helper provides more than half the effort to complete the activity 1 Dependent. The helper does all the effort to complete an activity 7 Patient refused to complete or attempt activity 9 The patient did not perform the activity before the current illness or injury 88 Not attempted due to Medical conditions or safety concerns Grooming (FIM): 5 (Pt. is able to stand at sink with SBA, and brush hair and teeth. Requires cues to brush teeth thoroughly.) Oral Hygiene (QC): 4 Bathing (FIM): 5 (Pt. is able to wash with SBA/supervision. Does require cues to wash thoroughly and to sequence steps.) Shower/Bathe Self (QC): 4 Upper Body (FIM): 5 (Cues for sling placement and to pull down shirt once it was on.) Upper Body Dressing (QC): 4 Lower Body Dressing (FIM): 4 (Pt. requires assistance to pull pants over right hip. Assistance to pull the tongue out of right shoe. Able with cues to don AFO and shoes.) Lower Body Dressing (QC): 4 On/Off Footwear (QC): 4 Transfers (B, C, W/C) (FIM): 4 Shower Transfer(FIM): 4 Other Treatment Pt. requires CGA for ambulation with this therapist, as she states that she is tired and requires physical assistance to correct self during ambulation. Ambulated to therapy gym. Completed e-stim to right UE. Tolerated 8 rosa m- amps to right wrist extensors x 10 minutes. Noted good finger extension and pt. indicates that it is not painful. After e-stim, pt. tolerated AROM with right UE. Noted movement in right elbow, wrist, fingers. Pt. is encouraged to try and use this hand as much as possible. Ambulated back to room. All needs met. Education OT Patient Education: Correct positioning, Exercise program, Modified ADL techniques, Progress toward Goal/Update tx plan, Purpose of tx/functional activities, Reviewed precautions, Rehab process, Transfer techniques, Use of adapted equipment Teaching Recipient: Patient Teaching Methods: Demonstration, Discussion Response to Teaching: Verbalize Understanding, Return Demonstration OT Short Term Goals Short Term Goals Time Frame: Nov 16, 2016 Eating(FIM): 6 Grooming(FIM): 5 Bathing(FIM): 5 Upper Body Dressing(FIM): 4 Lower Body Dressing(FIM): 4 Toileting(FIM): 4 Transfers (B,C,W/C) (FIM): 45 Toilet/Commode Transfer(FIM): 5 Shower Transfer(FIM): 5 Additional Short Term Goals: 1-Demonstrate ADL Tasks, 2-Verbalize Understanding , 3-ImproveStrength/Nash 1=Demonstrate adherence to instructed precautions during ADL tasks. 2=Patient will verbalize/demonstrate understanding of assistive devices/ modifications for ADL. 3=Patient will improve strength/tolerance for activity to enable patient to perform ADL's. OT Assisted Goals Assisted Goals Time Frame: Nov 30, 2016 Eating (FIM): 6 Eating (QC): 6 Groomin Oral Hygiene (QC): 6 Bathing(FIM): 5 Shower/Bathe Self (QC): 5 Upper Body Dressing(FIM): 6 Upper Body Dressing (QC): 6 Lower Body Dressing(FIM): 6 Lower Body Dressing (QC): 6 On/Off Footwear (QC): 6 Toileting(FIM): 6 Toileting Hygiene (QC): 6 Transfers (B,C,W/C) (FIM): 6 Toilet/Commode Transfer(FIM): 6 Toilet/Commode Transfer (QC): 6 Shower Transfer(FIM): 5 Comprehension(FIM): 4 Expression (FIM): 4 Social Interaction(FIM): 5 Problem Solving(FIM): 4 Memory(FIM): 4 Additional Goals: 1-Demonstrate ADL Tasks, 2-Verbalize Understanding, 3- ImproveStrength/[place] 1=Demonstrate adherence to instructed precautions during ADL tasks. 2=Patient will verbalize/demonstrate understanding of assistive devices/ modifications for ADL. 3=Patient will improve strength/tolerance for activity to enable patient to perform ADL's. OT Education/Plan Problem List/Assessment Assessment: Decreased Activ Tolerance, Decreased UE Strength, Dependent Transfers, Impaired Cognition, Impaired Coordination, Impaired Funct Balance, Impaired I ADL's, Impaired Self-Care Skills, Restricted Funct UE ROM Discharge Recommendations Plan/Recommendations: Continue POC Therapy D/C Recommendations: Home w/ Family Support, Occupational Therapy Home Care Barriers to Progress Problem solving, sequencing, completion of tasks. Right UE movement. Treatment Plan/Plan of Care Treatment,Training & Education: Yes Patient would benefit from OT for education, treatment and training to promote independence in ADL's, mobility, safety and/or upper extremity function for ADL' s. Plan of Care: ADL Retraining, Caregiver Training, Cognitive Retraining, Functional Mobility, Group Exercise/Act as Ind, UE Funct Exercise/Act, UE Neuromus Re-Ed/Coord Treatment Duration: Nov 30, 2016 Visits Per Week: 5-6 Minutes/Day (M-F): 60-90 Minutes/Day (Sat/Lake): 15-30 Agreement: Yes Rehab Potential: Fair Time/GCodes Start Time: 10:00 Stop Time: 11:15 Total Time Billed (hr/min): 75 Billed Treatment Time 1, ADL x 45minutes, NM x 30minutes JOEL MCDOWELL OT Nov 24, 2016 14:09
--- NOTE | 2016-11-24 16:22 | Physical Therapy Daily Note ---
PT Daily Note-Current Subjective Pt sitting in recliner upon arrival. Pt agrees to PT. Mental Status Patient Orientation: Person, Place, Time, Situation Transfers Functional [place] Measure 0=Not Assessed/NA 4=Minimal Assistance 1=Total Assistance 5=Supervision or Setup 2=Maximal Assistance 6=Modified [place] 3=Moderate Assistance 7=Complete IndependenceIRFPAI Quality Coding Scale 6 Independent with activity with or without an assistive device 5 Patient requires set up or clean up by helper. Patient completes activity by themselves 4 Supervision or touching assist ([facility]). [place] provide cues , steadying assist 3 The helper provides less than half the effort to complete the activity 2 The helper provides more than half the effort to complete the activity 1 Dependent. The helper does all the effort to complete an activity 7 Patient refused to complete or attempt activity 9 The patient did not perform the activity before the current illness or injury 88 Not attempted due to Medical conditions or safety concerns Scootin Sit to/from Stand: 4 Sit to Stand (QC): 4 Weight Bearing Weight Bearing Restriction: Full Weight Bearing Location Restriction: LE Bilateral Gait Training Does the Patient Walk?: Yes Distance (FIM): 3=150 ft Distance: 150' Walk 10 feet (QC): 4 Walk 50 ft with 2 Turns(QC): 4 Walk 150 ft (QC): 4 Gait Level of Assist: 4 Gait Persons Needed: 1 Gait Assistive Device: Cane Small Base Quad Wheelchair Training Does the Pt Use a Wheelchair?: No Stair Training Stair Training: Handrails/: 1 handrail #of Steps: 4 1 Step (curb) (QC): 4 4 Steps (QC): 4 12 Steps (QC): 88 Stairs: Pattern: Step to Level of Assist: 4 Pt ambulates stairs with only occasional wobble or LOB but able to self-correct. Exercises Standing: Hip Abduction, Hamstring curls, Heel/toe raises, Mini squats Standing Reps: 15 Treatments Pt transfers from recliner using Cane at [facility]. Pt uses restroom before leaving room to ambulate in Therapy [facility] using Cane at [facility]. Pt ambulates 1 set of 4 stairs using 1 handrail then completes Standing Ex in //bars. Pt returns to room at end of tx to rest in recliner with all needs met. Assessment Current Status: Fair Progress Pt has occasional swaying while walking and ambulating stairs but able to self- correct. Pt is motivated to get home. PT Short Term Goals Short Term Goals Time Frame: Nov 16, 2016 Transfers (B,C,W/C) (FIM): 45 Gait (FIM): 4 Gait Distance Comment: 150' Gait Level of Assist: 4 Gait Assistive Device: Cane Large Base Quad Wheelchair Distance: 50' PT Prison Goals Prison Goals PT Cerner Analyst Goals Time Frame: Nov 30, 2016 Transfers (B,C,W/C) (FIM): 5 Sit to Lying (QC): 4 (met) Lying-Sitting on Side/Bed(QC): 4 (met) Sit to Stand (QC): 4 (met) Rollin (et) Roll Left to Right (QC): 4 (met) Chair/Pnu-an-Sewel Xfer(QC): 4 Car Transfer (QC): 4 Gait (FIM): 5 Distance: 200' Walk 10 feet (QC): 4 Walk 10ft-Uneven Surface(QC): 4 Walk 50ft with 2 Turns (QC): 4 Walk 150 ft (QC): 4 Gait Level of Assist: 5 Gait Assistive Device: Cane Large Base Quad Stairs (FIM): 4 (met) # of Steps: 12 (met) 1 Step (curb) (QC): 4 (met) 4 Steps (QC): 4 (mt) 12 Steps (QC): 4 (met) Stairs Level Of Assist: 4 (met) Picking up an Object (QC): 88 PT Plan Problem List Problem List: Activity Tolerance, Functional Strength, Safety, Balance, Gait, Transfer Treatment/Plan Treatment Plan: Continue Plan of Care Treatment Plan: Bed Mobility, Education, Functional Activity Nash, Functional Strength, Group Therapy, Gait, Safety, Therapeutic Exercise, Transfers Treatment Duration: Nov 30, 2016 Visits Per Week: 10-11 Minutes/Day (M-F): 60-90 Minutes/Day (Sat/Lake): 15-30 Safety Risks/Education Patient Education: Gait Training, Transfer Techniques, Steps, Correct Positioning, Safety Issues Teaching Recipient: Patient Teaching Methods: Discussion Response to Teaching: Verbalize Understanding Time/GCodes Time In: 1330 Time Out: 1400 Total Billed Treatment Time: 30 Total Billed Treatment visit, GT (15m) & Ex (15m) RUDI TILLMAN COSTUME SPECIALIST Nov 24, 2016 16:22
--- NOTE | 2016-11-24 16:37 | Physical Therapy Daily Note ---
PT Daily Note-Current Subjective Pt sitting in recliner upon arrival. Pt agrees to PT. Mental Status Patient Orientation: Person, Place, Situation Transfers Functional [place] Measure 0=Not Assessed/NA 4=Minimal Assistance 1=Total Assistance 5=Supervision or Setup 2=Maximal Assistance 6=Modified [place] 3=Moderate Assistance 7=Complete IndependenceIRFPAI Quality Coding Scale 6 Independent with activity with or without an assistive device 5 Patient requires set up or clean up by helper. Patient completes activity by themselves 4 Supervision or touching assist ([facility]). [place] provide cues , steadying assist 3 The helper provides less than half the effort to complete the activity 2 The helper provides more than half the effort to complete the activity 1 Dependent. The helper does all the effort to complete an activity 7 Patient refused to complete or attempt activity 9 The patient did not perform the activity before the current illness or injury 88 Not attempted due to Medical conditions or safety concerns Scootin Sit to/from Stand: 4 Sit to Stand (QC): 4 Weight Bearing Weight Bearing Restriction: Full Weight Bearing Location Restriction: LE Bilateral Gait Training Does the Patient Walk?: Yes Distance (FIM): 3=150 ft Distance: 175' Walk 10 feet (QC): 4 Walk 50 ft with 2 Turns(QC): 4 Walk 150 ft (QC): 4 Gait Level of Assist: 4 Gait Persons Needed: 1 Gait Assistive Device: Cane Small Base Quad Wheelchair Training Does the Pt Use a Wheelchair?: No Stair Training Stair Training: Handrails/: 1 handrail #of Steps: 4 1 Step (curb) (QC): 4 4 Steps (QC): 4 12 Steps (QC): 88 Stairs: Pattern: Step to Level of Assist: 4 Exercises Standing: Hip Abduction, Heel/toe raises, Marching, Mini squats, Weight shifts Standing Reps: 15 NuStep Minutes: 15 NuStep Workload: 5 Treatments Pt transferred from recliner to standing. Pt ambulated in hallway using Cane at [facility]. Pt ambulated 1 set of 4 stairs then rested before using NuStep for 15m at Workload 5. Pt followed this with Standing Ex in //bars. Pt returned to room using Cane at [facility]. Pt rested in recliner at end of tx with all needs met. Assessment Current Status: Fair Progress Pt will sway while walking and ambulating stairs. PT Short Term Goals Short Term Goals Time Frame: Nov 16, 2016 Transfers (B,C,W/C) (FIM): 45 Gait (FIM): 4 Gait Distance Comment: 150' Gait Level of Assist: 4 Gait Assistive Device: Cane Large Base Quad Wheelchair Distance: 50' PT Returned Item Clerk Goals Returned Item Clerk Goals PT Assisted Goals Time Frame: Nov 30, 2016 Transfers (B,C,W/C) (FIM): 5 Sit to Lying (QC): 4 (met) Lying-Sitting on Side/Bed(QC): 4 (met) Sit to Stand (QC): 4 (met) Rollin (et) Roll Left to Right (QC): 4 (met) Chair/Sbo-fl-Irnyt Xfer(QC): 4 Car Transfer (QC): 4 Gait (FIM): 5 Distance: 200' Walk 10 feet (QC): 4 Walk 10ft-Uneven Surface(QC): 4 Walk 50ft with 2 Turns (QC): 4 Walk 150 ft (QC): 4 Gait Level of Assist: 5 Gait Assistive Device: Cane Large Base Quad Stairs (FIM): 4 (met) # of Steps: 12 (met) 1 Step (curb) (QC): 4 (met) 4 Steps (QC): 4 (mt) 12 Steps (QC): 4 (met) Stairs Level Of Assist: 4 (met) Picking up an Object (QC): 88 PT Plan Problem List Problem List: Activity Tolerance, Functional Strength, Safety, Balance, Gait, Transfer Treatment/Plan Treatment Plan: Continue Plan of Care Treatment Plan: Bed Mobility, Education, Functional Activity Nash, Functional Strength, Group Therapy, Gait, Safety, Therapeutic Exercise, Transfers Treatment Duration: Nov 30, 2016 Visits Per Week: 10-11 Minutes/Day (M-F): 60-90 Minutes/Day (Sat/Lake): 15-30 Safety Risks/Education Patient Education: Gait Training, Transfer Techniques, Steps, Correct Positioning, Safety Issues Teaching Recipient: Patient Teaching Methods: Discussion Response to Teaching: Verbalize Understanding Time/GCodes Time In: 1115 Time Out: 1200 Total Billed Treatment Time: 45 Total Billed Treatment visit, GT (15m) & EX x2 (30m) RUDI TILLMAN DISTRICT WIRE CHIEF Nov 24, 2016 16:37
[2016-11-24 16:51] VITALS: BP 108/72
[2016-11-24] MEDS: ATORVASTATIN 20 MG (LIPITOR) TABLET PO SCH (20:32)
[2016-11-25 05:33] VITALS: BP 97/61
[2016-11-25] MEDS: ENOXAPARIN 40 MG/0.4 ML (LOVENOX) SYR SC SCH (07:56)
[2016-11-25] MEDS: CLOPIDOGREL 75 MG (PLAVIX) TABLET PO SCH (07:56)
[2016-11-25] MEDS: ASPIRIN 81 MG CHEW (CHILDREN'S ASA) PO SCH (07:56)
[2016-11-25 07:58] VITALS: BP 99/63
--- NOTE | 2016-11-25 08:37 | Progress Note (SOAP) ---
Subjective Time Seen by Provider: 08:30 Subjective/Events-last exam CVA. Noncompliance with medicine. Patient feeling better and doing Better. Hypotension. Patient able to move right arm today This is right Objective Exam Vital Signs Date Time Temp Pulse Resp B/P (MAP) Pulse Ox O2 Delivery O2 Flow Rate FiO2 11/25/16 07:58 60 99/63 11/25/16 05:33 97.6 62 20 97/61 97 Room Air 11/24/16 20:00 Room Air 11/24/16 16:51 98.2 56 18 108/72 97 Room Air 11/24/16 09:00 Room Air I & O 11/25/16 07:00 Intake Total 1200 ml Balance 1200 ml Capillary Refill : General Appearance: No Apparent Distress, WD/WN HEENT: Normal ENT Inspection Neck: Full Range of Motion, Normal Inspection Respiratory: Chest Non Tender, Lungs Clear, Normal Breath Sounds, No Accessory Muscle Use, No Respiratory Distress Cardiovascular: Regular Rate, Rhythm, No Murmur Gastrointestinal: normal bowel sounds, non tender Assessment/Plan Assessment/Plan Assess & Plan/Chief Complaint cerebrovascular accident. Noncompliance with medicine. Hypertension. . 11/11/16. CVA. Noncompliance with medicine.. Hypertension. Patient able to move the right foot Patient unable to move the right Hand. . 11/12/16. CVA. Noncompliance with medicine. Hypertension. Patient moving right leg better. Patient states right arm is . . 11/15/16. CVA. Noncompliance with medicine. Hypertension. Right leg doing better. Problems with right hand. . . CVA. Hypertension. Noncompliance. Patient was seen yesterday. Patient voices no complaints. Patient not moving right hand and arm. . 11/18/16. CVA. Noncompliance history. Hypertension. Patient feel she is improving. Patient needs work with the right upper extremity. Right leg doing better. . 11/19/16. CVA. Noncompliance with Medicine.. Hypertension Right arm flaccid. Right leg doing much better. . 11/22/16. CVA. Hypertension. Noncompliance with medicine. . Right arm did move today. . 11/23/16. CVA. Hypertension. Noncompliance with medicine. Patient to go home tomorrow . 11/24/16. CVA. Hypertension. Noncompliance with medicine. Patient able to move right arm today improving. . 11/25/16. CVA. Hypertension. Noncompliance with medicine.. Patient moving right hand today Clinical Quality Measures DVT/VTE Risk/Contraindication: Risk Factor Score Per Nursin RFS Level Per Nursing on Admit: 4+=Very High MOSHE KRISHNAMURTHY DO Nov 25, 2016 08:37
[2016-11-25] MEDS: amLODIPine 5 MG (NORVASC) TAB PO SCH (08:43)
[2016-11-25] MEDS: meTOproloL SUCCINATE 50 MG (TOPROL XL) TAB PO SCH (08:43)
[2016-11-25] MEDS: lisINopril 10 MG (PRINIVIL) TAB PO SCH (08:43)
--- NOTE | 2016-11-25 10:54 | Physical Therapy Daily Note ---
PT Daily Note-Current Subjective Pt sitting in recliner upon arrival. Pt agrees to PT. Mental Status Patient Orientation: Person, Place, Situation Transfers Functional [place] Measure 0=Not Assessed/NA 4=Minimal Assistance 1=Total Assistance 5=Supervision or Setup 2=Maximal Assistance 6=Modified [place] 3=Moderate Assistance 7=Complete IndependenceIRFPAI Quality Coding Scale 6 Independent with activity with or without an assistive device 5 Patient requires set up or clean up by helper. Patient completes activity by themselves 4 Supervision or touching assist ([facility]). [place] provide cues , steadying assist 3 The helper provides less than half the effort to complete the activity 2 The helper provides more than half the effort to complete the activity 1 Dependent. The helper does all the effort to complete an activity 7 Patient refused to complete or attempt activity 9 The patient did not perform the activity before the current illness or injury 88 Not attempted due to Medical conditions or safety concerns Sc[place] Sit to/from Stand: 4 Sit to Stand (QC): 4 Weight Bearing Weight Bearing Restriction: Full Weight Bearing Location Restriction: LE Bilateral Gait Training Does the Patient Walk?: Yes Distance (FIM): 3=150 ft Distance: 150' Walk 10 feet (QC): 4 Walk 50 ft with 2 Turns(QC): 4 Walk 150 ft (QC): 4 Gait Level of Assist: 4 Gait Persons Needed: 1 Gait Assistive Device: Cane Small Base Quad Pt walks with occasional drift to R or slight LOB but able to self-correct. Pt walks with slow danny. Wheelchair Training Does the Pt Use a Wheelchair?: No Stair Training Stair Training: Handrails/: 1 handrail #of Steps: 4 1 Step (curb) (QC): 5 4 Steps (QC): 4 12 Steps (QC): 88 Stairs: Pattern: Step to Level of Assist: 4 Pt is CGA for occasional LOB. Exercises NuStep Minutes: 15 NuStep Workload: 5 Treatments Pt transfers from recliner to standing using Cane at [facility]. Pt ambulated in [place] using Cane at [facility] for balance. Pt used NuStep for 15m at Workload 5. Pt also completed 1 set of stairs with less effort than previous days. Pt returns to room at end of tx to rest in recliner after using restroom. Pt sits in recliner with all needs met at end of tx. Assessment Current Status: Good Progress Even though pt is still CGA with transfers and ambulation, pt is more independent and tasks take less visible effort than previous visits. Pt is excited that discharge is set for next Tuesday. PT Short Term Goals Short Term Goals Time Frame: Nov 16, 2016 Transfers (B,C,W/C) (FIM): 45 Gait (FIM): 4 Gait Distance Comment: 150' Gait Level of Assist: 4 Gait Assistive Device: Cane Large Base Quad Wheelchair Distance: 50' PT Coil Connector Repairer Goals Intermediate Goals PT Coil Connector Repairer Goals Time Frame: Nov 30, 2016 Transfers (B,C,W/C) (FIM): 5 Sit to Lying (QC): 4 (met) Lying-Sitting on Side/Bed(QC): 4 (met) Sit to Stand (QC): 4 (met) Rollin (et) Roll Left to Right (QC): 4 (met) Chair/Ifo-wr-Qonyb Xfer(QC): 4 Car Transfer (QC): 4 Gait (FIM): 5 Distance: 200' Walk 10 feet (QC): 4 Walk 10ft-Uneven Surface(QC): 4 Walk 50ft with 2 Turns (QC): 4 Walk 150 ft (QC): 4 Gait Level of Assist: 5 Gait Assistive Device: Cane Large Base Quad Stairs (FIM): 4 (met) # of Steps: 12 (met) 1 Step (curb) (QC): 4 (met) 4 Steps (QC): 4 (mt) 12 Steps (QC): 4 (met) Stairs Level Of Assist: 4 (met) Picking up an Object (QC): 88 PT Plan Problem List Problem List: Activity Tolerance, Functional Strength, Safety, Balance, Gait, Transfer Treatment/Plan Treatment Plan: Continue Plan of Care Treatment Plan: Bed Mobility, Education, Functional Activity [place], Functional Strength, Group Therapy, Gait, Safety, Therapeutic Exercise, Transfers Treatment Duration: Nov 30, 2016 Visits Per Week: 10-11 Minutes/Day (M-F): 60-90 Minutes/Day (Sat/Lake): 15-30 Safety Risks/Education Patient Education: Gait Training, Transfer Techniques, Steps, Correct Positioning, Safety Issues Teaching Recipient: Patient Teaching Methods: Discussion Response to Teaching: Verbalize Understanding Time/GCodes Time In: 915 Time Out: 1000 Total Billed Treatment Time: 45 Total Billed Treatment visit, GT (15m), EX (15m) & FA (15m) RUDI TILLMAN SHAPE HAND Nov 25, 2016 10:54
--- NOTE | 2016-11-25 14:51 | Occupational Ther Daily Note ---
OT Current Status-Daily Note Subjective No pain reported. Pt. states that she is happy because she is going home next week. Appearance Pt. is in chair. Declines showering but agrees to get dressed. Mental Status/Objective Patient Orientation: Person Functional [place] Measure 0=Not Assessed/NA 4=Minimal Assistance 1=Total Assistance 5=Supervision or Setup 2=Maximal Assistance 6=Modified [place] 3=Moderate Assistance 7=Complete [place] ADL-Treatment Functional [place] Measure 0=Not Assessed/NA 4=Minimal Assistance 1=Total Assistance 5=Supervision or Setup 2=Maximal Assistance 6=Modified [place] 3=Moderate Assistance 7=Complete IndependenceIRFPAI Quality Coding Scale 6 Independent with activity with or without an assistive device 5 Patient requires set up or clean up by helper. Patient completes activity by themselves 4 Supervision or touching assist ([facility]). [place] provide cues , steadying assist 3 The helper provides less than half the effort to complete the activity 2 The helper provides more than half the effort to complete the activity 1 Dependent. The helper does all the effort to complete an activity 7 Patient refused to complete or attempt activity 9 The patient did not perform the activity before the current illness or injury 88 Not attempted due to Medical conditions or safety concerns Grooming (FIM): 5 (Pt. is able to stand at sink and brush hair and teeth with supervision.) Oral Hygiene (QC): 4 Upper Body (FIM): 5 (Pt. is able to don shirt and sling with SBA/cues to get shirt and sling correctly placed over shoulder.) Upper Body Dressing (QC): 4 Lower Body Dressing (FIM): 4 (CGA in stance to pull up pants over hips.) Lower Body Dressing (QC): 4 On/Off Footwear (QC): 5 (Pt. today is able to don AFO, socks, and shoes.) Transfers (B, C, W/C) (FIM): 4 (Pt. does require CGA in stance, and with ambulation.) Pt. is able to demonstrate ability to dress self this date with CGA for standing. Pt. did better in dry environment. Was able to ambulate to therapy gym after grooming in room. Only one slight loss of balance noted in standing. Completed e-stim to right wrist extensors, finger flexors. Tolerated 8 rosa m- amps to wrist extensors x 10minutes, and 6 rosa m-amps x 10 minutes to right finger flexors. After this, pt. completed AROM in right UE in all planes. Note increased active movement in biceps/triceps, supination, and finger flexors. Pt. is educated to do this on her own. Tolerated treatment and verbalized understanding of need for movement. Ambulated back to room with CGA using quad cane. All needs met up in room. Education OT Patient Education: Correct positioning, Exercise program, Instructions don/ doff splint/brace, Modified ADL techniques, Progress toward Goal/Update tx plan , Purpose of tx/functional activities, Reviewed precautions, Rehab process, Transfer techniques Teaching Recipient: Patient Teaching Methods: Demonstration, Discussion Response to Teaching: Verbalize Understanding, Return Demonstration OT Short Term Goals Short Term Goals Time Frame: Nov 16, 2016 Eating(FIM): 6 Grooming(FIM): 5 Bathing(FIM): 5 Upper Body Dressing(FIM): 4 Lower Body Dressing(FIM): 4 Toileting(FIM): 4 Transfers (B,C,W/C) (FIM): 45 Toilet/Commode Transfer(FIM): 5 Shower Transfer(FIM): 5 Additional Short Term Goals: 1-Demonstrate ADL Tasks, 2-Verbalize Understanding , 3-ImproveStrength/Nash 1=Demonstrate adherence to instructed precautions during ADL tasks. 2=Patient will verbalize/demonstrate understanding of assistive devices/ modifications for ADL. 3=Patient will improve strength/tolerance for activity to enable patient to perform ADL's. OT Assisted Goals Assisted Goals Time Frame: Nov 30, 2016 Eating (FIM): 6 Eating (QC): 6 Groomin Oral Hygiene (QC): 6 Bathing(FIM): 5 Shower/Bathe Self (QC): 5 Upper Body Dressing(FIM): 6 Upper Body Dressing (QC): 6 Lower Body Dressing(FIM): 6 Lower Body Dressing (QC): 6 On/Off Footwear (QC): 6 Toileting(FIM): 6 Toileting Hygiene (QC): 6 Transfers (B,C,W/C) (FIM): 6 Toilet/Commode Transfer(FIM): 6 Toilet/Commode Transfer (QC): 6 Shower Transfer(FIM): 5 Comprehension(FIM): 4 Expression (FIM): 4 Social Interaction(FIM): 5 Problem Solving(FIM): 4 Memory(FIM): 4 Additional Goals: 1-Demonstrate ADL Tasks, 2-Verbalize Understanding, 3- ImproveStrength/Nash 1=Demonstrate adherence to instructed precautions during ADL tasks. 2=Patient will verbalize/demonstrate understanding of assistive devices/ modifications for ADL. 3=Patient will improve strength/tolerance for activity to enable patient to perform ADL's. OT Education/Plan Problem List/Assessment Assessment: Decreased Activ Tolerance, Decreased UE Strength, Dependent Transfers, Impaired Coordination, Impaired Funct Balance, Impaired I ADL's, Impaired Self-Care Skills, Restricted Funct UE ROM Discharge Recommendations Plan/Recommendations: Continue POC Therapy D/C Recommendations: Home w/ Family Support, Occupational Therapy Home Care Treatment Plan/Plan of Care Treatment,Training & Education: Yes Patient would benefit from OT for education, treatment and training to promote independence in ADL's, mobility, safety and/or upper extremity function for ADL' s. Plan of Care: ADL Retraining, Caregiver Training, Cognitive Retraining, Functional Mobility, Group Exercise/Act as Ind, UE Funct Exercise/Act, UE Neuromus Re-Ed/Coord Treatment Duration: Nov 30, 2016 Visits Per Week: 5-6 Minutes/Day (M-F): 60-90 Minutes/Day (Sat/Lake): 15-30 Agreement: Yes Rehab Potential: Fair Time/GCodes Start Time: 10:00 Stop Time: 11:15 Total Time Billed (hr/min): 75 Billed Treatment Time 1, ADL x 30minutes, NM x 20minutes, EX x 25minutes JOEL MCDOWELL OT Nov 25, 2016 14:51
--- NOTE | 2016-11-25 15:00 | Physical Therapy Daily Note ---
PT Daily Note-Current Subjective Pt sitting in recliner upon arrival. Pt agrees to PT this afternoon. Mental Status Patient Orientation: Person, Place, Time, Situation Transfers Functional [place] Measure 0=Not Assessed/NA 4=Minimal Assistance 1=Total Assistance 5=Supervision or Setup 2=Maximal Assistance 6=Modified [place] 3=Moderate Assistance 7=Complete IndependenceIRFPAI Quality Coding Scale 6 Independent with activity with or without an assistive device 5 Patient requires set up or clean up by helper. Patient completes activity by themselves 4 Supervision or touching assist ([facility]). [place] provide cues , steadying assist 3 The helper provides less than half the effort to complete the activity 2 The helper provides more than half the effort to complete the activity 1 Dependent. The helper does all the effort to complete an activity 7 Patient refused to complete or attempt activity 9 The patient did not perform the activity before the current illness or injury 88 Not attempted due to Medical conditions or safety concerns Scootin Sit to/from Stand: 4 Sit to Stand (QC): 4 Weight Bearing Weight Bearing Restriction: Full Weight Bearing Location Restriction: LE Bilateral Gait Training Does the Patient Walk?: Yes Distance (FIM): 3=150 ft Distance: 150' Walk 10 feet (QC): 4 Walk 50 ft with 2 Turns(QC): 4 Walk 150 ft (QC): 4 Gait Level of Assist: 4 Gait Persons Needed: 1 Gait Assistive Device: Cane Small Base Quad Pt's danny is slow but steady, no LOB. Wheelchair Training Does the Pt Use a Wheelchair?: No Exercises Standing: Hip Abduction, Hamstring curls Standing Reps: 15 Treatments Pt transferred from recliner to standing using Cane at [facility]. Pt ambulates using Cane at [facility] for balance. Pt completes Standing Ex in //bars then stands and ambulates to Therapy [facility]. Pt works on sitting balance and reaching during problem solving activity. Pt returns to room to rest with all needs met at end of tx. Assessment Current Status: Fair Progress Pt continues to work on balance, activity tolerance & strength. PT Short Term Goals Short Term Goals Time Frame: Nov 16, 2016 Transfers (B,C,W/C) (FIM): 45 Gait (FIM): 4 Gait Distance Comment: 150' Gait Level of Assist: 4 Gait Assistive Device: Cane Large Base Quad Wheelchair Distance: 50' PT Alf Goals Residential Case Manager Goals PT Residential Case Manager Goals Time Frame: Nov 30, 2016 Transfers (B,C,W/C) (FIM): 5 Sit to Lying (QC): 4 (met) Lying-Sitting on Side/Bed(QC): 4 (met) Sit to Stand (QC): 4 (met) Rollin (et) Roll Left to Right (QC): 4 (met) Chair/Onf-zg-Gupqy Xfer(QC): 4 Car Transfer (QC): 4 Gait (FIM): 5 Distance: 200' Walk 10 feet (QC): 4 Walk 10ft-Uneven Surface(QC): 4 Walk 50ft with 2 Turns (QC): 4 Walk 150 ft (QC): 4 Gait Level of Assist: 5 Gait Assistive Device: Cane Large Base Quad Stairs (FIM): 4 (met) # of Steps: 12 (met) 1 Step (curb) (QC): 4 (met) 4 Steps (QC): 4 (mt) 12 Steps (QC): 4 (met) Stairs Level Of Assist: 4 (met) Picking up an Object (QC): 88 PT Plan Problem List Problem List: Activity Tolerance, Functional Strength, Safety, Balance, Gait, Transfer Treatment/Plan Treatment Plan: Continue Plan of Care Treatment Plan: Bed Mobility, Education, Functional Activity Nash, Functional Strength, Group Therapy, Gait, Safety, Therapeutic Exercise, Transfers Treatment Duration: Nov 30, 2016 Visits Per Week: 10-11 Minutes/Day (M-F): 60-90 Minutes/Day (Sat/Lake): 15-30 Safety Risks/Education Patient Education: Gait Training, Transfer Techniques, Correct Positioning, Safety Issues Teaching Recipient: Patient Teaching Methods: Discussion Response to Teaching: Verbalize Understanding Time/GCodes Time In: 1300 Time Out: 1330 Total Billed Treatment Time: 30 Total Billed Treatment visit, GT (15m) & EX (15m) RUDI TILLMAN PTA Nov 25, 2016 15:00
--- NOTE | 2016-11-25 15:28 | Speech Therapy Daily Note ---
Speech Daily Progress Note Subjective Date Seen by Provider: Nov 25, 2016 Time Seen by Provider: 08:45 The patient was seated upright in recliner upon entrance. The patient greeted the clinician upon arrival and was agreeable to cognitive and language therapy on this date. Objective Category Members ([place]): The patient was provided a specific category and asked to provide three items that would "fit into" the category. The patient demonstrated fair to good accuracy with this task with moderate clinician verbal prompting. The patient displayed 90% accuracy with intermittent word- finding pauses and halts. Orientation: The patient remains independently oriented to simple orientation information. Assessment Assessment Current Status: Fair Progress Treatment Plan Continue Plan of Care Communication Comprehension: 4 Expression: 4 Social Cognition Social Interaction: 4 Problem Solvin Memory: 3 Speech Short Term Goals Short Term Goals Short Term Goals 1. The patient will recall and demonstrate two functional memory strategies for use at home. MET 2. The patient will demonstrated 80% accuracy with structured word-finding task to improve expressive communication. 3. The patient will follow multi-step instructions with 80% accuracy and mild clinician verbal prompting. 4. The patient will display 90% accuracy with functional safety problem solving , independently. MET Time Frame-STG: Two Weeks Speech Quality Assurance Supervisor Body Goals Quality Assurance Supervisor Body Goals 1. The patient will demonstrate improved cognitive linguistic skills for increased function and safety with ADL's in the least restrictive setting. Time Frame: Three Weeks Comprehension: 4 Expression: 4 Social Interaction: 5 Problem Solvin Memory: 4 Speech-Plan Treatment Plan Speech Therapy Treatment Plan: Continue Plan of Care Continue skilled speech pathology for improved functional problem solving and memory strategies. Treatment Duration: Nov 30, 2016 # of days/week Four to five. Visits Per Week: Four to five. Minutes/Day (M-F): 30 Rehab Potential: Fair Safety Risks/Education Teaching Recipient: Patient Teaching Methods: Discussion Response to Teaching: Verbalize Understanding, Return Demonstration, Reinforcement Needed Education Topics Provided: Word-Finding Strategies Time Speech Therapy Time In: 08:45 Speech Therapy Time Out: 09:15 Total Billed Time: 30 Billed Treatment Time OseiASHLEY ELIZABETH ST Nov 25, 2016 15:28
[2016-11-25 17:32] VITALS: BP 116/72
[2016-11-25] MEDS: ATORVASTATIN 20 MG (LIPITOR) TABLET PO SCH (20:22)
[2016-11-26 05:47] VITALS: BP 111/70
--- NOTE | 2016-11-26 07:56 | Progress Note (SOAP) ---
Subjective Time Seen by Provider: 07:55 Subjective/Events-last exam CVA. Noncompliance with medication. Patient starting to move right upper extremity. Patient a work in progress. Objective Exam Vital Signs Date Time Temp Pulse Resp B/P (MAP) Pulse Ox O2 Delivery O2 Flow Rate FiO2 11/26/16 05:47 96.7 65 20 111/70 97 Room Air 11/25/16 20:15 Room Air 11/25/16 17:32 98.5 65 16 116/72 97 Room Air 11/25/16 09:13 Room Air 11/25/16 07:58 60 99/63 I & O 11/26/16 07:00 Intake Total 1653 ml Balance 1653 ml Capillary Refill : General Appearance: No Apparent Distress, WD/WN HEENT: Normal ENT Inspection Neck: Full Range of Motion, Normal Inspection Respiratory: Chest Non Tender, Lungs Clear, Normal Breath Sounds, No Accessory Muscle Use, No Respiratory Distress Cardiovascular: Regular Rate, Rhythm, No Murmur Assessment/Plan Assessment/Plan Assess & Plan/Chief Complaint cerebrovascular accident. Noncompliance with medicine. Hypertension. . 11/11/16. CVA. Noncompliance with medicine.. Hypertension. Patient able to move the right foot Patient unable to move the right Hand. . 11/12/16. CVA. Noncompliance with medicine. Hypertension. Patient moving right leg better. Patient states right arm is . . 11/15/16. CVA. Noncompliance with medicine. Hypertension. Right leg doing better. Problems with right hand. . . CVA. Hypertension. Noncompliance. Patient was seen yesterday. Patient voices no complaints. Patient not moving right hand and arm. . 11/18/16. CVA. Noncompliance history. Hypertension. Patient feel she is improving. Patient needs work with the right upper extremity. Right leg doing better. . 11/19/16. CVA. Noncompliance with Medicine.. Hypertension Right arm flaccid. Right leg doing much better. . 11/22/16. CVA. Hypertension. Noncompliance with medicine. . Right arm did move today. . 11/23/16. CVA. Hypertension. Noncompliance with medicine. Patient to go home tomorrow . 11/24/16. CVA. Hypertension. Noncompliance with medicine. Patient able to move right arm today improving. . 11/25/16. CVA. Hypertension. Noncompliance with medicine.. Patient moving right hand today. . 11/26/16. CVA. Noncompliance with medications. Hypertension. Patient doing better. Patient moving right arm some Clinical Quality Measures DVT/VTE Risk/Contraindication: Risk Factor Score Per Nursin RFS Level Per Nursing on Admit: 4+=Very High MOSHE KRISHNAMURTHY DO Nov 26, 2016 07:56
[2016-11-26 08:03] VITALS: BP 120/77
[2016-11-26] MEDS: ENOXAPARIN 40 MG/0.4 ML (LOVENOX) SYR SC SCH (08:03)
[2016-11-26] MEDS: amLODIPine 5 MG (NORVASC) TAB PO SCH (08:04)
[2016-11-26] MEDS: CLOPIDOGREL 75 MG (PLAVIX) TABLET PO SCH (08:04)
[2016-11-26] MEDS: ASPIRIN 81 MG CHEW (CHILDREN'S ASA) PO SCH (08:04)
[2016-11-26] MEDS: lisINopril 10 MG (PRINIVIL) TAB PO SCH (08:04)
--- NOTE | 2016-11-26 09:48 | Physical Therapy Daily Note ---
PT Daily Note-Current Subjective Pt sitting in recliner upon arrival. Pt agrees to PT. Pain Location: No Pain Reported Mental Status Patient Orientation: Person, Place, Time, Situation Transfers Functional [place] Measure 0=Not Assessed/NA 4=Minimal Assistance 1=Total Assistance 5=Supervision or Setup 2=Maximal Assistance 6=Modified [place] 3=Moderate Assistance 7=Complete IndependenceIRFPAI Quality Coding Scale 6 Independent with activity with or without an assistive device 5 Patient requires set up or clean up by helper. Patient completes activity by themselves 4 Supervision or touching assist ([facility]). [place] provide cues , steadying assist 3 The helper provides less than half the effort to complete the activity 2 The helper provides more than half the effort to complete the activity 1 Dependent. The helper does all the effort to complete an activity 7 Patient refused to complete or attempt activity 9 The patient did not perform the activity before the current illness or injury 88 Not attempted due to Medical conditions or safety concerns [place] Sit to/from Stand: 4 Sit to Stand (QC): 4 Pt is improving with transfers. PT is just barely giving any lifting assistance for sit to stand. Weight Bearing Weight Bearing Restriction: Full Weight Bearing Location Restriction: LE Bilateral Gait Training Does the Patient Walk?: Yes Distance (FIM): 3=150 ft Distance: 175' Walk 10 feet (QC): 5 Walk 50 ft with 2 Turns(QC): 5 Walk 150 ft (QC): 5 Gait Level of Assist: 5 Gait Persons Needed: 1 Gait Assistive Device: Cane Small Base Quad Pt's gait is improving. Pt is close SBA with ambulation with only occasional LOB that pt is able to self-correct. Wheelchair Training Does the Pt Use a Wheelchair?: No Stair Training Stair Training: Handrails/: 1 handrail #of Steps: 8 1 Step (curb) (QC): 5 4 Steps (QC): 5 12 Steps (QC): 88 Stairs: Pattern: Step to Level of Assist: 5 Pt is improving with ambulation of stairs and no longer requires CGA but close SBA. Pt also increased the number of stairs she can complete in one setting. This increase does fatigue pt and needs rest after. Exercises Seated Therapy Exercises: Ankle pumps, Long arc quads, Hip flexion, Kicking activity Seated Reps: 15 Standing: Hip Abduction, Hamstring curls, Weight shifts Treatments Pt transfers from recliner to standing at [facility] using Cane. Pt ambulates using Cane at close SBA. Pt ambulates 2 sets to stairs then rests in chair. Pt completes Seated Ex in chair before completing Standing Ex in //bars. Pt returns to room to rest in recliner at end of tx with all needs met. Assessment Current Status: Good Progress Pt is still working on balance during ambulation and stairs as well as pt's activity tolerance. Pt has made progress and is more independent with all activities though. PT Short Term Goals Short Term Goals Time Frame: Nov 16, 2016 Transfers (B,C,W/C) (FIM): 45 Gait (FIM): 4 Gait Distance Comment: 150' Gait Level of Assist: 4 Gait Assistive Device: Cane Large Base Quad Wheelchair Distance: 50' PT Fci Goals Fci Goals PT Air Cargo Ground Crew Supervisor Goals Time Frame: Nov 30, 2016 Transfers (B,C,W/C) (FIM): 5 Sit to Lying (QC): 4 (met) Lying-Sitting on Side/Bed(QC): 4 (met) Sit to Stand (QC): 4 (met) Rollin (et) Roll Left to Right (QC): 4 (met) Chair/Hri-yh-Jznyh Xfer(QC): 4 Car Transfer (QC): 4 Gait (FIM): 5 Distance: 200' Walk 10 feet (QC): 4 Walk 10ft-Uneven Surface(QC): 4 Walk 50ft with 2 Turns (QC): 4 Walk 150 ft (QC): 4 Gait Level of Assist: 5 Gait Assistive Device: Cane Large Base Quad Stairs (FIM): 4 (met) # of Steps: 12 (met) 1 Step (curb) (QC): 4 (met) 4 Steps (QC): 4 (mt) 12 Steps (QC): 4 (met) Stairs Level Of Assist: 4 (met) Picking up an Object (QC): 88 PT Plan Problem List Problem List: Activity Tolerance, Functional Strength, Safety, Balance, Gait, Transfer Treatment/Plan Treatment Plan: Continue Plan of Care Treatment Plan: Bed Mobility, Education, Functional Activity Nash, Functional Strength, Group Therapy, Gait, Safety, Therapeutic Exercise, Transfers Treatment Duration: Nov 30, 2016 Visits Per Week: 10-11 Minutes/Day (M-F): 60-90 Minutes/Day (Sat/Lake): 15-30 Safety Risks/Education Patient Education: Gait Training, Transfer Techniques, Correct Positioning, Safety Issues Teaching Recipient: Patient Teaching Methods: Discussion Response to Teaching: Verbalize Understanding Time/GCodes Time In: 845 Time Out: 930 Total Billed Treatment Time: 45 Total Billed Treatment visit, GT(15m), EX (15m) & FA (15m) RUDI TILLMAN PTA Nov 26, 2016 09:48
--- NOTE | 2016-11-26 10:19 | Occupational Ther Daily Note ---
OT Current Status-Daily Note Subjective Pt alert, sitting in recliner. Pt agreed to therapy. No c/o pain. Mental Status/Objective Patient Orientation: Person, Place, Time, Situation Functional [place] Measure 0=Not Assessed/NA 4=Minimal Assistance 1=Total Assistance 5=Supervision or Setup 2=Maximal Assistance 6=Modified [place] 3=Moderate Assistance 7=Complete [place] ADL-Treatment Functional [place] Measure 0=Not Assessed/NA 4=Minimal Assistance 1=Total Assistance 5=Supervision or Setup 2=Maximal Assistance 6=Modified [place] 3=Moderate Assistance 7=Complete IndependenceIRFPAI Quality Coding Scale 6 Independent with activity with or without an assistive device 5 Patient requires set up or clean up by helper. Patient completes activity by themselves 4 Supervision or touching assist ([facility]). [place] provide cues , steadying assist 3 The helper provides less than half the effort to complete the activity 2 The helper provides more than half the effort to complete the activity 1 Dependent. The helper does all the effort to complete an activity 7 Patient refused to complete or attempt activity 9 The patient did not perform the activity before the current illness or injury 88 Not attempted due to Medical conditions or safety concerns Grooming (FIM): 5 (Pt stood at sink to complete grooming with SBA. Pt was able to brush teeth and set self up. Pt able to brush hair though not effectively, cues to reach back right side of head.) Bathing (FIM): 5 (Pt required encouragement to complete shower today. Pt did initiate task though did require cues to follow through on tasks. Pt used shower bench, grabbars and hand held shower with SBA in standing.) Bathing Location: L Arm, R Arm, L Upper Leg, R Upper Leg, L Lower Leg ( including foot), R Lower Leg (including foot), Abdomen, Buttocks, Perineal Area Upper Body (FIM): 5 (After set up, pt is able to don/doff clothing by self.) Lower Body Dressing (FIM): 5 (After set up, pt is able to don/doff lower body clothing with SBA when standing to hike over hips. Dons socks/shoes/AFO by self.) Transfers (B, C, W/C) (FIM): 4 (Using quadcane, pt transfers with CGA.) Shower Transfer(FIM): 4 (Using quadcane, shower bench and grabbars, pt transfers with CGA.) Other Treatment Pt ambulated to therapy gym with CGA using quadcane. Pt completed dynamic sitting exercises with SBA no LOB noted then complete wt bearing exercises sitting on edge of therapy mat. Pt required muscle facilitation techniques to activate tricep muscle for R elbow extension to stabilize elbow for straight arm wt bearing. Pt then ambulated back to room with CGA using quadcane and sat in recliner. After therapy, pt sitting in recliner with call light/phone in reach. All needs met in room. OT Short Term Goals Short Term Goals Time Frame: Nov 16, 2016 Eating(FIM): 6 Grooming(FIM): 5 Bathing(FIM): 5 Upper Body Dressing(FIM): 4 Lower Body Dressing(FIM): 4 Toileting(FIM): 4 Transfers (B,C,W/C) (FIM): 45 Toilet/Commode Transfer(FIM): 5 Shower Transfer(FIM): 5 Additional Short Term Goals: 1-Demonstrate ADL Tasks, 2-Verbalize Understanding , 3-ImproveStrength/Nash 1=Demonstrate adherence to instructed precautions during ADL tasks. 2=Patient will verbalize/demonstrate understanding of assistive devices/ modifications for ADL. 3=Patient will improve strength/tolerance for activity to enable patient to perform ADL's. OT Television Installer Helper Goals Television Installer Helper Goals Time Frame: Nov 30, 2016 Eating (FIM): 6 Eating (QC): 6 Groomin Oral Hygiene (QC): 6 Bathing(FIM): 5 Shower/Bathe Self (QC): 5 Upper Body Dressing(FIM): 6 Upper Body Dressing (QC): 6 Lower Body Dressing(FIM): 6 Lower Body Dressing (QC): 6 On/Off Footwear (QC): 6 Toileting(FIM): 6 Toileting Hygiene (QC): 6 Transfers (B,C,W/C) (FIM): 6 Toilet/Commode Transfer(FIM): 6 Toilet/Commode Transfer (QC): 6 Shower Transfer(FIM): 5 Comprehension(FIM): 4 Expression (FIM): 4 Social Interaction(FIM): 5 Problem Solving(FIM): 4 Memory(FIM): 4 Additional Goals: 1-Demonstrate ADL Tasks, 2-Verbalize Understanding, 3- ImproveStrength/Nash 1=Demonstrate adherence to instructed precautions during ADL tasks. 2=Patient will verbalize/demonstrate understanding of assistive devices/ modifications for ADL. 3=Patient will improve strength/tolerance for activity to enable patient to perform ADL's. OT Education/Plan Discharge Recommendations Plan/Recommendations: Continue POC Treatment Plan/Plan of Care Patient would benefit from OT for education, treatment and training to promote independence in ADL's, mobility, safety and/or upper extremity function for ADL' s. Plan of Care: ADL Retraining, Caregiver Training, Cognitive Retraining, Functional Mobility, Group Exercise/Act as Ind, UE Funct Exercise/Act, UE Neuromus Re-Ed/Coord Treatment Duration: Nov 30, 2016 Visits Per Week: 5-6 Minutes/Day (M-F): 60-90 Minutes/Day (Sat/Lake): 15-30 Agreement: Yes Rehab Potential: Fair Time/GCodes Start Time: 07:00 Stop Time: 08:00 Total Time Billed (hr/min): 60 Billed Treatment Time 1 visit-ADL 2 (35 min) NM 2 (25 min) RITIKA RENDON Nov 26, 2016 10:19
--- NOTE | 2016-11-26 11:39 | Speech Therapy Daily Note ---
Speech Daily Progress Note Subjective Date Seen by Provider: Nov 26, 2016 Time Seen by Provider: 10:30 The patient was seated upright in recliner upon entrance. The patient greeted the clinician appropriately and was agreeable to participation in the cognitive treatment session. Objective - Orientation: The patient remains oriented to month, day, date, year, and location with the aid of the in-room white board. - Word-Finding: The patient was asked to provide antonyms for single words provided by the clinician. The patient demonstrated less than 33% with this activity with moderate to maximum clinician verbal prompting. - Memory: Word List Retention: The patient demonstrated less than 30% accuracy with word list retention of four words. The patient's accuracy further declined with word retention of five words. Maximum clinician verbal prompting was provided, mostly in the form of repetition of stimuli. Assessment Assessment Current Status: Poor Progress Treatment Plan Continue Plan of Care Communication Comprehension: 4 Expression: 4 Social Cognition Social Interaction: 4 Problem Solvin Memory: 3 Speech Short Term Goals Short Term Goals Short Term Goals 1. The patient will recall and demonstrate two functional memory strategies for use at home. MET 2. The patient will demonstrated 80% accuracy with structured word-finding task to improve expressive communication. 3. The patient will follow multi-step instructions with 80% accuracy and mild clinician verbal prompting. 4. The patient will display 90% accuracy with functional safety problem solving , independently. MET Time Frame-STG: Two Weeks Speech Rubber Flap Tuber Machine Operator Goals Rubber Flap Tuber Machine Operator Goals 1. The patient will demonstrate improved cognitive linguistic skills for increased function and safety with ADL's in the least restrictive setting. Time Frame: Three Weeks Comprehension: 4 Expression: 4 Social Interaction: 5 Problem Solvin Memory: 4 Speech-Plan Treatment Plan Speech Therapy Treatment Plan: Continue Plan of Care Continue skilled speech pathology to target functional problem solving and memory. Treatment Duration: Nov 30, 2016 # of days/week Four to five. Visits Per Week: Four to five. Minutes/Day (M-F): 30 Rehab Potential: Fair Safety Risks/Education Teaching Recipient: Patient Teaching Methods: Discussion Response to Teaching: Reinforcement Needed Education Topics Provided: Retention Strategies Time Speech Therapy Time In: 10:30 Speech Therapy Time Out: 11:00 Total Billed Time: 30 Billed Treatment Time ASHLEY Franz ELIZABEJOSSELINE LOCKE Nov 26, 2016 11:38
--- NOTE | 2016-11-26 14:19 | Therapy Group Daily Note ---
Therapy Daily Group Note Patient Education Topic Home Safety Exercises LE Seated Exercise, UE Exercise Other/Notes Patient participated in group therapy in the common area of rehab. Each patient ambulated or was transported to the common area of rehab and patients sat in a kobuk. Each patient then had to introduce themselves, state where they were from and recall a specific memory from the past. Patient's had active participation in a discussion about home safety. Each patient participated and interjected ideas and answers. Interspersed throughout the discussion were upper and lower extremity exercises. Afterward, patients ambulated or were transported back to their rooms and placed in bed or chair with nurse call, phone, tray, all needs met. Start Time: 13:00 Stop Time: 14:00 Total Billed Treatment Time: 60 Total Billed Treatment 1 visit GRP 60ELLEN SIM PT Nov 26, 2016 14:19
--- NOTE | 2016-11-26 16:52 | PM & R (SOAP) Progress Note ---
Subjective Time Seen by Provider: 09:45 Subjective/Events-last exam Patient was seen on unit this AM with Therapist Patient min assist for transfers and Contact guard for gait. Review of Systems Neurological: Weakness Objective Exam Last Set of Vital Signs Vital Signs Date Time Temp Pulse Resp B/P (MAP) Pulse Ox O2 Delivery O2 Flow Rate FiO2 11/26/16 09:11 Room Air 11/26/16 08:03 65 120/77 11/26/16 05:47 96.7 20 97 Capillary Refill : I&O Intake and Output 11/26/16 00:00 Intake Total 1853 ml Balance 1853 ml Intake Oral 1853 ml # Voids 5 # Bowel Movements 1 General: Alert, Oriented X3, Cooperative, No Acute Distress HEENT: Atraumatic, PERRLA, EOMI, Mucous Memb Moist/[place] Neck: Supple, No JVD Lungs: Clear to Auscultation Heart: Regular Rate Abdomen: Normal Bowel Sounds, Soft, No Tenderness Extremities: No Edema Neuro: Other (rt HP) Assessment/Plan Assessment 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 Last Team Conference held 11/24/16 See report for full functional update and POC and DOMINGO Discussed case with Sw earlier this week re Medical insurance activation Will become active in December 2016 Discharge set for 12/01/16 TEJAS SHAW MD Nov 26, 2016 16:52
[2016-11-26 17:50] VITALS: BP 119/76
[2016-11-26] MEDS: ATORVASTATIN 20 MG (LIPITOR) TABLET PO SCH (21:35)
[2016-11-27 06:14] VITALS: BP 116/76
[2016-11-27] MEDS: CLOPIDOGREL 75 MG (PLAVIX) TABLET PO SCH (08:13)
[2016-11-27] MEDS: lisINopril 10 MG (PRINIVIL) TAB PO SCH (08:13)
[2016-11-27] MEDS: ENOXAPARIN 40 MG/0.4 ML (LOVENOX) SYR SC SCH (08:13)
[2016-11-27] MEDS: ASPIRIN 81 MG CHEW (CHILDREN'S ASA) PO SCH (08:13)
[2016-11-27] MEDS: amLODIPine 5 MG (NORVASC) TAB PO SCH (08:13)
--- NOTE | 2016-11-27 09:16 | Physical Therapy Daily Note ---
PT Daily Note-Current Subjective Pt denies pain. Pt sitting in her chair upon arrival and agreeable to PT. Mental Status Patient Orientation: Person, Place, Situation Transfers Functional [place] Measure 0=Not Assessed/NA 4=Minimal Assistance 1=Total Assistance 5=Supervision or Setup 2=Maximal Assistance 6=Modified [place] 3=Moderate Assistance 7=Complete IndependenceIRFPAI Quality Coding Scale 6 Independent with activity with or without an assistive device 5 Patient requires set up or clean up by helper. Patient completes activity by themselves 4 Supervision or touching assist (CGA). [place] provide cues , steadying assist 3 The helper provides less than half the effort to complete the activity 2 The helper provides more than half the effort to complete the activity 1 Dependent. The helper does all the effort to complete an activity 7 Patient refused to complete or attempt activity 9 The patient did not perform the activity before the current illness or injury 88 Not attempted due to Medical conditions or safety concerns CGA for sit to stand Gait Training Gait Assistive Device: Cane Small Base Quad Donned AFO and shoes with min A for both, donned (R) UE sling with min A. Pt amb with step-to gait pattern and CGA 2 x 115ft. Exercises NuStep Minutes: 15 NuStep Workload: 5 Assessment Current Status: Good Progress Pt juvenal well. Pt back to chair with call light and all needs met. PT Short Term Goals Short Term Goals Time Frame: Nov 16, 2016 Transfers (B,C,W/C) (FIM): 45 Gait (FIM): 4 Gait Distance Comment: 150' Gait Level of Assist: 4 Gait Assistive Device: Cane Large Base Quad Wheelchair Distance: 50' PT Mcc Goals Mcc Goals PT City Planner Goals Time Frame: Nov 30, 2016 Transfers (B,C,W/C) (FIM): 5 Sit to Lying (QC): 4 (met) Lying-Sitting on Side/Bed(QC): 4 (met) Sit to Stand (QC): 4 (met) Rollin (et) Roll Left to Right (QC): 4 (met) Chair/Mib-sl-Otrmv Xfer(QC): 4 Car Transfer (QC): 4 Gait (FIM): 5 Distance: 200' Walk 10 feet (QC): 4 Walk 10ft-Uneven Surface(QC): 4 Walk 50ft with 2 Turns (QC): 4 Walk 150 ft (QC): 4 Gait Level of Assist: 5 Gait Assistive Device: Cane Large Base Quad Stairs (FIM): 4 (met) # of Steps: 12 (met) 1 Step (curb) (QC): 4 (met) 4 Steps (QC): 4 (mt) 12 Steps (QC): 4 (met) Stairs Level Of Assist: 4 (met) Picking up an Object (QC): 88 PT Plan Treatment/Plan Treatment Plan: Continue Plan of Care Treatment Plan: Bed Mobility, Education, Functional Activity Nash, Functional Strength, Group Therapy, Gait, Safety, Therapeutic Exercise, Transfers Treatment Duration: Nov 30, 2016 Visits Per Week: 10-11 Minutes/Day (M-F): 60-90 Minutes/Day (Sat/Lake): 15-30 Time/GCodes Time In: 835 Time Out: 900 Total Billed Treatment Time: 25 Total Billed Treatment 1, gait 10 min, ther ex 15min VANDANA PAREKH CPTTalha Nov 27, 2016 09:16
[2016-11-27 18:09] VITALS: BP 99/63
[2016-11-27] MEDS: ATORVASTATIN 20 MG (LIPITOR) TABLET PO SCH (20:31)
[2016-11-28 05:51] VITALS: BP 99/65
[2016-11-28 07:53] VITALS: BP 115/75
[2016-11-28] MEDS: CLOPIDOGREL 75 MG (PLAVIX) TABLET PO SCH (07:55)
[2016-11-28] MEDS: amLODIPine 5 MG (NORVASC) TAB PO SCH (07:55)
[2016-11-28] MEDS: lisINopril 10 MG (PRINIVIL) TAB PO SCH (07:56)
[2016-11-28] MEDS: ASPIRIN 81 MG CHEW (CHILDREN'S ASA) PO SCH (07:56)
[2016-11-28] MEDS: ENOXAPARIN 40 MG/0.4 ML (LOVENOX) SYR SC SCH (07:56)
[2016-11-28 18:38] VITALS: BP 97/67
[2016-11-28] MEDS: ATORVASTATIN 20 MG (LIPITOR) TABLET PO SCH (20:33)
[2016-11-29 05:37] VITALS: BP 109/72
[2016-11-29] MEDS: lisINopril 10 MG (PRINIVIL) TAB PO SCH (08:12)
[2016-11-29] MEDS: ASPIRIN 81 MG CHEW (CHILDREN'S ASA) PO SCH (08:12)
[2016-11-29] MEDS: amLODIPine 5 MG (NORVASC) TAB PO SCH (08:12)
[2016-11-29] MEDS: ENOXAPARIN 40 MG/0.4 ML (LOVENOX) SYR SC SCH (08:12)
[2016-11-29] MEDS: CLOPIDOGREL 75 MG (PLAVIX) TABLET PO SCH (08:12)
--- NOTE | 2016-11-29 08:43 | Progress Note (SOAP) ---
Subjective Time Seen by Provider: 08:40 Subjective/Events-last exam CVA. Hypertension. Noncompliance with medicine. Patient doing good area Patient able to move her right arm and move her right hand Objective Exam Vital Signs Date Time Temp Pulse Resp B/P (MAP) Pulse Ox O2 Delivery O2 Flow Rate FiO2 11/29/16 05:37 98.4 63 18 109/72 97 Room Air 11/28/16 20:30 Room Air 11/28/16 18:38 98.5 76 16 97/67 97 Room Air 11/28/16 09:25 Room Air I & O 11/29/16 07:00 Intake Total 710 ml Balance 710 ml Capillary Refill : General Appearance: No Apparent Distress, WD/WN HEENT: Normal ENT Inspection Neck: Full Range of Motion, Normal Inspection Respiratory: Chest Non Tender, Lungs Clear, No Accessory Muscle Use, No Respiratory Distress Cardiovascular: Regular Rate, Rhythm Gastrointestinal: non tender, soft Assessment/Plan Assessment/Plan Assess & Plan/Chief Complaint cerebrovascular accident. Noncompliance with medicine. Hypertension. . 11/11/16. CVA. Noncompliance with medicine.. Hypertension. Patient able to move the right foot Patient unable to move the right Hand. . 11/12/16. CVA. Noncompliance with medicine. Hypertension. Patient moving right leg better. Patient states right arm is . . 11/15/16. CVA. Noncompliance with medicine. Hypertension. Right leg doing better. Problems with right hand. . . CVA. Hypertension. Noncompliance. Patient was seen yesterday. Patient voices no complaints. Patient not moving right hand and arm. . 11/18/16. CVA. Noncompliance history. Hypertension. Patient feel she is improving. Patient needs work with the right upper extremity. Right leg doing better. . 11/19/16. CVA. Noncompliance with Medicine.. Hypertension Right arm flaccid. Right leg doing much better. . 11/22/16. CVA. Hypertension. Noncompliance with medicine. . Right arm did move today. . 11/23/16. CVA. Hypertension. Noncompliance with medicine. Patient to go home tomorrow . 11/24/16. CVA. Hypertension. Noncompliance with medicine. Patient able to move right arm today improving. . 11/25/16. CVA. Hypertension. Noncompliance with medicine.. Patient moving right hand today. . 11/26/16. CVA. Noncompliance with medications. Hypertension. Patient doing better. Patient moving right arm some. . 11/29/16. CVA. Patient improving. Patient able to move her right banks and right arm today Clinical Quality Measures DVT/VTE Risk/Contraindication: Risk Factor Score Per Nursin RFS Level Per Nursing on Admit: 4+=Very High MOSHE KRISHNAMURTHY DO Nov 29, 2016 08:43
--- NOTE | 2016-11-29 12:40 | Occupational Ther Daily Note ---
OT Current Status-Daily Note Subjective No pain reported. Appearance Pt. is sitting in chair. Agrees to shower. Mental Status/Objective Patient Orientation: Person Functional [place] Measure 0=Not Assessed/NA 4=Minimal Assistance 1=Total Assistance 5=Supervision or Setup 2=Maximal Assistance 6=Modified [place] 3=Moderate Assistance 7=Complete [place] ADL-Treatment Functional [place] Measure 0=Not Assessed/NA 4=Minimal Assistance 1=Total Assistance 5=Supervision or Setup 2=Maximal Assistance 6=Modified [place] 3=Moderate Assistance 7=Complete IndependenceIRFPAI Quality Coding Scale 6 Independent with activity with or without an assistive device 5 Patient requires set up or clean up by helper. Patient completes activity by themselves 4 Supervision or touching assist (CGA). [place] provide cues , steadying assist 3 The helper provides less than half the effort to complete the activity 2 The helper provides more than half the effort to complete the activity 1 Dependent. The helper does all the effort to complete an activity 7 Patient refused to complete or attempt activity 9 The patient did not perform the activity before the current illness or injury 88 Not attempted due to Medical conditions or safety concerns Grooming (FIM): 5 (SBA with brushing teeth and combing hair. Pt. is encouraged to do a thorough job, as she will just "swipe" toothbrush in mouth.) Oral Hygiene (QC): 4 Bathing (FIM): 5 (Pt. requires SBA to wash self. Requires cues and prompts to wash thoroughly, and to initiate tasks.) Shower/Bathe Self (QC): 4 Upper Body (FIM): 5 Upper Body Dressing (QC): 4 Lower Body Dressing (FIM): 4 (Pt. able to don pants, socks, shoes, and AFO. However, did require min assist to pull pants over right hip.) Lower Body Dressing (QC): 4 On/Off Footwear (QC): 5 (Required cues for steps to effectively don AFO and shoe.) Transfers (B, C, W/C) (FIM): 4 (CGA with quad cane.) Shower Transfer(FIM): 4 Other Treatment Pt. completed ADL tasks this date. Does require cues to process steps. OT would give pt. time to problem solve for herself, on sequencing bathing/ dressing tasks. When pt. would not initiate the next step, OT would give her prompts, such as "what do you do next?" Completed e-stim task with pt. on right hand for finger flexion. Tolerated 6 rosa m-amps to right hand approximately 8minutes. Pt. does have emerging AROM in all planes in right UE. However, requires cues to initiate this, or to try with that UE. Education OT Patient Education: Correct positioning, Exercise program, Modified ADL techniques, Progress toward Goal/Update tx plan, Purpose of tx/functional activities, Reviewed precautions, Rehab process, Transfer techniques Teaching Recipient: Patient Teaching Methods: Demonstration, Discussion Response to Teaching: Verbalize Understanding, Return Demonstration OT Short Term Goals Short Term Goals Time Frame: Nov 16, 2016 Eating(FIM): 6 Grooming(FIM): 5 Bathing(FIM): 5 Upper Body Dressing(FIM): 4 Lower Body Dressing(FIM): 4 Toileting(FIM): 4 Transfers (B,C,W/C) (FIM): 45 Toilet/Commode Transfer(FIM): 5 Shower Transfer(FIM): 5 Additional Short Term Goals: 1-Demonstrate ADL Tasks, 2-Verbalize Understanding , 3-ImproveStrength/Nash 1=Demonstrate adherence to instructed precautions during ADL tasks. 2=Patient will verbalize/demonstrate understanding of assistive devices/ modifications for ADL. 3=Patient will improve strength/tolerance for activity to enable patient to perform ADL's. OT Alf Goals Alf Goals Time Frame: Nov 30, 2016 Eating (FIM): 6 Eating (QC): 6 Groomin Oral Hygiene (QC): 6 Bathing(FIM): 5 Shower/Bathe Self (QC): 5 Upper Body Dressing(FIM): 6 Upper Body Dressing (QC): 6 Lower Body Dressing(FIM): 6 Lower Body Dressing (QC): 6 On/Off Footwear (QC): 6 Toileting(FIM): 6 Toileting Hygiene (QC): 6 Transfers (B,C,W/C) (FIM): 6 Toilet/Commode Transfer(FIM): 6 Toilet/Commode Transfer (QC): 6 Shower Transfer(FIM): 5 Comprehension(FIM): 4 Expression (FIM): 4 Social Interaction(FIM): 5 Problem Solving(FIM): 4 Memory(FIM): 4 Additional Goals: 1-Demonstrate ADL Tasks, 2-Verbalize Understanding, 3- ImproveStrength/Nash 1=Demonstrate adherence to instructed precautions during ADL tasks. 2=Patient will verbalize/demonstrate understanding of assistive devices/ modifications for ADL. 3=Patient will improve strength/tolerance for activity to enable patient to perform ADL's. OT Education/Plan Problem List/Assessment Assessment: Decreased Activ Tolerance, Decreased Safety Aware, Decreased UE Strength, Dependent Transfers, Impaired Cognition, Impaired Coordination, Impaired Funct Balance, Impaired I ADL's, Impaired Self-Care Skills, Restricted Funct UE ROM Discharge Recommendations Plan/Recommendations: Continue POC Therapy D/C Recommendations: Home w/ Family Support, Occupational Therapy Home Care Treatment Plan/Plan of Care Treatment,Training & Education: Yes Patient would benefit from OT for education, treatment and training to promote independence in ADL's, mobility, safety and/or upper extremity function for ADL' s. Plan of Care: ADL Retraining, Caregiver Training, Cognitive Retraining, Functional Mobility, Group Exercise/Act as Ind, UE Funct Exercise/Act, UE Neuromus Re-Ed/Coord Treatment Duration: Nov 30, 2016 Visits Per Week: 5-6 Minutes/Day (M-F): 60-90 Minutes/Day (Sat/Lake): 15-30 Agreement: Yes Rehab Potential: Fair Time/GCodes Start Time: 10:30 Stop Time: 11:15 Total Time Billed (hr/min): 45 Billed Treatment Time 1, ADL x 30minutes, NM x 15minutes JOEL MCDOWELL OT Nov 29, 2016 12:39
[2016-11-29 13:30] VITALS: BP 116/70
--- NOTE | 2016-11-29 14:19 | Speech Therapy Daily Note ---
Speech Daily Progress Note Subjective Date Seen by Provider: Nov 29, 2016 Time Seen by Provider: 09:45 The patient was seated upright in recliner upon entrance. The patient greeted the clinician appropriately and was agreeable to participation in the cognitive treatment program on this date. Objective - Orientation: The patient remains 100% oriented to month, date, day of week, and year (with the use of the in-room white board). - Word List Retention: The patient was provided three and four single word lists and immediately asked a questions regarding the words provided. The patient demonstrated 80% accuracy with retention of three single words and 60% accuracy with retention of four single words with moderate clinician verbal prompting. Assessment Assessment Current Status: Fair Progress Treatment Plan Continue Plan of Care Communication Comprehension: 3 Expression: 4 Social Cognition Social Interaction: 4 Problem Solvin Memory: 3 Speech Short Term Goals Short Term Goals Short Term Goals 1. The patient will recall and demonstrate two functional memory strategies for use at home. MET 2. The patient will demonstrated 80% accuracy with structured word-finding task to improve expressive communication. 3. The patient will follow multi-step instructions with 80% accuracy and mild clinician verbal prompting. 4. The patient will display 90% accuracy with functional safety problem solving , independently. MET Time Frame-STG: Two Weeks Speech Family Literacy Coordinator Goals Family Literacy Coordinator Goals 1. The patient will demonstrate improved cognitive linguistic skills for increased function and safety with ADL's in the least restrictive setting. Time Frame: Three Weeks Comprehension: 4 Expression: 4 Social Interaction: 5 Problem Solvin Memory: 4 Speech-Plan Treatment Plan Speech Therapy Treatment Plan: Continue Plan of Care Continue skilled speech pathology to target functional memory strategies for use at home. Treatment Duration: Nov 30, 2016 # of days/week Four to five. Visits Per Week: Four to five. Minutes/Day (M-F): 30 Rehab Potential: Fair Safety Risks/Education Teaching Recipient: Patient Teaching Methods: Demonstration, Discussion Response to Teaching: Reinforcement Needed Education Topics Provided: Internal Memory Strategies Time Speech Therapy Time In: 09:45 Speech Therapy Time Out: 10:15 Total Billed Time: 30 Billed Treatment Time ASHLEY Franz ELIZABETH Nov 29, 2016 14:19
--- NOTE | 2016-11-29 14:59 | Physical Therapy Daily Note ---
PT Daily Note-Current Subjective Pt sitting in recliner upon arrival. Pt agrees to PT. Mental Status Patient Orientation: Person, Place, Time, Situation Attachments: Other-See Comments (Sling for RUE) Transfers Functional [place] Measure 0=Not Assessed/NA 4=Minimal Assistance 1=Total Assistance 5=Supervision or Setup 2=Maximal Assistance 6=Modified [place] 3=Moderate Assistance 7=Complete IndependenceIRFPAI Quality Coding Scale 6 Independent with activity with or without an assistive device 5 Patient requires set up or clean up by helper. Patient completes activity by themselves 4 Supervision or touching assist (CGA). [place] provide cues , steadying assist 3 The helper provides less than half the effort to complete the activity 2 The helper provides more than half the effort to complete the activity 1 Dependent. The helper does all the effort to complete an activity 7 Patient refused to complete or attempt activity 9 The patient did not perform the activity before the current illness or injury 88 Not attempted due to Medical conditions or safety concerns Scootin Sit to/from Stand: 5 Sit to Stand (QC): 5 Weight Bearing Weight Bearing Restriction: Full Weight Bearing Location Restriction: LE Bilateral Gait Training Does the Patient Walk?: Yes Distance (FIM): 3=150 ft Distance: 175' Walk 10 feet (QC): 5 Walk 50 ft with 2 Turns(QC): 5 Walk 150 ft (QC): 5 Gait Level of Assist: 5 Gait Persons Needed: 1 Gait Assistive Device: Cane Small Base Quad Pt walks with slow danny but steady gait, no LOB. Wheelchair Training Does the Pt Use a Wheelchair?: No Stair Training Stair Training: Handrails/: 1 handrail #of Steps: 8 1 Step (curb) (QC): 5 4 Steps (QC): 5 12 Steps (QC): 88 Stairs: Pattern: Step to Level of Assist: 5 Exercises Seated Therapy Exercises: Ankle pumps, Sit to stand, Long arc quads, Hip flexion, Kicking activity Seated Reps: 15 Treatments Pt transfers from sitting in recliner to standing using FWW at close SBA. Pt ambulates using FWW at SBA. Pt completes 2 sets of stairs before resting then completing Seated Ex. Pt completes Standing Ex in //bars. Pt returns to room to rest in recliner at end of tx with all needs met. Assessment Current Status: Good Progress Pt tolerates tx well and is improving with strength, activity tolerance and balance. Pt still fatigues and needs rest breaks though. PT Short Term Goals Short Term Goals Time Frame: Nov 16, 2016 Transfers (B,C,W/C) (FIM): 45 Gait (FIM): 4 Gait Distance Comment: 150' Gait Level of Assist: 4 Gait Assistive Device: Cane Large Base Quad Wheelchair Distance: 50' PT Boiler Fitter Goals Snf Goals PT Boiler Fitter Goals Time Frame: Nov 30, 2016 Transfers (B,C,W/C) (FIM): 5 Sit to Lying (QC): 4 (met) Lying-Sitting on Side/Bed(QC): 4 (met) Sit to Stand (QC): 4 (met) Rollin (et) Roll Left to Right (QC): 4 (met) Chair/Luo-xu-Wyjca Xfer(QC): 4 Car Transfer (QC): 4 Gait (FIM): 5 Distance: 200' Walk 10 feet (QC): 4 Walk 10ft-Uneven Surface(QC): 4 Walk 50ft with 2 Turns (QC): 4 Walk 150 ft (QC): 4 Gait Level of Assist: 5 Gait Assistive Device: Cane Large Base Quad Stairs (FIM): 4 (met) # of Steps: 12 (met) 1 Step (curb) (QC): 4 (met) 4 Steps (QC): 4 (mt) 12 Steps (QC): 4 (met) Stairs Level Of Assist: 4 (met) Picking up an Object (QC): 88 PT Plan Problem List Problem List: Activity Tolerance, Functional Strength, Safety, Balance, Gait Treatment/Plan Treatment Plan: Continue Plan of Care Treatment Plan: Bed Mobility, Education, Functional Activity Nash, Functional Strength, Group Therapy, Gait, Safety, Therapeutic Exercise, Transfers Treatment Duration: Nov 30, 2016 Visits Per Week: 10-11 Minutes/Day (M-F): 60-90 Minutes/Day (Sat/Lake): 15-30 Safety Risks/Education Patient Education: Gait Training, Transfer Techniques, Correct Positioning, Safety Issues Teaching Recipient: Patient Teaching Methods: Discussion Response to Teaching: Verbalize Understanding Time/GCodes Time In: 845 Time Out: 930 Total Billed Treatment Time: 45 Total Billed Treatment visit, GT (15m), Ex (15m) & FA (15m) RUDI TILLMAN USED CAR MAKE READY WORKER Nov 29, 2016 14:59
--- NOTE | 2016-11-29 15:07 | Therapy Group Daily Note ---
Therapy Daily Group Note Patient Education Topic Home Safety Exercises LE Seated Exercise, UE Exercise Other/Notes Pt ambulated to OT/PT group with CGA using FWW. OT/PT group consisted of introductions (name, place living, first $ earned), socialization, UE/LE seated exercises, home safety, adaptive equipment, and problem solving photos of unsafe situations around the home. Pt was able to introduce self appropriately. Pt contributed to each discussion and verbalized understanding of home safety and the use of adaptive equipment. Pt was able to participate fulling in UE/LE seated exercises. Pt demonstrated how to use simulated step and the sequence of LE's. Pt LOB during task, went slow and controlled to ground with the assistance of SUPERVISOR OFFSET PLATE PREPARATION. Pt was able to stand with assist x2 from floor then ambulated back to chair with CGA. Pt did c/o pain on L buttocks that had sat on the edge of the step. Nrsg notified. Pt ambulated with FWW back to room. After group, pt lying in bed with call light/phone in reach. All needs met in room. Start Time: 13:00 Stop Time: 14:15 Total Billed Treatment Time: 75 Total Billed Treatment 1-GRP RITIKA RENDON Nov 29, 2016 15:07
[2016-11-29 17:35] VITALS: BP 113/67
[2016-11-29 17:42] VITALS: BP 108/69
[2016-11-29] MEDS: ATORVASTATIN 20 MG (LIPITOR) TABLET PO SCH (20:25)
[2016-11-30 06:00] VITALS: BP 124/77
--- NOTE | 2016-11-30 07:56 | PM & R (SOAP) Progress Note ---
Subjective Time Seen by Provider: 07:49 Subjective/Events-last exam Patient was seen in her room this AM Progressing well with therapies.Patient SBA for transfers and gait with SBQC and sling rt arm.Current meds reviewed Review of Systems Neurological: Weakness Objective Exam Last Set of Vital Signs Vital Signs Date Time Temp Pulse Resp B/P (MAP) Pulse Ox O2 Delivery O2 Flow Rate FiO2 11/30/16 06:00 98.4 64 18 124/77 96 Room Air Capillary Refill : I&O Intake and Output 11/30/16 00:00 Intake Total 780 ml Balance 780 ml Intake Oral 780 ml # Voids 5 General: Alert, Oriented X3, Cooperative, No Acute Distress HEENT: Atraumatic, PERRLA, EOMI, Mucous Memb Moist/[place] Neck: Supple, No JVD Lungs: Clear to Auscultation Heart: Regular Rate Abdomen: Normal Bowel Sounds, Soft, No Tenderness Extremities: No Edema Neuro: Other (rt HP) Assessment/Plan Assessment 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 Last Team Conference held 11/24/16 See report for full functional update and POC and ALFREDOOS Discussed case with Jarrett last week re Medical insurance activation Will become active in December 2016 Discharge remains set for tomorrow 12/01/16 Will confirm with JARRETT Current meds reviewed Patient will be going home to [facility] with her sister Patient will have f/u with PCP TEJAS Pitts MD Nov 30, 2016 07:56
--- NOTE | 2016-11-30 08:19 | Progress Note (SOAP) ---
Subjective Time Seen by Provider: 08:15 Subjective/Events-last exam CVA on right. Noncompliance with medication. Hypertension. Patient moving right side upper and lower extremity better Objective Exam Vital Signs Date Time Temp Pulse Resp B/P (MAP) Pulse Ox O2 Delivery O2 Flow Rate FiO2 11/30/16 06:00 98.4 64 18 124/77 96 Room Air 11/29/16 21:00 Room Air 11/29/16 17:42 97.3 74 18 108/69 94 Room Air 11/29/16 13:30 96.8 70 18 116/70 98 Room Air 11/29/16 09:00 Room Air I & O 11/30/16 07:00 Intake Total 880 ml Balance 880 ml Capillary Refill : General Appearance: No Apparent Distress, WD/WN HEENT: Normal ENT Inspection Neck: Full Range of Motion, Normal Inspection Respiratory: No Accessory Muscle Use, No Respiratory Distress Assessment/Plan Assessment/Plan Assess & Plan/Chief Complaint cerebrovascular accident. Noncompliance with medicine. Hypertension. . 11/11/16. CVA. Noncompliance with medicine.. Hypertension. Patient able to move the right foot Patient unable to move the right Hand. . 11/12/16. CVA. Noncompliance with medicine. Hypertension. Patient moving right leg better. Patient states right arm is . . 11/15/16. CVA. Noncompliance with medicine. Hypertension. Right leg doing better. Problems with right hand. . . CVA. Hypertension. Noncompliance. Patient was seen yesterday. Patient voices no complaints. Patient not moving right hand and arm. . 11/18/16. CVA. Noncompliance history. Hypertension. Patient feel she is improving. Patient needs work with the right upper extremity. Right leg doing better. . 11/19/16. CVA. Noncompliance with Medicine.. Hypertension Right arm flaccid. Right leg doing much better. . 11/22/16. CVA. Hypertension. Noncompliance with medicine. . Right arm did move today. . 11/23/16. CVA. Hypertension. Noncompliance with medicine. Patient to go home tomorrow . 11/24/16. CVA. Hypertension. Noncompliance with medicine. Patient able to move right arm today improving. . 11/25/16. CVA. Hypertension. Noncompliance with medicine.. Patient moving right hand today. . 11/26/16. CVA. Noncompliance with medications. Hypertension. Patient doing better. Patient moving right arm some. . 11/29/16. CVA. Patient improving. Patient able to move her right banks and right arm today.. . 11/30/16. CVA. Hypertension better. Noncompliance with medication. Patient improving. Blood pressure on the good control Clinical Quality Measures DVT/VTE Risk/Contraindication: Risk Factor Score Per Nursin RFS Level Per Nursing on Admit: 4+=Very High MOSHE KRISHNAMURTHY DO Nov 30, 2016 08:19
[2016-11-30] MEDS: amLODIPine 5 MG (NORVASC) TAB PO SCH (08:27)
[2016-11-30] MEDS: ENOXAPARIN 40 MG/0.4 ML (LOVENOX) SYR SC SCH (08:27)
[2016-11-30] MEDS: CLOPIDOGREL 75 MG (PLAVIX) TABLET PO SCH (08:27)
[2016-11-30] MEDS: ASPIRIN 81 MG CHEW (CHILDREN'S ASA) PO SCH (08:27)
[2016-11-30] MEDS: lisINopril 10 MG (PRINIVIL) TAB PO SCH (08:27)
--- NOTE | 2016-11-30 11:35 | Speech Therapy Daily Note ---
Speech Daily Progress Note Subjective Date Seen by Provider: Nov 30, 2016 Time Seen by Provider: 09:00 The patient was seated upright in recliner upon entrance. The patient greeted the clinician appropriately and was agreeable to participation in the cognitive treatment session on this date. Objective Functional Sequencing: The patient was asked to sequence common tasks throughout her day to reinforce the work Occupational Therapy recently completed with the patient, as well as, improve the patient's preparation for discharge. With moderate, consistent verbal cueing by the clinician, the patient was able to sequence morning routines (showering, dressing, teeth brushing) and AFO placement. The patient required prompting to include teeth brushing and accurate placement of AFO. Functional Memory: The patient was read short paragraphs and asked to recall specific information. The patient demonstrated 63% accuracy with moderate clinician verbal prompting. Assessment Assessment Current Status: Fair Progress Treatment Plan Discontinue ST (Patient to discharge on 12/01/16) Communication Comprehension: 3 Expression: 4 Social Cognition Social Interaction: 4 Problem Solvin Memory: 3 Speech Short Term Goals Short Term Goals Short Term Goals 1. The patient will recall and demonstrate two functional memory strategies for use at home. MET 2. The patient will demonstrated 80% accuracy with structured word-finding task to improve expressive communication. 3. The patient will follow multi-step instructions with 80% accuracy and mild clinician verbal prompting. 4. The patient will display 90% accuracy with functional safety problem solving , independently. MET Time Frame-STG: Two Weeks Speech Granular Operator Goals Granular Operator Goals 1. The patient will demonstrate improved cognitive linguistic skills for increased function and safety with ADL's in the least restrictive setting. Time Frame: Three Weeks Comprehension: 4 (NOT MET) Expression: 4 (MET) Social Interaction: 5 (NOT MET) Problem Solvin (NOT MET) Memory: 4 (NOT MET) Speech-Plan Treatment Plan Speech Therapy Treatment Plan: Discontinue ST Patient to discharge on 12/01/16 Treatment Duration: Nov 30, 2016 # of days/week Four to five. Visits Per Week: Four to five. Minutes/Day (M-F): 30 Rehab Potential: Fair Safety Risks/Education Teaching Recipient: Patient Teaching Methods: Discussion Response to Teaching: Reinforcement Needed Education Topics Provided: Sequencing Strategies Time Speech Therapy Time In: 09:00 Speech Therapy Time Out: 09:30 Total Billed Time: 30 Billed Treatment Time ASHLEY Franz [facility]IZAB[facility] ST Nov 30, 2016 11:34
--- NOTE | 2016-11-30 11:38 | Therapy Team Discharge Summary ---
Therapy Discharge Summary Discharge Recommendations Date of Discharge Therapy D/C Recommendations: Home w/ Family Support, Occupational Therapy Home Care Speech-Language Pathology The patient was recently admitted to [facility] with a diagnosis of CVA. Upon admission, the patient demonstrated moderate cognitive impairments in the areas of sequencing, problem solving, memory, and attention. Skilled speech pathology focused on functional sequencing tasks, functional external and internal memory strategies, and safety problem solving. The patient did not demonstrate large cognitive gains throughout her stay and did not meet goals placed by the clinician. At this time, the patient will discharge home with family. PT Sales Enablement Lead Goals Shelter Goals PT Shelter Goals Time Frame: Nov 30, 2016 Transfers (B,C,W/C) (FIM): 5 Roll Left to Right (QC): 4 (met) Sit to Lying (QC): 4 (met) Lying-Sitting on Side/Bed(QC): 4 (met) Sit to Stand (QC): 4 (met) Chair/Uvz-dd-Opgxb Xfer(QC): 4 Car Transfer (QC): 4 Gait (FIM): 5 Distance: 200' Walk 10 feet (QC): 4 Walk 10ft-Uneven Surface(QC): 4 Walk 50ft with 2 Turns (QC): 4 Walk 150 ft (QC): 4 Gait Level of Assist: 5 Gait Assistive Device: Cane Large Base Quad Stairs (FIM): 4 (met) # of Steps: 12 (met) 1 Step (curb) (QC): 4 (met) 4 Steps (QC): 4 (mt) 12 Steps (QC): 4 (met) Stairs Level Of Assist: 4 (met) Picking up an Object (QC): 88 OT Shelter Goals Shelter Goals Time Frame: Nov 30, 2016 Eating (FIM): 6 Eating (QC): 6 Oral Hygiene (QC): 6 Grooming(FIM): 6 Bathing(FIM): 5 Shower/Bathe Self (QC): 5 Upper Body Dressing(FIM): 6 Upper Body Dressing (QC): 6 Lower Body Dressing(FIM): 6 Lower Body Dressing (QC): 6 On/Off Footwear (QC): 6 Toileting(FIM): 6 Toileting Hygiene (QC): 6 Transfers (B,C,W/C) (FIM): 6 Toilet/Commode Transfer(FIM): 6 Toilet/Commode Transfer (QC): 6 Shower Transfer(FIM): 5 Comprehension(FIM): 4 (NOT MET) Expression (FIM): 4 (MET) Social Interaction(FIM): 5 (NOT MET) Problem Solving(FIM): 4 (NOT MET) Memory(FIM): 4 (NOT MET) Additional Goals: 1-Demonstrate ADL Tasks, 2-Verbalize Understanding, 3- ImproveStrength/Nash 1=Demonstrate adherence to instructed precautions during ADL tasks. 2=Patient will verbalize/demonstrate understanding of assistive devices/ modifications for ADL. 3=Patient will improve strength/tolerance for activity to enable patient to perform ADL's. Speech Shelter Goals Sales Enablement Lead Goals 1. The patient will demonstrate improved cognitive linguistic skills for increased function and safety with ADL's in the least restrictive setting. Time Frame: Three Weeks Comprehension: 4 (NOT MET) Expression: 4 (MET) Social Interaction: 5 (NOT MET) Problem Solvin (NOT MET) Memory: 4 (NOT MET) ISAAC MAY Nov 30, 2016 11:38
--- NOTE | 2016-11-30 12:21 | Physical Therapy Daily Note ---
PT Daily Note-Current Subjective Pt had just returned from [facility] and was resting in recliner upon arrival. Pt agreed to PT. PT due to discharge tomorrow. Pain Location: No Pain Reported Mental Status Patient Orientation: Person, Place, Time, Situation Attachments: Other-See Comments (Arm sling during ambulation) Transfers Functional [place] Measure 0=Not Assessed/NA 4=Minimal Assistance 1=Total Assistance 5=Supervision or Setup 2=Maximal Assistance 6=Modified [place] 3=Moderate Assistance 7=Complete IndependenceIRFPAI Quality Coding Scale 6 Independent with activity with or without an assistive device 5 Patient requires set up or clean up by helper. Patient completes activity by themselves 4 Supervision or touching assist (CGA). [place] provide cues , steadying assist 3 The helper provides less than half the effort to complete the activity 2 The helper provides more than half the effort to complete the activity 1 Dependent. The helper does all the effort to complete an activity 7 Patient refused to complete or attempt activity 9 The patient did not perform the activity before the current illness or injury 88 Not attempted due to Medical conditions or safety concerns Scootin Rollin Roll Left to Right (QC): 5 Supine to/from Sit: 5 Sit to/from Stand: 5 Sit to Lying (QC): 5 Sit to Stand (QC): 5 Weight Bearing Weight Bearing Restriction: Full Weight Bearing Location Restriction: LE Bilateral Gait Training Does the Patient Walk?: Yes Gait (FIM): 5 Distance (FIM): 3=150 ft Distance: 250' Walk 10 feet (QC): 5 Walk 50 ft with 2 Turns(QC): 5 Walk 150 ft (QC): 5 Walking 10ft/uneven surface-QC: 5 Gait Level of Assist: 5 Gait Persons Needed: 1 Gait Assistive Device: Cane Small Base Quad Pt walks with more normalized gait although still has occasional stumble but able to self-correct. Wheelchair Training Does the Pt Use a Wheelchair?: No Stair Training Stair Training: Handrails/: 1 handrail, uses cane Stairs (FIM): 4 #of Steps: 12 1 Step (curb) (QC): 5 4 Steps (QC): 4 12 Steps (QC): 4 Stairs: Pattern: Step to Level of Assist: 4 Pt was able to ambulate with Cane only ascending although coming down the stairs needed 1 hand rail for support. Balance Picking up an Object (QC): 88 Special Test Comments Due to pt's balance especially when bending over, pt didn't attempt for safety. Treatments Pt transferred from sit to stand from recliner using Cane at SBA. Pt ambulated in hallway using Cane at close SBA. Pt completed 3 sets of 4 stairs with both hand rail and cane as needed. Pt challenged balance by walking over varying surface for at least 10'. Pt also completed bed mobility on mat at SBA. Pt returned to room to rest in recliner at end of tx with all needs met. Assessment Current Status: Good Progress Pt has improved with strength, activity tolerance and balance especially with upright activities. Pt still fatigues easy and needs rest as well as will occasionally have LOB. PT Short Term Goals Short Term Goals Time Frame: Nov 16, 2016 Transfers (B,C,W/C) (FIM): 45 Gait (FIM): 4 Gait Distance Comment: 150' Gait Level of Assist: 4 Gait Assistive Device: Cane Large Base Quad Wheelchair Distance: 50' PT Ton Cylinder Inspector Goals Ton Cylinder Inspector Goals PT Nursing Home Goals Time Frame: Nov 30, 2016 Transfers (B,C,W/C) (FIM): 5 Sit to Lying (QC): 4 (met) Lying-Sitting on Side/Bed(QC): 4 (met) Sit to Stand (QC): 4 (met) Rollin (et) Roll Left to Right (QC): 4 (met) Chair/Aex-cv-Cqfhi Xfer(QC): 4 Car Transfer (QC): 4 Gait (FIM): 5 Distance: 200' Walk 10 feet (QC): 4 Walk 10ft-Uneven Surface(QC): 4 Walk 50ft with 2 Turns (QC): 4 Walk 150 ft (QC): 4 Gait Level of Assist: 5 Gait Assistive Device: Cane Large Base Quad Stairs (FIM): 4 (met) # of Steps: 12 (met) 1 Step (curb) (QC): 4 (met) 4 Steps (QC): 4 (mt) 12 Steps (QC): 4 (met) Stairs Level Of Assist: 4 (met) Picking up an Object (QC): 88 PT Plan Problem List Problem List: Activity Tolerance, Functional Strength, Safety, Balance, Gait Treatment/Plan Treatment Plan: Continue Plan of Care Treatment Plan: Bed Mobility, Education, Functional Activity Nash, Functional Strength, Group Therapy, Gait, Safety, Therapeutic Exercise, Transfers Treatment Duration: Nov 30, 2016 Visits Per Week: 10-11 Minutes/Day (M-F): 60-90 Minutes/Day (Sat/Lake): 15-30 Safety Risks/Education Patient Education: Gait Training, Transfer Techniques, Steps, Correct Positioning, Safety Issues Teaching Recipient: Patient Teaching Methods: Discussion Response to Teaching: Verbalize Understanding Time/GCodes Time In: 1100 Time Out: 1145 Total Billed Treatment Time: 45 Total Billed Treatment visit, GT (15m) & FA x2 (30m) RUDI TILLMAN CIVIL DEFENSE DIRECTOR Nov 30, 2016 12:20
--- NOTE | 2016-11-30 15:01 | Occupational Ther Daily Note ---
OT Current Status-Daily Note Subjective Pt. states, "I'm so excited to go home." Appearance Pt. agrees to shower today. Mental Status/Objective Patient Orientation: Person Functional [place] Measure 0=Not Assessed/NA 4=Minimal Assistance 1=Total Assistance 5=Supervision or Setup 2=Maximal Assistance 6=Modified [place] 3=Moderate Assistance 7=Complete [place] ADL-Treatment Functional [place] Measure 0=Not Assessed/NA 4=Minimal Assistance 1=Total Assistance 5=Supervision or Setup 2=Maximal Assistance 6=Modified [place] 3=Moderate Assistance 7=Complete IndependenceIRFPAI Quality Coding Scale 6 Independent with activity with or without an assistive device 5 Patient requires set up or clean up by helper. Patient completes activity by themselves 4 Supervision or touching assist (CGA). [place] provide cues , steadying assist 3 The helper provides less than half the effort to complete the activity 2 The helper provides more than half the effort to complete the activity 1 Dependent. The helper does all the effort to complete an activity 7 Patient refused to complete or attempt activity 9 The patient did not perform the activity before the current illness or injury 88 Not attempted due to Medical conditions or safety concerns Grooming (FIM): 5 (Set up at wheelchair level to brush hair and teeth.) Oral Hygiene (QC): 5 Bathing (FIM): 5 (Pt. requires SBA while in shower. Requires cues to wash thoroughly. Pt. often washes only one side of body, and states, "I'm done." Does not wash [place] area without cues to do so.) Shower/Bathe Self (QC): 4 Upper Body (FIM): 4 (Pt. required min assist today to don arm sling. Able to don shirt with set up.) Upper Body Dressing (QC): 4 Lower Body Dressing (FIM): 5 (Pt. is able to don pants over feet with increased time and cues to do correctly, and increased time to don over hips. Required increased time and constant cues to don AFO and shoe over foot.) Lower Body Dressing (QC): 4 On/Off Footwear (QC): 5 Transfers (B, C, W/C) (FIM): 5 (Close SBA when ambulating with quad cane.) Shower Transfer(FIM): 4 Other Treatment Pt. required constant cues this date to sequence steps, and to do tasks correctly. Pt. attempted multiple times to don AFO before putting it into shoe. She does not normally don it this way, and it did not work. Pt. did not seem to remember this. Pt. also had difficulty completing steps in safe manner during dressing. It was explained to pt. that OT was letting pt. do as much for herself, as to determine what kind of assist she will need for home. Pt. adamant that she will not need assist at home. Poor problem-solving skills noted. Worked on AAROM in right UE after shower. Pt. demonstrates emerging movement in right UE in all planes. Requires cues to initiate it however. Education OT Patient Education: Modified ADL techniques, Progress toward Goal/Update tx plan, Purpose of tx/functional activities, Reviewed precautions, Rehab process, Transfer techniques Teaching Recipient: Patient Teaching Methods: Demonstration, Discussion Response to Teaching: Verbalize Understanding, Return Demonstration OT Short Term Goals Short Term Goals Time Frame: Nov 16, 2016 Eating(FIM): 6 Grooming(FIM): 5 Bathing(FIM): 5 Upper Body Dressing(FIM): 4 Lower Body Dressing(FIM): 4 Toileting(FIM): 4 Transfers (B,C,W/C) (FIM): 45 Toilet/Commode Transfer(FIM): 5 Shower Transfer(FIM): 5 Additional Short Term Goals: 1-Demonstrate ADL Tasks, 2-Verbalize Understanding , 3-ImproveStrength/Nash 1=Demonstrate adherence to instructed precautions during ADL tasks. 2=Patient will verbalize/demonstrate understanding of assistive devices/ modifications for ADL. 3=Patient will improve strength/tolerance for activity to enable patient to perform ADL's. OT Winch Truck Operator Goals Winch Truck Operator Goals Time Frame: Nov 30, 2016 Eating (FIM): 6 Eating (QC): 6 Groomin Oral Hygiene (QC): 6 Bathing(FIM): 5 Shower/Bathe Self (QC): 5 Upper Body Dressing(FIM): 6 Upper Body Dressing (QC): 6 Lower Body Dressing(FIM): 6 Lower Body Dressing (QC): 6 On/Off Footwear (QC): 6 Toileting(FIM): 6 Toileting Hygiene (QC): 6 Transfers (B,C,W/C) (FIM): 6 Toilet/Commode Transfer(FIM): 6 Toilet/Commode Transfer (QC): 6 Shower Transfer(FIM): 5 Comprehension(FIM): 4 (NOT MET) Expression (FIM): 4 (MET) Social Interaction(FIM): 5 (NOT MET) Problem Solving(FIM): 4 (NOT MET) Memory(FIM): 4 (NOT MET) Additional Goals: 1-Demonstrate ADL Tasks, 2-Verbalize Understanding, 3- ImproveStrength/Nash 1=Demonstrate adherence to instructed precautions during ADL tasks. 2=Patient will verbalize/demonstrate understanding of assistive devices/ modifications for ADL. 3=Patient will improve strength/tolerance for activity to enable patient to perform ADL's. OT Education/Plan Problem List/Assessment Assessment: Decreased UE Strength, Impaired Cognition, Impaired I ADL's, Impaired Self-Care Skills, Restricted Funct UE ROM Discharge Recommendations Plan/Recommendations: Continue POC Therapy D/C Recommendations: Bath Aide, Home w/ Family Support, Occupational Therapy Home Care Target Placement Home with sister and brother in law. Treatment Plan/Plan of Care Treatment,Training & Education: Yes Patient would benefit from OT for education, treatment and training to promote independence in ADL's, mobility, safety and/or upper extremity function for ADL' s. Plan of Care: ADL Retraining, Caregiver Training, Cognitive Retraining, Functional Mobility, Group Exercise/Act as Ind, UE Funct Exercise/Act, UE Neuromus Re-Ed/Coord Treatment Duration: Nov 30, 2016 Visits Per Week: 5-6 Minutes/Day (M-F): 60-90 Minutes/Day (Sat/Lake): 15-30 Agreement: Yes Rehab Potential: Fair Time/GCodes Start Time: 08:10 Stop Time: 08:55 Total Time Billed (hr/min): 45 Billed Treatment Time 1, ADL x 30minutes, NM x 15minutes JOEL MCDOWELL OT Nov 30, 2016 15:00
--- NOTE | 2016-11-30 15:13 | Occupational Ther Daily Note ---
OT Current Status-Daily Note Subjective Pt. states that she already ate lunch. Appearance Pt. up in chair. Agrees to ambulate to therapy gym with OT. Mental Status/Objective Patient Orientation: Person, Place Functional [place] Measure 0=Not Assessed/NA 4=Minimal Assistance 1=Total Assistance 5=Supervision or Setup 2=Maximal Assistance 6=Modified [place] 3=Moderate Assistance 7=Complete [place] ADL-Treatment Functional [place] Measure 0=Not Assessed/NA 4=Minimal Assistance 1=Total Assistance 5=Supervision or Setup 2=Maximal Assistance 6=Modified [place] 3=Moderate Assistance 7=Complete IndependenceIRFPAI Quality Coding Scale 6 Independent with activity with or without an assistive device 5 Patient requires set up or clean up by helper. Patient completes activity by themselves 4 Supervision or touching assist (CGA). [place] provide cues , steadying assist 3 The helper provides less than half the effort to complete the activity 2 The helper provides more than half the effort to complete the activity 1 Dependent. The helper does all the effort to complete an activity 7 Patient refused to complete or attempt activity 9 The patient did not perform the activity before the current illness or injury 88 Not attempted due to Medical conditions or safety concerns Transfers (B, C, W/C) (FIM): 5 (Pt. is able to stand and ambulate with close SBA using quad cane to therapy gym. Has AFO on Right LE, and sling on right UE for mobility.) Once in therapy gym, pt. is able to tolerate electrical stimulation to right UE. Tolerated 8 rosa m-amps to right UE in wrist extension, x 10minutes, and then 6 rosa m-amps to finger flexion x 10minutes. Tolerated well and pt. able to move fingers into flexion/wrist into slight extension. Ambulated back to room with close SBA. Pt. educated to do this on her own. All needs met. Continue POC. Education OT Patient Education: Exercise program, Progress toward Goal/Update tx plan, Purpose of tx/functional activities, Reviewed precautions, Rehab process, Transfer techniques Teaching Recipient: Patient Teaching Methods: Demonstration, Discussion Response to Teaching: Verbalize Understanding, Return Demonstration OT Short Term Goals Short Term Goals Time Frame: Nov 16, 2016 Eating(FIM): 6 Grooming(FIM): 5 Bathing(FIM): 5 Upper Body Dressing(FIM): 4 Lower Body Dressing(FIM): 4 Toileting(FIM): 4 Transfers (B,C,W/C) (FIM): 45 Toilet/Commode Transfer(FIM): 5 Shower Transfer(FIM): 5 Additional Short Term Goals: 1-Demonstrate ADL Tasks, 2-Verbalize Understanding , 3-ImproveStrength/Nash 1=Demonstrate adherence to instructed precautions during ADL tasks. 2=Patient will verbalize/demonstrate understanding of assistive devices/ modifications for ADL. 3=Patient will improve strength/tolerance for activity to enable patient to perform ADL's. OT Residential Goals Stable Manager Goals Time Frame: Nov 30, 2016 Eating (FIM): 6 Eating (QC): 6 Groomin Oral Hygiene (QC): 6 Bathing(FIM): 5 Shower/Bathe Self (QC): 5 Upper Body Dressing(FIM): 6 Upper Body Dressing (QC): 6 Lower Body Dressing(FIM): 6 Lower Body Dressing (QC): 6 On/Off Footwear (QC): 6 Toileting(FIM): 6 Toileting Hygiene (QC): 6 Transfers (B,C,W/C) (FIM): 6 Toilet/Commode Transfer(FIM): 6 Toilet/Commode Transfer (QC): 6 Shower Transfer(FIM): 5 Comprehension(FIM): 4 (NOT MET) Expression (FIM): 4 (MET) Social Interaction(FIM): 5 (NOT MET) Problem Solving(FIM): 4 (NOT MET) Memory(FIM): 4 (NOT MET) Additional Goals: 1-Demonstrate ADL Tasks, 2-Verbalize Understanding, 3- ImproveStrength/Nash 1=Demonstrate adherence to instructed precautions during ADL tasks. 2=Patient will verbalize/demonstrate understanding of assistive devices/ modifications for ADL. 3=Patient will improve strength/tolerance for activity to enable patient to perform ADL's. OT Education/Plan Problem List/Assessment Assessment: Decreased Activ Tolerance, Decreased UE Strength, Impaired Coordination, Impaired I ADL's, Impaired Self-Care Skills, Restricted Funct UE ROM Discharge Recommendations Plan/Recommendations: Continue POC Therapy D/C Recommendations: Home w/ Family Support, Occupational Therapy Home Care Treatment Plan/Plan of Care Treatment,Training & Education: Yes Patient would benefit from OT for education, treatment and training to promote independence in ADL's, mobility, safety and/or upper extremity function for ADL' s. Plan of Care: ADL Retraining, Caregiver Training, Cognitive Retraining, Functional Mobility, Group Exercise/Act as Ind, UE Funct Exercise/Act, UE Neuromus Re-Ed/Coord Treatment Duration: Nov 30, 2016 Visits Per Week: 5-6 Minutes/Day (M-F): 60-90 Minutes/Day (Sat/Lake): 15-30 Agreement: Yes Rehab Potential: Fair Time/GCodes Start Time: 12:35 Stop Time: 13:05 Total Time Billed (hr/min): 30 Billed Treatment Time 1, NM x 30minutes JOEL MCDOWELL OT Nov 30, 2016 15:13
--- NOTE | 2016-11-30 16:30 | Physical Therapy Daily Note ---
PT Daily Note-Current Subjective Pt sitting in recliner upon arrival. Pt agrees to PT. Mental Status Patient Orientation: Person, Place, Time, Situation Attachments: Other-See Comments (Arm Sling for RUE during ambulation) Transfers Functional [place] Measure 0=Not Assessed/NA 4=Minimal Assistance 1=Total Assistance 5=Supervision or Setup 2=Maximal Assistance 6=Modified [place] 3=Moderate Assistance 7=Complete IndependenceIRFPAI Quality Coding Scale 6 Independent with activity with or without an assistive device 5 Patient requires set up or clean up by helper. Patient completes activity by themselves 4 Supervision or touching assist (CGA). Colony provide cues , steadying assist 3 The helper provides less than half the effort to complete the activity 2 The helper provides more than half the effort to complete the activity 1 Dependent. The helper does all the effort to complete an activity 7 Patient refused to complete or attempt activity 9 The patient did not perform the activity before the current illness or injury 88 Not attempted due to Medical conditions or safety concerns Scootin Sit to/from Stand: 5 Sit to Stand (QC): 5 Weight Bearing Weight Bearing Restriction: Full Weight Bearing Location Restriction: LE Bilateral Gait Training Does the Patient Walk?: Yes Distance (FIM): 3=150 ft Distance: 150' Walk 10 feet (QC): 5 Walk 50 ft with 2 Turns(QC): 5 Walk 150 ft (QC): 5 Gait Level of Assist: 5 Gait Persons Needed: 1 Gait Assistive Device: Cane Small Base Quad Wheelchair Training Does the Pt Use a Wheelchair?: No Exercises NuStep Minutes: 10 NuStep Workload: 5 Treatments Pt transfers from recliner to standing using Cane at SBA. Pt requires a couple of rocking motions before getting up but can at SBA. Pt ambulates using Cane at SBA in hallway. Pt uses NuStep for 10m at Workload for strengthening and activity tolerance. Pt ambulates back to room to rest at end of tx with all needs met. Assessment Current Status: Good Progress Pt has improved with independence of mobility and transfers since starting tx on ARU. Pt is stronger, has more endurance and better balance than before coming to ARU. PT Short Term Goals Short Term Goals Time Frame: Nov 16, 2016 Transfers (B,C,W/C) (FIM): 45 Gait (FIM): 4 Gait Distance Comment: 150' Gait Level of Assist: 4 Gait Assistive Device: Cane Large Base Quad Wheelchair Distance: 50' PT Capsule Filler Goals Residential Goals PT Residential Goals Time Frame: Nov 30, 2016 Transfers (B,C,W/C) (FIM): 5 Sit to Lying (QC): 4 (met) Lying-Sitting on Side/Bed(QC): 4 (met) Sit to Stand (QC): 4 (met) Rollin Roll Left to Right (QC): 4 (met) Chair/Qml-fz-Btwzj Xfer(QC): 4 Car Transfer (QC): 4 Gait (FIM): 5 Distance: 200' Walk 10 feet (QC): 4 Walk 10ft-Uneven Surface(QC): 4 Walk 50ft with 2 Turns (QC): 4 Walk 150 ft (QC): 4 Gait Level of Assist: 5 Gait Assistive Device: Cane Large Base Quad Stairs (FIM): 4 (met) # of Steps: 12 (met) 1 Step (curb) (QC): 4 (met) 4 Steps (QC): 4 (mt) 12 Steps (QC): 4 (met) Stairs Level Of Assist: 4 (met) Picking up an Object (QC): 88 PT Plan Problem List Problem List: Activity Tolerance, Safety, Balance, Gait Treatment/Plan Treatment Plan: Continue Plan of Care Treatment Plan: Bed Mobility, Education, Functional Activity Nash, Functional Strength, Group Therapy, Gait, Safety, Therapeutic Exercise, Transfers Treatment Duration: Nov 30, 2016 Visits Per Week: 10-11 Minutes/Day (M-F): 60-90 Minutes/Day (Sat/Lake): 15-30 Safety Risks/Education Patient Education: Gait Training, Transfer Techniques, Correct Positioning, Safety Issues Teaching Recipient: Patient Teaching Methods: Discussion Response to Teaching: Verbalize Understanding Time/GCodes Time In: 1500 Time Out: 1530 Total Billed Treatment Time: 30 Total Billed Treatment visit, EX (15m) & GT (15m) RUDI TILLMAN PTA Nov 30, 2016 16:30
[2016-11-30 18:55] VITALS: BP 113/78
[2016-11-30] MEDS: ATORVASTATIN 20 MG (LIPITOR) TABLET PO SCH (19:58)
[2016-12-01 05:26] VITALS: BP 124/72
--- NOTE | 2016-12-01 07:53 | PM & R (SOAP) Progress Note ---
Subjective Time Seen by Provider: 07:30 Subjective/Events-last exam Patient was seen in her room this AM.All set for discharge today.Current meds and therapy notes reviewed Review of Systems Neurological: Weakness Objective Exam Last Set of Vital Signs Vital Signs Date Time Temp Pulse Resp B/P (MAP) Pulse Ox O2 Delivery O2 Flow Rate FiO2 12/01/16 05:26 97.6 64 18 124/72 96 Room Air Capillary Refill : I&O Intake and Output 11/30/16 23:59 Intake Total 1090 ml Balance 1090 ml Intake Oral 1090 ml # Voids 4 # Bowel Movements 2 General: Alert, Oriented X3, Cooperative, No Acute Distress HEENT: Atraumatic, PERRLA, EOMI, Mucous Memb Moist/[place] Neck: Supple, No JVD Lungs: Clear to Auscultation Heart: Regular Rate Abdomen: Normal Bowel Sounds, Soft, No Tenderness Extremities: No Edema Neuro: Other (rt HP) Assessment/Plan Assessment 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 TEJAS SHAW MD Dec 01, 2016 07:53
[2016-12-01] MEDS ORDERED: ASPI-999 PO (07:55)
[2016-12-01] MEDS: amLODIPine 5 MG (NORVASC) TAB PO SCH (07:55)
[2016-12-01] MEDS: ENOXAPARIN 40 MG/0.4 ML (LOVENOX) SYR SC SCH (07:55)
[2016-12-01] MEDS: lisINopril 10 MG (PRINIVIL) TAB PO SCH (07:55)
[2016-12-01] MEDS: CLOPIDOGREL 75 MG (PLAVIX) TABLET PO SCH (07:55)
[2016-12-01] MEDS: ASPIRIN 81 MG CHEW (CHILDREN'S ASA) PO SCH (07:55)
--- NOTE | 2016-12-01 08:15 | Progress Note (SOAP) ---
Subjective Time Seen by Provider: 08:10 Subjective/Events-last exam CVA. Noncompliance with medication. hypertension. Patient told again she has to take Her medicine.. Patient be discharged today.. Patient to be seen in the office Patient moving right extremities much better Objective Exam Vital Signs Date Time Temp Pulse Resp B/P (MAP) Pulse Ox O2 Delivery O2 Flow Rate FiO2 12/01/16 05:26 97.6 64 18 124/72 96 Room Air 11/30/16 20:03 Room Air 11/30/16 18:55 97.6 68 16 113/78 97 Room Air 11/30/16 09:00 Room Air I & O 12/01/16 07:00 Intake Total 1280 ml Balance 1280 ml Capillary Refill : General Appearance: No Apparent Distress HEENT: Normal ENT Inspection Neck: Full Range of Motion, Normal Inspection Respiratory: No Accessory Muscle Use, No Respiratory Distress Cardiovascular: Regular Rate, Rhythm, No Murmur Assessment/Plan Assessment/Plan Assess & Plan/Chief Complaint cerebrovascular accident. Noncompliance with medicine. Hypertension. . 11/11/16. CVA. Noncompliance with medicine.. Hypertension. Patient able to move the right foot Patient unable to move the right Hand. . 11/12/16. CVA. Noncompliance with medicine. Hypertension. Patient moving right leg better. Patient states right arm is . . 11/15/16. CVA. Noncompliance with medicine. Hypertension. Right leg doing better. Problems with right hand. . . CVA. Hypertension. Noncompliance. Patient was seen yesterday. Patient voices no complaints. Patient not moving right hand and arm. . 11/18/16. CVA. Noncompliance history. Hypertension. Patient feel she is improving. Patient needs work with the right upper extremity. Right leg doing better. . 11/19/16. CVA. Noncompliance with Medicine.. Hypertension Right arm flaccid. Right leg doing much better. . 11/22/16. CVA. Hypertension. Noncompliance with medicine. . Right arm did move today. . 11/23/16. CVA. Hypertension. Noncompliance with medicine. Patient to go home tomorrow . 11/24/16. CVA. Hypertension. Noncompliance with medicine. Patient able to move right arm today improving. . 11/25/16. CVA. Hypertension. Noncompliance with medicine.. Patient moving right hand today. . 11/26/16. CVA. Noncompliance with medications. Hypertension. Patient doing better. Patient moving right arm some. . 11/29/16. CVA. Patient improving. Patient able to move her right banks and right arm today.. . 11/30/16. CVA. Hypertension better. Noncompliance with medication. Patient improving. Blood pressure on the good control. . 12/01/16. CVA. Hypertension. Noncompliance with medication. Patient be discharged today. Patient happy and smiling Clinical Quality Measures DVT/VTE Risk/Contraindication: Risk Factor Score Per Nursin RFS Level Per Nursing on Admit: 4+=Very High MOSHE KRISHNAMURTHY DO Dec 01, 2016 08:15
--- NOTE | 2016-12-01 08:31 | Therapy Team Discharge Summary ---
Therapy Discharge Summary Discharge Recommendations Date of Discharge 12-01-16 Therapy D/C Recommendations: Home w/ Family Support, Occupational Therapy Home Care Occupational Therapy Pt. has been seen by occupational therapy to increase overall strength and endurance with daily tasks. Pt. has made substantial progress during rehab stay. Pt. has met some goals, but not all. Has met goals of being able to feed self independently. Still requires SBA for transfers, and min assist at times for UE dressing. SBA/set up for LE dressing. Pt. has been educated in adaptive equipment use, which she does not use anymore. Still has difficulty with problem solving and sequencing at times. Pt. plans to discharge home with family support. Recommend home health OT to increase overall strength and endurance, and to ensure safety within the home. PT Carpenter Repair Goals Alf Goals PT Carpenter Repair Goals Time Frame: Nov 30, 2016 Transfers (B,C,W/C) (FIM): 5 Roll Left to Right (QC): 4 (met) Sit to Lying (QC): 4 (met) Lying-Sitting on Side/Bed(QC): 4 (met) Sit to Stand (QC): 4 (met) Chair/Pek-hu-Oxorc Xfer(QC): 4 Car Transfer (QC): 4 Gait (FIM): 5 Distance: 200' Walk 10 feet (QC): 4 Walk 10ft-Uneven Surface(QC): 4 Walk 50ft with 2 Turns (QC): 4 Walk 150 ft (QC): 4 Gait Level of Assist: 5 Gait Assistive Device: Cane Large Base Quad Stairs (FIM): 4 (met) # of Steps: 12 (met) 1 Step (curb) (QC): 4 (met) 4 Steps (QC): 4 (mt) 12 Steps (QC): 4 (met) Stairs Level Of Assist: 4 (met) Picking up an Object (QC): 88 OT Carpenter Repair Goals Carpenter Repair Goals Time Frame: Nov 30, 2016 Eating (FIM): 6 (met) Eating (QC): 6 (met) Oral Hygiene (QC): 6 (met) Grooming(FIM): 6 (not met) Bathing(FIM): 5 (met) Shower/Bathe Self (QC): 5 (met) Upper Body Dressing(FIM): 6 (not met) Upper Body Dressing (QC): 6 (not met) Lower Body Dressing(FIM): 6 (not met) Lower Body Dressing (QC): 6 (not met) On/Off Footwear (QC): 6 (not met) Toileting(FIM): 6 (not met) Toileting Hygiene (QC): 6 (not met) Transfers (B,C,W/C) (FIM): 6 (not met) Toilet/Commode Transfer(FIM): 6 (not met) Toilet/Commode Transfer (QC): 6 (not met) Shower Transfer(FIM): 5 (not met) Comprehension(FIM): 4 (NOT MET) Expression (FIM): 4 (MET) Social Interaction(FIM): 5 (NOT MET) Problem Solving(FIM): 4 (NOT MET) Memory(FIM): 4 (NOT MET) Additional Goals: 1-Demonstrate ADL Tasks, 2-Verbalize Understanding, 3- ImproveStrength/Nash 1=Demonstrate adherence to instructed precautions during ADL tasks. 2=Patient will verbalize/demonstrate understanding of assistive devices/ modifications for ADL. 3=Patient will improve strength/tolerance for activity to enable patient to perform ADL's. Speech Alf Goals Carpenter Repair Goals 1. The patient will demonstrate improved cognitive linguistic skills for increased function and safety with ADL's in the least restrictive setting. Time Frame: Three Weeks Comprehension: 4 (NOT MET) Expression: 4 (MET) Social Interaction: 5 (NOT MET) Problem Solvin (NOT MET) Memory: 4 (NOT MET) JOEL MCDOWELL OT Dec 01, 2016 08:31
--- NOTE | 2016-12-01 15:45 | Therapy Team Discharge Summary ---
Therapy Discharge Summary Discharge Recommendations Date of Discharge Therapy D/C Recommendations: Home w/ Family Support, Occupational Therapy Home Care Physical Therapy This patient was seen for skilled PT post CVA with right sided weakness. She has a history of CVA but was at a mod indep level at home. Upon admit, she required min assist with transfers, ambulated 40 ft with mod assist, wc mob 50 ft with min assit and up/down 1 step with mod assist. Treatment has focused on LE functional strength, functional activity tolerance progress, transfers, gait and functional safety. Upon dc, she is SBA with transfers and gait for 250 ft; she is able to go up/down 12 steps with min assist. She has met most goals but not all. She has made good functional gains and recommend continued PT on an outpt or C basis. DC skilled PT this date. PT Senior Windows Systems Engineer Goals Intermediate Goals PT Intermediate Goals Time Frame: Nov 30, 2016 Transfers (B,C,W/C) (FIM): 5 (met-- scored a 5) Roll Left to Right (QC): 4 (met) Sit to Lying (QC): 4 (met) Lying-Sitting on Side/Bed(QC): 4 (met) Sit to Stand (QC): 4 (met) Chair/Usw-dv-Odyjv Xfer(QC): 4 Car Transfer (QC): 4 Gait (FIM): 5 (met-scored a 5) Distance: 200' Walk 10 feet (QC): 4 Walk 10ft-Uneven Surface(QC): 4 Walk 50ft with 2 Turns (QC): 4 Walk 150 ft (QC): 4 Gait Level of Assist: 5 Gait Assistive Device: Cane Large Base Quad Stairs (FIM): 4 (met) # of Steps: 12 (met) 1 Step (curb) (QC): 4 (met) 4 Steps (QC): 4 (mt) 12 Steps (QC): 4 (met) Stairs Level Of Assist: 4 (met) Picking up an Object (QC): 88 OT Senior Windows Systems Engineer Goals Intermediate Goals Time Frame: Nov 30, 2016 Eating (FIM): 6 (met) Eating (QC): 6 (met) Oral Hygiene (QC): 6 (met) Grooming(FIM): 6 (not met) Bathing(FIM): 5 (met) Shower/Bathe Self (QC): 5 (met) Upper Body Dressing(FIM): 6 (not met) Upper Body Dressing (QC): 6 (not met) Lower Body Dressing(FIM): 6 (not met) Lower Body Dressing (QC): 6 (not met) On/Off Footwear (QC): 6 (not met) Toileting(FIM): 6 (not met) Toileting Hygiene (QC): 6 (not met) Transfers (B,C,W/C) (FIM): 6 (not met) Toilet/Commode Transfer(FIM): 6 (not met) Toilet/Commode Transfer (QC): 6 (not met) Shower Transfer(FIM): 5 (not met) Comprehension(FIM): 4 (NOT MET) Expression (FIM): 4 (MET) Social Interaction(FIM): 5 (NOT MET) Problem Solving(FIM): 4 (NOT MET) Memory(FIM): 4 (NOT MET) Additional Goals: 1-Demonstrate ADL Tasks, 2-Verbalize Understanding, 3- ImproveStrength/Nash 1=Demonstrate adherence to instructed precautions during ADL tasks. 2=Patient will verbalize/demonstrate understanding of assistive devices/ modifications for ADL. 3=Patient will improve strength/tolerance for activity to enable patient to perform ADL's. Speech Senior Windows Systems Engineer Goals Senior Windows Systems Engineer Goals 1. The patient will demonstrate improved cognitive linguistic skills for increased function and safety with ADL's in the least restrictive setting. Time Frame: Three Weeks Comprehension: 4 (NOT MET) Expression: 4 (MET) Social Interaction: 5 (NOT MET) Problem Solvin (NOT MET) Memory: 4 (NOT MET) RITIKA BENITES PT Dec 01, 2016 15:45
[2016-12-01 18:00] VITALS: BP 108/69
== END 2016-12-01 19:59 | disposition home or self-care (01) | DRG 57 ==
LOC: ENPENDDIS 12-01 15:00
PROVIDERS: ADMIT Physical Medicine & Rehabilitation; ATTEND Physical Medicine & Rehabilitation
DX: I69.351 Hemiplegia and hemiparesis following cerebral infarction affecting right dominant side (principal); I69.322 Dysarthria following cerebral infarction; I10 Essential (primary) hypertension; N39.0 Urinary tract infection, site not specified; F32.9 Major depressive disorder, single episode, unspecified; F17.210 Nicotine dependence, cigarettes, uncomplicated; Z91.14 Patient's other noncompliance with medication regimen
CPT/HCPCS: 36415; 80048; 85027

== ENCOUNTER 2017-02-09 10:30 | Outpatient (RCR) | payer MEDICARE ==
[~2017-02-09 10:30] MED LIST changes: +ASPI-999 PO
== END 2017-03-04 16:53 | disposition home or self-care (01) ==
PROVIDERS: ATTEND Pediatrics
DX: I69.351 Hemiplegia and hemiparesis following cerebral infarction affecting right dominant side (principal)

== ENCOUNTER 2020-11-30 19:07 | Inpatient (IN) | payer MEDICARE ==
[~2020-11-30] VITALS: Ht 175.2 cm; Wt 78.2 kg
[~2020-11-30 19:07] MED LIST changes: +AMLO-250 PO; -AMLO5TAB2 PO; -BENZ-13 PO; +BENZ100C18 PO; -LISI10TA2 PO; +LISI10TA25 PO; -METO-272 PO; +METO50TA7 PO
--- NOTE | 2020-11-30 19:33 | ED General ---
General Stated Complaint: POOR LIVING CONDITION Source of Information: Patient Exam Limitations: No Limitations History of Present Illness Date Seen by Provider: Nov 30, 2020 Time Seen by Provider: 19:08 Initial Comments Patient to ER by EMS from home with chief complaint that her son discovered her home and living conditions to be full of dog and human excrement. She states she is not having any pain shortness of air fever chills nausea vomiting diarrhea. She had a stroke few years ago with some right-sided residual deficits. She was reliant on her motorized chair for mobility but it is stuck and unable to surmount the conditions that she lives in so she has been having to get up if she wanted to go to the bathroom. EMS reports there is feces on all living surfaces beds, furniture floors etc. she states she has a caregiver that is her son's girlfriend but she does not know her name and says she is very mean to her. Allergies and Home Medications Allergies Coded Allergies: No Known Drug Allergies (Unverified , 11/09/16) Home Medications Amlodipine Besylate 5 Mg Tablet, 5 MG PO DAILY, (Reported) LAST FILLED #30 09-21-16 Aspirin 81 Mg Tab.chew, 81 MG PO DAILY Prescribed by: TEJAS SHAW on 12/01/16 0755 Atorvastatin Calcium 20 Mg Tablet, 20 MG PO HS Prescribed by: MOSHE KRISHNAMURTHY on 11/09/16 0829 Citalopram Hydrobromide 40 Mg Tablet, 40 MG PO DAILY, (Reported) LAST FILLED #30 09-21-16 Clopidogrel Bisulfate 75 Mg Tablet, 75 MG PO DAILY Prescribed by: MOSHE KRISHNAMURTHY on 11/09/16828 Lisinopril 10 Mg Tablet, 10 MG PO DAILY, (Reported) LAST FILLED #30 09-21-16 Patient Home Medication List Home Medication List Reviewed: Yes Review of Systems Review of Systems Constitutional: No chills, No diaphoresis EENTM: No ear discharge, No hearing loss, No ear pain Respiratory: No cough, No short of breath Cardiovascular: No chest pain, No edema Gastrointestinal: No abdominal pain, No nausea, No vomiting Genitourinary: No discharge, No dysuria Musculoskeletal: No back pain, No joint pain Skin: No pruritus; rash All Other Systems Reviewed Negative Unless Noted: Yes Past Bmmvltz-Qqvtsg-Bccvto Hx Patient Social History Alcohol Use: Denies Use Drug of Choice: Denies Smoking Status: Former Smoker Type Used: Cigarettes Former Smoker, Quit: October 05, 2011 2nd Hand Smoke Exposure: No Recent Hopitalizations: No Immunizations Up To Date Tetanus Booster (TDap): Less than 5yrs Date of Pneumonia Vaccine: Nov 18, 2015 Date of Influenza Vaccine: Mar 11, 2014 Seasonal Allergies Seasonal Allergies: Yes Past Medical History Surgeries: Yes (abd hysterectomy-1994; right ankle surgery-1995) Orthopedic Respiratory: No Cardiac: Yes Hypertension Neurological: Yes Stroke Reproductive Disorders: No Female Reproductive Disorders: Denies 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 4.8oz. [id number]; 29.5 BMI Method:Stated General Appearance: Other (Incredibly unkempt with feces under her nails, long facial hair, smell of urine and severely soiled clothing.) Eyes: Bilateral Eye Normal Inspection, Bilateral Eye PERRL, Bilateral Eye EOMI HEENT: PERRL/EOMI, Pharynx Normal, Moist Mucous Membranes Neck: Normal Inspection, Non Tender, Supple Respiratory: No Accessory Muscle Use, No Respiratory Distress Cardiovascular: Regular Rate, Rhythm, No Edema, Normal Peripheral Pulses Gastrointestinal: Normal Bowel Sounds, Non Tender, Soft Genital/Rectal: Other (Fer and candidal rash in the folds of the groin and vulva. Feces all over her groin and legs.) Extremity: Normal Capillary Refill, Normal Inspection, No Pedal Edema, Other (C ontractures of the right upper extremity and decreased movement on the right arm as well as leg.) Neurologic/Psychiatric: Alert, Oriented x3; No Facial Droop; Motor Weakness (Right upper and lower extremity) Skin: Other (Covered in feces. She has some stage I posterior sacral decubitus with a central 2 cm unstageable sacral ulcer. On her right elbow he has a 1 cm unstageable ulcer likely from pressure.) Progress/Results/Core Measures Suspected Sepsis SIRS Temperature: Pulse: Respiratory Rate: Laboratory Tests 11/30/20 19:16: White Blood Count 8.2 Blood Pressure / Mean: Laboratory Tests 11/30/20 19:16: Creatinine 0.77, Platelet Count 417H, Total Bilirubin 0.9 Results/Orders Lab Results Laboratory Tests Test 11/30/20 19:16 11/30/20 19:31 Range/Units White Blood Count 8.2 4.3-11.0 10^3/uL Red Blood Count 5.62 H 3.80-5.11 10^6/uL Hemoglobin 15.5 11.5-16.0 g/dL Hematocrit 49 35-52 % Mean Corpuscular Volume 87 80-99 fL Mean Corpuscular Hemoglobin 28 25-34 pg Mean Corpuscular Hemoglobin Concent 32 32-36 g/dL Red Cell Distribution Width 13.5 10.0-14.5 % Platelet Count 417 H 130-400 10^3/uL Mean Platelet Volume 10.2 9.0-12.2 fL Immature Granulocyte % (Auto) 0 % Neutrophils (%) (Auto) 69 42-75 % Lymphocytes (%) (Auto) 23 12-44 % Monocytes (%) (Auto) 5 0-12 % Eosinophils (%) (Auto) 2 0-10 % Basophils (%) (Auto) 1 0-10 % Neutrophils # (Auto) 5.6 1.8-7.8 10^3/uL Lymphocytes # (Auto) 1.9 1.0-4.0 10^3/uL Monocytes # (Auto) 0.4 0.0-1.0 10^3/uL Eosinophils # (Auto) 0.1 0.0-0.3 10^3/uL Basophils # (Auto) 0.1 0.0-0.1 10^3/uL Immature Granulocyte # (Auto) 0.0 0.0-0.1 10^3/uL Sodium Level 138 135-145 MMOL/L Potassium Level 3.1 L 3.6-5.0 MMOL/L Chloride Level 100 98-107 MMOL/L Carbon Dioxide Level 24 21-32 MMOL/L Anion Gap 14 5-14 MMOL/L Blood Urea Nitrogen 5 L 7-18 MG/DL Creatinine 0.77 0.60-1.30 MG/DL Estimat Glomerular Filtration Rate > 60 BUN/Creatinine Ratio 6 Glucose Level 118 H 70-105 MG/DL Calcium Level 10.3 H 8.5-10.1 MG/DL Corrected Calcium 10.1 8.5-10.1 MG/DL Total Bilirubin 0.9 0.1-1.0 MG/DL Aspartate Amino Transf (AST/SGOT) 16 5-34 U/L Alanine Aminotransferase (ALT/SGPT) 10 0-55 U/L Alkaline Phosphatase 138 H 40-136 U/L Total Protein 8.5 H 6.4-8.2 GM/DL Albumin 4.3 3.2-4.5 GM/DL Urine Color YELLOW Urine Clarity CLEAR Urine pH 6.0 5-9 Urine Specific [place] <=1.005 1.016-1.022 Urine Protein NEGATIVE NEGATIVE Urine Glucose (UA) NEGATIVE NEGATIVE Urine Ketones NEGATIVE NEGATIVE Urine Nitrite NEGATIVE NEGATIVE Urine Bilirubin NEGATIVE NEGATIVE Urine Urobilinogen 0.2 < = 1.0 MG/DL Urine Leukocyte Esterase 2+ H NEGATIVE Urine RBC (Auto) NEGATIVE NEGATIVE Urine RBC NONE /HPF Urine WBC 10-25 H /HPF Urine Squamous Epithelial Cells 0-2 /HPF Urine Renal Epithelial Cells 2-5 /HPF Urine Crystals NONE /LPF Urine Bacteria LARGE H /HPF Urine Casts NONE /LPF Urine Mucus NEGATIVE /LPF Urine Culture Indicated YES My Orders Orders - ESTHELA ESPINOZA Cbc With Automated Diff (11/30/20 19:28) Comprehensive Metabolic Panel (11/30/20 19:28) Ua Culture If Indicated (11/30/20 19:28) Straight Cath For Spec.-Adult (11/30/20 19:28) Ed Iv/Invasive Line Start (11/30/20 19:28) Urine Culture (11/30/20 19:31) General/Regular (11/30/20 Dinner) Ceftriaxone (Rocephin) (11/30/20 20:30) Vital Signs/I&O Capillary Refill : Progress Note : Time: 19:30 Progress Note Plan to check some labs and urine and will seek observation in the hospital for dialysis social worker to get involved for placement as this patient is not able to care for herself. Departure Communication (Admissions) Time/Spoke to Admitting Phy: 20:15 Discussed the case with Dr. Bucio and he agrees with inpatient with Rocephin and consultation to dialysis social worker. Impression Primary Impression: Problem related to social environment Additional Impressions: History of CVA with residual deficit Age-related physical debility Urinary tract infection Qualified Codes: N30.00 - Acute cystitis without hematuria Disposition: ADMITTED INPATIENT Condition: Stable Admissions Decision to Admit Reason: Admit from ER (General) Decision to Admit/Date: Nov 30, 2020 Time/Decision to Admit Time: 19:30 Departure-Patient Inst. Referrals: TWAN AVENDAÑO MD (PCP) Primary Care Physician [facility] (Family) Primary Care Physician ESTHELA ESPINOZA Nov 30, 2020 19:33
[2020-11-30 19:36] LABS: BASOPHILS # (AUTO) 0.1 10^3/uL (0.0-0.1); BASOPHILS % (AUTO) 1 % (0-10); EOSINOPHILS # (AUTO) 0.1 10^3/uL (0.0-0.3); EOSINOPHILS % (AUTO) 2 % (0-10); HEMATOCRIT 49 % (35-52); HEMOGLOBIN 15.5 g/dL (11.5-16.0); LYMPHOCYTES # (AUTO) 1.9 10^3/uL (1.0-4.0); LYMPHOCYTES % (AUTO) 23 % (12-44); MEAN CORPUSCULAR HEMOGLOBIN 28 pg (25-34); MEAN CORPUSCULAR HGB CONC 32 g/dL (32-36); MEAN CORPUSCULAR VOLUME 87 fL (80-99); MEAN PLATELET VOLUME 10.2 fL (9.0-12.2); MONOCYTES # (AUTO) 0.4 10^3/uL (0.0-1.0); MONOCYTES % (AUTO) 5 % (0-12); NEUTROPHILS # (AUTO) 5.6 10^3/uL (1.8-7.8); NEUTROPHILS % (AUTO) 69 % (42-75); PLATELET COUNT 417 10^3/uL (130-400); WHITE BLOOD COUNT 8.2 10^3/uL (4.3-11.0)
[2020-11-30 19:45] LABS: BILIRUBIN,URINE NEGATIVE (NEGATIVE); CLARITY,URINE CLEAR; COLOR,URINE YELLOW; GLUCOSE, URINE (UA) NEGATIVE (NEGATIVE); KETONES,URINE NEGATIVE (NEGATIVE); LEUKOCYTE ESTERASE ,URINE 2+ (NEGATIVE); NITRITE,URINE NEGATIVE (NEGATIVE); PROTEIN,URINE NEGATIVE (NEGATIVE)
[2020-11-30 19:56] LABS: BACTERIA,URINE LARGE /HPF; SQUAMOUS EPITHELIAL CELL,UR 0-2 /HPF
[2020-11-30 19:56] LABS: ALANINE AMINOTRANSFERASE 10 U/L (0-55); ALBUMIN 4.3 GM/DL (3.2-4.5); ALKALINE PHOSPHATASE 138 U/L (40-136); BILIRUBIN,TOTAL 0.9 MG/DL (0.1-1.0); BUN/CREATININE RATIO 6; CALCIUM 10.3 MG/DL (8.5-10.1); CARBON DIOXIDE 24 MMOL/L (21-32); CHLORIDE 100 MMOL/L (98-107); CREATININE SERUM 0.77 MG/DL (0.60-1.30); GFR ESTIMATED > 60; GLUCOSE 118 MG/DL (70-105); POTASSIUM 3.1 MMOL/L (3.6-5.0); SODIUM 138 MMOL/L (135-145); TOTAL PROTEIN 8.5 GM/DL (6.4-8.2)
[2020-11-30] MEDS ORDERED: cefTRIAXone 1,000 MG in WATER (STERILE) FOR INJECTION 10 ML IV ONE (20:30)
[2020-11-30 20:55] VITALS: BP 141/74
[2020-11-30] MEDS ORDERED: ONDANSETRON 4 MG/2 ML (SDV) Z0FRAN IV PRN (21:15)
[2020-11-30] MEDS ORDERED: LORazepam INJ 2 MG/ML (ATIVAN) VIAL IV PRN (21:15)
[2020-11-30] MEDS ORDERED: LORazepam 1 MG (ATIVAN) TAB PO PRN (21:15)
[2020-11-30] MEDS: LACTATED RINGERS 1,000 ML IV SCH (21:30)
[2020-12-01] VITALS (7 sets, daily range): BP systolic 113–143; BP diastolic 68–87
[2020-12-01 05:09] LABS: BASOPHILS # (AUTO) 0.1 10^3/uL (0.0-0.1); BASOPHILS % (AUTO) 1 % (0-10); EOSINOPHILS # (AUTO) 0.1 10^3/uL (0.0-0.3); EOSINOPHILS % (AUTO) 2 % (0-10); HEMATOCRIT 42 % (35-52); LYMPHOCYTES # (AUTO) 1.5 10^3/uL (1.0-4.0); LYMPHOCYTES % (AUTO) 23 % (12-44); MEAN CORPUSCULAR HEMOGLOBIN 28 pg (25-34); MEAN CORPUSCULAR HGB CONC 31 g/dL (32-36); MEAN CORPUSCULAR VOLUME 89 fL (80-99); MEAN PLATELET VOLUME 10.2 fL (9.0-12.2); MONOCYTES # (AUTO) 0.4 10^3/uL (0.0-1.0); MONOCYTES % (AUTO) 7 % (0-12); NEUTROPHILS # (AUTO) 4.5 10^3/uL (1.8-7.8); NEUTROPHILS % (AUTO) 67 % (42-75); PLATELET COUNT 326 10^3/uL (130-400); WHITE BLOOD COUNT 6.6 10^3/uL (4.3-11.0)
[2020-12-01 05:19] LABS: ALBUMIN 3.2 GM/DL (3.2-4.5)
[2020-12-01 05:20] LABS: CHLORIDE 106 MMOL/L (98-107); POTASSIUM 3.3 MMOL/L (3.6-5.0); SODIUM 141 MMOL/L (135-145)
[2020-12-01 05:21] LABS: CALCIUM 9.2 MG/DL (8.5-10.1)
[2020-12-01 05:22] LABS: GLUCOSE 117 MG/DL (70-105); TOTAL PROTEIN 6.4 GM/DL (6.4-8.2)
[2020-12-01 05:23] LABS: CARBON DIOXIDE 24 MMOL/L (21-32)
[2020-12-01 05:24] LABS: BILIRUBIN,TOTAL 0.5 MG/DL (0.1-1.0)
[2020-12-01 05:26] LABS: ALKALINE PHOSPHATASE 103 U/L (40-136); CREATININE SERUM 0.67 MG/DL (0.60-1.30); GFR ESTIMATED > 60
[2020-12-01 05:27] LABS: BUN/CREATININE RATIO 9
[2020-12-01 05:29] LABS: ALANINE AMINOTRANSFERASE 7 U/L (0-55)
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
[2020-12-01] MEDS: LACTATED RINGERS 1,000 ML IV SCH ×2 (07:05→17:39)
--- NOTE | 2020-12-01 08:36 | Diagnostic Imaging Report ---
Indication: Physical debility. Time of exam: 3:30 AM Correlation is made to prior chest 11/06/2016. Heart size is stable. Lungs are clear. No infiltrates are seen. There is no effusion or pneumothorax. The pulmonary vascularity is normal. Impression: No acute cardiopulmonary process is detected. Dictated by: Dictated on workstation # [id number]
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
[2020-12-01] MEDS ORDERED: amLODIPine 5 MG (NORVASC) TAB PO SCH (09:00)
[2020-12-01] MEDS: lisINopril 10 MG (PRINIVIL) TABLET PO SCH (09:50)
[2020-12-01] MEDS: CLOPIDOGREL 75 MG (PLAVIX) TABLET PO SCH (09:50)
[2020-12-01] MEDS: ASPIRIN E.C. 81 MG (ECOTRIN) TAB PO SCH (09:50)
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
[2020-12-01] MEDS ORDERED: AMLO-251 PO (12:14)
[2020-12-01] MEDS ORDERED: ARIP5TAB12 PO (12:14)
[2020-12-01] MEDS ORDERED: ATOR20TA66 PO (12:14)
[2020-12-01] MEDS ORDERED: PRAZ1CAP2 PO (12:14)
[2020-12-01] MEDS: cefTRIAXone 1,000 MG/SWFI 10 ML IV PUSH IV SCH ×2 (19:50)
[2020-12-02 03:31] VITALS: BP 107/70
[2020-12-02] MEDS: LACTATED RINGERS 1,000 ML IV SCH (05:12)
[2020-12-02 06:29] LABS: BASOPHILS # (AUTO) 0.1 10^3/uL (0.0-0.1); BASOPHILS % (AUTO) 1 % (0-10); EOSINOPHILS # (AUTO) 0.2 10^3/uL (0.0-0.3); EOSINOPHILS % (AUTO) 3 % (0-10); HEMATOCRIT 39 % (35-52); HEMOGLOBIN 12.5 g/dL (11.5-16.0); LYMPHOCYTES # (AUTO) 2.2 10^3/uL (1.0-4.0); LYMPHOCYTES % (AUTO) 31 % (12-44); MEAN CORPUSCULAR HEMOGLOBIN 28 pg (25-34); MEAN CORPUSCULAR HGB CONC 32 g/dL (32-36); MEAN CORPUSCULAR VOLUME 89 fL (80-99); MEAN PLATELET VOLUME 9.9 fL (9.0-12.2); MONOCYTES # (AUTO) 0.4 10^3/uL (0.0-1.0); MONOCYTES % (AUTO) 6 % (0-12); NEUTROPHILS # (AUTO) 4.1 10^3/uL (1.8-7.8); NEUTROPHILS % (AUTO) 59 % (42-75); PLATELET COUNT 317 10^3/uL (130-400)
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
[2020-12-02 06:41] LABS: ALBUMIN 3.1 GM/DL (3.2-4.5); CHLORIDE 110 MMOL/L (98-107); POTASSIUM 3.5 MMOL/L (3.6-5.0); SODIUM 143 MMOL/L (135-145)
[2020-12-02 06:42] LABS: CALCIUM 8.5 MG/DL (8.5-10.1)
[2020-12-02 06:43] LABS: GLUCOSE 105 MG/DL (70-105); TOTAL PROTEIN 6.1 GM/DL (6.4-8.2)
[2020-12-02 06:44] LABS: CARBON DIOXIDE 24 MMOL/L (21-32)
[2020-12-02 06:45] LABS: BILIRUBIN,TOTAL 0.4 MG/DL (0.1-1.0)
[2020-12-02 06:47] LABS: ALKALINE PHOSPHATASE 98 U/L (40-136); CREATININE SERUM 0.68 MG/DL (0.60-1.30); GFR ESTIMATED > 60
[2020-12-02 06:48] LABS: BUN/CREATININE RATIO 6
[2020-12-02 06:50] LABS: ALANINE AMINOTRANSFERASE 7 U/L (0-55)
[2020-12-02 08:00] VITALS: BP 107/70
--- NOTE | 2020-12-02 09:19 | Physical Therapy Daily Note ---
PT Daily Note-Current Subjective Patient agrees to PT. Mental Status Patient Orientation: Person, Time, Situation Attachments: IV Transfers SCALE: Activities may be completed with or without assistive devices. 4-Txbkwhynln-gbhfajs completes the activity by him/herself with no assistance from a helper. 5-Set-up or Clean-up Assistance-helper sets up or cleans up; patient completes activity. [place] assists only prior to or following the activity. 4-Supervision or Touching Assistance-helper provides verbal cues and/or touching/steadying and/or contact guard assistance as patient completes activity. Assistance may be provided throughout the activity or intermittently. 3-Partial/Moderate Assistance-helper does LESS THAN HALF the effort. [place] lifts, holds or supports trunk or limbs, but provides less than half the effort. 2-Substantial/Maximal Assistance-helper does MORE THAN HALF the effort. [place] lifts or holds trunk or limbs and provides more than half the effort. 5-Ukgncxbpe-nbycpd does ALL the effort. Patient does none of the effort to complete the activity. Or, the assistance of 2 or more helpers is required for the patient to complete the activity. If activity was not attempted, code reason: 7-Patient Refused. 9-Not Applicable-not attempted and the patient did not perform the activity before the current illness, exacerbation or injury. 10-Not Attempted due to Environmental Limitations-(lack of equipment, weather restraints, etc.). 88-Not Attempted due to Medical Conditions or Safety Concerns. Lying to Sitting/Side of Bed(Q: 2 Sit to Stand (QC): 1 Chair/Uus-nm-Rumam Xfer(QC): 1 Patient retropulsive and leaning to left on this date with sit to stand and SPT /patient unable to utilize FWW due to right UE flexion tone. Exercises Seated Therapy Exercises: Ankle pumps (stretching), Long arc quads, Hip flexion Seated Reps: 12 (AAROM x 2 sets) Assessment Patient up in recliner with needs met. Patient does become emotional during session. Increase activity as tolerated by patient. PT Ehr Trainer Goals Assisted Goals PT Assisted Goals Time Frame: Dec 13, 2020 Roll Left & Right (QC): 3 Sit to Lying (QC): 3 Lying-Sitting on Side/Bed(QC): 3 Sit to Stand (QC): 3 Chair/Ohd-kw-Qbyfg Xfer(QC): 3 Toilet Transfer (QC): 3 Does the Patient Walk: Yes Walk 10 feet (QC): 3 Walk 50ft with 2 Turns (QC): 3 Does the Pt use WC or Scooter?: Yes Wheel 50 feet with 2 turns (QC: 3 Type: Manual PT Plan Treatment/Plan Treatment Plan: Continue Plan of Care Treatment Plan: Bed Mobility, Education, Functional Activity Nash, Functional Strength, Gait, Safety, Therapeutic Exercise, Transfers Treatment Duration: Dec 13, 2020 Frequency: 6 times per week Estimated Hrs Per Day: .5 hour per day Patient and/or Family Agrees t: Yes Time/GCodes Time In: 845 Time Out: 859 Total Billed Treatment Time: 14 Total Billed Treatment 1 visit EX 14 min CL CANALES PT Dec 02, 2020 09:19
[2020-12-02] MEDS: CLOPIDOGREL 75 MG (PLAVIX) TABLET PO SCH (09:30)
[2020-12-02] MEDS: lisINopril 10 MG (PRINIVIL) TABLET PO SCH (09:31)
[2020-12-02] MEDS: amLODIPine 10 MG (NORVASC) TAB PO SCH (09:31)
[2020-12-02] MEDS: ASPIRIN E.C. 81 MG (ECOTRIN) TAB PO SCH (09:32)
[2020-12-02] MEDS ORDERED: KCL 10 MEQ TAB (MICRO K) PO ONE (10:15)
[2020-12-02 12:00] VITALS: BP 124/71
--- NOTE | 2020-12-02 15:01 | Occupational Ther Daily Note ---
OT Current Status-Daily Note Subjective Pt alert, lying in bed. Pt requested to have shower. Nrsg in room. Pt agrees to therapy. Pt emotional throughout session. Mental Status/Objective Patient Orientation: Person, Place, Time, Situation Attachments: Rosario Catheter (purwick), IV ADL-Treatment Pt agrees to shower. Mod A for supine <--> sit EOB. Min A x2 for SPT from EOB <--> shower chair. Pt sat EOB and w/c with SBA. When given wash cloth, pt able to all areas except L UE, feet and buttocks though not thoroughly. Assist given to wash/dry feet and buttocks. Assist to don/doff hospital gown. Assist to don/doff socks. Assist to scoot up in bed. After session, pt lying in bed with call light/phone in reach. All needs met in room. Therapy Code Descriptions/Definitions Functional [place] Measure: 0=Not Assessed/NA 4=Minimal Assistance 1=Total Assistance 5=Supervision or Setup 2=Maximal Assistance 6=Modified [place] 3=Moderate Assistance 7=Complete IndependenceSCALE: Activities may be completed with or without assistive devices. 2-Ymeschqudm-zrnsipr completes the activity by him/herself with no assistance from a helper. 5-Set-up or Clean-up Assistance-helper sets up or cleans up; patient completes activity. [place] assists only prior to or following the activity. 4-Supervision or Touching Assistance-helper provides verbal cues and/or touching/steadying and/or contact guard assistance as patient completes acti vity. Assistance may be provided throughout the activity or intermittently. 3-Partial/Moderate Assistance-helper does LESS THAN HALF the effort. [place] lifts, holds or supports trunk or limbs, but provides less than half the effort. 2-Substantial/Maximal Assistance-helper does MORE THAN HALF the effort. [place] lifts or holds trunk or limbs and provides more than half the effort. 5-Oqfzcxrxn-xbbead does ALL the effort. Patient does none of the effort to complete the activity. Or, the assistance of 2 or more helpers is required for the patient to complete the activity. If activity was not attempted, code reason: 7-Patient Refused. 9-Not Applicable-not attempted and the patient did not perform the activity before the current illness, exacerbation or injury. 10-Not Attempted due to Environmental Limitations-(lack of equipment, weather restraints, etc.). 88-Not Attempted due to Medical Conditions or Safety Concerns. Bathing Location: R Arm, L Upper Leg, R Upper Leg, Chest, Abdomen Shower/Bathe Self (QC): 3 (Sitting on shower chair with cutout) Upper Body Dressing (QC): 2 On/Off Footwear: 2 OT Long-Term Goals Shoe Designer Goals Time Frame: Dec 12, 2020 Eating (QC): 5 Oral Hygiene (QC): 5 Toileting Hygiene (QC): 4 Shower/Bathe Self (QC): 3 Upper Body Dressing (QC): 5 Lower Body Dressing (QC): 3 On/Off Footwear (QC): 3 Additional Goals: 1-Demonstrate ADL Tasks, 2-Verbalize Understanding, 3- ImproveStrength/Nash 1=Demonstrate adherence to instructed precautions during ADL tasks. 2=Patient will verbalize/demonstrate understanding of assistive devices/modifications for ADL. 3=Patient will improve strength/tolerance for activity to enable patient to perform ADL's. OT Education/Plan Problem List/Assessment Assessment: Decreased Activ Tolerance, Decreased UE Strength, Impaired Bed Mobility, Impaired Coordination, Impaired Funct Balance, Impaired I ADL's, Impaired Self-Care Skills, Restricted Funct UE ROM Discharge Recommendations Plan/Recommendations: Continue POC Treatment Plan/Plan of Care Patient would benefit from OT for education, treatment and training to promote independence in ADL's, mobility, safety and/or upper extremity function for ADL's. Plan of Care: ADL Retraining, Functional Mobility, UE Funct Exercise/Act Treatment Duration: Dec 12, 2020 Frequency: 5 times per week Estimated Hrs Per Day: .25 hour per day Rehab Potential: Fair Time/GCodes Start Time: 13:40 Stop Time: 13:12 Total Time Billed (hr/min): 32 Billed Treatment Time 1 visit-ADL 2 (30 min) RITIKA RENDON Dec 02, 2020 15:01
[2020-12-02 15:30] VITALS: BP 125/75
[2020-12-02 19:20] VITALS: BP 117/74
[2020-12-02] MEDS: cefTRIAXone 1,000 MG/SWFI 10 ML IV PUSH IV SCH ×2 (20:23)
[2020-12-02] MEDS ORDERED: NON-FORMULARY MEDICATION 1 EA EA (Prazosin HCl 1 MG) PO SCH (21:00)
[2020-12-03 00:03] VITALS: BP 123/77
[2020-12-03 04:33] VITALS: BP 98/65
[2020-12-03] MEDS ORDERED: Lorazepam PO (06:30)
[2020-12-03] MEDS ORDERED: LISI10TA25 PO (06:30)
[2020-12-03] MEDS ORDERED: ASPI-1238 PO (06:30)
[2020-12-03] MEDS ORDERED: CLOP75TA28 PO (06:30)
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
[2020-12-03 06:40] LABS: BASOPHILS # (AUTO) 0.1 10^3/uL (0.0-0.1); BASOPHILS % (AUTO) 1 % (0-10); EOSINOPHILS # (AUTO) 0.2 10^3/uL (0.0-0.3); EOSINOPHILS % (AUTO) 2 % (0-10); HEMATOCRIT 43 % (35-52); HEMOGLOBIN 13.7 g/dL (11.5-16.0); LYMPHOCYTES # (AUTO) 1.8 10^3/uL (1.0-4.0); LYMPHOCYTES % (AUTO) 25 % (12-44); MEAN CORPUSCULAR HEMOGLOBIN 28 pg (25-34); MEAN CORPUSCULAR HGB CONC 32 g/dL (32-36); MEAN CORPUSCULAR VOLUME 88 fL (80-99); MEAN PLATELET VOLUME 9.7 fL (9.0-12.2); MONOCYTES # (AUTO) 0.4 10^3/uL (0.0-1.0); MONOCYTES % (AUTO) 5 % (0-12); NEUTROPHILS # (AUTO) 4.9 10^3/uL (1.8-7.8); NEUTROPHILS % (AUTO) 67 % (42-75); PLATELET COUNT 345 10^3/uL (130-400); WHITE BLOOD COUNT 7.3 10^3/uL (4.3-11.0)
[2020-12-03 06:54] LABS: ALBUMIN 3.4 GM/DL (3.2-4.5); CHLORIDE 107 MMOL/L (98-107); SODIUM 140 MMOL/L (135-145)
[2020-12-03 06:56] LABS: GLUCOSE 103 MG/DL (70-105)
[2020-12-03 06:57] LABS: TOTAL PROTEIN 6.8 GM/DL (6.4-8.2)
[2020-12-03 06:58] LABS: BILIRUBIN,TOTAL 0.5 MG/DL (0.1-1.0); CARBON DIOXIDE 24 MMOL/L (21-32)
[2020-12-03 07:00] LABS: ALKALINE PHOSPHATASE 111 U/L (40-136); CREATININE SERUM 0.73 MG/DL (0.60-1.30); GFR ESTIMATED > 60
[2020-12-03 07:01] LABS: BUN/CREATININE RATIO 7
[2020-12-03 07:03] LABS: ALANINE AMINOTRANSFERASE 9 U/L (0-55)
[2020-12-03 08:00] VITALS: BP 127/76
[2020-12-03] MEDS: ASPIRIN E.C. 81 MG (ECOTRIN) TAB PO SCH (09:18)
[2020-12-03] MEDS: CLOPIDOGREL 75 MG (PLAVIX) TABLET PO SCH (09:18)
[2020-12-03] MEDS: lisINopril 10 MG (PRINIVIL) TABLET PO SCH (09:18)
[2020-12-03] MEDS: amLODIPine 10 MG (NORVASC) TAB PO SCH (09:18)
--- NOTE | 2020-12-03 10:49 | Physician Query Clarification ---
Physician Query-General Query to Physician: The medical record reflects the following clinical evidence: Clinical Indicators: documentation on nursing admission assessment of "stage I pressure ulcer on coccyx/sacrum area" Risk Factor(s): CVA with weakness and Contractures, Immobile Treatment: offloading with pillows, turning and repositioning zinc ointment, Allevyn, Pressure reducing cushion to chair 1. Pressure ulcer of sacral region, stage 1, present on admission 2. Other explanation of clinical findings 3. Unable to determine (no explanation for clinical findings) Please clarify and document your clinical opinion in the progress notes and discharge summary including the definitive and/or presumptive diagnosis, (susp ected or probable), related to the above clinical findings. Please include clinical findings supporting your diagnosis. Kassandra Quiñones MSN, RN [phone] [email or web address] PHYSICIAN RESPONSE: Based on the clinical findings in the record, please respond to the query above on this document as an addendum. Physician Response: Physician Response 1 If you have questions please contact: New Account Interviewer: Ext: Thank you for your time and cooperation. Clinical Collection Administrator/New Account Interviewer This is a permanent part of the medical record KASSANDRA QUIÑONES Dec 03, 2020 10:49 DENAE ESPINOSA DO Dec 03, 2020 11:40
[2020-12-03 12:00] VITALS: BP 128/79
[2020-12-03 14:30] VITALS: BP 128/79
== END 2020-12-03 14:30 | DRG 884 ==
LOC: EDUNIT# 19:07 → ER 19:09 → 4TH 20:00
PROVIDERS: ADMIT Internal Medicine; ATTEND Internal Medicine
DX: R54 Age-related physical debility (principal); I69.354 Hemiplegia and hemiparesis following cerebral infarction affecting left non-dominant side; N39.0 Urinary tract infection, site not specified; L89.151 Pressure ulcer of sacral region, stage 1; I10 Essential (primary) hypertension; F32.9 Major depressive disorder, single episode, unspecified; Z60.9 Problem related to social environment, unspecified; Z74.2 Need for assistance at home and no other household member able to render care; Z79.82 Long term (current) use of aspirin; Z79.899 Other long term (current) drug therapy; Z87.891 Personal history of nicotine dependence
CPT/HCPCS: 36415; 51701; 71045; 80053; 81000; 85025; 87077; 87088; 87186; 96374